=== PATIENT | female | born 1935 | race Caucasian/White ===

== ENCOUNTER → 2017-08-19 07:52 | Outpatient (CLI) | payer MEDICARE, OTHER, SELFPAY ==
[2017-08-19 10:27] LABS: AST(SGOT) 10 U/L (15-37); Alanine Aminotransfer ALT/SGPT 10 U/L (13-56); Albumin, Serum 3.4 g/dL (3.2-5.0); Alkaline Phosphatase 57 U/L (45-117); Anion Gap 9 (5-15); BUN 64 mg/dL (7-18); BUN/Creat Ratio 34.2 RATIO (10-20); Bilirubin, Direct 0.06 mg/dL (0.00-0.30); Calcium,Total 8.4 mg/dL (8.5-10.1); Chloride 104 mmol/L (98-107); Cholesterol 195 mg/dL (200); Creatinine, Serum 1.87 mg/dL (0.55-1.02); EST Glomerular Filtration Rate 28 mL/min (>60); Est Glom Filt Rate - Afr Amer 33 mL/min (>60); Globulin 3.6 g/dL (2.2-4.2); Glucose 196 mg/dL (74-106); High Density Lipoprotein 40 mg/dL; Sodium Level 137 mmol/L (136-145); Triglycerides 158 mg/dL; Very Low Density Lipoprotein 32 mg/dL (5-40)
[2017-08-19 10:30] LABS: Hemoglobin A1c 10.8 % (4.2-6.3)
[2017-08-19 10:38] LABS: Microalbumin,Random Urine 9.8 mg/L (NO RANGE EST.); Microalbumin:Creatinine Ratio 14.9 mg/g CRE (<30 mg/g CRE)
== END ==
PROVIDERS: Family Provider Family Medicine; PCP Family Medicine; Visit Provider Family Medicine
DX: E78.5 Hyperlipidemia, unspecified (principal); I10 Essential (primary) hypertension; Z13.29 Encounter for screening for other suspected endocrine disorder; E11.9 Type 2 diabetes mellitus without complications
CPT/HCPCS: 36415; 80048; 80061; 80076; 82043; 82570; 83036

== ENCOUNTER → 2018-05-20 15:11 | Outpatient (CLI) | payer MEDICARE, OTHER, SELFPAY ==
--- OUTSIDE RECORDS SUMMARY | 2018-07-03 05:59 | XMS RPT_ITS ---
:1935 Author Organization OHIP Support Name Relationship Address Phone ARCELIA SCHNEIDER Unavailable Unavailable + MARCOS HOLLEY Unavailable [address] Unavailable [place], [place] [phone] NOT GIVEN Unavailable Unavailable Unavailable ARCELIA SCHNEIDER Unavailable [address] + [place] [address] MARCOS HOLLEY Unavailable [address] + [place] [address] R Unavailable Unavailable Unavailable Abbi Schneiderhy Unavailable [address] + [place] [address] Marcos Holley Unavailable [address] + [place] [address] R Unavailable Unavailable Unavailable Abbi Schneiderhy Unavailable [address] + [place] [address] Marcos Holley Unavailable [address] + [place] [address] R Unavailable Unavailable Unavailable Abbi Schneiderhy Unavailable [address] + [place] [address] Marcos Holley Unavailable [address] + [place] [address] R Unavailable Unavailable Unavailable Abbi Schneiderhy Unavailable [address] + [place] [address] Marcos Holley Unavailable [address] + [place] [address] R Unavailable Unavailable Unavailable Abbi Schneiderhy Unavailable [address] + [place] [address] Marcos Holley Unavailable [address] + [place] [address] R Unavailable Unavailable Unavailable Wyatt, Arcelia Unavailable [address] + [place] [address] Kiner, Marcos Unavailable [address] + [place] [address] R Unavailable Unavailable Unavailable Arcelia Schneider Unavailable [address] + [place] [address] Kiner, Marcos Unavailable [address] + [place] [address] R Unavailable Unavailable Unavailable Arcelia Schneider Unavailable [address] + [place] [address] Kiner, Marcos Unavailable [address] + [place] [address] R Unavailable Unavailable Unavailable Arcelia Schneider Unavailable [address] + [place] [address] Kiner, Marcos Unavailable [address] + [place] [address] R Unavailable Unavailable Unavailable Arcelia Schneider Unavailable [address] + [place] [address] Kiner, Marcos Unavailable [address] + [place] [address] R Unavailable Unavailable Unavailable Arcelia Schneider Unavailable [address] + [place] [address] Kiner, Marcos Unavailable [address] + [place] [address] R Unavailable Unavailable Unavailable Arcelia Schneider Unavailable [address] + [place] [address] Kiner, Marcos Unavailable [address] + [place] [address] R Unavailable Unavailable Unavailable Arcelia Schneider Unavailable [address] + [place] [address] Kiner, Marcos Unavailable [address] + [place] [address] R Unavailable Unavailable Unavailable ARCELIA SCHNEIDER Unavailable Unavailable + ARCELIA SCHNEIDER Unavailable Unavailable + ARCELIA SCHNEIDER Unavailable Unavailable + BRIANDA MARCOS Unavailable [address] Unavailable [place], [place] [phone] NOT GIVEN Unavailable Unavailable Unavailable ARCELIA SCHNEIDER Unavailable [address] [facility] [phone] [place] [address] BRIANDA MARCOS Unavailable [address] + [place] [address] R Unavailable Unavailable Unavailable Care Team Providers Name Role Phone KARINA CHIRINOS., DR. MARCOS Freire Primary Care Unavailable ALEXANDRO CHIRIONS, OREN Admitting Unavailable KODI FRASER, DR. SUMI Gipson Attending Unavailable KARINA CHIRINOS, KOFFI Garcia Consulting Unavailable EDU CHIRINOS, FILI Vanessa Consulting Unavailable REUBEN CHIRINOS, PERCY Consulting Unavailable LASKOVSKI DO, ANAHI Consulting Unavailable GATABARRY DPM, KLAUS Consulting Unavailable MAGAN GUTIERREZ MD, ROGELIO RICO Consulting Unavailable PALUTSELOISE FRASER, EDDIE Zaman Consulting Unavailable FREDDIE FRASER, DR. JULIÁN Freire Consulting Unavailable EMANUEL CHIRINOS., DR. GREER Consulting Unavailable NIGEL CHIRINOS, MARKOS Jones Consulting Unavailable NGUYỄN, DR CHACE Perez Admitting Unavailable NGUYỄN, DR CHACE Perez Attending Unavailable MARCOS ARGUETA MD Referring Unavailable NGUYỄN, DR CHACE Perez Primary Care Unavailable MARCOS ARGUETA MD Consulting Unavailable PROVIDER, UNKNOWN Consulting Unavailable REGAN CARRANZA Admitting Unavailable REGAN CARRANZA Attending Unavailable REGAN CARRANZA Primary Care Unavailable MARCOS ARGUETA MD Consulting Unavailable MARCOS ARGUETA MD Referring Unavailable PROVIDER, UNKNOWN Consulting Unavailable Raudel Das Attending Unavailable Das, Raudel Attending Unavailable Das, Raudel Attending Unavailable Majano, Marcos Attending Unavailable Majano, Marcos Primary Care Unavailable Marcos Majano Attending Unavailable Marcos Majano Referring Unavailable Marcos Majano Primary Care Unavailable Raudel Das Attending Unavailable Das, Raudel Attending Unavailable Das, Raudel Attending Unavailable Das, Raudel Attending Unavailable Das, Raudel Attending Unavailable Das, Raudel Attending Unavailable Das, Raudel Attending Unavailable Das, Raudel Attending Unavailable Das, Raudel Attending Unavailable Das, Raudel Attending Unavailable PROBLEMS PROBLEMS DATE TYPE CONDITION / CODE ATTENDING STATUS SOURCE 01/27/2018 Admitting Pain in left foot / NGUYỄN, DR SANTILLAN Active [facility]t Metz Diagnosis [id number](ICD-10) C [facility] Repository 01/27/2018 Principle Type [address] CHACE Metz 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 / E1152(ICD-10) 01/27/2018 Secondary Type [address] CHACE ADRIAN Diagnosis mellitus with [facility] hyperglycemia / Hospital E1165(ICD-10) Repository 01/27/2018 Secondary Gangrene, not ADRIAN, DR CHACE Metz Diagnosis elsewhere classified [facility] / I96(ICD-10) Hospital Repository 01/27/2018 Secondary [facility] (current) NGUYỄN, 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 / [facility] Z794(ICD-10) Hospital Repository 01/27/2018 Secondary Other specified ADRIAN, DR CHACE Metz Diagnosis disorders of bone [facility] density and Hospital structure, left Repository ankle and foot / Q61686(ICD-10) 01/27/2018 Secondary Other specified NGUYỄN, DR CHACE Metz Diagnosis disorders of bone [facility] density and Hospital structure, right Repository ankle and foot / C33724(ICD-10) 01/27/2018 Secondary Atherosclerotic NGUYỄN, 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 / I2510(ICD-10) 01/27/2018 Secondary Presence of NGUYỄN, DR CHACE Metz 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 / Z951(ICD-10) Hospital Repository 09/10/2017 Unknown E78.5 - Marcos Majanooster Hyperlipidemia, Community unspecified / Hospital E78.5(ICD-10) Repository PROCEDURES PROCEDURES No Procedure Records FoundRESULTS RESULTS CBC Collected: 06/29/2018 Status: F Source: [place] 1:38 AM [facility] REPOSITORY TYPE CODE TESTS RESULT OUT OF RANGE REFERENCE UNITS LAB CBC(LOINC) CBC Result Comment: CBC-COMPLETE BLOOD COUNT LAB WBC(LOINC) 4.5 - 10.8 x 10EE3/UL WBC 8.9 LAB RBC(LOINC) 4.10 - x 10EE6/UL 5.30 RBC Low 2.40 LAB HEMOGLOBIN(LOINC) 12.0 - g/dl 16.0 Low HEMOGLOBIN 7.4 LAB HEMATOCRIT(LOINC) 34.0 - % 46.0 Low HEMATOCRIT 22.4 LAB MCV(LOINC) 80 - 99 fl MCV 93 LAB MCH(LOINC) 27 - 33 pg MCH 31 LAB MCHC(LOINC) 32 - 36 X10 3 MCHC 33 LAB RDW/CV(LOINC) 12.0 - % 15.6 RDW/CV 12.1 LAB PLATELET(LOINC) 150 - 450 x10EE3/UL PLATELET 258 LAB MPV(LOINC) 6.6 - 10.5 fl MPV Low 6.1 Result Comment: AUTOMATED DIFFERENTIAL LAB MANUAL DIFF(LOINC) MANUAL DIFF SEE BELOW LAB SEGS(LOINC) 50 - 70 % SEGS 90 High LAB LYMPH(LOINC) 20 - 40 % Low LYMPH 6 LAB MONOS(LOINC) 0 - 8 % MONOS 4 LAB MORPHOLOGY(LOINC) MORPHOLOGY REVIEWED Result Comment: {CD] Performed By: #### [id number] #### [place] [address] TROPONIN Collected: 06/29/2018 Status: F Source: [place] [address] [place] [address] REPOSITORY TYPE CODE TESTS RESULT OUT OF REFERENCE UNITS RANGE LAB TROPONIN 0.00 - 0.05 ng/ml I(LOINC) TROPONIN I 0.01 Result Comment: Elevated troponin (above the 99th percentile) usually indicates myocardial ischemia. Results must be interpreted within the clinical setting. 1.Non-ischemic pathology can also cause elevated troponin levels (e.g., acute pulmonary embolism, myocarditis, pericarditis, heart failure, intracranial injury, rhabdomyolisis, sepsis, shock and renal insufficiency). 2.Approximately 1% of healthy adults have elevated troponin levels. 3.Analytical false positive results rarely occur(due to multiple interferences such as heterophile antibodies). Performed By: #### [id number] #### [facility],[address] [place] [address] CMP WITH EGFR Collected: 06/29/2018 Status: F Source: [place] 1:[address] [place] [address] REPOSITORY TYPE CODE TESTS RESULT OUT OF RANGE REFERENCE UNITS LAB CMP with eGFR(LOINC) CMP with eGFR Result Comment: COMPREHENSIVE METABOLIC PANEL LAB SODIUM(LOINC) 136 - 145 mmol/l SODIUM Low 126 LAB POTASSIUM(LOINC) 3.5 - 5.1 mmol/L High POTASSIUM 5.8 LAB CHLORIDE(LOINC) 98 - 107 mmol/L CHLORIDE 100 LAB CO2(LOINC) 21.0 - mmol/L 31.0 CO2 Low 15.0 LAB GLUCOSE(LOINC) 74 - 106 mg/dl GLUCOSE High 415 LAB BUN(LOINC) 6 - 20 mg/dl BUN High 59 LAB CREATININE(LOINC) 0.6 - 1.2 mg/dl High CREATININE 2.6 LAB AST/SGOT(LOINC) 13 - 39 U/L AST/SGOT Low 8 LAB ALK PHOS(LOINC) 38 - 126 U/L ALK PHOS 67 LAB CALCIUM(LOINC) 8.6 - mg/dl 10.2 CALCIUM 9.3 LAB TOTAL 6.4 - 8.3 g/dl PROTEIN(LOINC) TOTAL PROTEIN 7.3 LAB ALBUMIN(LOINC) 3.4 - 4.8 g/dL ALBUMIN 3.5 LAB GLOBULIN(LOINC) 1.5 - 3.8 G/DL GLOBULIN 3.8 LAB A/G RATIO(LOINC) 0.9 - 1.6 A/G RATIO 0.9 LAB TOTAL BILI(LOINC) 0.0 - 1.5 mg/dl TOTAL BILI 0.4 LAB B/C RATIO(LOINC) 0 - 30 ratio B/C RATIO 23 LAB ALT/SGPT(LOINC) 8 - 35 U/L ALT/SGPT Low 6 LAB ANION GAP(LOINC) 10 - 20 mmol/L ANION GAP 17 LAB AGE(LOINC) years AGE 82 LAB eGFR(LOINC) 60 - 999 ML/MINUTE eGFR Low 18 LAB eGFR(AA)(LOINC) 60 - 999 ML/MINUTE eGFR(AA) Low 21 Result Comment: ACCORDING TO THE NATIONAL KIDNEY DISEASE EDUCATION PROGRAM(NKDE), A NORMAL eGFR IS A VALUE GREATER THAN OR EQUAL TO 60 ML/MIN/1.73 SQ METERS. CHRONIC KIDNEY DISEASE: <60mL/MIN/1.73 SQ METERS KIDNEY FAILURE: <15mL/MIN/1.73 SQ METERS THIS TEST SHOULD ONLY BE USED FOR PATIENTS 18 YEARS OF AGE AND OLDER. Performed By: #### [id number] #### [facility],[address] [place] [address] KETONE, BLOOD, QUAL Collected: 06/29/2018 Status: F Source: [place] 1:38 AM [facility] REPOSITORY TYPE CODE TESTS RESULT OUT OF REFERENCE UNITS RANGE LAB KETONES(LO AMARA - INC) NEGATIVE KETONES NEGATIVE Result Comment: SPECIMEN SERUM Performed By: #### [id number] #### [place],[address] [address] Observed: 05/20/2018 Status: F Source: [place] CULTURE, URINE 2:16 PM [facility] REPOSITORY Urine Culture ORGANISM 1: Escherichia coli [place] Count >100,000 Escherichia coli: REACTION Amoxacillin/Clavulanic Acid $ <=2 S Ampicillin $ 4 S Ampicillin/Sulbactam $ <=2 S Cefazolin $ <=4 S Cefepime $ <=1 S Ceftriaxone $ <=1 S Ciprofloxacin $ <=0.25 S ESBL - Ertapenim $$$ <=0.5 S Gentamicin $ <=1 S Imipenem *NF <=0.25 S Levofloxacin $ <=0.12 S Piperacillin/Tazobactam $$ <=4 S Tobramycin $ <=1 S Trimethoprim/Sulfametho $ <=20 S (NF) indicates non-formulary drug at [facility]. Approval by Infectious Disease Specialist required before non-formulary drugs may be ordered and/or dispensed. Performed By: #### M100.0650 #### [facility] [place], [address] CBC-COMPLETE BLOOD CNT Collected: 03/14/2018 Status: F Source: [place] NO DIFF 5:20 AM [facility] REPOSITORY TYPE CODE TESTS RESULT OUT OF RANGE REFERENCE UNITS LAB L100.1000 4.4-11.0 K/mm3 Low WBC 3.7 LAB L100.1200 4.2-5.4 M/mm3 Low RBC 3.23 LAB L100.1300 12.0-15.0 g/dl Low HGB 9.5 LAB L100.1400 37-47 % Low HCT 28.9 LAB L100.1500 81-99 fL Normal MCV 89.5 LAB L100.1600 27.0-32.0 pg Normal MCH 29.4 LAB L100.1700 32-36 g/gl Normal MCHC 32.9 LAB L100.1810 11.6-14.6 % Normal RDW CV 13.7 LAB L100.1820 35.1-43.9 fl Normal RDW SD 43.6 LAB L100.1900 150-450 K/mm3 Low PLT 135 LAB L100.2000 6.2-12.0 fl Normal MPV 9.1 Performed By: #### L100.0500 #### [facility] [address] [place], [place], [address] BASIC METABOLIC Collected: 03/14/2018 Status: F Source: [place] PROFILE (BMP) 5:20 AM [facility] REPOSITORY TYPE CODE TESTS RESULT OUT OF RANGE REFERENCE UNITS LAB L501.0100 74-106 mg/dL Low GLU 69 Result Comment: Please note revised GLUCOSE reference range effective 2017. LAB L501.1000 7-18 mg/dL High BUN 32 LAB L501.1100 0.55-1.02 mg/dL High CREAT,SERUM 1.46 Result Comment: The validity of the calculated GFR AND GFRAA in patients over 70 years has not been determined. Clinical correlation is essential. LAB L501.1110 >60 mL/min Low EST GFR 37 Result Comment: Non- GFR Calc LAB L501.1115 >60 mL/min Low EST GFR - AA 44 Result Comment: GFR Calc LAB L501.1300 10-20 RATIO High BUN/CRE 21.9 LAB L501.2200 8.5-10.1 mg/dL CA Normal 8.5 LAB L501.5300 136-145 mmol/L NA Normal 142 LAB L501.5600 3.5-5.1 mmol/L K Normal 3.9 LAB L501.5900 98-107 mmol/L High CL 109 LAB L501.6100 21.0-32.0 mmol/L Normal CO2 26.0 LAB L501.6200 5-15 Normal GAP 7 Performed By: #### L500.2500 #### [facility] [address] [place], [address] VANCOMYCIN, TROUGH Collected: 03/10/2018 Status: F Source: [place] LEVEL 7:00 AM [facility] REPOSITORY Order Comment: Time Medication is to be Given? 0800 TYPE CODE TESTS RESULT OUT OF REFERENCE UNITS RANGE LAB L501.8820 5.0-15.0 ug/mL High VANCO, TROUGH 16.4 Result Comment: VANCOMYCIN STANDARED DRUG THERAPY TROUGH LEVEL: 5.0 - 15.0 mg/L VANCOMYCIN HIGH INTENSITY THERAPY TROUGH LEVEL: 15.0 - 20.0 mg/L High Intensity therapy recommended for serious life threatening infections include: - Meningitis -Endocarditis -Pneumonia (Ventilator/Healtcare Associated) -Sepsis PLEASE CONTACT PHARMACY SERVICES (#[id number]) FOR INTERPRETATION OF RESULTS. Performed By: #### L501.8820 #### [facility] [address] [place], [place], [id number] CBC-COMPLETE BLOOD CNT Collected: 03/07/2018 Status: F Source: [place] NO DIFF 7:35 AM [facility] REPOSITORY Order Comment: 405 TYPE CODE TESTS RESULT OUT OF RANGE REFERENCE UNITS LAB L100.1000 4.4-11.0 K/mm3 Low WBC 3.6 LAB L100.1200 4.2-5.4 M/mm3 Low RBC 3.74 LAB L100.1300 12.0-15.0 g/dl Low HGB 10.6 LAB L100.1400 37-47 % Low HCT 33.5 LAB L100.1500 81-99 fL Normal MCV 89.6 LAB L100.1600 27.0-32.0 pg Normal MCH 28.3 LAB L100.1700 32-36 g/gl Low MCHC 31.6 LAB L100.1810 11.6-14.6 % Normal RDW CV 14.1 LAB L100.1820 35.1-43.9 fl High RDW SD 46.1 LAB L100.1900 150-450 K/mm3 Normal PLT 151 LAB L100.2000 6.2-12.0 fl Normal MPV 8.4 Performed By: #### L100.0500 #### [facility] [address] [place], [place], [address] BASIC METABOLIC Collected: 03/07/2018 Status: F Source: [place] PROFILE (BMP) 7:35 AM [facility] REPOSITORY Order Comment: 405 TYPE CODE TESTS RESULT OUT OF RANGE REFERENCE UNITS LAB L501.0100 74-106 mg/dL Normal GLU 82 Result Comment: Please note revised GLUCOSE reference range effective 2017. LAB L501.1000 7-18 mg/dL High BUN 25 LAB L501.1100 0.55-1.02 mg/dL High CREAT,SERUM 1.24 Result Comment: The validity of the calculated GFR AND GFRAA in patients over 70 years has not been determined. Clinical correlation is essential. LAB L501.1110 >60 mL/min Low EST GFR 44 Result Comment: Non- GFR Calc LAB L501.1115 >60 mL/min Low EST GFR - AA 53 Result Comment: GFR Calc LAB L501.1300 10-20 RATIO High BUN/CRE 20.2 LAB L501.2200 8.5-10.1 mg/dL CA Normal 8.9 LAB L501.5300 136-145 mmol/L NA Normal 142 LAB L501.5600 3.5-5.1 mmol/L K Normal 3.8 LAB L501.5900 98-107 mmol/L High CL 108 LAB L501.6100 21.0-32.0 mmol/L Normal CO2 28.0 LAB L501.6200 5-15 Normal GAP 6 Performed By: #### L500.2500 #### [facility] [address] [place], [place], [address] VANCOMYCIN, TROUGH Collected: 03/07/2018 Status: F Source: [place] LEVEL 7:35 AM [facility] REPOSITORY Order Comment: 405 Time Medication is to be Given? 0800 TYPE CODE TESTS RESULT OUT OF REFERENCE UNITS RANGE LAB L501.8820 5.0-15.0 ug/mL High VANCO, TROUGH 19.5 Result Comment: VANCOMYCIN STANDARED DRUG THERAPY TROUGH LEVEL: 5.0 - 15.0 mg/L VANCOMYCIN HIGH INTENSITY THERAPY TROUGH LEVEL: 15.0 - 20.0 mg/L High Intensity therapy recommended for serious life threatening infections include: - Meningitis -Endocarditis -Pneumonia (Ventilator/Healtcare Associated) -Sepsis PLEASE CONTACT PHARMACY SERVICES (#[id number]) FOR INTERPRETATION OF RESULTS. Performed By: #### L501.8820 #### [facility] [address] [place], [address] VANCOMYCIN, TROUGH Collected: 03/03/2018 Status: F Source: [place] LEVEL 7:00 AM [facility] REPOSITORY Order Comment: ROOM 405 Time Medication is to be Given? 0800 TYPE CODE TESTS RESULT OUT OF REFERENCE UNITS RANGE LAB L501.8820 5.0-15.0 ug/mL High VANCO, TROUGH 15.4 Result Comment: VANCOMYCIN STANDARED DRUG THERAPY TROUGH LEVEL: 5.0 - 15.0 mg/L VANCOMYCIN HIGH INTENSITY THERAPY TROUGH LEVEL: 15.0 - 20.0 mg/L High Intensity therapy recommended for serious life threatening infections include: - Meningitis -Endocarditis -Pneumonia (Ventilator/Healtcare Associated) -Sepsis PLEASE CONTACT PHARMACY SERVICES (#[id number]) FOR INTERPRETATION OF RESULTS. Performed By: #### L501.8820 #### [facility] [address] [facility] [place], [address] VANCOMYCIN, TROUGH Collected: 03/01/2018 Status: F Source: [place] LEVEL 7:00 AM [facility] REPOSITORY Order Comment: Time Medication is to be Given? 0800 TYPE CODE TESTS RESULT OUT OF REFERENCE UNITS RANGE LAB L501.8820 5.0-15.0 ug/mL High VANCO, TROUGH 25.4 Result Comment: VANCOMYCIN STANDARED DRUG THERAPY TROUGH LEVEL: 5.0 - 15.0 mg/L VANCOMYCIN HIGH INTENSITY THERAPY TROUGH LEVEL: 15.0 - 20.0 mg/L High Intensity therapy recommended for serious life threatening infections include: - Meningitis -Endocarditis -Pneumonia (Ventilator/Healtcare Associated) -Sepsis PLEASE CONTACT PHARMACY SERVICES (#[id number]) FOR INTERPRETATION OF RESULTS. Performed By: #### L501.8820 #### [facility] [address] [place], [place], [address] CBC-COMPLETE BLOOD CNT Collected: 02/28/2018 Status: F Source: [place] NO DIFF 5:00 AM [facility] REPOSITORY Order Comment: 405 TYPE CODE TESTS RESULT OUT OF RANGE REFERENCE UNITS LAB L100.1000 4.4-11.0 K/mm3 Low WBC 3.2 LAB L100.1200 4.2-5.4 M/mm3 Low RBC 3.15 LAB L100.1300 12.0-15.0 g/dl Low HGB 9.4 LAB L100.1400 37-47 % Low HCT 29.2 LAB L100.1500 81-99 fL Normal MCV 92.7 LAB L100.1600 27.0-32.0 pg Normal MCH 29.8 LAB L100.1700 32-36 g/gl Normal MCHC 32.2 LAB L100.1810 11.6-14.6 % Normal RDW CV 14.1 LAB L100.1820 35.1-43.9 fl High RDW SD 46.1 LAB L100.1900 150-450 K/mm3 Normal PLT 184 LAB L100.2000 6.2-12.0 fl Normal MPV 8.7 Performed By: #### L100.0500, L101.9900 #### [facility] [address] [place], [address] ERYTHROCYTE SED RATE Collected: 02/28/2018 Status: F Source: [place] 5:00 AM [facility] REPOSITORY Order Comment: 405 TYPE CODE TESTS RESULT OUT OF RANGE REFERENCE UNITS LAB L102.0000 0-30 mm/hr High SED RATE 58 Performed By: #### L100.0500, L101.9900 #### [facility] [address] [place], [address] BASIC METABOLIC Collected: 02/28/2018 Status: F Source: [place] PROFILE (BMP) 5:00 AM [facility] REPOSITORY Order Comment: 405 TYPE CODE TESTS RESULT OUT OF RANGE REFERENCE UNITS LAB L501.0100 74-106 mg/dL Normal GLU 80 Result Comment: Please note revised GLUCOSE reference range effective 2017. LAB L501.1000 7-18 mg/dL High BUN 32 LAB L501.1100 0.55-1.02 mg/dL High CREAT,SERUM 1.47 Result Comment: The validity of the calculated GFR AND GFRAA in patients over 70 years has not been determined. Clinical correlation is essential. LAB L501.1110 >60 mL/min Low EST GFR 36 Result Comment: Non- GFR Calc LAB L501.1115 >60 mL/min Low EST GFR - AA 44 Result Comment: GFR Calc LAB L501.1300 10-20 RATIO High BUN/CRE 21.8 LAB L501.2200 8.5-10.1 mg/dL CA Normal 8.5 LAB L501.5300 136-145 mmol/L NA Normal 142 LAB L501.5600 3.5-5.1 mmol/L K Normal 4.1 LAB L501.5900 98-107 mmol/L High CL 108 LAB L501.6100 21.0-32.0 mmol/L Normal CO2 26.0 LAB L501.6200 5-15 Normal GAP 8 Performed By: #### L500.2500 #### [facility] [address] [place], [address] VANCOMYCIN, TROUGH Collected: 02/28/2018 Status: F Source: [place] LEVEL 5:00 AM [facility] REPOSITORY Order Comment: MISTAKINGLY MARI THIS TOO EARLY, HALIMA SAID OKAY TO REDRAW AT 0805, SHE STILL HADN'T GIVEN VANC TO PATIENT DELAYED 1 HR DUE TO ANOTHER IV RUNNING Time Medication is to be Given? 0900 TYPE CODE TESTS RESULT OUT OF REFERENCE UNITS RANGE LAB L501.8820 5.0-15.0 ug/mL High VANCO, TROUGH 22.6 Result Comment: VANCOMYCIN STANDARED DRUG THERAPY TROUGH LEVEL: 5.0 - 15.0 mg/L VANCOMYCIN HIGH INTENSITY THERAPY TROUGH LEVEL: 15.0 - 20.0 mg/L High Intensity therapy recommended for serious life threatening infections include: - Meningitis -Endocarditis -Pneumonia (Ventilator/Healtcare Associated) -Sepsis PLEASE CONTACT PHARMACY SERVICES (#[id number]) FOR INTERPRETATION OF RESULTS. Performed By: #### L501.8820 #### [facility] [address] [place], [address] VANCOMYCIN, TROUGH Collected: 02/25/2018 Status: F Source: [place] LEVEL 7:15 AM [facility] REPOSITORY Order Comment: ROOM 405 Time Medication is to be Given? 0800 TYPE CODE TESTS RESULT OUT OF RANGE REFERENCE UNITS LAB L501.8820 5.0-15.0 ug/mL Normal VANCO, TROUGH 12.2 Result Comment: VANCOMYCIN STANDARED DRUG THERAPY TROUGH LEVEL: 5.0 - 15.0 mg/L VANCOMYCIN HIGH INTENSITY THERAPY TROUGH LEVEL: 15.0 - 20.0 mg/L High Intensity therapy recommended for serious life threatening infections include: - Meningitis -Endocarditis -Pneumonia (Ventilator/Healtcare Associated) -Sepsis PLEASE CONTACT PHARMACY SERVICES (#[id number]) FOR INTERPRETATION OF RESULTS. Performed By: #### L501.8820 #### [facility] [address] [place], [address] VANCOMYCIN, RANDOM Collected: 02/24/2018 Status: F Source: [facility] 5:50 AM [facility] REPOSITORY Order Comment: ROOM 405 TYPE CODE TESTS RESULT OUT OF RANGE REFERENCE UNITS LAB L501.8850 0.0-15.0 ug/mL Normal VANCO, RANDOM 14.8 Result Comment: VANCOMYCIN STANDARD DRUG THERAPY: CRITICAL VALUE IS > 15.0 mg/L VANCOMYCIN HIGH INTENSITY THERAPY: CRITICAL VALUE IS > 20.0 mg/L PLEASE CONTACT PHARMACY SERVICES (#[id number]) FOR INTERPRETATION OF RESULTS. THIS RESULT DOES NOT REPRESENT A PEAK OR TROUGH LEVEL FOR THIS DRUG. Performed By: #### L501.8850 #### [facility] [address] [place], [place], [id number] VANCOMYCIN, RANDOM Collected: 02/23/2018 Status: F Source: [facility] 6:10 AM [facility] REPOSITORY Order Comment: 405 TYPE CODE TESTS RESULT OUT OF REFERENCE UNITS RANGE LAB L501.8850 0.0-15.0 ug/mL High VANCO, RANDOM 18.4 Result Comment: VANCOMYCIN STANDARD DRUG THERAPY: CRITICAL VALUE IS > 15.0 mg/L VANCOMYCIN HIGH INTENSITY THERAPY: CRITICAL VALUE IS > 20.0 mg/L PLEASE CONTACT PHARMACY SERVICES (#[id number]) FOR INTERPRETATION OF RESULTS. THIS RESULT DOES NOT REPRESENT A PEAK OR TROUGH LEVEL FOR THIS DRUG. Performed By: #### L501.8850 #### [facility] [address] [place], [place], [address] VANCOMYCIN, RANDOM Collected: 02/22/2018 Status: F Source: [facility] 8:05 AM [facility] REPOSITORY Order Comment: ROOM 405 TYPE CODE TESTS RESULT OUT OF REFERENCE UNITS RANGE LAB L501.8850 0.0-15.0 ug/mL High VANCO, RANDOM 22.4 Result Comment: VANCOMYCIN STANDARD DRUG THERAPY: CRITICAL VALUE IS > 15.0 mg/L VANCOMYCIN HIGH INTENSITY THERAPY: CRITICAL VALUE IS > 20.0 mg/L PLEASE CONTACT PHARMACY SERVICES (#[id number]) FOR INTERPRETATION OF RESULTS. THIS RESULT DOES NOT REPRESENT A PEAK OR TROUGH LEVEL FOR THIS DRUG. Performed By: #### L501.8850 #### [facility] [address] [place], [place], [address] ERYTHROCYTE SED RATE Collected: 02/21/2018 Status: F Source: [place] 7:00 AM [facility] REPOSITORY Order Comment: 405-1 TYPE CODE TESTS RESULT OUT OF RANGE REFERENCE UNITS LAB L102.0000 0-30 mm/hr High SED RATE 44 Performed By: #### L101.9900, L100.0500 #### [facility] [address] [place], [place], [id number] CBC-COMPLETE BLOOD CNT Collected: 02/21/2018 Status: F Source: [place] NO DIFF 7:00 AM [facility] REPOSITORY Order Comment: 405-1 TYPE CODE TESTS RESULT OUT OF RANGE REFERENCE UNITS LAB L100.1000 4.4-11.0 K/mm3 Normal WBC 5.7 LAB L100.1200 4.2-5.4 M/mm3 Low RBC 3.43 LAB L100.1300 12.0-15.0 g/dl Low HGB 9.9 LAB L100.1400 37-47 % Low HCT 31.6 LAB L100.1500 81-99 fL Normal MCV 92.1 LAB L100.1600 27.0-32.0 pg Normal MCH 28.9 LAB L100.1700 32-36 g/gl Low MCHC 31.3 LAB L100.1810 11.6-14.6 % Normal RDW CV 14.4 LAB L100.1820 35.1-43.9 fl High RDW SD 47.7 LAB L100.1900 150-450 K/mm3 Normal PLT 262 LAB L100.2000 6.2-12.0 fl Normal MPV 8.2 Performed By: #### L101.9900, L100.0500 #### [facility] [address] [place], [place], [address] BASIC METABOLIC Collected: 02/21/2018 Status: F Source: [place] PROFILE (BMP) 7:00 AM [facility] REPOSITORY Order Comment: 405-1 TYPE CODE TESTS RESULT OUT OF RANGE REFERENCE UNITS LAB L501.0100 74-106 mg/dL High GLU 110 Result Comment: Fasting Glucose result from 100 to 125 mg/dL suggests IMPAIRED HOMEOSTASIS per A.D.A. criteria. Please note revised GLUCOSE reference range effective 2017. LAB L501.1000 7-18 mg/dL High BUN 26 LAB L501.1100 0.55-1.02 mg/dL High CREAT,SERUM 1.36 Result Comment: The validity of the calculated GFR AND GFRAA in patients over 70 years has not been determined. Clinical correlation is essential. LAB L501.1110 >60 mL/min Low EST GFR 40 Result Comment: Non- GFR Calc LAB L501.1115 >60 mL/min Low EST GFR - AA 48 Result Comment: GFR Calc LAB L501.1300 10-20 RATIO Normal BUN/CRE 19.1 LAB L501.2200 8.5-10.1 mg/dL Low CA 8.3 LAB L501.5300 136-145 mmol/L NA Normal 143 LAB L501.5600 3.5-5.1 mmol/L K Normal 4.3 LAB L501.5900 98-107 mmol/L High CL 108 LAB L501.6100 21.0-32.0 mmol/L Normal CO2 28.0 LAB L501.6200 5-15 Normal GAP 7 Performed By: #### L500.2500 #### [facility] [address] [facility] [place], [place], [address] VANCOMYCIN, TROUGH Collected: 02/21/2018 Status: F Source: [place] LEVEL 7:00 AM [facility] REPOSITORY Order Comment: 405-1 Time Medication is to be Given? 0800 TYPE CODE TESTS RESULT OUT OF REFERENCE UNITS RANGE LAB L501.8820 5.0-15.0 ug/mL High VANCO, TROUGH 31.2 Result Comment: VANCOMYCIN STANDARED DRUG THERAPY TROUGH LEVEL: 5.0 - 15.0 mg/L VANCOMYCIN HIGH INTENSITY THERAPY TROUGH LEVEL: 15.0 - 20.0 mg/L High Intensity therapy recommended for serious life threatening infections include: - Meningitis -Endocarditis -Pneumonia (Ventilator/Healtcare Associated) -Sepsis PLEASE CONTACT PHARMACY SERVICES (#[id number]) FOR INTERPRETATION OF RESULTS. Performed By: #### L501.8820 #### [facility] [address] [place], [address] CBC-COMPLETE BLOOD CNT Collected: 02/16/2018 Status: F Source: [place] NO DIFF 6:10 AM [facility] REPOSITORY Order Comment: ROOM 405 TYPE CODE TESTS RESULT OUT OF RANGE REFERENCE UNITS LAB L100.1000 4.4-11.0 K/mm3 Normal WBC 7.3 LAB L100.1200 4.2-5.4 M/mm3 Low RBC 3.08 LAB L100.1300 12.0-15.0 g/dl Low HGB 9.1 LAB L100.1400 37-47 % Low HCT 28.6 LAB L100.1500 81-99 fL Normal MCV 92.9 LAB L100.1600 27.0-32.0 pg Normal MCH 29.5 LAB L100.1700 32-36 g/gl Low MCHC 31.8 LAB L100.1810 11.6-14.6 % Normal RDW CV 13.5 LAB L100.1820 35.1-43.9 fl High RDW SD 44.3 LAB L100.1900 150-450 K/mm3 Normal PLT 312 LAB L100.2000 6.2-12.0 fl Normal MPV 8.8 Performed By: #### L100.0500 #### [facility] [address] [place], [address] BASIC METABOLIC Collected: 02/16/2018 Status: F Source: [place] PROFILE (BMP) 6:10 AM [facility] REPOSITORY Order Comment: ROOM 405 TYPE CODE TESTS RESULT OUT OF RANGE REFERENCE UNITS LAB L501.0100 74-106 mg/dL High GLU 450 Result Comment: Glucose result greater than or equal to 200 mg/dL suggests DIABETES MELLITUS per A.D.A. criteria. Please note revised GLUCOSE reference range effective 2017. LAB L501.1000 7-18 mg/dL High BUN 34 LAB L501.1100 0.55-1.02 mg/dL High CREAT,SERUM 1.69 Result Comment: The validity of the calculated GFR AND GFRAA in patients over 70 years has not been determined. Clinical correlation is essential. LAB L501.1110 >60 mL/min Low EST GFR 31 Result Comment: Non- GFR Calc LAB L501.1115 >60 mL/min Low EST GFR - AA 37 Result Comment: GFR Calc LAB L501.1300 10-20 RATIO High BUN/CRE 20.1 LAB L501.2200 8.5-10.1 mg/dL Low CA 8.2 LAB L501.5300 136-145 mmol/L NA Normal 139 LAB L501.5600 3.5-5.1 mmol/L K Normal 5.1 LAB L501.5900 98-107 mmol/L CL Normal 106 LAB L501.6100 21.0-32.0 mmol/L Low CO2 20.0 LAB L501.6200 5-15 Normal GAP 13 Performed By: #### L500.2500 #### [facility] [address] [place], [address] HEMOGLOBIN A1C Collected: 02/16/2018 Status: F Source: [place] 6:10 AM [facility] REPOSITORY Order Comment: ROOM 405 TYPE CODE TESTS RESULT OUT OF RANGE REFERENCE UNITS LAB L501.9985 4.2-6.3 % High HGB A1C 7.9 Performed By: #### L501.9985 #### [facility] [address] [facility], [address] BASIC METABOLIC Collected: 02/14/2018 Status: F Source: [place] PROFILE (BMP) 7:05 AM [facility] REPOSITORY Order Comment: 405 TYPE CODE TESTS RESULT OUT OF RANGE REFERENCE UNITS LAB L501.0100 74-106 mg/dL High GLU 248 Result Comment: Glucose result greater than or equal to 200 mg/dL suggests DIABETES MELLITUS per A.D.A. criteria. Please note revised GLUCOSE reference range effective 2017. LAB L501.1000 7-18 mg/dL High BUN 25 LAB L501.1100 0.55-1.02 mg/dL High CREAT,SERUM 1.21 Result Comment: The validity of the calculated GFR AND GFRAA in patients over 70 years has not been determined. Clinical correlation is essential. LAB L501.1110 >60 mL/min Low EST GFR 45 Result Comment: Non- GFR Calc LAB L501.1115 >60 mL/min Low EST GFR - AA 55 Result Comment: GFR Calc LAB L501.1300 10-20 RATIO High BUN/CRE 20.7 LAB L501.2200 8.5-10.1 mg/dL Low CA 8.1 LAB L501.5300 136-145 mmol/L NA Normal 143 LAB L501.5600 3.5-5.1 mmol/L K Normal 4.5 LAB L501.5900 98-107 mmol/L High CL 108 LAB L501.6100 21.0-32.0 mmol/L Normal CO2 25.0 LAB L501.6200 5-15 Normal GAP 10 Performed By: #### L500.2500, L501.1800, L506.0500 #### [facility] [address] [place], [address] ALBUMIN, SERUM Collected: 02/14/2018 Status: F Source: [place] 7:05 AM [facility] REPOSITORY Order Comment: 405 TYPE CODE TESTS RESULT OUT OF RANGE REFERENCE UNITS LAB L501.1800 3.2-5.0 g/dL Low ALB 1.8 Performed By: #### L500.2500, L501.1800, L506.0500 #### [facility] [address] [place], [address] PREALBUMIN Collected: 02/14/2018 Status: F Source: [place] 7:05 [facility] REPOSITORY Order Comment: 405 TYPE CODE TESTS RESULT OUT OF REFERENCE UNITS RANGE LAB L506.0500 20.0-40.0 mg/dL Low PREALBUMIN 8.3 Performed By: #### L500.2500, L501.1800, L506.0500 #### [facility] [address] [place], [address] CBC-COMPLETE BLOOD CNT Collected: 02/14/2018 Status: F Source: [place] NO DIFF 7:05 AM [facility] REPOSITORY Order Comment: 405 TYPE CODE TESTS RESULT OUT OF RANGE REFERENCE UNITS LAB L100.1000 4.4-11.0 K/mm3 Normal WBC 4.9 LAB L100.1200 4.2-5.4 M/mm3 Low RBC 3.19 LAB L100.1300 12.0-15.0 g/dl Low HGB 9.2 LAB L100.1400 37-47 % Low HCT 29.1 LAB L100.1500 81-99 fL Normal MCV 91.2 LAB L100.1600 27.0-32.0 pg Normal MCH 28.8 LAB L100.1700 32-36 g/gl Low MCHC 31.6 LAB L100.1810 11.6-14.6 % Normal RDW CV 13.8 LAB L100.1820 35.1-43.9 fl High RDW SD 46.4 LAB L100.1900 150-450 K/mm3 Normal PLT 298 LAB L100.2000 6.2-12.0 fl Normal MPV 8.3 Performed By: #### L100.0500, L101.9900 #### [facility] [address] [place], [address] ERYTHROCYTE SED RATE Collected: 02/14/2018 Status: F Source: [place] 7:05 AM [facility] REPOSITORY Order Comment: 405 TYPE CODE TESTS RESULT OUT OF RANGE REFERENCE UNITS LAB L102.0000 0-30 mm/hr High SED RATE 93 Performed By: #### L100.0500, L101.9900 #### [facility] [address] [place], [address] VANCOMYCIN, TROUGH Collected: 02/14/2018 Status: F Source: [facility] 7:05 AM [facility] REPOSITORY Order Comment: 405 Time Medication is to be Given? 0800 TYPE CODE TESTS RESULT OUT OF REFERENCE UNITS RANGE LAB L501.8820 5.0-15.0 ug/mL High VANCO, TROUGH 21.4 Result Comment: VANCOMYCIN STANDARED DRUG THERAPY TROUGH LEVEL: 5.0 - 15.0 mg/L VANCOMYCIN HIGH INTENSITY THERAPY TROUGH LEVEL: 15.0 - 20.0 mg/L High Intensity therapy recommended for serious life threatening infections include: - Meningitis -Endocarditis -Pneumonia (Ventilator/Healtcare Associated) -Sepsis PLEASE CONTACT PHARMACY SERVICES (#[id number]) FOR INTERPRETATION OF RESULTS. Performed By: #### L501.8820 #### [facility] [address] [facility] [place], [place], [address] CBC Collected: 02/11/2018 Status: F Source: [facility] 5:09 AM [facility] REPOSITORY TYPE CODE TESTS RESULT OUT OF REFERENCE UNITS RANGE LAB WBC(LOINC) 4.50-10.80 10 3/mcL WBC 9.70 LAB RBCCT(LOINC 4.10-5.30 10 6/mcL ) Low RBC 2.98 LAB HGB(LOINC) 12.0-16.0 G/dL Low Hgb 9.2 LAB HCT(LOINC) 34.0-46.0 % Low Hct 26.1 LAB MCV(LOINC) 80.0-99.0 fL MCV 87.4 LAB MCH(LOINC) 27.0-33.0 pg MCH 30.8 LAB MCHC(LOINC) 32.0-36.0 G/dL MCHC 35.2 LAB RDW(LOINC) 11.5-15.5 % RDW 13.9 LAB PLT(LOINC) 150-450 10 3/mcL Platelet 272 LAB MPV(LOINC) 6.6-10.5 fL Low MPV 6.2 Performed By: #### CBC, ADIFF, ANEU, BMP, MG, GFR #### [address] [address] .AUTO DIFF Collected: 02/11/2018 Status: F Source: [facility] 5:09 [facility] REPOSITORY TYPE CODE TESTS RESULT OUT OF REFERENCE UNITS RANGE LAB SWAPNIL(LOINC) 50.0-75.0 % High Neutrophil % 85.7 LAB LYM(LOINC) 20.0-40.0 % Low Lymphocyte % 6.2 LAB MON(LOINC) 2.0-13.0 % Monocyte % 7.2 LAB EO(LOINC) 0.0-6.0 % Eosinophil % 0.6 LAB BAS(LOINC) 0.0-2.5 % Basophil % 0.3 LAB ABLYM(LOIN 0.90-4.32 10 3/mcL C) Low Lymphocyte, 0.60 Absolute LAB RIKI(LOINC 0.09-1.40 10 3/mcL ) Monocyte, 0.70 Absolute LAB AEOS(LOINC 0.00-0.65 10 3/mcL ) Eosinophil, 0.10 Absolute LAB ABAS(LOINC 0.00-0.27 10 3/mcL ) Basophil, 0.00 Absolute Performed By: #### CBC, ADIFF, ANEU, BMP, MG, GFR #### [address] [address] .NEUABS Collected: 02/11/2018 Status: F Source: [facility] 5:09 [facility] REPOSITORY TYPE CODE TESTS RESULT OUT OF REFERENCE UNITS RANGE LAB ANEU(LOINC) 2.25-8.10 10 3/mcL High Neutrophil, 8.30 Absolute Performed By: #### CBC, ADIFF, ANEU, BMP, MG, GFR #### [place] [address] BMP Collected: 02/11/2018 Status: F Source: [facility] 5:09 AM [facility] REPOSITORY TYPE CODE TESTS RESULT OUT OF REFERENCE UNITS RANGE LAB GLU(LOINC) 82-115 mg/dL Glucose Level 90 LAB NA(LOINC) 136-145 mEq/L Sodium Level 138 LAB K(LOINC) 3.5-5.0 mEq/L Potassium Level 4.5 LAB CL(LOINC) 98-110 mEq/L Chloride 107 LAB CO2(LOINC) 22-32 mEq/L CO2 24 LAB EBAL(LOINC 4.0-15.0 mEq/L ) Electrolyte Balance 7.0 LAB BUN(LOINC) 8.0-22.0 mg/dL BUN High 23.0 LAB CRE(LOINC) 0.50-1.20 mg/dL Creatinine Lvl (s) 1.09 LAB BC(LOINC) 10.0-22.0 ratio BUN/Creatinine 21.1 Ratio LAB CA(LOINC) 8.4-10.1 mg/dL Low Calcium Lvl 7.6 Performed By: #### CBC, ADIFF, ANEU, BMP, MG, GFR #### [place] [address] MG Collected: 02/11/2018 Status: F Source: [facility] 5:09 AM [facility] REPOSITORY TYPE CODE TESTS RESULT OUT OF REFERENCE UNITS RANGE LAB MG(LOINC) 1.6-2.4 mg/dL Magnesium Lvl 2.2 Performed By: #### CBC, ADIFF, ANEU, BMP, MG, GFR #### [place] [address] .GFR Collected: 02/11/2018 Status: F Source: [facility] 5:09 AM [facility] REPOSITORY TYPE CODE TESTS RESULT OUT OF REFERENCE UNITS RANGE LAB GFRAA(LOINC ml/min/1.73 ) sqm GFR 58 [place] Result Comment: GFR Population mean for , Non- Americans Ages 20-29 = 116 mL/min/1.73 sq.m. Ages 30-39 = 107 mL/min/1.73 sq.m. Ages 40-49 = 99 mL/min/1.73 sq.m. Ages 50-59 = 93 mL/min/1.73 sq.m. Ages 60-69 = 85 mL/min/1.73 sq.m. Ages 70+ = 75 mL/min/1.73 sq.m. Chronic Kidney Disease: Less than 60 mL/min/1.73 square meters End Stage Renal Disease: Less than 15 mL/min/1.73 square meters LAB GFRNO(LOINC) ml/min/1.73sqm GFR Non- 48 Result Comment: GFR Population mean for , Non- Americans Ages 20-29 = 116 mL/min/1.73 sq.m. Ages 30-39 = 107 mL/min/1.73 sq.m. Ages 40-49 = 99 mL/min/1.73 sq.m. Ages 50-59 = 93 mL/min/1.73 sq.m. Ages 60-69 = 85 mL/min/1.73 sq.m. Ages 70+ = 75 mL/min/1.73 sq.m. Chronic Kidney Disease: Less than 60 mL/min/1.73 square meters End Stage Renal Disease: Less than 15 mL/min/1.73 square meters Performed By: #### CBC, ADIFF, ANEU, BMP, MG, GFR #### [place] [address] TABO Collected: 02/10/2018 Status: F Source: [facility] 9:37 AM [facility] REPOSITORY TYPE CODE TESTS RESULT OUT OF RANGE REFERENCE UNITS LAB ABORH(LOINC ) Unknown ABO/Rh A POS Interp Performed By: #### ABORH, ANTIS #### [place] [address] TABS Collected: 02/10/2018 Status: F Source: [facility] 9:37 AM [facility] REPOSITORY TYPE CODE TESTS RESULT OUT OF REFERENCE UNITS RANGE LAB ANST(LOINC ) Antibody Negative ABSC Screen Tango Performed By: #### ABORH, ANTIS #### [place] [address] RBC (PRODUCT) Collected: 02/10/2018 Status: F Source: [facility] 8:58 AM [facility] REPOSITORY TYPE CODE TESTS RESULT OUT OF REFERENCE UNITS RANGE LAB RBCPR(LOINC ) RBC Product RBC Ready Ready for Pickup Performed By: #### RBCP #### [place] [id number] CBC Collected: 02/10/2018 Status: F Source: [facility] 4:46 [facility] REPOSITORY TYPE CODE TESTS RESULT OUT OF REFERENCE UNITS RANGE LAB WBC(LOINC) 4.50-10.80 10 3/mcL WBC 7.70 LAB RBCCT(LOINC 4.10-5.30 10 6/mcL ) Low RBC 2.54 LAB HGB(LOINC) 12.0-16.0 G/dL Low Hgb 7.6 LAB HCT(LOINC) 34.0-46.0 % Low Hct 22.6 LAB MCV(LOINC) 80.0-99.0 fL MCV 89.0 LAB MCH(LOINC) 27.0-33.0 pg MCH 29.8 LAB MCHC(LOINC) 32.0-36.0 G/dL MCHC 33.4 LAB RDW(LOINC) 11.5-15.5 % RDW 13.9 LAB PLT(LOINC) 150-450 10 3/mcL Platelet 242 LAB MPV(LOINC) 6.6-10.5 fL Low MPV 6.2 Performed By: #### CBC, ADIFF, ANEU, BMP, GFR #### [place] [address] .AUTO DIFF Collected: 02/10/2018 Status: F Source: [facility] 4:46 [facility] REPOSITORY TYPE CODE TESTS RESULT OUT OF REFERENCE UNITS RANGE LAB SWAPNIL(LOINC) 50.0-75.0 % High Neutrophil % 81.0 LAB LYM(LOINC) 20.0-40.0 % Low Lymphocyte % 7.7 LAB MON(LOINC) 2.0-13.0 % Monocyte % 10.0 LAB EO(LOINC) 0.0-6.0 % Eosinophil % 0.9 LAB BAS(LOINC) 0.0-2.5 % Basophil % 0.4 LAB ABLYM(LOIN 0.90-4.32 10 3/mcL C) Low Lymphocyte, 0.60 Absolute LAB RIKI(LOINC 0.09-1.40 10 3/mcL ) Monocyte, 0.80 Absolute LAB AEOS(LOINC 0.00-0.65 10 3/mcL ) Eosinophil, 0.10 Absolute LAB ABAS(LOINC 0.00-0.27 10 3/mcL ) Basophil, 0.00 Absolute Performed By: #### CBC, ADIFF, ANEU, BMP, GFR #### [address] [address] .NEUABS Collected: 02/10/2018 Status: F Source: [facility] 4:46 AM [facility] REPOSITORY TYPE CODE TESTS RESULT OUT OF REFERENCE UNITS RANGE LAB ANEU(LOINC) 2.25-8.10 10 3/mcL Neutrophil, 6.30 Absolute Performed By: #### CBC, ADIFF, ANEU, BMP, GFR #### [address] [address] BMP Collected: 02/10/2018 Status: F Source: [facility] 4:46 AM [facility] REPOSITORY TYPE CODE TESTS RESULT OUT OF REFERENCE UNITS RANGE LAB GLU(LOINC) 82-115 mg/dL Glucose Level 96 LAB NA(LOINC) 136-145 mEq/L Sodium Level 140 LAB K(LOINC) 3.5-5.0 mEq/L Potassium Level 4.3 LAB CL(LOINC) 98-110 mEq/L Chloride 109 LAB CO2(LOINC) 22-32 mEq/L CO2 24 LAB EBAL(LOINC 4.0-15.0 mEq/L ) Electrolyte Balance 7.0 LAB BUN(LOINC) 8.0-22.0 mg/dL BUN High 27.0 LAB CRE(LOINC) 0.50-1.20 mg/dL Creatinine High Lvl (s) 1.23 LAB BC(LOINC) 10.0-22.0 ratio BUN/Creatinine 22.0 Ratio LAB CA(LOINC) 8.4-10.1 mg/dL Low Calcium Lvl 7.3 Performed By: #### CBC, ADIFF, ANEU, BMP, GFR #### [address] [address] .GFR Collected: 02/10/2018 Status: F Source: [facility] 4:46 AM [facility] REPOSITORY TYPE CODE TESTS RESULT OUT OF REFERENCE UNITS RANGE LAB GFRAA(LOINC ml/min/1.73 ) sqm GFR 51 [place] Result Comment: GFR Population mean for , Non- Americans Ages 20-29 = 116 mL/min/1.73 sq.m. Ages 30-39 = 107 mL/min/1.73 sq.m. Ages 40-49 = 99 mL/min/1.73 sq.m. Ages 50-59 = 93 mL/min/1.73 sq.m. Ages 60-69 = 85 mL/min/1.73 sq.m. Ages 70+ = 75 mL/min/1.73 sq.m. Chronic Kidney Disease: Less than 60 mL/min/1.73 square meters End Stage Renal Disease: Less than 15 mL/min/1.73 square meters LAB GFRNO(LOINC) ml/min/1.73sqm GFR Non- 42 Result Comment: GFR Population mean for , Non- Americans Ages 20-29 = 116 mL/min/1.73 sq.m. Ages 30-39 = 107 mL/min/1.73 sq.m. Ages 40-49 = 99 mL/min/1.73 sq.m. Ages 50-59 = 93 mL/min/1.73 sq.m. Ages 60-69 = 85 mL/min/1.73 sq.m. Ages 70+ = 75 mL/min/1.73 sq.m. Chronic Kidney Disease: Less than 60 mL/min/1.73 square meters End Stage Renal Disease: Less than 15 mL/min/1.73 square meters Performed By: #### CBC, ADIFF, ANEU, BMP, GFR #### [place] [address] CBC Collected: 02/09/2018 Status: F Source: [facility] 4:33 [facility] TYPE CODE TESTS RESULT OUT OF REFERENCE UNITS RANGE LAB WBC(LOINC) 4.50-10.80 10 3/mcL WBC 6.70 LAB RBCCT(LOINC 4.10-5.30 10 6/mcL ) Low RBC 2.98 LAB HGB(LOINC) 12.0-16.0 G/dL Low Hgb 9.0 LAB HCT(LOINC) 34.0-46.0 % Low Hct 26.5 LAB MCV(LOINC) 80.0-99.0 fL MCV 88.8 LAB MCH(LOINC) 27.0-33.0 pg MCH 30.2 LAB MCHC(LOINC) 32.0-36.0 G/dL MCHC 34.1 LAB RDW(LOINC) 11.5-15.5 % RDW 13.6 LAB PLT(LOINC) 150-450 10 3/mcL Platelet 281 LAB MPV(LOINC) 6.6-10.5 fL Low MPV 6.5 Performed By: #### CBC, ADIFF, ANEU, BMP, MG, GFR #### [place] [address] .AUTO DIFF Collected: 02/09/2018 Status: F Source: [facility] 4:33 AM [facility] REPOSITORY TYPE CODE TESTS RESULT OUT OF REFERENCE UNITS RANGE LAB SWAPNIL(LOINC) 50.0-75.0 % High Neutrophil % 81.1 LAB LYM(LOINC) 20.0-40.0 % Low Lymphocyte % 8.1 LAB MON(LOINC) 2.0-13.0 % Monocyte % 9.3 LAB EO(LOINC) 0.0-6.0 % Eosinophil % 1.0 LAB BAS(LOINC) 0.0-2.5 % Basophil % 0.5 LAB ABLYM(LOIN 0.90-4.32 10 3/mcL C) Low Lymphocyte, 0.50 Absolute LAB RIKI(LOINC 0.09-1.40 10 3/mcL ) Monocyte, 0.60 Absolute LAB AEOS(LOINC 0.00-0.65 10 3/mcL ) Eosinophil, 0.10 Absolute LAB ABAS(LOINC 0.00-0.27 10 3/mcL ) Basophil, 0.00 Absolute Performed By: #### CBC, ADIFF, ANEU, BMP, MG, GFR #### [place] [address] .NEUABS Collected: 02/09/2018 Status: F Source: [facility] 4:33 AM [facility] REPOSITORY TYPE CODE TESTS RESULT OUT OF REFERENCE UNITS RANGE LAB ANEU(LOINC) 2.25-8.10 10 3/mcL Neutrophil, 5.40 Absolute Performed By: #### CBC, ADIFF, ANEU, BMP, MG, GFR #### [place] [address] BMP Collected: 02/09/2018 Status: F Source: [facility] 4:33 AM [facility] REPOSITORY TYPE CODE TESTS RESULT OUT OF REFERENCE UNITS RANGE LAB GLU(LOINC) 82-115 mg/dL Glucose High Level 191 LAB NA(LOINC) 136-145 mEq/L Sodium Level 142 LAB K(LOINC) 3.5-5.0 mEq/L Potassium Level 4.2 LAB CL(LOINC) 98-110 mEq/L Chloride High 111 LAB CO2(LOINC) 22-32 mEq/L CO2 22 LAB EBAL(LOINC 4.0-15.0 mEq/L ) Electrolyte Balance 9.0 LAB BUN(LOINC) 8.0-22.0 mg/dL BUN 21.0 LAB CRE(LOINC) 0.50-1.20 mg/dL Creatinine Lvl (s) 1.11 LAB BC(LOINC) 10.0-22.0 ratio BUN/Creatinine 18.9 Ratio LAB CA(LOINC) 8.4-10.1 mg/dL Low Calcium Lvl 7.8 Performed By: #### CBC, ADIFF, ANEU, BMP, MG, GFR #### [place] [address] MG Collected: 02/09/2018 Status: F Source: [facility] 4:33 AM [facility] REPOSITORY TYPE CODE TESTS RESULT OUT OF REFERENCE UNITS RANGE LAB MG(LOINC) 1.6-2.4 mg/dL Magnesium Lvl 2.3 Performed By: #### CBC, ADIFF, ANEU, BMP, MG, GFR #### [place] [address] .GFR Collected: 02/09/2018 Status: F Source: [facility] 4:33 AM [facility] REPOSITORY TYPE CODE TESTS RESULT OUT OF REFERENCE UNITS RANGE LAB GFRAA(LOINC ml/min/1.73 ) sqm GFR 57 [place] Result Comment: GFR Population mean for , Non- Americans Ages 20-29 = 116 mL/min/1.73 sq.m. Ages 30-39 = 107 mL/min/1.73 sq.m. Ages 40-49 = 99 mL/min/1.73 sq.m. Ages 50-59 = 93 mL/min/1.73 sq.m. Ages 60-69 = 85 mL/min/1.73 sq.m. Ages 70+ = 75 mL/min/1.73 sq.m. Chronic Kidney Disease: Less than 60 mL/min/1.73 square meters End Stage Renal Disease: Less than 15 mL/min/1.73 square meters LAB GFRNO(LOINC) ml/min/1.73sqm GFR Non- 47 Result Comment: GFR Population mean for , Non- Americans Ages 20-29 = 116 mL/min/1.73 sq.m. Ages 30-39 = 107 mL/min/1.73 sq.m. Ages 40-49 = 99 mL/min/1.73 sq.m. Ages 50-59 = 93 mL/min/1.73 sq.m. Ages 60-69 = 85 mL/min/1.73 sq.m. Ages 70+ = 75 mL/min/1.73 sq.m. Chronic Kidney Disease: Less than 60 mL/min/1.73 square meters End Stage Renal Disease: Less than 15 mL/min/1.73 square meters Performed By: #### CBC, ADIFF, ANEU, BMP, MG, GFR #### [place] [address] Observed: 02/08/2018 Status: C Source: [facility] 9:48 PM [facility] REPOSITORY . MICRO - Microbiology PROCEDURE: Bone Culture [*1] SOURCE: Bone BODY SITE: Foot R COLLECTED DATE/TIME: 02/08/2018 21:48 EDT RECEIVED DATE/TIME: 02/08/2018 23:01 EDT START DATE/TIME: 02/08/2018 23:01 EDT FREE TEXT SOURCE: 5th metatarsal head AMENDED REPORTS Amended Report [] Verified Date/Time/Personnel: 02/13/2018 08:17 EDT From liquid media only Morganella morganii Methicillin-Resistant Staphylococcus aureus This staphylococci does not demonstrate inducible clindamycin resistance in vitro. FINAL REPORTS Final Report [] Verified Date/Time/Personnel: 02/12/2018 10:05 EDT From liquid media only Morganella morganii Methicillin-Resistant Staphylococcus aureus Clindamycin Induction Test in progress. PRELIMINARY REPORTS Preliminary Report [] Verified Date/Time/Personnel: 02/12/2018 09:04 EDT From liquid media only Gram Negative Rods Final identification and PENNY to follow. Methicillin-Resistant Staphylococcus aureus Clindamycin Induction Test in progress. Preliminary Report [] Verified Date/Time/Personnel: 02/11/2018 12:38 EDT From liquid media only Gram Negative Rods Final identification and PENNY to follow. Staphylococcus aureus PENNY to follow Preliminary Report [] Verified Date/Time/Personnel: 02/09/2018 16:05 EDT Culture results pending. SUSCEPTIBILITY RESULTS Morganella morganii Antibiotic PENNY Dilutn PENNY Interp Amoxicillin/ >16/8 Resistant Clavulanate Ampicillin >16 Resistant Cefazolin >16 Resistant Cefotaxime <=2 Susceptible Cefuroxime >16 Resistant Ciprofloxacin <=1 Susceptible Gentamicin >8 Resistant Levofloxacin <=2 Susceptible Meropenem <=1 Susceptible Piperacillin/ <=16 Susceptible Tazobactam Tobramycin <=4 Susceptible Trimethoprim/ >2/38 Resistant Sulfa MICRO - Microbiology SUSCEPTIBILITY RESULTS Methicillin-Resistant Staphylococcus aureus Antibiotic PENNY Dilutn PENNY Interp Ceftriaxone <=8 Resistant Clindamycin <=0.5 Susceptible Daptomycin <=0.5 Susceptible Erythromycin >4 Resistant Linezolid <=1 Susceptible Oxacillin >2 Resistant Penicillin 8 Resistant Rifampin <=1 Susceptible Tetracycline <=4 Susceptible Trimethoprim/ >2/38 Resistant Sulfa Vancomycin 1 Susceptible Performing Locations *1: This test was performed at: [facility], [address] [place] [address], [address] [place] [address] Performed By: #### CBONE #### [place] [address] FINAL SURGICAL Observed: 02/08/2018 Status: F Source: [facility] PATHOLOGY REPORT 9:25 PM FOUNDATION REPOSITORY . 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 ATTACHED SOFT TISSUE WITH ACUTE INFLAMMATION AND FOCAL NECROSIS. B) RIGHT FOOT (TOES), TRANSMETATARSAL AMPUTATION -- ISCHEMIC/GANGRENOUS NECROSIS. CLINICAL INFORMATION: Procedure: RIGHT MID-FOOT AMPUTATION / GASTROCNEMIUS RESECTION RIGHT FOOT Preoperative diagnosis: RIGHT FOOT GANGRENE Postoperative diagnosis: SAME SPECIMEN: A AMPUT, EXT, XTR - 4TH & 5TH METATARSAL RIGHT FOOT B DIG, AMPUT, XTR - RIGHT TOES GROSS DESCRIPTION: A. Received in formalin labeled fourth and fifth metatarsals are 2 portions of bone, 6.5 and 5.9 cm in greatest dimension. Each displays a moderate amount of adherent soft tissue. The articular surfaces are ba and smooth. Sectioning shows focally discolored cut surfaces. RS -4 following decalcification B. Received in formalin labeled right toes is a 12 x 9.3 x 3.3 cm aggregate of tissue grossly consistent with a right transmetatarsal amputation. All 5 toes are present, 4 with intact nails. The skin is ba. There are numerous gangrenous appearing lesions which measure up to 9 cm in greatest dimension. The largest lesion approaches the soft tissue margin (1). The bone underlying the fifth digit is discolored. RS -3 following decalcification 1 lesion with closest soft tissue margin 2 random soft tissue lesion 3 bone from fifth digit Dictated by Karishma YO ([facility]) MICROSCOPIC DESCRIPTION: A&B) Slides reviewed. Electronically Signed by Pathology Report verified by [facility] Electronically signed by TAMIKO ALBERTS MD Sign out Date: 02/11/2018 16:36 Performing Lab: [facility], [address] [place] [address] Performed By: #### SPFR #### [place] [phone] Observed: 02/08/2018 Status: F Source: [facility] 9:21 PM [facility]OUNDATION REPOSITORY . MICRO - Microbiology PROCEDURE: Culture Tissue [*1] SOURCE: Tissue BODY SITE: Foot R COLLECTED DATE/TIME: 02/08/2018 21:21 EDT RECEIVED DATE/TIME: 02/08/2018 23:03 EDT START DATE/TIME: 02/08/2018 23:04 EDT FREE TEXT SOURCE: deep soft tissue right foot FINAL REPORTS Final Report [] Verified Date/Time/Personnel: 02/13/2018 13:54 EDT Few Morganella morganii Few Methicillin-Resistant Staphylococcus aureus This staphylococci does not demonstrate inducible clindamycin resistance in vitro. Few Streptococcus constellatus Unable to perform sensitivity testing due to the fastidious nature of the organism. No anaerobes isolated at 96 hours. PRELIMINARY REPORTS Preliminary Report [] Verified Date/Time/Personnel: 02/12/2018 08:43 EDT Few Morganella morganii Few Methicillin-Resistant Staphylococcus aureus This staphylococci does not demonstrate inducible clindamycin resistance in vitro. Few Streptococcus constellatus Unable to perform sensitivity testing due to the fastidious nature of the organism. No anaerobes isolated to date. Preliminary Report [] Verified Date/Time/Personnel: 02/11/2018 17:35 EDT Few Morganella morganii Few Methicillin-Resistant Staphylococcus aureus Clindamycin Induction Test in progress. Few Streptococcus constellatus Unable to perform sensitivity testing due to the fastidious nature of the organism. Final report to follow. Preliminary Report [] Verified Date/Time/Personnel: 02/11/2018 10:16 EDT Few Morganella morganii Few Methicillin-Resistant Staphylococcus aureus Clindamycin Induction Test in progress. Final report to follow. Preliminary Report [] Verified Date/Time/Personnel: 02/11/2018 10:09 EDT Few Gram Negative Rods Final identification and PENNY to follow. Few Methicillin-Resistant Staphylococcus aureus Clindamycin Induction Test in progress. Preliminary Report [] Verified Date/Time/Personnel: 02/10/2018 10:32 EDT Few Gram Negative Rods Final identification and PENNY to follow. Few Staphylococcus aureus PENNY to follow MICRO - Microbiology PRELIMINARY REPORTS Preliminary Report [] Verified Date/Time/Personnel: 02/09/2018 15:44 EDT Culture results pending. STAINS GS [] Verified Date/Time/Personnel: 02/09/2018 00:13 EDT 2+ Polymorphonuclear cells No organisms seen. SUSCEPTIBILITY RESULTS Morganella morganii Antibiotic PENNY Dilutn PENNY Interp Amoxicillin/ >16/8 Resistant Clavulanate Ampicillin >16 Resistant Cefazolin >16 Resistant Cefotaxime 8 Susceptible Cefuroxime >16 Resistant Ciprofloxacin <=1 Susceptible Gentamicin >8 Resistant Levofloxacin <=2 Susceptible Meropenem <=1 Susceptible Piperacillin/ <=16 Susceptible Tazobactam Tobramycin <=4 Susceptible Trimethoprim/ >2/38 Resistant Sulfa Methicillin-Resistant Staphylococcus aureus Antibiotic PENNY Dilutn PENNY Interp Ceftriaxone <=8 Resistant Clindamycin <=0.5 Susceptible Daptomycin <=0.5 Susceptible Erythromycin >4 Resistant Linezolid 2 Susceptible Oxacillin >2 Resistant Penicillin 8 Resistant Rifampin <=1 Susceptible Tetracycline <=4 Susceptible Trimethoprim/ >2/38 Resistant Sulfa Vancomycin 1 Susceptible Performing Locations *1: This test was performed at: [facility], [address] [place] [address], [facility] , [facility] Performed By: #### CTISS #### [address] [address] CBC Collected: 02/08/2018 Status: F Source: [facility] 5:29 AM [facility] REPOSITORY TYPE CODE TESTS RESULT OUT OF REFERENCE UNITS RANGE LAB WBC(LOINC) 4.50-10.80 10 3/mcL WBC 5.50 LAB RBCCT(LOINC 4.10-5.30 10 6/mcL ) Low RBC 3.20 LAB HGB(LOINC) 12.0-16.0 G/dL Low Hgb 9.6 LAB HCT(LOINC) 34.0-46.0 % Low Hct 28.4 LAB MCV(LOINC) 80.0-99.0 fL MCV 88.9 LAB MCH(LOINC) 27.0-33.0 pg MCH 30.1 LAB MCHC(LOINC) 32.0-36.0 G/dL MCHC 33.8 LAB RDW(LOINC) 11.5-15.5 % RDW 13.4 LAB PLT(LOINC) 150-450 10 3/mcL Platelet 311 LAB MPV(LOINC) 6.6-10.5 fL Low MPV 6.3 Performed By: #### CBC, ADIFF, ANEU, BMP, GFR #### [place] [id number] .AUTO DIFF Collected: 02/08/2018 Status: F Source: [facility] 5:29 AM [facility] REPOSITORY TYPE CODE TESTS RESULT OUT OF REFERENCE UNITS RANGE LAB SWAPNIL(LOINC) 50.0-75.0 % Neutrophil % 74.5 LAB LYM(LOINC) 20.0-40.0 % Low Lymphocyte % 13.1 LAB MON(LOINC) 2.0-13.0 % Monocyte % 10.2 LAB EO(LOINC) 0.0-6.0 % Eosinophil % 1.8 LAB BAS(LOINC) 0.0-2.5 % Basophil % 0.4 LAB ABLYM(LOIN 0.90-4.32 10 3/mcL C) Low Lymphocyte, 0.70 Absolute LAB RIKI(LOINC 0.09-1.40 10 3/mcL ) Monocyte, 0.60 Absolute LAB AEOS(LOINC 0.00-0.65 10 3/mcL ) Eosinophil, 0.10 Absolute LAB ABAS(LOINC 0.00-0.27 10 3/mcL ) Basophil, 0.00 Absolute Performed By: #### CBC, ADIFF, ANEU, BMP, GFR #### [place] [address] .NEUABS Collected: 02/08/2018 Status: F Source: [facility] 5:29 AM [facility] REPOSITORY TYPE CODE TESTS RESULT OUT OF REFERENCE UNITS RANGE LAB ANEU(LOINC) 2.25-8.10 10 3/mcL Neutrophil, 4.10 Absolute Performed By: #### CBC, ADIFF, ANEU, BMP, GFR #### [place] [address] BMP Collected: 02/08/2018 Status: F Source: [facility] 5:29 AM [facility] REPOSITORY TYPE CODE TESTS RESULT OUT OF REFERENCE UNITS RANGE LAB GLU(LOINC) 82-115 mg/dL Low Glucose Level 71 LAB NA(LOINC) 136-145 mEq/L Sodium Level 144 LAB K(LOINC) 3.5-5.0 mEq/L Potassium Level 4.2 LAB CL(LOINC) 98-110 mEq/L Chloride High 113 LAB CO2(LOINC) 22-32 mEq/L CO2 23 LAB EBAL(LOINC 4.0-15.0 mEq/L ) Electrolyte Balance 8.0 LAB BUN(LOINC) 8.0-22.0 mg/dL BUN 20.0 LAB CRE(LOINC) 0.50-1.20 mg/dL Creatinine Lvl (s) 1.14 LAB BC(LOINC) 10.0-22.0 ratio BUN/Creatinine 17.5 Ratio LAB CA(LOINC) 8.4-10.1 mg/dL Low Calcium Lvl 7.8 Performed By: #### CBC, ADIFF, ANEU, BMP, GFR #### [place] [address] .GFR Collected: 02/08/2018 Status: F Source: [facility] 5:29 AM [facility] REPOSITORY TYPE CODE TESTS RESULT OUT OF REFERENCE UNITS RANGE LAB GFRAA(LOINC ml/min/1.73 ) sqm GFR 55 [place] Result Comment: GFR Population mean for , Non- Americans Ages 20-29 = 116 mL/min/1.73 sq.m. Ages 30-39 = 107 mL/min/1.73 sq.m. Ages 40-49 = 99 mL/min/1.73 sq.m. Ages 50-59 = 93 mL/min/1.73 sq.m. Ages 60-69 = 85 mL/min/1.73 sq.m. Ages 70+ = 75 mL/min/1.73 sq.m. Chronic Kidney Disease: Less than 60 mL/min/1.73 square meters End Stage Renal Disease: Less than 15 mL/min/1.73 square meters LAB GFRNO(LOINC) ml/min/1.73sqm GFR Non- 46 Result Comment: GFR Population mean for , Non- Americans Ages 20-29 = 116 mL/min/1.73 sq.m. Ages 30-39 = 107 mL/min/1.73 sq.m. Ages 40-49 = 99 mL/min/1.73 sq.m. Ages 50-59 = 93 mL/min/1.73 sq.m. Ages 60-69 = 85 mL/min/1.73 sq.m. Ages 70+ = 75 mL/min/1.73 sq.m. Chronic Kidney Disease: Less than 60 mL/min/1.73 square meters End Stage Renal Disease: Less than 15 mL/min/1.73 square meters Performed By: #### CBC, ADIFF, ANEU, BMP, GFR #### [place] [address] CBC Collected: 02/07/2018 Status: F Source: [facility] 6:54 AM [facility] REPOSITORY TYPE CODE TESTS RESULT OUT OF REFERENCE UNITS RANGE LAB WBC(LOINC) 4.50-10.80 10 3/mcL WBC 5.60 LAB RBCCT(LOINC 4.10-5.30 10 6/mcL ) Low RBC 2.99 LAB HGB(LOINC) 12.0-16.0 G/dL Low Hgb 9.1 LAB HCT(LOINC) 34.0-46.0 % Low Hct 26.3 LAB MCV(LOINC) 80.0-99.0 fL MCV 88.2 LAB MCH(LOINC) 27.0-33.0 pg MCH 30.5 LAB MCHC(LOINC) 32.0-36.0 G/dL MCHC 34.5 LAB RDW(LOINC) 11.5-15.5 % RDW 13.5 LAB PLT(LOINC) 150-450 10 3/mcL Platelet 278 LAB MPV(LOINC) 6.6-10.5 fL Low MPV 6.2 Performed By: #### CBC, ADIFF, ANEU, BMP, GFR #### [place] [address] .AUTO DIFF Collected: 02/07/2018 Status: F Source: [facility] 6:54 AM [facility] REPOSITORY TYPE CODE TESTS RESULT OUT OF REFERENCE UNITS RANGE LAB SWAPNIL(LOINC) 50.0-75.0 % High Neutrophil % 78.1 LAB LYM(LOINC) 20.0-40.0 % Low Lymphocyte % 10.8 LAB MON(LOINC) 2.0-13.0 % Monocyte % 9.6 LAB EO(LOINC) 0.0-6.0 % Eosinophil % 1.0 LAB BAS(LOINC) 0.0-2.5 % Basophil % 0.5 LAB ABLYM(LOIN 0.90-4.32 10 3/mcL C) Low Lymphocyte, 0.60 Absolute LAB RIKI(LOINC 0.09-1.40 10 3/mcL ) Monocyte, 0.50 Absolute LAB AEOS(LOINC 0.00-0.65 10 3/mcL ) Eosinophil, 0.10 Absolute LAB ABAS(LOINC 0.00-0.27 10 3/mcL ) Basophil, 0.00 Absolute Performed By: #### CBC, ADIFF, ANEU, BMP, GFR #### [place] [address] .NEUABS Collected: 02/07/2018 Status: F Source: [facility] 6:54 AM [facility] REPOSITORY TYPE CODE TESTS RESULT OUT OF REFERENCE UNITS RANGE LAB ANEU(LOINC) 2.25-8.10 10 3/mcL Neutrophil, 4.40 Absolute Performed By: #### CBC, ADIFF, ANEU, BMP, GFR #### [place] [address] BMP Collected: 02/07/2018 Status: F Source: [facility] 6:54 AM [facility] REPOSITORY TYPE CODE TESTS RESULT OUT OF REFERENCE UNITS RANGE LAB GLU(LOINC) 82-115 mg/dL Glucose Level 91 LAB NA(LOINC) 136-145 mEq/L Sodium Level 145 LAB K(LOINC) 3.5-5.0 mEq/L Potassium Level 3.9 LAB CL(LOINC) 98-110 mEq/L Chloride High 113 LAB CO2(LOINC) 22-32 mEq/L CO2 24 LAB EBAL(LOINC 4.0-15.0 mEq/L ) Electrolyte Balance 8.0 LAB BUN(LOINC) 8.0-22.0 mg/dL BUN 18.0 LAB CRE(LOINC) 0.50-1.20 mg/dL Creatinine Lvl (s) 1.13 LAB BC(LOINC) 10.0-22.0 ratio BUN/Creatinine 15.9 Ratio LAB CA(LOINC) 8.4-10.1 mg/dL Low Calcium Lvl 7.6 Performed By: #### CBC, ADIFF, ANEU, BMP, GFR #### [place] [address] .GFR Collected: 02/07/2018 Status: F Source: [facility] 6:54 AM [facility] REPOSITORY TYPE CODE TESTS RESULT OUT OF REFERENCE UNITS RANGE LAB GFRAA(LOINC ml/min/1.73 ) sqm GFR 56 [place] Result Comment: GFR Population mean for , Non- Americans Ages 20-29 = 116 mL/min/1.73 sq.m. Ages 30-39 = 107 mL/min/1.73 sq.m. Ages 40-49 = 99 mL/min/1.73 sq.m. Ages 50-59 = 93 mL/min/1.73 sq.m. Ages 60-69 = 85 mL/min/1.73 sq.m. Ages 70+ = 75 mL/min/1.73 sq.m. Chronic Kidney Disease: Less than 60 mL/min/1.73 square meters End Stage Renal Disease: Less than 15 mL/min/1.73 square meters LAB GFRNO(LOINC) ml/min/1.73sqm GFR Non- 46 Result Comment: GFR Population mean for , Non- Americans Ages 20-29 = 116 mL/min/1.73 sq.m. Ages 30-39 = 107 mL/min/1.73 sq.m. Ages 40-49 = 99 mL/min/1.73 sq.m. Ages 50-59 = 93 mL/min/1.73 sq.m. Ages 60-69 = 85 mL/min/1.73 sq.m. Ages 70+ = 75 mL/min/1.73 sq.m. Chronic Kidney Disease: Less than 60 mL/min/1.73 square meters End Stage Renal Disease: Less than 15 mL/min/1.73 square meters Performed By: #### CBC, ADIFF, ANEU, BMP, GFR #### [address] [address] CBC Collected: 02/06/2018 Status: F Source: [facility] 6:00 [facility] REPOSITORY TYPE CODE TESTS RESULT OUT OF REFERENCE UNITS RANGE LAB WBC(LOINC) 4.50-10.80 10 3/mcL WBC 5.90 LAB RBCCT(LOINC 4.10-5.30 10 6/mcL ) Low RBC 2.92 LAB HGB(LOINC) 12.0-16.0 G/dL Low Hgb 8.9 LAB HCT(LOINC) 34.0-46.0 % Low Hct 25.8 LAB MCV(LOINC) 80.0-99.0 fL MCV 88.3 LAB MCH(LOINC) 27.0-33.0 pg MCH 30.6 LAB MCHC(LOINC) 32.0-36.0 G/dL MCHC 34.7 LAB RDW(LOINC) 11.5-15.5 % RDW 13.8 LAB PLT(LOINC) 150-450 10 3/mcL Platelet 266 LAB MPV(LOINC) 6.6-10.5 fL Low MPV 6.2 Performed By: #### CBC, ADIFF, ANEU, BMP, GFR #### [address] [address] .AUTO DIFF Collected: 02/06/2018 Status: F Source: [facility] 6:00 AM [facility] REPOSITORY TYPE CODE TESTS RESULT OUT OF REFERENCE UNITS RANGE LAB SWAPNIL(LOINC) 50.0-75.0 % High Neutrophil % 80.6 LAB LYM(LOINC) 20.0-40.0 % Low Lymphocyte % 9.3 LAB MON(LOINC) 2.0-13.0 % Monocyte % 8.2 LAB EO(LOINC) 0.0-6.0 % Eosinophil % 1.5 LAB BAS(LOINC) 0.0-2.5 % Basophil % 0.4 LAB ABLYM(LOIN 0.90-4.32 10 3/mcL C) Low Lymphocyte, 0.60 Absolute LAB RIKI(LOINC 0.09-1.40 10 3/mcL ) Monocyte, 0.50 Absolute LAB AEOS(LOINC 0.00-0.65 10 3/mcL ) Eosinophil, 0.10 Absolute LAB ABAS(LOINC 0.00-0.27 10 3/mcL ) Basophil, 0.00 Absolute Performed By: #### CBC, ADIFF, ANEU, BMP, GFR #### [place] [address] .NEUABS Collected: 02/06/2018 Status: F Source: [facility] 6:00 AM [facility] REPOSITORY TYPE CODE TESTS RESULT OUT OF REFERENCE UNITS RANGE LAB ANEU(LOINC) 2.25-8.10 10 3/mcL Neutrophil, 4.80 Absolute Performed By: #### CBC, ADIFF, ANEU, BMP, GFR #### [place] [address] BMP Collected: 02/06/2018 Status: F Source: [facility] 6:00 [facility] REPOSITORY TYPE CODE TESTS RESULT OUT OF REFERENCE UNITS RANGE LAB GLU(LOINC) 82-115 mg/dL Glucose Level 113 LAB NA(LOINC) 136-145 mEq/L Sodium Level 145 LAB K(LOINC) 3.5-5.0 mEq/L Potassium Level 4.0 LAB CL(LOINC) 98-110 mEq/L Chloride High 113 LAB CO2(LOINC) 22-32 mEq/L CO2 23 LAB EBAL(LOINC 4.0-15.0 mEq/L ) Electrolyte Balance 9.0 LAB BUN(LOINC) 8.0-22.0 mg/dL BUN 20.0 LAB CRE(LOINC) 0.50-1.20 mg/dL Creatinine High Lvl (s) 1.28 LAB BC(LOINC) 10.0-22.0 ratio BUN/Creatinine 15.6 Ratio LAB CA(LOINC) 8.4-10.1 mg/dL Low Calcium Lvl 7.6 Performed By: #### CBC, ADIFF, ANEU, BMP, GFR #### [address] [address] .GFR Collected: 02/06/2018 Status: F Source: [facility] 6:00 AM [facility] REPOSITORY TYPE CODE TESTS RESULT OUT OF REFERENCE UNITS RANGE LAB GFRAA(LOINC ml/min/1.73 ) sqm GFR 49 [place] Result Comment: GFR Population mean for , Non- Americans Ages 20-29 = 116 mL/min/1.73 sq.m. Ages 30-39 = 107 mL/min/1.73 sq.m. Ages 40-49 = 99 mL/min/1.73 sq.m. Ages 50-59 = 93 mL/min/1.73 sq.m. Ages 60-69 = 85 mL/min/1.73 sq.m. Ages 70+ = 75 mL/min/1.73 sq.m. Chronic Kidney Disease: Less than 60 mL/min/1.73 square meters End Stage Renal Disease: Less than 15 mL/min/1.73 square meters LAB GFRNO(LOINC) ml/min/1.73sqm GFR Non- 40 Result Comment: GFR Population mean for , Non- Americans Ages 20-29 = 116 mL/min/1.73 sq.m. Ages 30-39 = 107 mL/min/1.73 sq.m. Ages 40-49 = 99 mL/min/1.73 sq.m. Ages 50-59 = 93 mL/min/1.73 sq.m. Ages 60-69 = 85 mL/min/1.73 sq.m. Ages 70+ = 75 mL/min/1.73 sq.m. Chronic Kidney Disease: Less than 60 mL/min/1.73 square meters End Stage Renal Disease: Less than 15 mL/min/1.73 square meters Performed By: #### CBC, ADIFF, ANEU, BMP, GFR #### [address] [address] CBC Collected: 02/05/2018 Status: F Source: [facility] 5:50 AM [facility] REPOSITORY TYPE CODE TESTS RESULT OUT OF REFERENCE UNITS RANGE LAB WBC(LOINC) 4.50-10.80 10 3/mcL WBC 7.20 LAB RBCCT(LOINC 4.10-5.30 10 6/mcL ) Low RBC 3.05 LAB HGB(LOINC) 12.0-16.0 G/dL Low Hgb 9.4 LAB HCT(LOINC) 34.0-46.0 % Low Hct 26.8 LAB MCV(LOINC) 80.0-99.0 fL MCV 87.6 LAB MCH(LOINC) 27.0-33.0 pg MCH 30.9 LAB MCHC(LOINC) 32.0-36.0 G/dL MCHC 35.2 LAB RDW(LOINC) 11.5-15.5 % RDW 13.4 LAB PLT(LOINC) 150-450 10 3/mcL Platelet 282 LAB MPV(LOINC) 6.6-10.5 fL Low MPV 6.5 Performed By: #### CBC, ADIFF, ANEU, BMP, GFR #### [address] [address] .AUTO DIFF Collected: 02/05/2018 Status: F Source: [facility] 5:50 AM [facility] REPOSITORY TYPE CODE TESTS RESULT OUT OF REFERENCE UNITS RANGE LAB SWAPNIL(LOINC) 50.0-75.0 % High Neutrophil % 81.8 LAB LYM(LOINC) 20.0-40.0 % Low Lymphocyte % 8.3 LAB MON(LOINC) 2.0-13.0 % Monocyte % 8.1 LAB EO(LOINC) 0.0-6.0 % Eosinophil % 1.5 LAB BAS(LOINC) 0.0-2.5 % Basophil % 0.3 LAB ABLYM(LOIN 0.90-4.32 10 3/mcL C) Low Lymphocyte, 0.60 Absolute LAB RIKI(LOINC 0.09-1.40 10 3/mcL ) Monocyte, 0.60 Absolute LAB AEOS(LOINC 0.00-0.65 10 3/mcL ) Eosinophil, 0.10 Absolute LAB ABAS(LOINC 0.00-0.27 10 3/mcL ) Basophil, 0.00 Absolute Performed By: #### CBC, ADIFF, ANEU, BMP, GFR #### [address] [address] .NEUABS Collected: 02/05/2018 Status: F Source: [facility] 5:50 AM [facility] REPOSITORY TYPE CODE TESTS RESULT OUT OF REFERENCE UNITS RANGE LAB ANEU(LOINC) 2.25-8.10 10 3/mcL Neutrophil, 5.90 Absolute Performed By: #### CASTILLO MORAN ANEU, BMP, GFR #### [address] [address] BMP Collected: 02/05/2018 Status: F Source: [facility] 5:50 AM [facility] REPOSITORY TYPE CODE TESTS RESULT OUT OF REFERENCE UNITS RANGE LAB GLU(LOINC) 82-115 mg/dL Low Glucose Level 64 LAB NA(LOINC) 136-145 mEq/L Sodium Level 144 LAB K(LOINC) 3.5-5.0 mEq/L Potassium Level 3.7 LAB CL(LOINC) 98-110 mEq/L Chloride High 112 LAB CO2(LOINC) 22-32 mEq/L CO2 23 LAB EBAL(LOINC 4.0-15.0 mEq/L ) Electrolyte Balance 9.0 LAB BUN(LOINC) 8.0-22.0 mg/dL BUN 20.0 LAB CRE(LOINC) 0.50-1.20 mg/dL Creatinine High Lvl (s) 1.26 LAB BC(LOINC) 10.0-22.0 ratio BUN/Creatinine 15.9 Ratio LAB CA(LOINC) 8.4-10.1 mg/dL Low Calcium Lvl 7.8 Performed By: #### CASTILLO MORAN, ANEU, BMP, GFR #### [address] [address] .GFR Collected: 02/05/2018 Status: F Source: [facility] 5:50 AM [facility] REPOSITORY TYPE CODE TESTS RESULT OUT OF REFERENCE UNITS RANGE LAB GFRAA(LOINC ml/min/1.73 ) sqm GFR 49 [place] Result Comment: GFR Population mean for , Non- Americans Ages 20-29 = 116 mL/min/1.73 sq.m. Ages 30-39 = 107 mL/min/1.73 sq.m. Ages 40-49 = 99 mL/min/1.73 sq.m. Ages 50-59 = 93 mL/min/1.73 sq.m. Ages 60-69 = 85 mL/min/1.73 sq.m. Ages 70+ = 75 mL/min/1.73 sq.m. Chronic Kidney Disease: Less than 60 mL/min/1.73 square meters End Stage Renal Disease: Less than 15 mL/min/1.73 square meters LAB GFRNO(LOINC) ml/min/1.73sqm GFR Non- 41 Result Comment: GFR Population mean for , Non- Americans Ages 20-29 = 116 mL/min/1.73 sq.m. Ages 30-39 = 107 mL/min/1.73 sq.m. Ages 40-49 = 99 mL/min/1.73 sq.m. Ages 50-59 = 93 mL/min/1.73 sq.m. Ages 60-69 = 85 mL/min/1.73 sq.m. Ages 70+ = 75 mL/min/1.73 sq.m. Chronic Kidney Disease: Less than 60 mL/min/1.73 square meters End Stage Renal Disease: Less than 15 mL/min/1.73 square meters Performed By: #### CBC, ADIFF, ANEU, BMP, GFR #### [address] [address] VANCT Collected: 02/04/2018 Status: F Source: [facility] 4:10 PM [facility] REPOSITORY TYPE CODE TESTS RESULT OUT OF REFERENCE UNITS RANGE LAB LD019(LOIN C) LDose Vancomycin:(trou See eMAR gh) LAB VANT(LOINC 5.0-20.0 mcg/mL ) Vancomycin Tr 16.1 Performed By: #### VANCT #### [place] [address] CBC Collected: 02/04/2018 Status: F Source: [facility] 6:13 AM [facility] REPOSITORY TYPE CODE TESTS RESULT OUT OF REFERENCE UNITS RANGE LAB WBC(LOINC) 4.50-10.80 10 3/mcL WBC 7.80 LAB RBCCT(LOINC 4.10-5.30 10 6/mcL ) Low RBC 3.23 LAB HGB(LOINC) 12.0-16.0 G/dL Low Hgb 9.7 LAB HCT(LOINC) 34.0-46.0 % Low Hct 28.4 LAB MCV(LOINC) 80.0-99.0 fL MCV 87.8 LAB MCH(LOINC) 27.0-33.0 pg MCH 30.0 LAB MCHC(LOINC) 32.0-36.0 G/dL MCHC 34.2 LAB RDW(LOINC) 11.5-15.5 % RDW 13.6 LAB PLT(LOINC) 150-450 10 3/mcL Platelet 288 LAB MPV(LOINC) 6.6-10.5 fL Low MPV 6.3 Performed By: #### CBC, ADIFF, ANEU, BMP, GFR #### [place] [address] .AUTO DIFF Collected: 02/04/2018 Status: F Source: [facility] 6:13 AM [facility] REPOSITORY TYPE CODE TESTS RESULT OUT OF REFERENCE UNITS RANGE LAB SWAPNIL(LOINC) 50.0-75.0 % High Neutrophil % 85.8 LAB LYM(LOINC) 20.0-40.0 % Low Lymphocyte % 5.7 LAB MON(LOINC) 2.0-13.0 % Monocyte % 7.5 LAB EO(LOINC) 0.0-6.0 % Eosinophil % 0.6 LAB BAS(LOINC) 0.0-2.5 % Basophil % 0.4 LAB ABLYM(LOIN 0.90-4.32 10 3/mcL C) Low Lymphocyte, 0.40 Absolute LAB RIKI(LOINC 0.09-1.40 10 3/mcL ) Monocyte, 0.60 Absolute LAB AEOS(LOINC 0.00-0.65 10 3/mcL ) Eosinophil, 0.00 Absolute LAB ABAS(LOINC 0.00-0.27 10 3/mcL ) Basophil, 0.00 Absolute Performed By: #### CBC, ADIFF, ANEU, BMP, GFR #### [place] [address] .NEUABS Collected: 02/04/2018 Status: F Source: [facility] 6:13 AM [facility] REPOSITORY TYPE CODE TESTS RESULT OUT OF REFERENCE UNITS RANGE LAB ANEU(LOINC) 2.25-8.10 10 3/mcL Neutrophil, 6.70 Absolute Performed By: #### CBC, ADIFF, ANEU, BMP, GFR #### [place] [address] BMP Collected: 02/04/2018 Status: F Source: [facility] 6:13 AM [facility] REPOSITORY TYPE CODE TESTS RESULT OUT OF REFERENCE UNITS RANGE LAB GLU(LOINC) 82-115 mg/dL Glucose High Level 176 LAB NA(LOINC) 136-145 mEq/L Sodium Level 143 LAB K(LOINC) 3.5-5.0 mEq/L Potassium Level 4.0 LAB CL(LOINC) 98-110 mEq/L Chloride High 111 LAB CO2(LOINC) 22-32 mEq/L CO2 22 LAB EBAL(LOINC 4.0-15.0 mEq/L ) Electrolyte Balance 10.0 LAB BUN(LOINC) 8.0-22.0 mg/dL BUN 22.0 LAB CRE(LOINC) 0.50-1.20 mg/dL Creatinine High Lvl (s) 1.30 LAB BC(LOINC) 10.0-22.0 ratio BUN/Creatinine 16.9 Ratio LAB CA(LOINC) 8.4-10.1 mg/dL Low Calcium Lvl 7.5 Performed By: #### CBC, ADIFF, ANEU, BMP, GFR #### [place] [address] .GFR Collected: 02/04/2018 Status: F Source: [facility] 6:13 AM [facility] REPOSITORY TYPE CODE TESTS RESULT OUT OF REFERENCE UNITS RANGE LAB GFRAA(LOINC ml/min/1.73 ) sqm GFR 48 [place] Result Comment: GFR Population mean for , Non- Americans Ages 20-29 = 116 mL/min/1.73 sq.m. Ages 30-39 = 107 mL/min/1.73 sq.m. Ages 40-49 = 99 mL/min/1.73 sq.m. Ages 50-59 = 93 mL/min/1.73 sq.m. Ages 60-69 = 85 mL/min/1.73 sq.m. Ages 70+ = 75 mL/min/1.73 sq.m. Chronic Kidney Disease: Less than 60 mL/min/1.73 square meters End Stage Renal Disease: Less than 15 mL/min/1.73 square meters LAB GFRNO(LOINC) ml/min/1.73sqm GFR Non- 39 Result Comment: GFR Population mean for , Non- Americans Ages 20-29 = 116 mL/min/1.73 sq.m. Ages 30-39 = 107 mL/min/1.73 sq.m. Ages 40-49 = 99 mL/min/1.73 sq.m. Ages 50-59 = 93 mL/min/1.73 sq.m. Ages 60-69 = 85 mL/min/1.73 sq.m. Ages 70+ = 75 mL/min/1.73 sq.m. Chronic Kidney Disease: Less than 60 mL/min/1.73 square meters End Stage Renal Disease: Less than 15 mL/min/1.73 square meters Performed By: #### CBC, ADIFF, ANEU, BMP, GFR #### [facility] [address] [place] [address] IR ARTERIOGRAM Observed: 02/03/2018 Status: F Source: [place] [facility] LOWER RIGHT 12:00 PM [facility] REPOSITORY ORIGINAL Images acquired, not reported on this accession number. IR PICC LINE PLACEMENT Observed: 02/03/2018 Status: F Source: [facility] 9:00 AM [facility] REPOSITORY ORIGINAL PROCEDURE(S): 1. PICC placement with fluoroscopy and ultrasound guidance RESOLUTE PROFESSIONAL: Anne Stinson PA-C CLINICAL HISTORY: infection COMPARISON: None MATERIALS: ROBAUTOComp 5 Fr dual lumen PICC Probe cover CHG dressing FLUORO: 1.5 min AIR KERMA DOSE: 5.0 mGy ACCESS VESSEL: Right basilic vein TIP LOCATION: Near the cavoatrial junction CATHETER LENGTH: 37 cm PROCEDURE: The procedure, risks, and alternatives, were discussed and all questions were answered. Written informed consent obtained. Accompanying paperwork was verified for accuracy. Directed history and physical exam performed prior to the procedure. Medication reconciliation performed by nursing personnel. Procedure was performed using a cap, mask, sterile gown, sterile gloves, a large sterile sheet, hand hyg iene and 2% chlorhexidine for cutaneous antisepsis. The patient was positioned on the table and prepped and draped in usual sterile fashion. A critical pause was performed with assisting personnel just prior to the procedure with the patient's identity confirmed using 2 identifiers, confirming site and side. A preliminary ultrasound was performed demonstrating vessel patency with flow. An image was obtained. 10 ml of 2% lidocaine was administered at the puncture site for local anesthesia. Under direct ultrasound guidance, a 21 gauge needle was used to access the vein. A wire was advanced and a peel-away sheath was placed. A small skin incision was made. The catheter length was measured u sing the guidewire. After trimming the PICC to the appropriate length, it was advanced through the sheath lead by the wire under fluoroscopy. The catheter was positioned with the tip positioned as above. Function of catheter lumens was evaluated and appropriate. The catheter was secured to the skin with sutures. A sterile dressing was applied. The patient tolerated the procedure well without immediate complication. Blood loss was minimal. Patient condition was stable. IMPRESSION: 1. Successful PICC placement. The procedure was performed by Anne Stinson PA-C. Interpreted By: Sharona Paulino MD Preliminary Report By: Anne Stinson PA-C Electronically Signed By: Sharona Paulino MD Dictated Date: 02/03/2018 10:27:18 AM Prelim Date: 02/03/2018 10:28:35 AM Sign Date: 02/03/2018 12:58:34 PM EMERGENCY REPORT Observed: 02/03/2018 Status: F Source: [place] 7:21 AM [facility] EMERGENCY ROOM REPORT NAME ACCOUNT SEX AGE ADMIT DISCHARGE MED. RECORD# NUMBER DATE DATE TYPE BAILEY HOLLEY [id number] F 82 01/27/18 3 [id number] ROOM: ER DATE OF : 1935 DICTATING PHYSICIAN: Chace Adrian CHIEF COMPLAINT: Right foot pain. HISTORY OF PRESENT ILLNESS: The patient states that she has had pain to her leg, and particularly her foot for months, but it has been worse recently. She has been up and ambulatory at home, though states that recently when she has been doing the dishes she has had to sit down several times because the pain is too much while standing. She has not had fever, minimal nausea, no vomiting. She is somewhat anorexic. She is not complaining of chest pain or shortness of breath. She was scheduled to see her brim molder, Dr. Watson, today to get her nails trimmed, but when she went there Dr. Watson sent her here because of obvious necrotic gangrenous right foot. PAST MEDICAL HISTORY: The patient has had coronary artery bypass surgery several years ago. This was at [facility]. She has a history of diabetes as well. MEDICATIONS: Per med rec list. ALLERGIES: She does not have any known allergies as best she knows, possible penicillin reaction years and years ago. SOCIAL HISTORY: The patient lives at home. She does smoke or drink alcohol. She is accompanied here with family. REVIEW OF SYSTEMS: No chest pain. No shortness of breath. No known fever. No recent injury or trauma. PHYSICAL EXAMINATION: This is an 82-year-old female awake, alert, generally appropriate, minimally hard of hearing. Her skin is very pale. HEENT: Eyes, ears, nose, mouth, and throat within normal limits. Neck is supple without JVD. Lungs seem clear without crackles or wheezes. Cardiac exam is regular rhythm without any ectopy or murmurs. Abdomen is soft and nontender. She moves upper extremities well with good peripheral pulses. No clubbing or cyanosis. Examination to her lower extremities reveals a right foot that is very pale and cool. She has a very dark, somewhat smelly necrotic area over the lateral foot, as well as over the tips of the toes. The foot is very cool. I could not detect any dorsalis pedal pulse. There is some redness extending up from the foot to the lower leg. She is able to move the foot, but has complaints of pain with palpation up into the thigh. No inguinal adenopathy. Vital signs: Temperature 98.2, pulse 97, respirations 18, blood pressure 116/47. Page 1 of 2 BAILEY HOL[facility] Emergency Room Report DIAGNOSTIC DATA: I did check an x-ray to her foot, which shows significant osteopenia. There is some gas in the soft tissue seen to the distal portion of the fifth metatarsal area. No definitive fractures. Laboratories showed a CBC with a white count of 13,400, 90.7% neutrophils, H&H 7.7 and 22.2. Her lactate was 9.1. Sed rate was greater then 140. Sodium was 129, potassium 4.6, CO2 19.7, BUN and creatinine 55 and 1.9, glucose was 548. Urinalysis showed 16 to 25 WBCs, 4+ bacteria, positive nitrites. EMERGENCY DEPARTMENT COURSE AND TREATMENT: Her O2 saturation was 95%. IV was placed. The patient presents with infected gangrenous ulcers to her right foot with right foot ischemia, very poorly controlled diabetes, and some degree of chronic renal failure. She was given 3.375 grams of Zosyn IV, 1 gram of vancomycin IV. I gave her 10 units of insulin. DIAGNOSIS: Gangrenous infected foot ulcers to the right leg with poorly controlled diabetes. PLAN/DISPOSITION: I discussed the case with Dr. Cristina, who requested the patient be transferred. The patient requested to go to [facility], and the hospital was notified, and , the hospitalist, did accept the patient there. I did give her some morphine in the ED for pain. Dictated By: Chace Adrian MD 01/27/18 19:10 JOB #: [id number] Transcribed By: am 01/27/18 19:14 Electronically signed by: RACHNA Adrian M.D. 02/03/18 07:18 Page 2 of 2 WILDABAILEY Espino Rasheeda Emergency Room Report CBC Collected: 02/03/2018 Status: F Source: [facility] 4:00 AM [facility] REPOSITORY TYPE CODE TESTS RESULT OUT OF REFERENCE UNITS RANGE LAB WBC(LOINC) 4.50-10.80 10 3/mcL WBC 9.20 LAB RBCCT(LOINC 4.10-5.30 10 6/mcL ) Low RBC 3.19 LAB HGB(LOINC) 12.0-16.0 G/dL Low Hgb 9.7 LAB HCT(LOINC) 34.0-46.0 % Low Hct 27.8 LAB MCV(LOINC) 80.0-99.0 fL MCV 87.2 LAB MCH(LOINC) 27.0-33.0 pg MCH 30.2 LAB MCHC(LOINC) 32.0-36.0 G/dL MCHC 34.7 LAB RDW(LOINC) 11.5-15.5 % RDW 13.9 LAB PLT(LOINC) 150-450 10 3/mcL Platelet 274 LAB MPV(LOINC) 6.6-10.5 fL Low MPV 6.4 Performed By: #### CBC, ADIFF, ANEU, BMP, GFR #### [place] [address] .AUTO DIFF Collected: 02/03/2018 Status: F Source: [facility] 4:00 AM [facility] REPOSITORY TYPE CODE TESTS RESULT OUT OF REFERENCE UNITS RANGE LAB SWAPNIL(LOINC) 50.0-75.0 % High Neutrophil % 85.4 LAB LYM(LOINC) 20.0-40.0 % Low Lymphocyte % 5.6 LAB MON(LOINC) 2.0-13.0 % Monocyte % 8.0 LAB EO(LOINC) 0.0-6.0 % Eosinophil % 0.7 LAB BAS(LOINC) 0.0-2.5 % Basophil % 0.3 LAB ABLYM(LOIN 0.90-4.32 10 3/mcL C) Low Lymphocyte, 0.50 Absolute LAB RIKI(LOINC 0.09-1.40 10 3/mcL ) Monocyte, 0.70 Absolute LAB AEOS(LOINC 0.00-0.65 10 3/mcL ) Eosinophil, 0.10 Absolute LAB ABAS(LOINC 0.00-0.27 10 3/mcL ) Basophil, 0.00 Absolute Performed By: #### CBC, ADIFF, ANEU, BMP, GFR #### [place] [address] .NEUABS Collected: 02/03/2018 Status: F Source: [facility] 4:00 [place] [facility] REPOSITORY TYPE CODE TESTS RESULT OUT OF REFERENCE UNITS RANGE LAB ANEU(LOINC) 2.25-8.10 10 3/mcL Neutrophil, 7.80 Absolute Performed By: #### CBC, ADIFF, ANEU, BMP, GFR #### [place] [address] BMP Collected: 02/03/2018 Status: F Source: [facility] 4:00 [place] [facility] REPOSITORY TYPE CODE TESTS RESULT OUT OF REFERENCE UNITS RANGE LAB GLU(LOINC) 82-115 mg/dL Glucose Level 99 LAB NA(LOINC) 136-145 mEq/L Sodium Level 141 LAB K(LOINC) 3.5-5.0 mEq/L Potassium Level 4.0 LAB CL(LOINC) 98-110 mEq/L Chloride 109 LAB CO2(LOINC) 22-32 mEq/L CO2 22 LAB EBAL(LOINC 4.0-15.0 mEq/L ) Electrolyte Balance 10.0 LAB BUN(LOINC) 8.0-22.0 mg/dL BUN 21.0 LAB CRE(LOINC) 0.50-1.20 mg/dL Creatinine High Lvl (s) 1.52 LAB BC(LOINC) 10.0-22.0 ratio BUN/Creatinine 13.8 Ratio LAB CA(LOINC) 8.4-10.1 mg/dL Low Calcium Lvl 7.7 Performed By: #### LUISA, ADIFF, ANEU, BMP, GFR #### [address] [address] .GFR Collected: 02/03/2018 Status: F Source: [facility] 4:00 AM [facility] REPOSITORY TYPE CODE TESTS RESULT OUT OF REFERENCE UNITS RANGE LAB GFRAA(LOINC ml/min/1.73 ) sqm GFR 40 [place] Result Comment: GFR Population mean for , Non- Americans Ages 20-29 = 116 mL/min/1.73 sq.m. Ages 30-39 = 107 mL/min/1.73 sq.m. Ages 40-49 = 99 mL/min/1.73 sq.m. Ages 50-59 = 93 mL/min/1.73 sq.m. Ages 60-69 = 85 mL/min/1.73 sq.m. Ages 70+ = 75 mL/min/1.73 sq.m. Chronic Kidney Disease: Less than 60 mL/min/1.73 square meters End Stage Renal Disease: Less than 15 mL/min/1.73 square meters LAB GFRNO(LOINC) ml/min/1.73sqm GFR Non- 33 Result Comment: GFR Population mean for , Non- Americans Ages 20-29 = 116 mL/min/1.73 sq.m. Ages 30-39 = 107 mL/min/1.73 sq.m. Ages 40-49 = 99 mL/min/1.73 sq.m. Ages 50-59 = 93 mL/min/1.73 sq.m. Ages 60-69 = 85 mL/min/1.73 sq.m. Ages 70+ = 75 mL/min/1.73 sq.m. Chronic Kidney Disease: Less than 60 mL/min/1.73 square meters End Stage Renal Disease: Less than 15 mL/min/1.73 square meters Performed By: #### LUISA, ADIFF, ANEU, BMP, GFR #### [address] [address] Observed: 02/02/2018 Status: F Source: [facility] 11:51 AM [facility] REPOSITORY . MICRO - Microbiology PROCEDURE: Culture Wound Deep Aerobe/Anaerobe w Gram Stain [*1] SOURCE: Wound (deep) BODY SITE: Foot COLLECTED DATE/TIME: 02/02/2018 11:51 EDT RECEIVED DATE/TIME: 02/02/2018 12:37 EDT START DATE/TIME: 02/02/2018 12:37 EDT FREE TEXT SOURCE: RIGHT LATERAL FOOT POST IRRIGATION FINAL REPORTS Final Report [] Verified Date/Time/Personnel: 02/06/2018 09:32 EDT Light normal skin andreia present. Few Morganella morganii Few Methicillin-Resistant Staphylococcus aureus This staphylococci does not demonstrate inducible clindamycin resistance in vitro. No anaerobes isolated at 96 hours. PRELIMINARY REPORTS Preliminary Report [] Verified Date/Time/Personnel: 02/06/2018 07:17 EDT Light normal skin andreia present. Few Morganella morganii Few Methicillin-Resistant Staphylococcus aureus This staphylococci does not demonstrate inducible clindamycin resistance in vitro. No anaerobes isolated to date. Preliminary Report [] Verified Date/Time/Personnel: 02/05/2018 08:04 EDT Light normal skin andreia present. Few Morganella morganii Few Methicillin-Resistant Staphylococcus aureus Clindamycin Induction Test in progress. No anaerobes isolated to date. Preliminary Report [] Verified Date/Time/Personnel: 02/04/2018 08:00 EDT Few Morganella morganii Few Staphylococcus aureus PENNY to follow No anaerobes isolated to date. Preliminary Report [] Verified Date/Time/Personnel: 02/03/2018 11:42 EDT Few Gram Negative Rods Final identification and PENNY to follow. No anaerobes isolated to date. Preliminary Report [] Verified Date/Time/Personnel: 02/03/2018 10:17 EDT Few Gram Negative Rods Final identification and PENNY to follow. STAINS GS [] Verified Date/Time/Personnel: 02/02/2018 13:42 EDT No organisms seen. MICRO - Microbiology SUSCEPTIBILITY RESULTS Morganella morganii Antibiotic PENNY Dilutn PENNY Interp Amoxicillin/ >16/8 Resistant Clavulanate Ampicillin >16 Resistant Cefazolin >16 Resistant Cefotaxime 8 Susceptible Cefuroxime >16 Resistant Ciprofloxacin <=1 Susceptible Gentamicin >8 Resistant Levofloxacin <=2 Susceptible Meropenem <=1 Susceptible Piperacillin/ <=16 Susceptible Tazobactam Tobramycin <=4 Susceptible Trimethoprim/ >2/38 Resistant Sulfa Methicillin-Resistant Staphylococcus aureus Antibiotic PENNY Dilutn PENNY Interp Ceftriaxone <=8 Resistant Clindamycin <=0.5 Susceptible Daptomycin <=0.5 Susceptible Erythromycin >4 Resistant Linezolid 2 Susceptible Oxacillin >2 Resistant Penicillin 8 Resistant Rifampin <=1 Susceptible Tetracycline <=4 Susceptible Trimethoprim/ >2/38 Resistant Sulfa Vancomycin 1 Susceptible Performing Locations *1: This test was performed at: [facility], [address] [place] [address], [facility] , [facility] Performed By: #### CWDP #### [address] [address] RBC (PRODUCT) Collected: 02/02/2018 Status: F Source: [facility] 8:19 AM [facility] REPOSITORY TYPE CODE TESTS RESULT OUT OF REFERENCE UNITS RANGE LAB RBCPR(LOINC ) RBC Product RBC Ready Ready for Pickup Performed By: #### RBCP #### [address] [address] CBC Collected: 02/02/2018 Status: F Source: [facility] 7:13 AM [facility] REPOSITORY TYPE CODE TESTS RESULT OUT OF REFERENCE UNITS RANGE LAB WBC(LOINC) 4.50-10.80 10 3/mcL WBC 7.80 LAB RBCCT(LOINC 4.10-5.30 10 6/mcL ) Low RBC 2.59 LAB HGB(LOINC) 12.0-16.0 G/dL Low Hgb 7.9 LAB HCT(LOINC) 34.0-46.0 % Low Hct 23.1 LAB MCV(LOINC) 80.0-99.0 fL MCV 89.2 LAB MCH(LOINC) 27.0-33.0 pg MCH 30.4 LAB MCHC(LOINC) 32.0-36.0 G/dL MCHC 34.1 LAB RDW(LOINC) 11.5-15.5 % RDW 13.2 LAB PLT(LOINC) 150-450 10 3/mcL Platelet 271 LAB MPV(LOINC) 6.6-10.5 fL Low MPV 6.5 Performed By: #### CBC, ADIFF, ANEU, BMP, GFR #### [place] [id number] .AUTO DIFF Collected: 02/02/2018 Status: F Source: [facility] 7:13 AM [facility] REPOSITORY TYPE CODE TESTS RESULT OUT OF REFERENCE UNITS RANGE LAB SWAPNIL(LOINC) 50.0-75.0 % High Neutrophil % 84.8 LAB LYM(LOINC) 20.0-40.0 % Low Lymphocyte % 6.6 LAB MON(LOINC) 2.0-13.0 % Monocyte % 7.6 LAB EO(LOINC) 0.0-6.0 % Eosinophil % 0.7 LAB BAS(LOINC) 0.0-2.5 % Basophil % 0.3 LAB ABLYM(LOIN 0.90-4.32 10 3/mcL C) Low Lymphocyte, 0.50 Absolute LAB RIKI(LOINC 0.09-1.40 10 3/mcL ) Monocyte, 0.60 Absolute LAB AEOS(LOINC 0.00-0.65 10 3/mcL ) Eosinophil, 0.10 Absolute LAB ABAS(LOINC 0.00-0.27 10 3/mcL ) Basophil, 0.00 Absolute Performed By: #### CBC, ADIFF, ANEU, BMP, GFR #### [place] [address] .NEUABS Collected: 02/02/2018 Status: F Source: [facility] 7:13 AM [facility] REPOSITORY TYPE CODE TESTS RESULT OUT OF REFERENCE UNITS RANGE LAB ANEU(LOINC) 2.25-8.10 10 3/mcL Neutrophil, 6.60 Absolute Performed By: #### CBC, ADIFF, ANEU, BMP, GFR #### [place] [address] BMP Collected: 02/02/2018 Status: F Source: [facility] 7:13 AM [facility] REPOSITORY TYPE CODE TESTS RESULT OUT OF REFERENCE UNITS RANGE LAB GLU(LOINC) 82-115 mg/dL Glucose High Level 150 LAB NA(LOINC) 136-145 mEq/L Sodium Level 142 LAB K(LOINC) 3.5-5.0 mEq/L Potassium Level 4.2 LAB CL(LOINC) 98-110 mEq/L Chloride High 111 LAB CO2(LOINC) 22-32 mEq/L CO2 22 LAB EBAL(LOINC 4.0-15.0 mEq/L ) Electrolyte Balance 9.0 LAB BUN(LOINC) 8.0-22.0 mg/dL BUN 20.0 LAB CRE(LOINC) 0.50-1.20 mg/dL Creatinine High Lvl (s) 1.32 LAB BC(LOINC) 10.0-22.0 ratio BUN/Creatinine 15.2 Ratio LAB CA(LOINC) 8.4-10.1 mg/dL Low Calcium Lvl 8.1 Performed By: #### LUISA, ADIFF, ANEU, BMP, GFR #### [address] [address] .GFR Collected: 02/02/2018 Status: F Source: [facility] 7:13 AM [facility] REPOS[facility] TYPE CODE TESTS RESULT OUT OF REFERENCE UNITS RANGE LAB GFRAA(LOINC ml/min/1.73 ) sqm GFR 47 [place] Result Comment: GFR Population mean for , Non- Americans Ages 20-29 = 116 mL/min/1.73 sq.m. Ages 30-39 = 107 mL/min/1.73 sq.m. Ages 40-49 = 99 mL/min/1.73 sq.m. Ages 50-59 = 93 mL/min/1.73 sq.m. Ages 60-69 = 85 mL/min/1.73 sq.m. Ages 70+ = 75 mL/min/1.73 sq.m. Chronic Kidney Disease: Less than 60 mL/min/1.73 square meters End Stage Renal Disease: Less than 15 mL/min/1.73 square meters LAB GFRNO(LOINC) ml/min/1.73sqm GFR Non- 39 Result Comment: GFR Population mean for , Non- Americans Ages 20-29 = 116 mL/min/1.73 sq.m. Ages 30-39 = 107 mL/min/1.73 sq.m. Ages 40-49 = 99 mL/min/1.73 sq.m. Ages 50-59 = 93 mL/min/1.73 sq.m. Ages 60-69 = 85 mL/min/1.73 sq.m. Ages 70+ = 75 mL/min/1.73 sq.m. Chronic Kidney Disease: Less than 60 mL/min/1.73 square meters End Stage Renal Disease: Less than 15 mL/min/1.73 square meters Performed By: #### LUISA, ADIFF, ANEU, BMP, GFR #### [address] [address] VANCT Collected: 02/02/2018 Status: F Source: [facility] 7:13 AM [facility] REPOSITORY TYPE CODE TESTS RESULT OUT OF REFERENCE UNITS RANGE LAB LD019(LOIN C) LDose Vancomycin:(trou See eMAR gh) LAB VANT(LOINC 5.0-20.0 mcg/mL ) Vancomycin Tr 12.8 Performed By: #### VANCT #### [place] [address] TABO Collected: 02/01/2018 Status: F Source: [facility] 11:06 PM [facility] REPOSITORY TYPE CODE TESTS RESULT OUT OF RANGE REFERENCE UNITS LAB ABORH(LOINC ) Unknown ABO/Rh A POS Interp Performed By: #### ABORH, ANTIS #### [place] [address] TABS Collected: 02/01/2018 Status: F Source: [facility] 11:06 PM [facility] REPOSITORY TYPE CODE TESTS RESULT OUT OF REFERENCE UNITS RANGE LAB ANST(LOINC ) Antibody Negative ABSC Screen Tango Performed By: #### ABORH, ANTIS #### [place] [address] RBC (PRODUCT) Collected: 02/01/2018 Status: F Source: [facility] 10:23 PM [facility] REPOSITORY TYPE CODE TESTS RESULT OUT OF REFERENCE UNITS RANGE LAB RBCPR(LOINC ) RBC Product RBC Ready Ready for Pickup Performed By: #### RBCP #### [place] [address] CBC Collected: 02/01/2018 Status: F Source: [facility] 8:52 PM [facility] REPOSITORY TYPE CODE TESTS RESULT OUT OF RANGE REFERENCE UNITS LAB WBC(LOINC) 4.50-10.80 10 3/mcL WBC 7.30 LAB RBCCT(LOIN 4.10-5.30 10 6/mcL C) Low RBC 2.09 LAB HGB(LOINC) 12.0-16.0 G/dL Abnormal Alert Hgb 6.4 LAB HCT(LOINC) 34.0-46.0 % Low Hct 19.0 LAB MCV(LOINC) 80.0-99.0 fL MCV 90.9 LAB MCH(LOINC) 27.0-33.0 pg MCH 30.5 LAB MCHC(LOINC 32.0-36.0 G/dL ) MCHC 33.6 LAB RDW(LOINC) 11.5-15.5 % RDW 12.8 LAB PLT(LOINC) 150-450 10 3/mcL Platelet 233 LAB MPV(LOINC) 6.6-10.5 fL MPV 6.6 Performed By: #### CBC, ADIFF, ANEU, BMP, GFR #### [place] [address] .AUTO DIFF Collected: 02/01/2018 Status: F Source: [facility] 8:52 [facility] REPOSITORY TYPE CODE TESTS RESULT OUT OF REFERENCE UNITS RANGE LAB SWAPNIL(LOINC) 50.0-75.0 % High Neutrophil % 85.1 LAB LYM(LOINC) 20.0-40.0 % Low Lymphocyte % 6.6 LAB MON(LOINC) 2.0-13.0 % Monocyte % 7.7 LAB EO(LOINC) 0.0-6.0 % Eosinophil % 0.4 LAB BAS(LOINC) 0.0-2.5 % Basophil % 0.2 LAB ABLYM(LOIN 0.90-4.32 10 3/mcL C) Low Lymphocyte, 0.50 Absolute LAB RIKI(LOINC 0.09-1.40 10 3/mcL ) Monocyte, 0.60 Absolute LAB AEOS(LOINC 0.00-0.65 10 3/mcL ) Eosinophil, 0.00 Absolute LAB ABAS(LOINC 0.00-0.27 10 3/mcL ) Basophil, 0.00 Absolute Performed By: #### CBC, ADIFF, ANEU, BMP, GFR #### [place] [address] .NEUABS Collected: 02/01/2018 Status: F Source: [facility] 8:52 [facility] REPOSITORY TYPE CODE TESTS RESULT OUT OF REFERENCE UNITS RANGE LAB ANEU(LOINC) 2.25-8.10 10 3/mcL Neutrophil, 6.20 Absolute Performed By: #### CBC, ADIFF, ANEU, BMP, GFR #### [place] [address] BMP Collected: 02/01/2018 Status: F Source: [facility] 8:52 [facility] REPOSITORY TYPE CODE TESTS RESULT OUT OF REFERENCE UNITS RANGE LAB GLU(LOINC) 82-115 mg/dL Glucose High Level 180 LAB NA(LOINC) 136-145 mEq/L Sodium Level 141 LAB K(LOINC) 3.5-5.0 mEq/L Potassium Level 4.1 LAB CL(LOINC) 98-110 mEq/L Chloride 110 LAB CO2(LOINC) 22-32 mEq/L Low CO2 19 LAB EBAL(LOINC 4.0-15.0 mEq/L ) Electrolyte Balance 12.0 LAB BUN(LOINC) 8.0-22.0 mg/dL BUN 19.0 LAB CRE(LOINC) 0.50-1.20 mg/dL Creatinine Lvl (s) 1.16 LAB BC(LOINC) 10.0-22.0 ratio BUN/Creatinine 16.4 Ratio LAB CA(LOINC) 8.4-10.1 mg/dL Low Calcium Lvl 7.4 Performed By: #### CBC, ADIFF, ANEU, BMP, GFR #### [place] [address] .GFR Collected: 02/01/2018 Status: F Source: [facility] 8:52 PM [facility] RE[facility] TYPE CODE TESTS RESULT OUT OF REFERENCE UNITS RANGE LAB GFRAA(LOINC ml/min/1.73 ) sqm GFR 54 [place] Result Comment: GFR Population mean for , Non- Americans Ages 20-29 = 116 mL/min/1.73 sq.m. Ages 30-39 = 107 mL/min/1.73 sq.m. Ages 40-49 = 99 mL/min/1.73 sq.m. Ages 50-59 = 93 mL/min/1.73 sq.m. Ages 60-69 = 85 mL/min/1.73 sq.m. Ages 70+ = 75 mL/min/1.73 sq.m. Chronic Kidney Disease: Less than 60 mL/min/1.73 square meters End Stage Renal Disease: Less than 15 mL/min/1.73 square meters LAB GFRNO(LOINC) ml/min/1.73sqm GFR Non- 45 Result Comment: GFR Population mean for , Non- Americans Ages 20-29 = 116 mL/min/1.73 sq.m. Ages 30-39 = 107 mL/min/1.73 sq.m. Ages 40-49 = 99 mL/min/1.73 sq.m. Ages 50-59 = 93 mL/min/1.73 sq.m. Ages 60-69 = 85 mL/min/1.73 sq.m. Ages 70+ = 75 mL/min/1.73 sq.m. Chronic Kidney Disease: Less than 60 mL/min/1.73 square meters End Stage Renal Disease: Less than 15 mL/min/1.73 square meters Performed By: #### CBC, ADIFF, ANEU, BMP, GFR #### [address] [address] MRI FOOT W/ + W/O Observed: 02/01/2018 Status: F Source: [facility] CONTRAST RIGHT 7:45 AM [facility] REPOSITORY ORIGINAL MRI FOOT W/ + W/O CONTRAST RIGHT CLINICAL STATEMENT: rule out osteomyelitis , patient has gangrene, abnormal radiographs, evaluate for osteomyelitis, attention 5th metatarsal, foot pain and infection COMPARISON: Radiographs 01/31/2018 FINDINGS: The study excludes the hindfoot. There is no bone marrow signal abnormality in the metatarsals and phalanges to indicate osteomyelitis or other acute bony abnormality. There is soft tissue swelling and some soft tissue gas at the dorsal lateral aspect of the distal 5th metacarpal and 5th MTP joint without any obvious localized soft tissue fluid collection. The tendons in the foot are unremarkable. IMPRESSION: There is soft tissue edema and soft tissue gas corresponding to clinical and radiographic findings as described. No evidence of osteomyelitis. Interpreted By: Jose Martin Norman MD Preliminary Report By: Jose Martin Norman MD Electronically Signed By: Jose Martin Norman MD Dictated Date: 02/01/2018 11:17:29 AM Prelim Date: 02/01/2018 11:17:29 AM Sign Date: 02/01/2018 11:20:47 AM BUN Collected: 02/01/2018 Status: F Source: [facility] 4:14 AM [facility] REPOSITORY TYPE CODE TESTS RESULT OUT OF RANGE REFERENCE UNITS LAB BUN(LOINC) 8.0-22.0 mg/dL High BUN 23.0 Performed By: #### BUN, CRE, GFR #### [address] [address] CRE Collected: 02/01/2018 Status: F Source: [facility] 4:14 AM [facility] REPOSITORY TYPE CODE TESTS RESULT OUT OF REFERENCE UNITS RANGE LAB CRE(LOINC) 0.50-1.20 mg/dL High Creatinine Lvl 1.39 (s) Performed By: #### BUN, CRE, GFR #### [address] [address] .GFR Collected: 02/01/2018 Status: F Source: [facility] 4:14 AM [facility] REPOSITORY TYPE CODE TESTS RESULT OUT OF REFERENCE UNITS RANGE LAB GFRAA(LOINC ml/min/1.73 ) sqm GFR 44 [place] Result Comment: GFR Population mean for , Non- Americans Ages 20-29 = 116 mL/min/1.73 sq.m. Ages 30-39 = 107 mL/min/1.73 sq.m. Ages 40-49 = 99 mL/min/1.73 sq.m. Ages 50-59 = 93 mL/min/1.73 sq.m. Ages 60-69 = 85 mL/min/1.73 sq.m. Ages 70+ = 75 mL/min/1.73 sq.m. Chronic Kidney Disease: Less than 60 mL/min/1.73 square meters End Stage Renal Disease: Less than 15 mL/min/1.73 square meters LAB GFRNO(LOINC) ml/min/1.73sqm GFR Non- 36 Result Comment: GFR Population mean for , Non- Americans Ages 20-29 = 116 mL/min/1.73 sq.m. Ages 30-39 = 107 mL/min/1.73 sq.m. Ages 40-49 = 99 mL/min/1.73 sq.m. Ages 50-59 = 93 mL/min/1.73 sq.m. Ages 60-69 = 85 mL/min/1.73 sq.m. Ages 70+ = 75 mL/min/1.73 sq.m. Chronic Kidney Disease: Less than 60 mL/min/1.73 square meters End Stage Renal Disease: Less than 15 mL/min/1.73 square meters Performed By: #### BUN, CRE, GFR #### [address] [address] XR FOOT MINIMUM 3 Observed: 01/31/2018 Status: F Source: [facility] VIEWS RIGHT 7:17 PM [facility] REPOSITORY ORIGINAL XR FOOT MINIMUM 3 VIEWS RIGHT CLINICAL STATEMENT: Osteomyelitis. COMPARISON: RIGHT foot x-ray on 01/27/2018 at [facility]. FINDINGS: No acute fracture or dislocation is identified. The interphalangeal joint spaces are narrowed. Soft tissue gas is present lateral to the head and distal shaft of the RIGHT 5th metatarsal. Erosion of the bone is not detected. No foreign body is seen in the soft tissue. Atherosclerotic vascular dariela cification is seen in the arteries of the RIGHT foot. IMPRESSION: Soft tissue gas adjacent to the RIGHT 5th metatarsal consistent with the soft tissue infection. No specific findings of osteomyelitis are detected on this plain film. Evaluation with magnetic resonance imaging would be more sensitive to detect osteomyelitis. Interpreted By: Avinash Acosta MD Preliminary Report By: Avinash Acosta MD Electronically Signed By: Avinash Acosta MD Dictated Date: 02/01/2018 2:26:53 AM Prelim Date: 02/01/2018 2:26:53 AM Sign Date: 02/01/2018 2:30:00 AM BUN Collected: 01/31/2018 Status: F Source: [facility] 6:29 AM [facility] REPOSITORY TYPE CODE TESTS RESULT OUT OF RANGE REFERENCE UNITS LAB BUN(LOINC) 8.0-22.0 mg/dL High BUN 26.0 Performed By: #### BUN, CRE, GFR, VANCR #### [place] [address] CRE Collected: 01/31/2018 Status: F Source: [facility] 6:29 AM [facility] REPOSITORY TYPE CODE TESTS RESULT OUT OF REFERENCE UNITS RANGE LAB CRE(LOINC) 0.50-1.20 mg/dL High Creatinine Lvl 1.25 (s) Performed By: #### BUN, CRE, GFR, VANCR #### [address] [address] .GFR Collected: 01/31/2018 Status: F Source: [facility] 6:29 AM [facility] REPOSITORY TYPE CODE TESTS RESULT OUT OF REFERENCE UNITS RANGE LAB GFRAA(LOINC ml/min/1.73 ) sqm GFR 50 [place] Result Comment: GFR Population mean for , Non- Americans Ages 20-29 = 116 mL/min/1.73 sq.m. Ages 30-39 = 107 mL/min/1.73 sq.m. Ages 40-49 = 99 mL/min/1.73 sq.m. Ages 50-59 = 93 mL/min/1.73 sq.m. Ages 60-69 = 85 mL/min/1.73 sq.m. Ages 70+ = 75 mL/min/1.73 sq.m. Chronic Kidney Disease: Less than 60 mL/min/1.73 square meters End Stage Renal Disease: Less than 15 mL/min/1.73 square meters LAB GFRNO(LOINC) ml/min/1.73sqm GFR Non- 41 Result Comment: GFR Population mean for , Non- Americans Ages 20-29 = 116 mL/min/1.73 sq.m. Ages 30-39 = 107 mL/min/1.73 sq.m. Ages 40-49 = 99 mL/min/1.73 sq.m. Ages 50-59 = 93 mL/min/1.73 sq.m. Ages 60-69 = 85 mL/min/1.73 sq.m. Ages 70+ = 75 mL/min/1.73 sq.m. Chronic Kidney Disease: Less than 60 mL/min/1.73 square meters End Stage Renal Disease: Less than 15 mL/min/1.73 square meters Performed By: #### BUN, CRE, GFR, VANCR #### [place] [address] VANCR Collected: 01/31/2018 Status: F Source: [facility] 6:29 AM [facility] REPOSITORY TYPE CODE TESTS RESULT OUT OF REFERENCE UNITS RANGE LAB LD021(LOIN C) LDose Vancomycin: See eMAR (random) LAB VANR(LOINC mcg/mL ) Vancomycin Lvl 17.2 (random) Result Comment: No normal reference range reported for random vancomycin testing. Performed By: #### BUN, CRE, GFR, VANCR #### [address] [address] BUN Collected: 01/30/2018 Status: F Source: [facility] 5:44 AM [facility] REPOSITORY TYPE CODE TESTS RESULT OUT OF RANGE REFERENCE UNITS LAB BUN(LOINC) 8.0-22.0 mg/dL High BUN 26.0 Performed By: #### BUN, CRE, GFR #### [address] [address] CRE Collected: 01/30/2018 Status: F Source: [facility] 5:44 AM [facility] REPOSITORY TYPE CODE TESTS RESULT OUT OF REFERENCE UNITS RANGE LAB CRE(LOINC) 0.50-1.20 mg/dL High Creatinine Lvl 1.26 (s) Performed By: #### BUN, CRE, GFR #### [address] [address] .GFR Collected: 01/30/2018 Status: F Source: [facility] 5:44 AM [facility] REPOSITORY TYPE CODE TESTS RESULT OUT OF REFERENCE UNITS RANGE LAB GFRAA(LOINC ml/min/1.73 ) sqm GFR 49 [place]kin[place] Result Comment: GFR Population mean for , Non- Americans Ages 20-29 = 116 mL/min/1.73 sq.m. Ages 30-39 = 107 mL/min/1.73 sq.m. Ages 40-49 = 99 mL/min/1.73 sq.m. Ages 50-59 = 93 mL/min/1.73 sq.m. Ages 60-69 = 85 mL/min/1.73 sq.m. Ages 70+ = 75 mL/min/1.73 sq.m. Chronic Kidney Disease: Less than 60 mL/min/1.73 square meters End Stage Renal Disease: Less than 15 mL/min/1.73 square meters LAB GFRNO(LOINC) ml/min/1.73sqm GFR Non- 41 Result Comment: GFR Population mean for , Non- Americans Ages 20-29 = 116 mL/min/1.73 sq.m. Ages 30-39 = 107 mL/min/1.73 sq.m. Ages 40-49 = 99 mL/min/1.73 sq.m. Ages 50-59 = 93 mL/min/1.73 sq.m. Ages 60-69 = 85 mL/min/1.73 sq.m. Ages 70+ = 75 mL/min/1.73 sq.m. Chronic Kidney Disease: Less than 60 mL/min/1.73 square meters End Stage Renal Disease: Less than 15 mL/min/1.73 square meters Performed By: #### BUN, CRE, GFR #### [place] [address] VANCR Collected: 01/30/2018 Status: F Source: [facility] 5:44 AM [facility] REPOSITORY TYPE CODE TESTS RESULT OUT OF REFERENCE UNITS RANGE LAB LD021(LOIN C) LDose Vancomycin: See eMAR (random) LAB VANR(LOINC mcg/mL ) Vancomycin Lvl 14.6 (random) Result Comment: No normal reference range reported for random vancomycin testing. Performed By: #### VANCR #### [place] [address] BUN Collected: 01/29/2018 Status: F Source: [facility] 4:01 AM [facility] REPOSITORY TYPE CODE TESTS RESULT OUT OF RANGE REFERENCE UNITS LAB BUN(LOINC) 8.0-22.0 mg/dL High BUN 39.0 Performed By: #### BUN, CRE, GFR #### [place] [address] CRE Collected: 01/29/2018 Status: F Source: [facility] 4:01 AM [facility] REPOSITORY TYPE CODE TESTS RESULT OUT OF REFERENCE UNITS RANGE LAB CRE(LOINC) 0.50-1.20 mg/dL High Creatinine Lvl 1.63 (s) Performed By: #### BUN, CRE, GFR #### [place] [address] .GFR Collected: 01/29/2018 Status: F Source: [facility] 4:01 AM [facility] REPOSITORY TYPE CODE TESTS RESULT OUT OF REFERENCE UNITS RANGE LAB GFRAA(LOINC ml/min/1.73 ) sqm GFR 37 [place] Result Comment: GFR Population mean for , Non- Americans Ages 20-29 = 116 mL/min/1.73 sq.m. Ages 30-39 = 107 mL/min/1.73 sq.m. Ages 40-49 = 99 mL/min/1.73 sq.m. Ages 50-59 = 93 mL/min/1.73 sq.m. Ages 60-69 = 85 mL/min/1.73 sq.m. Ages 70+ = 75 mL/min/1.73 sq.m. Chronic Kidney Disease: Less than 60 mL/min/1.73 square meters End Stage Renal Disease: Less than 15 mL/min/1.73 square meters LAB GFRNO(LOINC) ml/min/1.73sqm GFR Non- 30 Result Comment: GFR Population mean for , Non- Americans Ages 20-29 = 116 mL/min/1.73 sq.m. Ages 30-39 = 107 mL/min/1.73 sq.m. Ages 40-49 = 99 mL/min/1.73 sq.m. Ages 50-59 = 93 mL/min/1.73 sq.m. Ages 60-69 = 85 mL/min/1.73 sq.m. Ages 70+ = 75 mL/min/1.73 sq.m. Chronic Kidney Disease: Less than 60 mL/min/1.73 square meters End Stage Renal Disease: Less than 15 mL/min/1.73 square meters Performed By: #### BUN, CRE, GFR #### [place] [address] VANCR Collected: 01/29/2018 Status: F Source: [facility] 1:46 AM [facility] REPOSITORY TYPE CODE TESTS RESULT OUT OF REFERENCE UNITS RANGE LAB LD021(LOIN C) LDose Vancomycin: See eMAR (random) LAB VANR(LOINC mcg/mL ) Vancomycin Lvl 14.5 (random) Result Comment: No normal reference range reported for random vancomycin testing. Performed By: #### VANCR #### [place] [address] ESR Collected: 01/28/2018 Status: F Source: [facility] 10:02 AM [facility] REPOSITORY TYPE CODE TESTS RESULT OUT OF REFERENCE UNITS RANGE LAB ESR(LOINC) 0-30 mm/hr Erythrocyte High Sed Rate 126 Performed By: #### ESR, CRP #### [place] [address] CRP Collected: 01/28/2018 Status: F Source: [facility] 10:02 AM [facility] REPOSITORY TYPE CODE TESTS RESULT OUT OF REFERENCE UNITS RANGE LAB CRP(LOINC) <=0.80 mg/dL High C-Reactive 19.40 Protein Performed By: #### ESR, CRP #### [place] [address] US RENAL Observed: 01/28/2018 Status: F Source: [facility] 9:00 AM [facility] REPOSITORY ORIGINAL US RENAL CLINICAL INDICATION: DIAZ vs CKD COMPARISON: None FINDINGS: KIDNEYS: RIGHT: 10.3 x 4.1 x 4.0 cm Cortext: Unremarkable No hydronephrosis, shadowing stone, or discrete cortical mass. LEFT: 10.4 x 4.6 x 4.4 cm Cortext: Unremarkable No hydronephrosis, shadowing stone, or discrete cortical mass. Urinary bladder is unremarkable. IMPRESSION: 1. No acute finding. Interpreted By: Sharona Paulino MD Preliminary Report By: Sharona Paulino MD Electronically Signed By: Sharona Paulino MD Dictated Date: 01/28/2018 12:49:27 PM Prelim Date: 01/28/2018 12:49:27 PM Sign Date: 01/28/2018 12:50:17 PM CBC Collected: 01/28/2018 Status: F Source: [facility] 4:01 AM [facility] REPOSITORY TYPE CODE TESTS RESULT OUT OF REFERENCE UNITS RANGE LAB WBC(LOINC) 4.50-10.80 10 3/mcL WBC 9.70 LAB RBCCT(LOINC 4.10-5.30 10 6/mcL ) Low RBC 2.30 LAB HGB(LOINC) 12.0-16.0 G/dL Low Hgb 7.2 LAB HCT(LOINC) 34.0-46.0 % Low Hct 20.8 LAB MCV(LOINC) 80.0-99.0 fL MCV 90.4 LAB MCH(LOINC) 27.0-33.0 pg MCH 31.3 LAB MCHC(LOINC) 32.0-36.0 G/dL MCHC 34.6 LAB RDW(LOINC) 11.5-15.5 % RDW 12.6 LAB PLT(LOINC) 150-450 10 3/mcL Platelet 195 LAB MPV(LOINC) 6.6-10.5 fL MPV 6.9 Performed By: #### CBC, ADIFF, ANEU, FES, BMP, GFR, A1C #### [place] [address] .AUTO DIFF Collected: 01/28/2018 Status: F Source: [facility] 4:01 AM [facility] REPOSITORY TYPE CODE TESTS RESULT OUT OF REFERENCE UNITS RANGE LAB SWAPNIL(LOINC) 50.0-75.0 % High Neutrophil % 86.8 LAB LYM(LOINC) 20.0-40.0 % Low Lymphocyte % 5.7 LAB MON(LOINC) 2.0-13.0 % Monocyte % 7.0 LAB EO(LOINC) 0.0-6.0 % Eosinophil % 0.3 LAB BAS(LOINC) 0.0-2.5 % Basophil % 0.2 LAB ABLYM(LOIN 0.90-4.32 10 3/mcL C) Low Lymphocyte, 0.50 Absolute LAB RIKI(LOINC 0.09-1.40 10 3/mcL ) Monocyte, 0.70 Absolute LAB AEOS(LOINC 0.00-0.65 10 3/mcL ) Eosinophil, 0.00 Absolute LAB ABAS(LOINC 0.00-0.27 10 3/mcL ) Basophil, 0.00 Absolute Performed By: #### CBC, ADIFF, ANEU, FES, BMP, GFR, A1C #### [place] [address] .NEUABS Collected: 01/28/2018 Status: F Source: [facility] 4:01 [facility] REPOSITORY TYPE CODE TESTS RESULT OUT OF REFERENCE UNITS RANGE LAB ANEU(LOINC) 2.25-8.10 10 3/mcL High Neutrophil, 8.40 Absolute Performed By: #### CBC, ADIFF, ANEU, FES, BMP, GFR, A1C #### [place] [address] FES Collected: 01/28/2018 Status: F Source: [facility] 4:01 AM [facility] REPOSITORY TYPE CODE TESTS RESULT OUT OF RANGE REFERENCE UNITS LAB FE(LOINC) 37-170 mcg/dL Low Iron 13 LAB IBC(LOINC) 250-500 mcg/dL Low TIBC 166 LAB FESAT(LOINC % ) Iron Sat 8 Performed By: #### CBC, ADIFF, ANEU, FES, BMP, GFR, A1C #### [place] [address] BMP Collected: 01/28/2018 Status: F Source: [facility] 4:01 [facility] REPOSITORY TYPE CODE TESTS RESULT OUT OF REFERENCE UNITS RANGE LAB GLU(LOINC) 82-115 mg/dL Glucose High Level 235 LAB NA(LOINC) 136-145 mEq/L Sodium Level 139 LAB K(LOINC) 3.5-5.0 mEq/L Potassium Level 4.8 LAB CL(LOINC) 98-110 mEq/L Chloride 107 LAB CO2(LOINC) 22-32 mEq/L CO2 23 LAB EBAL(LOINC 4.0-15.0 mEq/L ) Electrolyte Balance 9.0 LAB BUN(LOINC) 8.0-22.0 mg/dL BUN High 53.0 LAB CRE(LOINC) 0.50-1.20 mg/dL Creatinine High Lvl (s) 1.73 LAB BC(LOINC) 10.0-22.0 ratio High BUN/Creatinine 30.6 Ratio LAB CA(LOINC) 8.4-10.1 mg/dL Low Calcium Lvl 8.0 Performed By: #### CBC, ADIFF, ANEU, FES, BMP, GFR, A1C #### [place] [address] .GFR Collected: 01/28/2018 Status: F Source: [facility] 4[facility]01 [facility]POS[facility] TYPE CODE TESTS RESULT OUT OF REFERENCE UNITS RANGE LAB GFRAA(LOINC ml/min/1.73 ) sqm GFR 34 [place] Result Comment: GFR Population mean for , Non- Americans Ages 20-29 = 116 mL/min/1.73 sq.m. Ages 30-39 = 107 mL/min/1.73 sq.m. Ages 40-49 = 99 mL/min/1.73 sq.m. Ages 50-59 = 93 mL/min/1.73 sq.m. Ages 60-69 = 85 mL/min/1.73 sq.m. Ages 70+ = 75 mL/min/1.73 sq.m. Chronic Kidney Disease: Less than 60 mL/min/1.73 square meters End Stage Renal Disease: Less than 15 mL/min/1.73 square meters LAB GFRNO(LOINC) ml/min/1.73sqm GFR Non- 28 Result Comment: GFR Population mean for , Non- Americans Ages 20-29 = 116 mL/min/1.73 sq.m. Ages 30-39 = 107 mL/min/1.73 sq.m. Ages 40-49 = 99 mL/min/1.73 sq.m. Ages 50-59 = 93 mL/min/1.73 sq.m. Ages 60-69 = 85 mL/min/1.73 sq.m. Ages 70+ = 75 mL/min/1.73 sq.m. Chronic Kidney Disease: Less than 60 mL/min/1.73 square meters End Stage Renal Disease: Less than 15 mL/min/1.73 square meters Performed By: #### CBC, ADIFF, ANEU, FES, BMP, GFR, A1C #### [address] [address] A1C Collected: 01/28/2018 Status: F Source: [facility] 4:01 AM [facility] REPOSITORY TYPE CODE TESTS RESULT OUT OF RANGE REFERENCE UNITS LAB A1C(LOINC) 4.0-6.0 % High Hgb A1c 9.1 Performed By: #### CBC, ADIFF, ANEU, FES, BMP, GFR, A1C #### [address] [address] UA Collected: 01/28/2018 Status: F Source: [facility] 12:19 AM [facility] REPOSITORY TYPE CODE TESTS RESULT OUT OF RANGE REFERENCE UNITS LAB SPCUA(PARMJIT NC) UA Specimen Type Clean Catch LAB CLRUA(PARMJIT NC) UA Color Yellow LAB APPUA(PARMJIT Clear NC) UA Appear Unknown Cloudy LAB SGUA(LOIN 1.006-1.029 C) UA Spec Grav 1.020 LAB GLUA(LOIN Negative mg/dL C) UA Glucose Unknown >=1000 LAB BILUA(PARMJIT Neg-Trace NC) UA Bili Negative LAB KETUA(PARMJIT Neg-Trace mg/dL NC) UA Ketones Negative LAB BLDUA(PARMJIT Neg-Trace NC) UA Blood Negative LAB PHUA(LOIN 5.0 - 8.0 C) UA pH 5.0 LAB PROUA(PARMJIT Negative mg/dL NC) UA Protein Trace LAB UROUA(PARMJIT 0.2-1.0 E.U./dL NC) UA Urobilinogen 0.2 LAB NITUA(PARMJIT Negative NC) UA Nitrite Negative LAB LEUUA(PARMJIT Negative NC) UA Leuk Est Unknown Small Performed By: #### UA, UAMIC #### [address] [address] UAMIC Collected: 01/28/2018 Status: F Source: [facility] 12:19 AM [facility] REPOSITORY TYPE CODE TESTS RESULT OUT OF RANGE REFERENCE UNITS LAB RBCUA(LOIN 0-2 /hpf C) UA RBC Rare LAB WBCUA(LOIN 0-5 /hpf C) Unknown UA WBC 50-100 LAB EPIUA(LOIN 0-20 /hpf C) Unknown UA Squam Epithelial 25-50 LAB BACUA(LOIN Negative /hpf C) Unknown UA Bacteria 3+ Performed By: #### UA, UAMIC #### [address] [address] CBC Collected: 01/27/2018 Status: F Source: [facility] 11:01 [facility] REPOSITORY TYPE CODE TESTS RESULT OUT OF REFERENCE UNITS RANGE LAB WBC(LOINC) 4.50-10.80 10 3/mcL WBC 9.50 LAB RBCCT(LOINC 4.10-5.30 10 6/mcL ) Low RBC 2.30 LAB HGB(LOINC) 12.0-16.0 G/dL Low Hgb 7.2 LAB HCT(LOINC) 34.0-46.0 % Low Hct 20.9 LAB MCV(LOINC) 80.0-99.0 fL MCV 90.8 LAB MCH(LOINC) 27.0-33.0 pg MCH 31.1 LAB MCHC(LOINC) 32.0-36.0 G/dL MCHC 34.2 LAB RDW(LOINC) 11.5-15.5 % RDW 12.5 LAB PLT(LOINC) 150-450 10 3/mcL Platelet 194 LAB MPV(LOINC) 6.6-10.5 fL MPV 6.9 Performed By: #### CBC, ADIFF, ANEU, GFR, CMP #### [address] [address] .AUTO DIFF Collected: 01/27/2018 Status: F Source: [facility] 11:01 [facility] REPOSITORY TYPE CODE TESTS RESULT OUT OF REFERENCE UNITS RANGE LAB SWAPNIL(LOINC) 50.0-75.0 % High Neutrophil % 87.4 LAB LYM(LOINC) 20.0-40.0 % Low Lymphocyte % 6.1 LAB MON(LOINC) 2.0-13.0 % Monocyte % 6.3 LAB EO(LOINC) 0.0-6.0 % Eosinophil % 0.1 LAB BAS(LOINC) 0.0-2.5 % Basophil % 0.1 LAB ABLYM(LOIN 0.90-4.32 10 3/mcL C) Low Lymphocyte, 0.60 Absolute LAB RIKI(LOINC 0.09-1.40 10 3/mcL ) Monocyte, 0.60 Absolute LAB AEOS(LOINC 0.00-0.65 10 3/mcL ) Eosinophil, 0.00 Absolute LAB ABAS(LOINC 0.00-0.27 10 3/mcL ) Basophil, 0.00 Absolute Performed By: #### CBC, ADIFF, ANEU, GFR, CMP #### [place] [address] .NEUABS Collected: 01/27/2018 Status: F Source: [facility] 11:01 [facility] REPOSITORY TYPE CODE TESTS RESULT OUT OF REFERENCE UNITS RANGE LAB ANEU(LOINC) 2.25-8.10 10 3/mcL High Neutrophil, 8.30 Absolute Performed By: #### CBC, ADIFF, ANEU, GFR, CMP #### [address] [address] .GFR Collected: 01/27/2018 Status: F Source: [facility] 11:01 [facility] REPOSITORY TYPE CODE TESTS RESULT OUT OF REFERENCE UNITS RANGE LAB GFRAA(LOINC ml/min/1.73 ) sqm GFR 33 [place] Result Comment: GFR Population mean for , Non- Americans Ages 20-29 = 116 mL/min/1.73 sq.m. Ages 30-39 = 107 mL/min/1.73 sq.m. Ages 40-49 = 99 mL/min/1.73 sq.m. Ages 50-59 = 93 mL/min/1.73 sq.m. Ages 60-69 = 85 mL/min/1.73 sq.m. Ages 70+ = 75 mL/min/1.73 sq.m. Chronic Kidney Disease: Less than 60 mL/min/1.73 square meters End Stage Renal Disease: Less than 15 mL/min/1.73 square meters LAB GFRNO(LOINC) ml/min/1.73sqm GFR Non- 28 Result Comment: GFR Population mean for , Non- Americans Ages 20-29 = 116 mL/min/1.73 sq.m. Ages 30-39 = 107 mL/min/1.73 sq.m. Ages 40-49 = 99 mL/min/1.73 sq.m. Ages 50-59 = 93 mL/min/1.73 sq.m. Ages 60-69 = 85 mL/min/1.73 sq.m. Ages 70+ = 75 mL/min/1.73 sq.m. Chronic Kidney Disease: Less than 60 mL/min/1.73 square meters End Stage Renal Disease: Less than 15 mL/min/1.73 square meters Performed By: #### CBC, ADIFF, ANEU, GFR, CMP #### [place] [id number] [place] [address] CMP Collected: 01/27/2018 Status: F Source: [facility] 11:01 PM [facility] REPOSITORY TYPE CODE TESTS RESULT OUT OF REFERENCE UNITS RANGE LAB GLU(LOINC) 82-115 mg/dL Glucose High Level 305 LAB NA(LOINC) 136-145 mEq/L Sodium Level 138 LAB K(LOINC) 3.5-5.0 mEq/L Potassium Level 4.2 LAB CL(LOINC) 98-110 mEq/L Chloride 105 LAB CO2(LOINC) 22-32 mEq/L CO2 23 LAB EBAL(LOINC 4.0-15.0 mEq/L ) Electrolyte Balance 10.0 LAB BUN(LOINC) 8.0-22.0 mg/dL BUN High 54.0 LAB CRE(LOINC) 0.50-1.20 mg/dL Creatinine High Lvl (s) 1.77 LAB BC(LOINC) 10.0-22.0 ratio High BUN/Creatinine 30.5 Ratio LAB CA(LOINC) 8.4-10.1 mg/dL Low Calcium Lvl 8.3 LAB PROT(LOINC 6.0-8.5 G/dL ) Low Total Protein 5.6 LAB ALB(LOINC) 3.2-4.8 G/dL Low Albumin Level 2.4 LAB GLB(LOINC) 1.5-3.8 G/dL Globulin 3.2 LAB AG(LOINC) 0.9-1.6 ratio Low A/G Ratio 0.8 LAB BILT(LOINC 0.2-1.2 mg/dL ) Bili Total 0.3 LAB AP(LOINC) 38-126 U/L Alk Phos 63 LAB AST(LOINC) 8-34 U/L Low AST/SGOT 7 LAB ALT(LOINC) 10-49 U/L Low ALT/SGPT 9 Performed By: #### CBC, ADIFF, ANEU, GFR, CMP #### [facility] [address] [place] [address] TABO Collected: 01/27/2018 Status: F Source: [facility] 11:01 PM [facility] REPOSITORY TYPE CODE TESTS RESULT OUT OF RANGE REFERENCE UNITS LAB ABORH(LOINC ) Unknown ABO/Rh A POS Interp Performed By: #### ABORH, ANTIS #### [facility] [address] [place] [address] TABS Collected: 01/27/2018 Status: F Source: [facility] 11:01 PM [facility] REPOSITORY TYPE CODE TESTS RESULT OUT OF REFERENCE UNITS RANGE LAB ANST(LOINC ) Antibody Negative ABSC Screen Tango Performed By: #### ABORH, ANTIS #### [place] [address] Observed: 01/27/2018 Status: F Source: [place] CULTURE BLOOD 5:56 PM [facility] REPOSITORY CULTURE BLOOD CULTURE BLOOD SET: 1 of 2 24HOUR REPORT NO GROWTH 48HOUR REPORT NO GROWTH 72HOUR REPORT NO GROWTH M I C R O B I O L O G Y R E P O R T FINAL Antimicrobial Susceptibility and Organism Identification Report Specimen Number : [id number] Requested : 01/27/18 Specimen Source : BLOOD Collected : 01/27/18 17:56 [place] [facility] : Emergency Room Received : 01/27/18 17:56 Requesting Physician : DIANA PEREZ Patient/Specimen Tests and Comments Specimen Comments FINAL REPORT: No Growth at 5 Days Tech : Source : BLOOD ID # : [id number] FINAL Report Date : / / : Collected : 01/27/18 17:56 02/02/18.JORIS. 02/02/18.[email or web address] Performed By: #### [id number] #### [facility],[address] [place] [address] URINALYSIS Collected: 01/27/2018 Status: F Source: [place] 5:50 PM [facility] REPOSITORY TYPE CODE TESTS RESULT OUT OF REFERENCE UNITS RANGE LAB URINALYSIS (LOINC) URINALYSIS Result Comment: URINALYSIS LAB Specimen Type(LOINC) Specimen Type Void LAB Color(LOINC) NORMAL: YELLOW Color p.yel LAB Clarity(LOINC) NORMAL: CLEAR Clarity sl.cloudy LAB ph(LOINC) NORMAL: 5.0-8.0 ph 5 LAB Protein(LOINC) NORMAL: NEGATIVE Protein Abnormal 15 LAB Glucose(LOINC) NORMAL: NORMAL Glucose Abnormal 1000 LAB Ketone(LOINC) NORMAL: NEGATIVE Ketone NEG LAB Bilirubin(LOINC) NORMAL: NEGATIVE Bilirubin NEG LAB Blood(LOINC) NORMAL: NEGATIVE Blood Abnormal 10 LAB Urobilinog(LOINC) NORMAL: NORMAL Urobilinog NORM LAB Sp [place](LOINC) NORMAL: Low 1.010-1.030 Sp [place] 1.005 LAB Nitrite(LOINC) NORMAL: NEGATIVE Nitrite POS LAB Leukocytes(LOINC) NORMAL: NEGATIVE Leukocytes NEG LAB Microscopic(LOINC ) Microscopic SEE BELOW Result Comment: MICROSCOPIC LAB Wbc(LOINC) 0-5/hpf Wbc 16-25 LAB Rbc(LOINC) 0-3/hpf Rbc NONE LAB Casts(LOINC) Casts SEE BELOW LAB WBC Casts(LOINC) NORMAL: NONE WBC RARE Casts LAB Crystals(LOINC) Crystals NONE LAB Amorphous(LOINC) NONE Amorphous LAB Bacteria(LOINC) Bacteria 4+ LAB Epi Cells(LOINC) Epi Cells MODERATE LAB Mucous(LOINC) Mucous NONE LAB Yeast(LOINC) Yeast NONE Performed By: #### [id number] #### [place] [address] LACTATE Collected: 01/27/2018 Status: F Source: [place] 5:06 PM [facility] REPOSITORY TYPE CODE TESTS RESULT OUT OF REFERENCE UNITS RANGE LAB LACTATE(PARMJIT 4.5 - 18.0 mg/dL VT) LACTATE 9.1 Performed By: #### [id number] #### [place] [address] CBC Collected: 01/27/2018 Status: F Source: [place] 5:06 [facility] REPOSITORY TYPE CODE TESTS RESULT OUT OF RANGE REFERENCE UNITS LAB CBC(LOINC) CBC Result Comment: CBC-COMPLETE BLOOD COUNT LAB WBC(LOINC) 4.5 - 10.8 x 10EE3/UL WBC High 13.4 LAB RBC(LOINC) 4.10 - x 10EE6/UL 5.30 RBC Low 2.50 LAB HEMOGLOBIN(LOINC 12.0 - g/dl ) 16.0 Low HEMOGLOBIN 7.7 LAB HEMATOCRIT(LOINC 34.0 - % ) 46.0 Low HEMATOCRIT 22.2 LAB MCV(LOINC) 80 - 99 fl MCV 89 LAB MCH(LOINC) 27 - 33 pg MCH 31 LAB MCHC(LOINC) 32 - 36 X10 3 MCHC 35 LAB RDW/CV(LOINC) 12.0 - % 15.6 RDW/CV 12.6 LAB PLATELET(LOINC) 150 - 450 x10EE3/UL PLATELET 230 LAB MPV(LOINC) 6.6 - 10.5 fl MPV 6.7 Result Comment: AUTOMATED DIFFERENTIAL LAB NEUT %(LOINC) 46.0 - 76.0 % NEUT % High 90.7 LAB LYMPH %(LOINC) 20.0 - 45.0 % Low LYMPH % 3.1 LAB MONOS %(LOINC) 0.0 - 10.0 % MONOS % 6.0 LAB EO %(LOINC) 0.0 - 7.0 % EO % 0.0 LAB BASO %(LOINC) 0.0 - 2.0 % BASO % 0.2 LAB Lymph #(LOINC) 0.80 - 2.80 x10EE3/U Low L Lymph # 0.40 LAB Neut #(LOINC) 1.50 - 7.10 x10EE3/U L Neut # High 12.20 LAB Smith #(LOINC) 0.20 - 1.00 x10EE3/U L Smith # 0.80 LAB EO #(LOINC) 0.00 - 0.50 x10EE3/U L EO # 0.00 LAB Baso #(LOINC) 0.00 - 0.10 x10EE3/U L Baso # 0.00 LAB MANUAL DIFF(LOINC) MANUAL DIFF N/A LAB MORPHOLOGY(LOINC ) MORPHOLOGY N/A Result Comment: {CD] Performed By: #### [id number] #### [facility],[address] [place] [address] CMP WITH EGFR Collected: 01/27/2018 Status: F Source: [place] 5:06 PM [facility] REPOSITORY TYPE CODE TESTS RESULT OUT OF RANGE REFERENCE UNITS LAB CMP with eGFR(LOINC) CMP with eGFR Result Comment: COMPREHENSIVE METABOLIC PANEL LAB SODIUM(LOINC) 136 - 145 mmol/l Low SODIUM 129 LAB POTASSIUM(LOINC) 3.5 - 5.1 mmol/L POTASSIUM 4.6 LAB CHLORIDE(LOINC) 98 - 107 mmol/L Low CHLORIDE 97 LAB CO2(LOINC) 21.0 - mmol/L Low 31.0 CO2 19.7 LAB GLUCOSE(LOINC) 74 - 106 mg/dl High Alert GLUCOSE 548 Result Comment: { CALLED TO ER AT 1747 RA 1746 { READ BACK BY SHARON LI TO DJB LAB BUN(LOINC) 6 - 20 mg/dl BUN High 55 LAB CREATININE(LOINC) 0.6 - 1.2 mg/dl CREATININE High 1.9 LAB AST/SGOT(LOINC) 13 - 39 U/L Low AST/SGOT 7 LAB ALK PHOS(LOINC) 38 - 126 U/L ALK PHOS 54 LAB CALCIUM(LOINC) 8.6 - 10.2 mg/dl CALCIUM 8.6 LAB TOTAL 6.4 - 8.3 g/dl PROTEIN(LOINC) TOTAL PROTEIN 6.7 LAB ALBUMIN(LOINC) 3.4 - 4.8 g/dL Low ALBUMIN 3.3 LAB GLOBULIN(LOINC) 1.5 - 3.8 G/DL GLOBULIN 3.4 LAB A/G RATIO(LOINC) 0.9 - 1.6 A/G RATIO 1.0 LAB TOTAL BILI(LOINC) 0.0 - 1.5 mg/dl TOTAL BILI 0.4 LAB B/C RATIO(LOINC) 0 - 30 ratio B/C RATIO 29 LAB ALT/SGPT(LOINC) 8 - 35 U/L Low ALT/SGPT 5 LAB ANION GAP(LOINC) 10 - 20 mmol/L ANION GAP 17 LAB AGE(LOINC) years AGE 82 LAB eGFR(LOINC) 60 - 999 ML/MINUTE Low eGFR 25 LAB eGFR(AA)(LOINC) 60 - 999 ML/MINUTE Low eGFR(AA) 31 Result Comment: ACCORDING TO THE NATIONAL KIDNEY DISEASE EDUCATION PROGRAM(NKDE), A NORMAL eGFR IS A VALUE GREATER THAN OR EQUAL TO 60 ML/MIN/1.73 SQ METERS. CHRONIC KIDNEY DISEASE: <60mL/MIN/1.73 SQ METERS KIDNEY FAILURE: <15mL/MIN/1.73 SQ METERS THIS TEST SHOULD ONLY BE USED FOR PATIENTS 18 YEARS OF AGE AND OLDER. Performed By: #### [id number] #### [facility],[address] [place] [address] SEDRATE Collected: 01/27/2018 Status: F Source: [place] 5:06 PM [facility] REPOSITORY TYPE CODE TESTS RESULT OUT OF REFERENCE UNITS RANGE LAB SEDRATE(PARMJIT 0 - 30 mm/hr NC) High SEDRATE >140 Performed By: #### [id number] #### [facility],[address] [place], [place] [address] Observed: 01/27/2018 Status: F Source: [place]T [place] CULTURE BLOOD 5:06 PM [facility] REPOSITORY CULTURE BLOOD CULTURE BLOOD SET: 2 of 2 24HOUR REPORT NO GROWTH 48HOUR REPORT NO GROWTH 72HOUR REPORT NO GROWTH M I C R O B I O L O G Y R E P O R T FINAL Antimicrobial Susceptibility and Organism Identification Report Specimen Number : [id number] Requested : 01/27/18 Specimen Source : BLOOD Collected : 01/27/18 17:06 [place] [facility] Isolation : Emergency Room Received : 01/27/18 17:06 Requesting Physician : DIANA PEREZ Patient/Specimen Tests and Comments Specimen Comments FINAL REPORT: No Growth at 5 Days Tech : Source : BLOOD ID # : [id number] FINAL Report Date : / / : Collected : 01/27/18 17:06 02/02/18.KLS. 02/02/18.KLS.COMPLETE Performed By: #### [id number] #### [place] [address] FOOT COMPLETE RT Observed: 01/27/2018 Status: F Source: [place] 4:20 PM [place] [address] Patient: BAILEY HOLLEY Phone#: : [phone] Age: 82 Gender: F Pt. Type: ER Account: [id number] Location: [facility] Ordering: CHACE ADRIAN Exam Date: 01/27/2018/16:04 Family Phys: MARCOS ARGUETA Charge Code: 436909 Physician: Beckham Order #: [id number] DLP Dose#: PROCEDURE: X-RAY FOOT RT COMPLETE MIN 3 VIEWS COMPARISON: None. INDICATIONS: Right foot pain FINDINGS: BONES: There is diffuse bony demineralization. No cortical lucency. No fracture or dislocation. The medial first sesamoid is bipartite. SOFT TISSUES: There is air in the soft tissues adjacent to the distal aspect of the fifth metatarsal. EFFUSION: None visible. OTHER: Negative. CONCLUSION: 1. Soft tissue wound adjacent to the distal fifth metatarsal. No associated cortical defect. Note: This does not exclude early osteomyelitis which may not be initially evident on radiograph. Dictated by: Padmini Pickard MD on 01/27/2018 at 16:27 Approved by: Padmini Pickard MD on 01/27/2018 at 16:27 BASIC METABOLIC Collected: 08/19/2017 Status: F Source: [place] PROFILE (BMP) 8:02 AM [facility] REPOSITORY TYPE CODE TESTS RESULT OUT OF RANGE REFERENCE UNITS LAB L501.0100 74-106 mg/dL High GLU 196 Result Comment: Fasting Glucose result greater than or equal to 126 mg/dL suggests DIABETES MELLITUS per A.D.A. criteria. Please note revised GLUCOSE reference range effective 2017. LAB L501.1000 7-18 mg/dL High BUN 64 LAB L501.1100 0.55-1.02 mg/dL High CREAT,SERUM 1.87 Result Comment: The validity of the calculated GFR AND GFRAA in patients over 70 years has not been determined. Clinical correlation is essential. LAB L501.1110 >60 mL/min Low EST GFR 28 Result Comment: Non- GFR Calc LAB L501.1115 >60 mL/min Low EST GFR - AA 33 Result Comment: GFR Calc LAB L501.1300 10-20 RATIO High BUN/CRE 34.2 LAB L501.2200 8.5-10.1 mg/dL Low CA 8.4 LAB L501.5300 136-145 mmol/L NA Normal 137 LAB L501.5600 3.5-5.1 mmol/L K Normal 5.0 LAB L501.5900 98-107 mmol/L CL Normal 104 LAB L501.6100 21.0-32.0 mmol/L Normal CO2 24.0 LAB L501.6200 5-15 Normal GAP 9 Performed By: #### L500.2500, L500.3400, L500.4100 #### [facility] [address] [place], [place], [id number] LIVER PROFILE Collected: 08/19/2017 Status: F Source: [place] 8:02 AM [facility] REPOSITORY TYPE CODE TESTS RESULT OUT OF RANGE REFERENCE UNITS LAB L501.1500 6.4-8.2 g/dL Normal T PROT 7.0 LAB L501.1800 3.2-5.0 g/dL Normal ALB 3.4 LAB L501.1950 2.2-4.2 g/dL Normal GLOB 3.6 LAB L501.4100 15-37 U/L Low AST 10 LAB L501.4305 45-117 U/L Normal ALK P 57 LAB L501.4405 13-56 U/L Low ALT 10 Result Comment: Please note revised ALT reference range effective 2017. LAB L501.4600 0.20-1.00 mg/dL Normal T BILI 0.30 LAB L501.4700 0.00-0.30 mg/dL Normal D BILI 0.06 Performed By: #### L500.2500, L500.3400, L500.4100 #### [facility] [address] [facility] [place], [address] LIPID PROFILE Collected: 08/19/2017 Status: F Source: [place] 8:02 AM [facility] REPOSITORY TYPE CODE TESTS RESULT OUT OF RANGE REFERENCE UNITS LAB L501.4900 200 mg/dL Normal CHOL 195 Result Comment: <200 mg/dL Desirable 200-240 mg/dL Borderline >240 mg/dL High Risk LAB L501.5000 mg/dL Normal TRIG 158 Result Comment: The drugs N-Acetylcysteine and Metamizole may falsely depress this assay. Serum Triglycerides Reference Interval Normal <150 mg/dL Borderline high 150 - 199 mg/dL High 200 - 499 mg/dL Very High > or = 500 mg/dL LAB L501.6400 mg/dL Normal HDL 40 Result Comment: The drugs N-Acetylcysteine and Metamizole may falsely depress this assay. Reference Range HDL <40 mg/dL Low HDL Cholesterol HDL >or= 60 mg/dL High HDL Cholesterol LAB L501.6500 0-130 mg/dL Normal LDL 123 LAB L501.6600 5-40 mg/dL Normal VLDL 32 Performed By: #### L500.2500, L500.3400, L500.4100 #### [facility] [address] [place], [place], [id number] HEMOGLOBIN A1C Collected: 08/19/2017 Status: F Source: [place] 8:02 AM [facility] REPOSITORY TYPE CODE TESTS RESULT OUT OF RANGE REFERENCE UNITS LAB L501.9985 4.2-6.3 % High HGB A1C 10.8 Performed By: #### L501.9985 #### [facility] [address] [place], [address] MICROALB:CREAT Collected: 08/19/2017 Status: F Source: T[place]ANCE RATIO,RANDOM UR 8:02 AM [facility] REPOSITORY TYPE CODE TESTS RESULT OUT OF RANGE REFERENCE UNITS LAB L501.1200 NO RANGE EST. mg/dL Normal UR CREAT 65.40 LAB L502.0500 NO RANGE EST. mg/L Normal 9.8 MICROALBUMIN ,UR LAB L502.0600 <30 mg/g CRE mg/g CRE Normal 14.9 MALB:CREAT Performed By: #### L502.0250 #### [facility] [address] [place], [address] ALLERGIES ALLERGIES DATE TYPE / CODE NAME / CODE REACTION SEVERITY SOURCE 05/15/2015 Drug Penicillins/ Hives Unknown [facility] Allergy/4160 [id number]([facility] 20244(SNOMED XNORM) Repository CT) Drug PCN pt unsure was Moderate [facility] Allergy/4160 (penicillin) told years ago ([facility] 44577(SNOMED /[id number](RX to not praful Modifier) Repository CT) NORM) (Qualifier Value) ENCOUNTERS ENCOUNTERS ADMIT/DISCHARGE ACCOUNT NUMBER ADMITTING ENCOUNTER LOCATION SOURCE CLASS 06/29/2018 [id number] DILLON, Emergency Buildin[address] [place] [address] Room: ERBed: [facility] Repository 05/20/2018 [id number] [facility] ding:MTLAB Repository 03/14/2018 [id number] [facility] ding:OLS.WHL Repository TCC 03/10/2018 [id number] [facility] ding:OLS.WHL Repository TCC 03/07/2018 [id number] [facility] ding:OLS.WHL Repository TCC 03/03/2018 [id number] [facility] ding:OLS.WHL Repository TCC 03/01/2018 [id number] [facility] ding:OLS.WHL Repository TCC 02/28/2018 [id number] [facility] ding:OLS.WHL Repository TCC 02/25/2018 [id number] [facility] ding:OLS.WHL Repository TCC 02/24/2018 [id number] [facility] ding:OLS.WHL Repository TCC 02/23/2018 [id number] [facility] ding:OLS.WHL Repository TCC 02/22/2018 [id number] [facility] ding:OLS.WHL Repository TCC 02/21/2018 [id number] [facility] ding:OLS.WHL Repository [facility] 02/16/2018 [id number] [facility] ding:OLS.WHL Repository [facility] 02/14/2018 [id number] [facility] ding:OLS.WHL Repository [facility] 01/27/2018/02/12/20 [id number] ALEXANDRO CHIRINOS, Inpatient ABuilding:TAMARA LOTT Encounter 5Room: [place] [address]Bed: [facility] Repository 01/27/2018/01/28/[id number] NGUYỄN Emergency [facility] [place], [place] [address]bárbara [address] [place] [address] Room: ERBed: [facility] Repository 08/19/2017 [id number] [facility] PAYERS PAYERS ENCOUNTER GUARANTOR PAYER SUBSCRIBER SOURCE 06/29/2018 BAILEY Vanessa Primary Insurance:500 BAILEY Metz KINERDOB: MEDICARE KINERDOB: [facility] [id number] [facility] [id number] [facility] [address] Number: [address] [address] Repository [address] [place] [address] [id number] [place] [address] Date:Plan Name: [id number]: () 06/29/2018 Secondary BAILEY Metz Insurance:AARP KINERDOB: [facility] [id number] Hospital Number: 9 T[address] Repository [id number] [address] [place] [address], [place] Date: [id number] 05/20/2018 BAILEY A Primary BAILEY A Terrance [id number] TR Insurance:MEDICARE KINERDOB: [address], PART A olicy Number: [id number] Repository [address]Jmf: Date:2018-05-17 () 05/20/2018 Secondary BAILEY A Terrance Insurance:[facility] KINERDOB: [facility] Number: [id number] Hospital [id number] Repository Date:8932-79-51[address], [place] [address]FA: 05/20/2018 Tertiary NOT GIVENUNK [place] Insurance:SELF PAY [facility] Number: Effective Repository Date:2018-05-17 03/14/2018 Bailey A Primary Insurance:SELF NOT GIVENUNK [place] [id number] TR PAY INSURANCE[address], Number: Effective Hospital [place] Date:2018-03-14 Repository [phone]: (HP) 03/10/2018 Bailey A Primary Insurance:SELF NOT GIVENUNK [place] [id number] TR PAY INSURANCEPolic[address], Number: Effective Hospital [place] Date:2018-03-10 Repository [phone]: (HP) 03/07/2018 Baiely A Primary Insurance:SELF NOT GIVENUNK [place] [id number] TR PAY INSURANCEPolic[address], Number: Effective Hospital [place] Date:2018-03-07 Repository [address]Wwa: (HP) 03/03/2018 Bailey A Primary Insurance:SELF NOT GIVENUNK [place] [id number] TR PAY INS[address]ANCEPolic[address], Number: Effective [facility] [place] Date:2018-03-03 Repository [phone]: () 03/01/2018 Bailey A Primary Insurance:SELF NOT GIVENUNK [place] [id number] TR [facility] [address], Number: Effective [facility] [place] Date:2018-03-01 Repository [phone]: () 02/28/2018 Bailey A Primary Insurance:SELF NOT GIVENUNK [place] [id number] TR PAY INSURANCE[address], Number: Effective [facility] [place] Date:2018-02-28 Repository [phone]: () 02/25/2018 Bailey A Primary Insurance:SELF NOT GIVENUNK [place] [id number] TR PAY INSURANCE[address], Number: Effective [facility] [place] Date:2018-02-25 Repository [phone]: () 02/24/2018 Bailey A Primary Insurance:SELF NOT GIVENUNK [place] [id number] TR [facility], Number: [facility] [place] Date:2018-02-24 Repository [address]Imy: () 02/23/2018 Bailey A Primary Insurance:SELF NOT GIVENUNK [place] [id number] TR [facility]Y [facility], Number: Effective [facility] [place] Date:2018-02-23 Repository [phone]: () 02/22/2018 Bailey A Primary Insurance:SELF NOT GIVENUNK [place] [id number] TR PAY INSURANCE[address], Number: Effective [facility] [place] Date:2018-02-22 Repository [address]Bbm: () 02/21/2018 Bailey A Primary Insurance:SELF NOT GIVENUNK [place] [id number] TR PAY INSURANCE[address], Number: Effective Hospital [place] Date:2018-02-21 Repository [address]Jly: () 02/16/2018 Bailey A Primary Insurance:SELF NOT GIVENUNK [place] [id number] TR PAY INSURANCE[address], Number: Effective [facility] [place] Date:2018-02-16 Repository [phone]: (HP) 02/14/2018 Bailey Vanessa Primary Insurance:SELF NOT GIVENUNK [place] [id number] TR PAY INSURANCE[address], Number: Effective Hospital [place] Date:2018-02-14 Repository [phone]: (HP) 01/27/2018 BAILEY A Primary BAILEY A [facility] KINERDOB: Insurance:MEDICARE KINERDOB: Foundation [id number] PART APolicy Number: [id number] Repository [facility] [id number] [address], Date:2018-01-[address] [place] [address]Bfm: [id number]: ([phone]) Name:[facility] 8 () [address] (HP)Tel: (000) [phone], [place] 000-0000 (WP) [address]EJ: 01/27/2018 Secondary BAILEY A [facility] Insurance:MEDICARE KINERDOB: Foundation PART BPolicy Number: [id number] Repository [id number] [facility] Date:2018-01-[address] [place] [address] [id number]: (419) Name:[facility] [phone] Administrators LLCPO (HP)Tel: (000) [address] [address]Feqciawhf, [place] 000-[address] (WP) [address]TA: 01/27/2018 Tertiary BAILEY A [facility] Insurance:AARP UNITED KINERDOB: [facility] [id number] Repository ONLYPolicy Number: 9 [facility] [id number] [address] [place] [address] Date:2018-01-27 [phone]: [phone] [phone] [phone] Name:BARREL BURNER Box (HP)Tel: (000) [phone], [place] 000-[address] (WP) [phone]: 01/27/2018 BAILEY A Primary Insurance:500 BAILEY A Chet Pomerene KINERDOB: MEDICARE KINERDOB: [facility] [id number] [facility] [id number] [facility] [address] Number: 9 [facility] Repository [address] [place] [address] [id number] [place], [place] Date:Plan Name: [id number]: () 01/27/2018 Secondary BAILEY A Chet Pomerene Insurance:AARP KINERDOB: [facility] [id number] Hospital Number: 9 [facility] Repository [id number] [address] [place] [address] Date: [id number] 01/27/2018 Tertiary BAILEY A Chet Pomerene Insurance:MEDICARE KINERDOB: [facility] [id number] Hospital Number: [address] [facility] [id number] [address] [place] [address] Date:Plan Name: [id number] 08/19/2017 Bailey A Primary Bailey A [place] [id number] TR Insurance:MEDICARE KinerDOB: [address] BPolicy Number: [id number] Repository [address]Uze: Date:2017-08-19 () 08/19/2017 Secondary Bailey A Terrance Insurance:AARPPolicy KinerDOB: [facility] Number: [id number] Hospital [id number] Repository Date:2176-07-95[address], [place] [address]RO: 08/19/2017 Tertiary NOT GIVENUNK [place] Insurance:SELF PAY [facility] Number: Effective Repository Date:2017-08-19
--- OUTSIDE RECORDS SUMMARY | 2018-08-24 06:19 | XMS RPT_ITS ---
:1935 Author Organization OHIP Support Name Relationship Address Phone ARCELIA SCHNEIDER Unavailable Unavailable + MARCOS HOLLEY Unavailable [address] Unavailable [place], [place] [phone] NOT GIVEN Unavailable Unavailable Unavailable ARCELIA SCHNEIDER Unavailable [address] + [place] [address] MARCOS HOLLEY Unavailable [address] + [place] [address] R Unavailable Unavailable Unavailable Abbi Schneiderhy Unavailable [address] + [place] [address] Marcos Holley Unavailable [address] + [place] [address] R Unavailable Unavailable Unavailable Abbi Schneiderhy Unavailable [address] + [place] [address] Marcos Holley Unavailable [address] + [place] [address] R Unavailable Unavailable Unavailable Abbi Schneiderhy Unavailable [address] + [place] [address] Marcos Holley Unavailable [address] + [place] [address] R Unavailable Unavailable Unavailable Abbi Schneiderhy Unavailable [address] + [place] [address] Marcos Holley Unavailable [address] + [place] [address] R Unavailable Unavailable Unavailable Abbi Schneiderhy Unavailable [address] + [place] [address] Marcos Holley Unavailable [address] + [place] [address] R Unavailable Unavailable Unavailable Wyatt, Arcelia Unavailable [address] + [place] [address] Kiner, Marcos Unavailable [address] + [place] [address] R Unavailable Unavailable Unavailable Arcelia Schneider Unavailable [address] + [place] [address] Kiner, Marcos Unavailable [address] + [place] [address] R Unavailable Unavailable Unavailable Arcelia Schneider Unavailable [address] + [place] [address] Kiner, Marcos Unavailable [address] + [place] [address] R Unavailable Unavailable Unavailable Arcelia Schneider Unavailable [address] + [place] [address] Kiner, Marcos Unavailable [address] + [place] [address] R Unavailable Unavailable Unavailable Arcelia Schneider Unavailable [address] + [place] [address] Kiner, Marcos Unavailable [address] + [place] [address] R Unavailable Unavailable Unavailable Arcelia Schneider Unavailable [address] + [place] [address] Kiner, Marcos Unavailable [address] + [place] [address] R Unavailable Unavailable Unavailable Arcelia Schneider Unavailable [address] + [place] [address] Kiner, Marcos Unavailable [address] + [place] [address] R Unavailable Unavailable Unavailable Arcelia Schneider Unavailable [address] + [place] [address] Kiner, Marcos Unavailable [address] + [place] [address] R Unavailable Unavailable Unavailable ARCELIA SCHNEIDER Unavailable Unavailable + ARCELIA SCHNEIDER Unavailable Unavailable + ARCELIA SCHNEIDER Unavailable Unavailable + BRIANDA MARCOS Unavailable [address] Unavailable [place], [place] [phone] NOT GIVEN Unavailable Unavailable Unavailable ARCELIA SCHNEIDER Unavailable [address] [facility] [phone] [place] [address] BRIANDA MARCOS Unavailable [address] + [place] [address] R Unavailable Unavailable Unavailable Care Team Providers Name Role Phone KARINA CHIRINOS., DR. MARCOS Freire Primary Care Unavailable ALEXANDRO CHIRINOS, OREN Admitting Unavailable KODI FRASER, DR. SUMI Gipson Attending Unavailable KARINA CHIRINOS, KOFFI Garcia Consulting Unavailable EDU CHIRINOS, FILI Vanessa Consulting Unavailable REUBEN CHIRINOS, PERCY Consulting Unavailable LASNATALIESKShirlene DO, ANAHI Consulting Unavailable JUANA DPM, KLAUS Consulting Unavailable MAGAN GUTIERREZ MD, ROGELIO RICO Consulting Unavailable PALUTSELOISE FRASER, EDDIE Zaman Consulting Unavailable FREDDIE FRASER, DR. JULIÁN Freire Consulting Unavailable EMANUEL CHIRINOS., DR. GREER Consulting Unavailable NIGEL CHIRINOS, MARKOS Jones Consulting Unavailable NGUYỄN, DR CHACE Perez Admitting Unavailable NGUYỄN, DR CHACE Perez Attending Unavailable MARCOS ARGUETA MD Referring Unavailable ADRIAN, DR CHACE Perez Primary Care Unavailable MARCOS ARGUETA MD Consulting Unavailable PROVIDER, UNKNOWN Consulting Unavailable MARCOS ARGUETA MD Referring Unavailable SABOTAGAYLA MD Admitting Unavailable SABDEBBIE, GAYLA CHIRINOS Attending Unavailable GAYLA CHONG MD Primary Care Unavailable MARCOS ARGUETA MD Consulting Unavailable PROVIDER, UNKNOWN Consulting Unavailable Marcos Majano Attending Unavailable Marcos Majano Referring Unavailable Marcos Majano Primary Care Unavailable Thiago, Raudel Attending Unavailable Das, Raudel Attending Unavailable Das, Raudel Attending Unavailable Das, Raudel Attending Unavailable Das, Raudel Attending Unavailable Das, Raudel Attending Unavailable Das, Raudel Attending Unavailable Das, Raudel Attending Unavailable Das, Raudel Attending Unavailable Das, Raudel Attending Unavailable Das, Raudel Attending Unavailable Das, Raudel Attending Unavailable Das, Raudel Attending Unavailable Marcos Majano Attending Unavailable Marcos Majano Primary Care Unavailable PROBLEMS PROBLEMS DATE TYPE CONDITION / CODE ATTENDING STATUS SOURCE 01/27/2018 Admitting Pain in left foot / DR CHACE ADRIAN Active Chet Metz Diagnosis D76726(ICD-10) C [facility] Repository 01/27/2018 Principle Type 2 diabetes ADRIAN, DR CHACE Metz 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 / E1152(ICD-10) 01/27/2018 Secondary Type 2 diabetes ADRIAN, DR CHACE Metz Diagnosis mellitus with [facility] hyperglycemia / Hospital E1165(ICD-10) Repository 01/27/2018 Secondary Gangrene, not ADRIAN, DR CHACE Metz Diagnosis elsewhere classified [facility] / I96(ICD-10) Hospital Repository 01/27/2018 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, 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 / [facility] Z794(ICD-10) Hospital Repository 01/27/2018 Secondary Other specified ADRIAN, DR CHACE Metz Diagnosis disorders of bone [facility] density and Hospital structure, left Repository ankle and foot / X34289(ICD-10) 01/27/2018 Secondary Other specified ADRIAN, DR CHACE Metz Diagnosis disorders of bone [facility] density and Hospital structure, right Repository ankle and foot / E37819(ICD-10) 01/27/2018 Secondary Atherosclerotic ADRIAN, 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 / I2510(ICD-10) 01/27/2018 Secondary Presence of ADRIAN, 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 / Z951(ICD-10) Hospital Repository 09/10/2017 Unknown E78.5 - Marcos Majano [facility] Hyperlipidemia, Community unspecified / Hospital E78.5(ICD-10) Repository PROCEDURES PROCEDURES No Procedure Records FoundRESULTS RESULTS RETICULOCYTE COUNT Collected: 06/29/2018 Status: F Source: [place] 2:10 PM [facility] REPOSITORY TYPE CODE TESTS RESULT OUT OF REFERENCE UNITS RANGE LAB RETIC 0.0 - 2.3 % COUNT(LOINC) RETIC 1.2 COUNT LAB IRF(LOINC) 0.20 - 0.46 IRF IRF 0.43 Performed By: #### [id number] #### [facility],[address] [place] [address] BMP WITH EGFR Collected: 06/29/2018 Status: F Source: [place] 8:22 AM [facility] REPOSITORY TYPE CODE TESTS RESULT OUT OF RANGE REFERENCE UNITS LAB BMP with eGFR(LOINC) BMP with eGFR Result Comment: BASIC METABOLIC PANEL LAB SODIUM(LOINC) 136 - 145 mmol/l SODIUM Low 130 LAB POTASSIUM(LOINC) 3.5 - 5.1 mmol/L POTASSIUM 4.6 LAB CHLORIDE(LOINC) 98 - 107 mmol/L CHLORIDE 106 LAB CO2(LOINC) 21.0 - mmol/L 31.0 CO2 Low 15.5 LAB GLUCOSE(LOINC) 74 - 106 mg/dl GLUCOSE High 259 LAB BUN(LOINC) 6 - 20 mg/dl BUN High 54 LAB CREATININE(LOINC) 0.6 - 1.2 mg/dl High CREATININE 2.3 LAB CALCIUM(LOINC) 8.6 - mg/dl 10.2 CALCIUM 9.1 LAB ANION GAP(LOINC) 10 - 20 mmol/L ANION GAP 13 LAB AGE(LOINC) years AGE 82 LAB eGFR(LOINC) 60 - 999 ML/MINUTE eGFR Low 20 LAB eGFR(AA)(LOINC) 60 - 999 ML/MINUTE eGFR(AA) Low 25 Result Comment: ACCORDING TO THE NATIONAL KIDNEY DISEASE EDUCATION PROGRAM(NKDE), A NORMAL eGFR IS A VALUE GREATER THAN OR EQUAL TO 60 ML/MIN/1.73 SQ METERS. CHRONIC KIDNEY DISEASE: <60mL/MIN/1.73 SQ METERS KIDNEY FAILURE: <15mL/MIN/1.73 SQ METERS THIS TEST SHOULD ONLY BE USED FOR PATIENTS 18 YEARS OF AGE AND OLDER. Performed By: #### [id number] #### [place] [address] PH VENOUS WHOLE Collected: 06/29/2018 Status: F Source: [facility] BLOOD 3:10 AM [facility] REPOSITORY TYPE CODE TESTS RESULT OUT OF REFERENCE UNITS RANGE LAB PH VENOUS WHOLE BLOOD(LOINC) PH VENOUS WHOLE BLOOD Result Comment: PH VENOUS WHOLE BLOOD LAB pH VENOUS(LOINC) 7.31 - 7.41 pH VENOUS 7.34 Performed By: #### [id number] #### [place] [address] URINALYSIS Collected: 06/29/2018 Status: F Source: [facility] 2:34 AM [facility] REPOSITORY TYPE CODE TESTS RESULT OUT OF REFERENCE UNITS RANGE LAB URINALYSIS (LOINC) URINALYSIS Result Comment: URINALYSIS LAB Specimen Type(LOINC) Specimen Type Void LAB Color(LOINC) NORMAL: YELLOW Color YELLOW LAB Clarity(LOINC) NORMAL: CLEAR Clarity clear LAB ph(LOINC) NORMAL: 5.0-8.0 ph 5 LAB Protein(LOINC) NORMAL: NEGATIVE Protein Abnormal 30 LAB Glucose(LOINC) NORMAL: NORMAL Glucose Abnormal 1000 LAB Ketone(LOINC) NORMAL: NEGATIVE Ketone Abnormal 5 LAB Bilirubin(LOINC) NORMAL: NEGATIVE Bilirubin NEG LAB Blood(LOINC) NORMAL: NEGATIVE Blood Abnormal 10 LAB Urobilinog(LOINC) NORMAL: NORMAL Urobilinog NORM LAB Sp Woodruff(LOINC) NORMAL: 1.010-1.030 Sp Woodruff 1.010 LAB Nitrite(LOINC) NORMAL: NEGATIVE Nitrite NEG LAB Leukocytes(LOINC) NORMAL: NEGATIVE Leukocytes Abnormal 500 LAB Microscopic(LOINC ) Microscopic SEE BELOW Result Comment: MICROSCOPIC LAB Wbc(LOINC) 0-5/hpf Wbc 11-15 LAB Rbc(LOINC) 0-3/hpf Rbc 0-5 LAB Casts(LOINC) Casts NONE LAB Crystals(LOINC) Crystals NONE LAB Amorphous(LOINC) Amorphous NONE LAB Bacteria(LOINC) Bacteria 1+ LAB Epi Cells(LOINC) Epi Cells FEW LAB Mucous(LOINC) Mucous NONE LAB Yeast(LOINC) Yeast NONE Performed By: #### [id number] #### [place] [address] URINE CREATININE,RANDOM Collected: Status: F Source: [facility] 06/29/2018 2:34 AM [facility] REPOSITORY TYPE CODE TESTS RESULT OUT OF REFERENCE UNITS RANGE LAB CREATININE mg/dl UR(LOINC) CREATININE UR 84.0 Performed By: #### [id number] #### [place] [address] SODIUM,URINE,RANDOM Collected: Status: F Source: [facility] 06/29/2018 2:34 [facility] REPOSITORY TYPE CODE TESTS RESULT OUT OF REFERENCE UNITS RANGE LAB RANDOM UR mmol/L NA(LOINC) RANDOM UR 44.0 NA Performed By: #### [id number] #### [place] [address] [address] BRAIN W/O CONTRAST Observed: 06/29/2018 Status: F Source: [place] 2:15 AM [place] [address] Patient: BAILEY HOLLEY Phone#: : [phone] Age: 82 Gender: F Pt. Type: ER Account: [id number] Location: 052 Ordering: REGAN CARRANZA Exam Date: 06/29/2018/2:08 Family Phys: MARCOS ARGUETA Charge Code: [id number] Physician: [place] Order #: [id number] DLP Dose#: PROCEDURE: CT BRAIN WITHOUT CONTRAST COMPARISON: None. INDICATIONS: Altered Mental Status TECHNIQUE: CT images were obtained without contrast material. All CT scans at this facility use dose modulation, iterative reconstruction, and/or weight based dosing when appropriate to reduce radiation dose to as low as reasonably achievable. IV CONTRAST: No IV contrast used,0ml TOTAL DOSE: 57.50 CTDIvol(mGy) FINDINGS: CEREBRUM: No edema, hemorrhage, mass. Global atrophy. Periventricular deep cerebral white matter hypodensities. In a patient of this age group, this finding is consistent with chronic small vessel ischemic disease. CEREBELLUM: No edema, hemorrhage, mass. Global atrophy. BRAINSTEM: No edema, hemorrhage, mass, or inappropriate atrophy. CSF SPACES: Ventricles, cisterns, and sulci are portionate to the degree of atrophy and symmetric in size and configuration. No hydrocephalus, subarachnoid hemorrhage, or mass. SKULL: No mass or other significant visible lesion. SINUSES: Mild mucosal thickening in the ethmoid air cells and partial opacification of right mastoid air cells. ORBITS: Postsurgical changes noted at the left globe. OTHER: There are atherosclerotic calcifications of the intracranial arteries. There is material in the right external auditory canal, likely cerumen. CONCLUSION: Continued Report - Page 2 of 2 Patient: BAILEY HOLLEY Phone#: : 1935 Age: 82 Gender: F Pt. Type: ER Account: [id number] Location: 052 Ordering: REGAN CARRANZA Exam Date: 06/29/2018/2:08 Family Phys: MARCOS ARGUETA Charge Code: [id number] Physician: [place] Order #: [id number] DLP Dose#: 1. No appreciable acute intracranial abnormality. Note: Acute ischemic event or extension of the chronic ischemic process cannot initially evident on CT. 2. Chronic small vessel ischemic disease. 3. Atherosclerosis. Dictated by: Padmini Pickard MD on 06/29/2018 at 9:19 Approved by: Padmini Pickard MD on 06/29/2018 at 11:37 CHEST 1 VIEW Observed: 06/29/2018 Status: F Source: [place] 1:59 AM [facility] REPOSITORY [place] [address] Patient: BAILEY HOLLEY Phone#: : [phone] Age: 82 Gender: F Pt. Type: ER Account: [id number] Location: [facility] Ordering: REGAN CARRANZA Exam Date: 06/29/2018/1:43 Family Phys: MARCOS ARGUETA Charge Code: [id number] Physician: [place] Order #: [id number] DLP Dose#: PROCEDURE: X-RAY CHEST 1 VIEW COMPARISON: [facility], XR, CHEST AP, 05/10/2017, 10:19. INDICATIONS: Weakness FINDINGS: Image obtained in apical lordotic position somewhat limiting the evaluation. LUNGS: Normal. No significant pulmonary parenchymal abnormalities. VASCULATURE: Normal. Unremarkable pulmonary vasculature. CARDIAC: Normal. No cardiac silhouette abnormality or cardiomegaly. Probable mitral annular calcification is again noted. MEDIASTINUM: Normal. No visible mass or adenopathy. PLEURA: Normal. No effusion or pleural thickening. BONES: There are degenerative changes of spine. Median sternotomy wires are present. OTHER: Negative. CONCLUSION: 1. No acute pulmonary parenchymal abnormality. Dictated by: Padmini Pickard MD on 06/29/2018 at 8:49 Approved by: Padmini Pickard MD on 06/29/2018 at 8:49 CBC Collected: 06/29/2018 Status: F Source: [place] 1:38 AM [facility] REPOSITORY TYPE CODE TESTS RESULT OUT [...] REVIEWED Result Comment: {CD] Performed By: #### [id number] #### [place] [address] TROPONIN Collected: 06/29/2018 Status: F Source: [facility] 1:38 AM [facility] REPOSITORY TYPE CODE TESTS RESULT OUT [...] such as heterophile antibodies). Performed By: #### [id number] #### [place] [address] CMP WITH EGFR Collected: 06/29/2018 Status: F Source: [place] 1:38 AM [facility] REPOSITORY TYPE CODE TESTS RESULT OUT [...] OF AGE AND OLDER. Performed By: #### [id number] #### [facility],[address] [place], [place] [address] KETONE, BLOOD, QUAL Collected: 06/29/2018 Status: F Source: [facility] 1:38 AM [facility] REPOSITORY TYPE CODE TESTS RESULT OUT OF REFERENCE UNITS RANGE LAB KETONES([employer]) NEGATIVE KETONES NEGATIVE Result Comment: SPECIMEN SERUM Performed By: #### [id number] #### [facility],[address] [place], [place] [address] Observed: 05/20/2018 Status: F Source: [place] CULTURE, URINE 2:16 PM [facility] REPOSITORY Urine Culture ORGANISM 1: Escherichia coli [place] Count >100,000 Escherichia coli: REACTION Amoxacillin/Clavulanic Acid [...] (NF) indicates non-formulary drug at [facility]. Approval by Infectious Disease Specialist required before non-formulary drugs may be ordered and/or dispensed. Performed By: #### M100.0650 #### [facility] [address] [place], [place], [address] CBC-COMPLETE BLOOD CNT Collected: 03/14/2018 Status: F Source: [place] NO DIFF 5:20 AM [facility] REPOSITORY TYPE CODE TESTS RESULT OUT [...] Performed By: #### L100.0500 #### [facility] [address] [facility] [place], [place], [address] BASIC METABOLIC Collected: 03/14/2018 Status: F Source: [place] PROFILE (BMP) 5:20 AM [facility] REPOSITORY TYPE CODE TESTS RESULT OUT [...] Performed By: #### L500.2500 #### [facility] [address] [place], [place], [address] VANCOMYCIN, TROUGH Collected: 03/10/2018 Status: F Source: [place] LEVEL 7:00 AM [facility] REPOSITORY Order Comment: Time Medication is to [...] (Ventilator/Healtcare Associated) -Sepsis PLEASE CONTACT PHARMACY SERVICES (#[id number]) FOR INTERPRETATION OF RESULTS. Performed By: #### L501.8820 #### [facility] [address] [facility] [address] [place], [place], [address] CBC-COMPLETE BLOOD CNT Collected: 03/07/2018 Status: F Source: [place] NO DIFF 7:35 AM [facility] REPOSITORY Order Comment: 405 TYPE CODE TESTS [...] Performed By: #### L100.0500 #### [facility] [address] [facility] [address] [place], [place], [address] BASIC METABOLIC Collected: 03/07/2018 Status: F Source: [place] PROFILE (BMP) 7:35 AM [facility] REPOSITORY Order Comment: 405 TYPE CODE TESTS [...] Performed By: #### L500.2500 #### [facility] [address] [place], [address] VANCOMYCIN, TROUGH Collected: 03/07/2018 Status: F Source: [place] LEVEL 7:35 AM [facility] REPOSITORY Order Comment: 405 Time Medication is [...] (Ventilator/Healtcare Associated) -Sepsis PLEASE CONTACT PHARMACY SERVICES (#[id number]) FOR INTERPRETATION OF RESULTS. Performed By: #### L501.8820 #### [facility] [address] [place], [address] VANCOMYCIN, TROUGH Collected: 03/03/2018 Status: F [facility] REPOSITORY Order Comment: ROOM 405 Time Medication [...] (Ventilator/Healtcare Associated) -Sepsis PLEASE CONTACT PHARMACY SERVICES (#[id number]) FOR INTERPRETATION OF RESULTS. Performed By: #### L501.8820 #### [facility] [address] [place], [address] VANCOMYCIN, TROUGH Collected: 03/01/2018 Status: F Source: [facility] 7:00 AM [facility] REPOSITORY Order Comment: Time Medication is to [...] (Ventilator/Healtcare Associated) -Sepsis PLEASE CONTACT PHARMACY SERVICES (#[id number]) FOR INTERPRETATION OF RESULTS. Performed By: #### L501.8820 #### [facility] [address] [place], [place], [address] CBC-COMPLETE BLOOD CNT Collected: 02/28/2018 Status: F Source: [place] NO DIFF 5:00 AM [facility] REPOSITORY Order Comment: 405 TYPE CODE TESTS [...] By: #### L100.0500, L101.9900 #### [facility] [address] [place], [place], [address] ERYTHROCYTE SED RATE Collected: 02/28/2018 Status: F Source: [place] 5:00 AM [facility] REPOSITORY Order Comment: 405 TYPE CODE TESTS RESULT OUT OF RANGE REFERENCE UNITS LAB L102.0000 0-30 mm/hr High SED RATE 58 Performed By: #### L100.0500, L101.9900 #### [facility] [address] [facility] [place], [place], [address] BASIC METABOLIC Collected: 02/28/2018 Status: F Source: [place] PROFILE (BMP) 5:00 AM [facility] REPOSITORY Order Comment: 405 TYPE CODE TESTS [...] Performed By: #### L500.2500 #### [facility] [address] [place], [place], [address] VANCOMYCIN, TROUGH Collected: 02/28/2018 Status: F Source: [facility] 5:00 AM [facility] REPOSITORY Order Comment: MISTAKINGLY MARI THIS TOO [...] (Ventilator/Healtcare Associated) -Sepsis PLEASE CONTACT PHARMACY SERVICES (#[id number]) FOR INTERPRETATION OF RESULTS. Performed By: #### L501.8820 #### [facility] [address] [place], [address] VANCOMYCIN, TROUGH Collected: 02/25/2018 Status: F Source: [place] LEVEL 7:15 AM [facility] REPOSITORY Order Comment: ROOM 405 Time Medication [...] (Ventilator/Healtcare Associated) -Sepsis PLEASE CONTACT PHARMACY SERVICES (#[id number]) FOR INTERPRETATION OF RESULTS. Performed By: #### L501.8820 #### [facility] [address] [place], [place], [address] VANCOMYCIN, RANDOM Collected: 02/24/2018 Status: F Source: [facility] 5:50 AM [facility] REPOSITORY Order Comment: ROOM 405 TYPE CODE TESTS RESULT OUT OF RANGE REFERENCE UNITS LAB L501.8850 0.0-15.0 ug/mL Normal VANCO, RANDOM 14.8 Result Comment: VANCOMYCIN STANDARD DRUG THERAPY: CRITICAL VALUE IS > 15.0 mg/L VANCOMYCIN HIGH INTENSITY THERAPY: CRITICAL VALUE IS > 20.0 mg/L PLEASE CONTACT PHARMACY SERVICES (#[id number]) FOR INTERPRETATION OF RESULTS. THIS RESULT DOES NOT REPRESENT A PEAK OR TROUGH LEVEL FOR THIS DRUG. Performed By: #### L501.8850 #### [facility] [address] [place], [place], [address] VANCOMYCIN, RANDOM Collected: 02/23/2018 Status: F Source: [facility] 6:10 AM [facility] REPOSITORY Order Comment: 405 TYPE CODE TESTS RESULT OUT OF REFERENCE UNITS RANGE LAB L501.8850 0.0-15.0 ug/mL High VANCO, RANDOM 18.4 Result Comment: VANCOMYCIN STANDARD DRUG THERAPY: CRITICAL VALUE IS > 15.0 mg/L VANCOMYCIN HIGH INTENSITY THERAPY: CRITICAL VALUE IS > 20.0 mg/L PLEASE CONTACT PHARMACY SERVICES (#[id number]) FOR INTERPRETATION OF RESULTS. THIS RESULT DOES NOT REPRESENT A PEAK OR TROUGH LEVEL FOR THIS DRUG. Performed By: #### L501.8850 #### [facility] [address] [place], [place], [address] VANCOMYCIN, RANDOM Collected: 02/22/2018 Status: F Source: [place] LEVEL 8:05 AM [facility] REPOSITORY Order Comment: ROOM 405 TYPE CODE TESTS RESULT OUT OF REFERENCE UNITS RANGE LAB L501.8850 0.0-15.0 ug/mL High VANCO, RANDOM 22.4 Result Comment: VANCOMYCIN STANDARD DRUG THERAPY: CRITICAL VALUE IS > 15.0 mg/L VANCOMYCIN HIGH INTENSITY THERAPY: CRITICAL VALUE IS > 20.0 mg/L PLEASE CONTACT PHARMACY SERVICES (#5585) FOR INTERPRETATION OF RESULTS. THIS RESULT DOES NOT REPRESENT A PEAK OR TROUGH LEVEL FOR THIS DRUG. Performed By: #### L501.8850 #### [facility] [address] [place], [place], [address] ERYTHROCYTE SED RATE Collected: 02/21/2018 Status: F Source: [place] 7:00 AM [facility] REPOSITORY Order Comment: 405-1 TYPE CODE TESTS RESULT OUT OF RANGE REFERENCE UNITS LAB L102.0000 0-30 mm/hr High SED RATE 44 Performed By: #### L101.9900, L100.0500 #### [facility] [address] [facility] [address] [place], [place], [address] CBC-COMPLETE BLOOD CNT Collected: 02/21/2018 Status: F Source: [place] NO DIFF 7:00 AM [facility] REPOSITORY Order Comment: 405-1 TYPE CODE TESTS [...] By: #### L101.9900, L100.0500 #### [facility] [address] [place], [place], [address] BASIC METABOLIC Collected: 02/21/2018 Status: F Source: [place] PROFILE (BMP) 7:00 AM [facility] REPOSITORY Order Comment: 405-1 TYPE CODE TESTS [...] Performed By: #### L500.2500 #### [facility] [address] [place], [place], [address] VANCOMYCIN, TROUGH Collected: 02/21/2018 Status: F Source: [place] LEVEL 7:00 AM [facility] REPOSITORY Order Comment: 405-1 Time Medication is [...] (Ventilator/Healtcare Associated) -Sepsis PLEASE CONTACT PHARMACY SERVICES (#[id number]) FOR INTERPRETATION OF RESULTS. Performed By: #### L501.8820 #### [facility] [address] [place], [place], [address] CBC-COMPLETE BLOOD CNT Collected: 02/16/2018 Status: F Source: [place]FF 6:10 AM [facility] REPOSITORY Order Comment: ROOM 405 TYPE CODE [...] Performed By: #### L100.0500 #### [facility] [address] [place], [address] BASIC METABOLIC Collected: 02/16/2018 Status: F Source: [place] PROFILE (BMP) 6:10 AM [facility] REPOSITORY Order Comment: ROOM 405 TYPE CODE [...] Performed By: #### L500.2500 #### [facility] [address] [place], [address] HEMOGLOBIN A1C Collected: 02/16/2018 Status: F Source: [place] 6:10 AM [facility] REPOSITORY Order Comment: ROOM 405 TYPE CODE TESTS RESULT OUT OF RANGE REFERENCE UNITS LAB L501.9985 4.2-6.3 % High HGB A1C 7.9 Performed By: #### L501.9985 #### [facility] [address] [place], [address] BASIC METABOLIC Collected: 02/14/2018 Status: F Source: [place] PROFILE (BMP) 7:05 AM [facility] REPOSITORY Order Comment: 405 TYPE CODE TESTS [...] #### L500.2500, L501.1800, L506.0500 #### [facility] [address] [facility] [place], [place], [id number] ALBUMIN, SERUM Collected: 02/14/2018 Status: F Source: [place] 7:05 AM [facility] REPOSITORY Order Comment: 405 TYPE CODE TESTS RESULT OUT OF RANGE REFERENCE UNITS LAB L501.1800 3.2-5.0 g/dL Low ALB 1.8 Performed By: #### L500.2500, L501.1800, L506.0500 #### [facility] [address] [facility] [place], [place], [id number] PREALBUMIN Collected: 02/14/2018 Status: F Source: [place] 7:05 [facility] REPOSITORY Order Comment: 405 TYPE CODE TESTS RESULT OUT OF REFERENCE UNITS RANGE LAB L506.0500 20.0-40.0 mg/dL Low PREALBUMIN 8.3 Performed By: #### L500.2500, L501.1800, L506.0500 #### [facility] [address] [place], [place], [id number] CBC-COMPLETE BLOOD CNT Collected: 02/14/2018 Status: F Source: [place] NO DIFF 7:05 AM [facility] REPOSITORY Order Comment: 405 TYPE CODE TESTS [...] By: #### L100.0500, L101.9900 #### [facility] [address] [place], [place], [id number] ERYTHROCYTE SED RATE Collected: 02/14/2018 Status: F Source: [place] 7:05 AM [facility] REPOSITORY Order Comment: 405 TYPE CODE TESTS RESULT OUT OF RANGE REFERENCE UNITS LAB L102.0000 0-30 mm/hr High SED RATE 93 Performed By: #### L100.0500, L101.9900 #### [facility] [address] [place], [place], [id number] VANCOMYCIN, TROUGH Collected: 02/14/2018 Status: F [facility] REPOSITORY Order Comment: 405 Time Medication is [...] (Ventilator/Healtcare Associated) -Sepsis PLEASE CONTACT PHARMACY SERVICES (#[id number]) FOR INTERPRETATION OF RESULTS. Performed By: #### L501.8820 #### [facility] [address] [place], [place], [id number] CBC Collected: 02/11/2018 Status: F Source: [facility] 5:09 AM [facility] REPOSITORY TYPE CODE TESTS RESULT OUT OF [...] CBC, ADIFF, ANEU, BMP, MG, GFR #### [place] [address] .AUTO DIFF Collected: 02/11/2018 Status: F Source: [facility] 5:09 AM [facility] REPOSITORY TYPE CODE TESTS RESULT OUT OF [...] CBC, ADIFF, ANEU, BMP, MG, GFR #### [place] [address] .NEUABS Collected: 02/11/2018 Status: F Source: [facility] 5:09 AM [facility] REPOSITORY TYPE CODE TESTS RESULT OUT OF REFERENCE UNITS RANGE LAB ANEU(LOINC) 2.25-8.10 10 3/mcL High Neutrophil, 8.30 Absolute Performed By: #### CBC, ADIFF, ANEU, BMP, MG, GFR #### [place] [address] BMP Collected: 02/11/2018 Status: F Source: [facility] 5:09 AM [facility] REPOSITORY TYPE CODE TESTS RESULT OUT OF [...] CBC, ADIFF, ANEU, BMP, MG, GFR #### [place] [address] MG Collected: 02/11/2018 Status: F Source: [facility] 5:09 AM [facility] REPOSITORY TYPE CODE TESTS RESULT OUT OF REFERENCE UNITS RANGE LAB MG(LOINC) 1.6-2.4 mg/dL Magnesium Lvl 2.2 Performed By: #### CBC, ADIFF, ANEU, BMP, MG, GFR #### [place] [address] .GFR Collected: 02/11/2018 Status: F Source: [facility] 5:09 AM [facility] REPOSITORY TYPE CODE TESTS RESULT OUT OF REFERENCE UNITS RANGE LAB GFRAA(LOINC ml/min/1.73 ) sqm GFR 58 Irish Result Comment: GFR Population mean for , [...] CBC, ADIFF, ANEU, BMP, MG, GFR #### [address] [address] TABO Collected: 02/10/2018 Status: F Source: [facility] 9:37 AM [facility] REPOSITORY TYPE CODE TESTS RESULT OUT OF RANGE REFERENCE UNITS LAB ABORH(LOINC ) Unknown ABO/Rh A POS Interp Performed By: #### ABORH, ANTIS #### [address] [address] TABS Collected: 02/10/2018 Status: F Source: [facility] 9:37 AM [facility] REPOSITORY TYPE CODE TESTS RESULT OUT OF REFERENCE UNITS RANGE LAB ANST(LOINC ) Antibody Negative ABSC Screen Tango Performed By: #### ABORH, ANTIS #### [address] [address] RBC (PRODUCT) Collected: 02/10/2018 Status: F Source: [facility] 8:58 AM [facility] REPOSITORY TYPE CODE TESTS RESULT OUT OF REFERENCE UNITS RANGE LAB RBCPR(LOINC ) RBC Product RBC Ready Ready for Pickup Performed By: #### RBCP #### [address] [address] CBC Collected: 02/10/2018 Status: F Source: [facility] 4:46 AM [facility] REPOSITORY TYPE CODE TESTS RESULT OUT OF [...] #### CBC, ADIFF, ANEU, BMP, GFR #### [address] [address] .AUTO DIFF Collected: 02/10/2018 Status: F Source: [facility] 4:46 AM [facility] REPOSITORY TYPE CODE TESTS RESULT OUT OF [...] #### CBC, ADIFF, ANEU, BMP, GFR #### [place] [address] .NEUABS Collected: 02/10/2018 Status: F Source: [facility] 4:46 AM [facility] REPOSITORY TYPE CODE TESTS RESULT OUT OF REFERENCE UNITS RANGE LAB ANEU(LOINC) 2.25-8.10 10 3/mcL Neutrophil, 6.30 Absolute Performed By: #### CBC, ADIFF, ANEU, BMP, GFR #### [place] [address] BMP Collected: 02/10/2018 Status: F Source: [facility] 4:46 AM [facility] REPOSITORY TYPE CODE TESTS RESULT OUT OF [...] #### CBC, ADIFF, ANEU, BMP, GFR #### [place] [address] .GFR Collected: 02/10/2018 Status: F Source: [facility] 4:46 AM [facility] REPOSITORY TYPE CODE TESTS RESULT OUT OF REFERENCE UNITS RANGE LAB GFRAA(LOINC ml/min/1.73 ) sqm GFR 51 Irish Result Comment: GFR Population mean for , [...] #### CBC, ADIFF, ANEU, BMP, GFR #### [facility] [address] [place] [address] CBC Collected: 02/09/2018 Status: F Source: [facility] 4:33 AM [facility] REPOSITORY TYPE CODE TESTS RESULT OUT OF [...] CBC, ADIFF, ANEU, BMP, MG, GFR #### [address] [address] .AUTO DIFF Collected: 02/09/2018 Status: F Source: [facility] 4:33 AM [facility] REPOSITORY TYPE CODE TESTS RESULT OUT OF [...] CBC, ADIFF, ANEU, BMP, MG, GFR #### [address] [address] .NEUABS Collected: 02/09/2018 Status: F Source: [facility] 4:33 AM [facility] REPOSITORY TYPE CODE TESTS RESULT OUT OF REFERENCE UNITS RANGE LAB ANEU(LOINC) 2.25-8.10 10 3/mcL Neutrophil, 5.40 Absolute Performed By: #### CBC, ADIFF, ANEU, BMP, MG, GFR #### [place] [id number] BMP Collected: 02/09/2018 Status: F Source: [employer] 4:33 AM [facility] REPOSITORY TYPE CODE TESTS RESULT OUT OF [...] CBC, ADIFF, ANEU, BMP, MG, GFR #### [place] [id number] MG Collected: 02/09/2018 Status: F Source: [employer] 4:33 AM [facility] REPOSITORY TYPE CODE TESTS RESULT OUT OF REFERENCE UNITS RANGE LAB MG(LOINC) 1.6-2.4 mg/dL Magnesium Lvl 2.3 Performed By: #### CBC, ADIFF, ANEU, BMP, MG, GFR #### [address] [address] .GFR Collected: 02/09/2018 Status: F Source: [employer] 4:33 AM [facility] REPOSITORY TYPE CODE TESTS RESULT OUT OF REFERENCE UNITS RANGE LAB GFRAA(LOINC ml/min/1.73 ) sqm GFR 57 Irish Result Comment: GFR Population mean for , [...] CBC, ADIFF, ANEU, BMP, MG, GFR #### [place] [address] Observed: 02/08/2018 Status: C Source: [facility] 9:48 PM [facility] REPOSITORY . MICRO [...] Locations *1: This test was performed at: [facility], [address] [place] [address], [address] [place] [address] Performed By: #### CBONE #### [place] [address] FINAL SURGICAL Observed: 02/08/2018 Status: F Source: [facility] PATHOLOGY REPORT 9:25 PM [facility] REPOSITORY . Pathology Reports Accession: Collected Date/Time: Received Date/Time: Pathologist: [id number] 02/08/2018 21:25 EDT 02/09/2018 07:14 EDT MD [...] from fifth digit Dictated by Karishma YO ([facility]) MICROSCOPIC DESCRIPTION: A&B) Slides reviewed. Electronically Signed by Pathology Report verified by [facility] Electronically signed by TAMIKO ALBERTS MD Sign out Date: 02/11/2018 16:36 Performing Lab: [facility], [address] [place] [address] Performed By: #### SPFR #### [place] [address] Observed: 02/08/2018 Status: F Source: [facility] 9:21 PM [facility] REPOSITORY . MICRO [...] Locations *1: This test was performed at: [address], [address] [place] [address] Performed By: #### CTISS #### [place] [address] CBC Collected: 02/08/2018 Status: F Source: [facility] 5:29 AM [facility] REPOSITORY TYPE CODE TESTS RESULT OUT OF [...] #### CBC, ADIFF, ANEU, BMP, GFR #### [place] [address] .AUTO DIFF Collected: 02/08/2018 Status: F Source: [facility] 5:29 AM [facility] REPOSITORY TYPE CODE TESTS RESULT OUT OF [...] #### CBC, ADIFF, ANEU, BMP, GFR #### [place] [address] .NEUABS Collected: 02/08/2018 Status: F Source: [facility] 5:29 AM [facility] REPOSITORY TYPE CODE TESTS RESULT OUT OF REFERENCE UNITS RANGE LAB ANEU(LOINC) 2.25-8.10 10 3/mcL Neutrophil, 4.10 Absolute Performed By: #### CBC, ADIFF, ANEU, BMP, GFR #### [place] [address] BMP Collected: 02/08/2018 Status: F Source: [facility] 5:29 AM [facility] REPOSITORY TYPE CODE TESTS RESULT OUT OF [...] #### CBC, ADIFF, ANEU, BMP, GFR #### [address] [address] .GFR Collected: 02/08/2018 Status: F Source: [facility] [employer] 5:29 AM [facility] REPOSITORY TYPE CODE TESTS RESULT OUT OF REFERENCE UNITS RANGE LAB GFRAA(LOINC ml/min/1.73 ) sqm GFR 55 Irish Result Comment: GFR Population mean for , [...] #### CBC, ADIFF, ANEU, BMP, GFR #### [address] [address] CBC Collected: 02/07/2018 Status: F Source: [facility] 6:54 AM [facility] REPOSITORY TYPE CODE TESTS RESULT OUT OF [...] #### CBC, ADIFF, ANEU, BMP, GFR #### [address] [address] .AUTO DIFF Collected: 02/07/2018 Status: F Source: [facility] 6:54 AM [facility] REPOSITORY TYPE CODE TESTS RESULT OUT OF [...] #### CBC, ADIFF, ANEU, BMP, GFR #### [address] [address] .NEUABS Collected: 02/07/2018 Status: F Source: [facility] 6:54 AM [facility] REPOSITORY TYPE CODE TESTS RESULT OUT OF REFERENCE UNITS RANGE LAB ANEU(LOINC) 2.25-8.10 10 3/mcL Neutrophil, 4.40 Absolute Performed By: #### CASTILLO MORAN, ANEU, BMP, GFR #### [address] [address] BMP Collected: 02/07/2018 Status: F Source: [facility] 6:54 AM [facility] REPOSITORY TYPE CODE TESTS RESULT OUT OF [...] Low Calcium Lvl 7.6 Performed By: #### LUISA, CASTILLO, ANEU, BMP, GFR #### [address] [address] .GFR Collected: 02/07/2018 Status: F Source: [facility] 6:54 AM [facility] REPOSITORY TYPE CODE TESTS RESULT OUT OF REFERENCE UNITS RANGE LAB GFRAA(LOINC ml/min/1.73 ) sqm GFR 56 Irish Result Comment: GFR Population mean for , [...] #### CBC, ADIFF, ANEU, BMP, GFR #### [place] [address] CBC Collected: 02/06/2018 Status: F Source: [facility] 6:00 AM [facility] REPOSITORY TYPE CODE TESTS RESULT [...] #### CBC, ADIFF, ANEU, BMP, GFR #### [facility] [address] [place], [place] [address] .AUTO DIFF Collected: 02/06/2018 Status: F Source: [facility] 6:00 AM [facility] REPOSITORY TYPE CODE TESTS RESULT OUT OF [...] #### CBC, ADIFF, ANEU, BMP, GFR #### [place] [address] .NEUABS Collected: 02/06/2018 Status: F Source: [facility] 6:00 [facility] REPOSITORY TYPE CODE TESTS RESULT OUT OF REFERENCE UNITS RANGE LAB ANEU(LOINC) 2.25-8.10 10 3/mcL Neutrophil, 4.80 Absolute Performed By: #### CBC, ADIFF, ANEU, BMP, GFR #### [place] [address] BMP Collected: 02/06/2018 Status: F Source: [facility] 6:00 [facility] REPOSITORY TYPE CODE TESTS RESULT OUT OF [...] #### CBC, ADIFF, ANEU, BMP, GFR #### [facility] [address] [place] [address] .GFR Collected: 02/06/2018 Status: F Source: [facility] 6:00 AM [facility] REPOSITORY TYPE CODE TESTS RESULT OUT OF REFERENCE UNITS RANGE LAB GFRAA(LOINC ml/min/1.73 ) sqm GFR 49 Irish Result Comment: GFR Population mean for , [...] #### CBC, ADIFF, ANEU, BMP, GFR #### [address] [address] CBC Collected: 02/05/2018 Status: F Source: [facility] 5:50 AM [facility] REPOSITORY TYPE CODE TESTS RESULT OUT OF [...] #### CBC, ADIFF, ANEU, BMP, GFR #### [address] [address] .AUTO DIFF Collected: 02/05/2018 Status: F Source: [facility] 5:50 AM [facility] REPOSITORY TYPE CODE TESTS RESULT OUT OF [...] #### CBC, ADIFF, ANEU, BMP, GFR #### [place] [address] .NEUABS Collected: 02/05/2018 Status: F Source: [facility] 5:50 AM [facility] REPOSITORY TYPE CODE TESTS RESULT OUT OF REFERENCE UNITS RANGE LAB ANEU(LOINC) 2.25-8.10 10 3/mcL Neutrophil, 5.90 Absolute Performed By: #### CBC, ADIFF, ANEU, BMP, GFR #### [place] [address] BMP Collected: 02/05/2018 Status: F Source: [facility] 5:50 AM [facility] REPOSITORY TYPE CODE TESTS RESULT OUT OF [...] #### CBC, ADIFF, ANEU, BMP, GFR #### [place] [address] .GFR Collected: 02/05/2018 Status: F Source: [facility] 5:50 AM [facility] REPOSITORY TYPE CODE TESTS RESULT OUT OF REFERENCE UNITS RANGE LAB GFRAA(LOINC ml/min/1.73 ) sqm GFR 49 Irish Result Comment: GFR Population mean for , [...] #### CBC, ADIFF, ANEU, BMP, GFR #### [address] [address] VANCT Collected: 02/04/2018 Status: F Source: [facility] 4:10 PM [facility] REPOSITORY TYPE CODE TESTS RESULT OUT OF REFERENCE UNITS RANGE LAB LD019(LOIN C) LDose Vancomycin:(trou See eMAR gh) LAB VANT(LOINC 5.0-20.0 mcg/mL ) Vancomycin Tr 16.1 Performed By: #### VANCT #### [place] [address] CBC Collected: 02/04/2018 Status: F Source: [facility] 6:13 AM [facility] REPOSITORY TYPE CODE TESTS RESULT OUT OF [...] #### CBC, ADIFF, ANEU, BMP, GFR #### [address] [address] .AUTO DIFF Collected: 02/04/2018 Status: F Source: [facility] 6:13 AM [facility] REPOSITORY TYPE CODE TESTS RESULT OUT OF [...] #### CBC, ADIFF, ANEU, BMP, GFR #### [address] [address] .NEUABS Collected: 02/04/2018 Status: F Source: [facility] 6:13 AM [facility] REPOSITORY TYPE CODE TESTS RESULT OUT OF REFERENCE UNITS RANGE LAB ANEU(LOINC) 2.25-8.10 10 3/mcL Neutrophil, 6.70 Absolute Performed By: #### CASTILLO MORAN ANEU, BMP, GFR #### [address] [address] BMP Collected: 02/04/2018 Status: F Source: [facility] 6:13 AM [facility] REPOSITORY TYPE CODE TESTS RESULT OUT OF [...] Low Calcium Lvl 7.5 Performed By: #### CASTILLO MORAN ANEU, BMP, GFR #### [address] [address] .GFR Collected: 02/04/2018 Status: F Source: [facility] 6:13 AM [facility] REPOSITORY TYPE CODE TESTS RESULT OUT OF REFERENCE UNITS RANGE LAB GFRAA(LOINC ml/min/1.73 ) sqm GFR 48 Irish Result Comment: GFR Population mean for , [...] #### CBC, ADIFF, ANEU, BMP, GFR #### [place] [address] IR ARTERIOGRAM Observed: 02/03/2018 Status: F Source: [facility] LOWER RIGHT 12:00 PM [facility] REPOSITORY ORIGINAL Images acquired, not reported on this accession number. IR PICC LINE PLACEMENT Observed: 02/03/2018 Status: F Source: [facility] 9:00 AM [facility] REPOSITORY ORIGINAL PROCEDURE(S): 1. PICC placement with fluoroscopy and ultrasound guidance SODA DISPENSER: Anne Stinson PA-C CLINICAL HISTORY: infection COMPARISON: None MATERIALS: MedComp 5 Fr dual lumen PICC Probe cover [...] EMERGENCY REPORT Observed: 02/03/2018 Status: F Source: [facility] 7:21 AM [facility] EMERGENCY ROOM REPORT NAME ACCOUNT SEX AGE ADMIT DISCHARGE PT MED. RECORD# NUMBER DATE DATE TYPE BAILEY HOLLEY [id number] F 82 01/27/18 3 [id number] ROOM: ER DATE OF : 1935 DICTATING [...] breath. She was scheduled to see her executive wellness programs director, Dr. Watson, today to get her nails trimmed, but when she went there Dr. Watson sent her here because of obvious necrotic gangrenous right foot. PAST MEDICAL HISTORY: The patient has had coronary artery bypass surgery several years ago. This was at [facility]. She has a history of diabetes as [...] transferred. The patient requested to go to [facility], and the hospital was notified, and , the hospitalist, did accept the patient there. I did give her some morphine in the ED for pain. Dictated By: Chace Adrian MD 01/27/18 19:10 JOB #: [id number] Transcribed By: am 01/27/18 19:14 Electronically signed by: RACHNA Adrian M.D. 02/03/18 07:18 Page 2 of 2 BAILEY HOLLEY Emergency Room Report CBC Collected: 02/03/2018 Status: F Source: [facility] 4:00 AM [facility] REPOSITORY TYPE CODE TESTS RESULT [...] #### CBC, ADIFF, ANEU, BMP, GFR #### [place] [address] .AUTO DIFF Collected: 02/03/2018 Status: F Source: [facility] 4:00 AM [facility] REPOSITORY TYPE CODE TESTS RESULT OUT OF [...] #### CBC, ADIFF, ANEU, BMP, GFR #### [place] [address] .NEUABS Collected: 02/03/2018 Status: F Source: [facility] 4:00 [facility] REPOSITORY TYPE CODE TESTS RESULT OUT OF REFERENCE UNITS RANGE LAB ANEU(LOINC) 2.25-8.10 10 3/mcL Neutrophil, 7.80 Absolute Performed By: #### CBC, ADIFF, ANEU, BMP, GFR #### [place] [address] BMP Collected: 02/03/2018 Status: F Source: [facility] 4:00 [facility] REPOSITORY TYPE CODE TESTS RESULT OUT OF [...] Low Calcium Lvl 7.7 Performed By: #### CBC, ADIFF, ANEU, BMP, GFR #### [place] [address] .GFR Collected: 02/03/2018 Status: F Source: [facility] 4:00 AM [facility] REPOSITORY TYPE CODE TESTS RESULT OUT OF REFERENCE UNITS RANGE LAB GFRAA(LOINC ml/min/1.73 ) sqm GFR 40 Irish Result Comment: GFR Population mean for , [...] #### CBC, ADIFF, ANEU, BMP, GFR #### [facility] [address] [place] [address] Observed: 02/02/2018 Status: F Source: [facility] 11:51 AM [facility] REPOSITORY . MICRO - Microbiology PROCEDURE: [...] Locations *1: This test was performed at: [address], [address] [place] [address] Performed By: #### CWDP #### [place] [address] RBC (PRODUCT) Collected: 02/02/2018 Status: F Source: [facility] 8:19 AM [facility] REPOSITORY TYPE CODE TESTS RESULT OUT OF REFERENCE UNITS RANGE LAB RBCPR(LOINC ) RBC Product RBC Ready Ready for Pickup Performed By: #### RBCP #### [place] [id number] CBC Collected: 02/02/2018 Status: F Source: [facility] 7:13 AM [facility] REPOSITORY TYPE CODE TESTS [...] #### CBC, ADIFF, ANEU, BMP, GFR #### [place] [address] .AUTO DIFF Collected: 02/02/2018 Status: F Source: [facility] 7:13 AM [facility] REPOSITORY TYPE CODE TESTS RESULT OUT OF [...] #### CBC, ADIFF, ANEU, BMP, GFR #### [place] [address] .NEUABS Collected: 02/02/2018 Status: F Source: [facility] 7:13 AM [facility] REPOSITORY TYPE CODE TESTS RESULT OUT OF REFERENCE UNITS RANGE LAB ANEU(LOINC) 2.25-8.10 10 3/mcL Neutrophil, 6.60 Absolute Performed By: #### CBC, ADIFF, ANEU, BMP, GFR #### [place] [address] BMP Collected: 02/02/2018 Status: F Source: [facility] 7:13 AM [facility] REPOSITORY TYPE CODE TESTS RESULT OUT OF [...] Low Calcium Lvl 8.1 Performed By: #### CBC, ADIFF, ANEU, BMP, GFR #### [place] [address] .GFR Collected: 02/02/2018 Status: F Source: [facility] 7:13 AM [facility] REPOSITORY TYPE CODE TESTS RESULT OUT OF REFERENCE UNITS RANGE LAB GFRAA(LOINC ml/min/1.73 ) sqm GFR 47 Irish Result Comment: GFR Population mean for , [...] #### CBC, ADIFF, ANEU, BMP, GFR #### [place] [address] VANCT Collected: 02/02/2018 Status: F Source: [facility] 7:13 AM [facility] REPOSITORY TYPE CODE TESTS RESULT OUT OF REFERENCE UNITS RANGE LAB LD019(LOIN C) LDose Vancomycin:(trou See eMAR gh) LAB VANT(LOINC 5.0-20.0 mcg/mL ) Vancomycin Tr 12.8 Performed By: #### VANCT #### [place] [address] TABO Collected: 02/01/2018 Status: F Source: [facility] 11:06 PM [facility] REPOSITORY TYPE CODE TESTS RESULT OUT OF RANGE REFERENCE UNITS LAB ABORH(LOINC ) Unknown ABO/Rh A POS Interp Performed By: #### ABORH, ANTIS #### [place] [address] TABS Collected: 02/01/2018 Status: F Source: [facility] 11:06 PM [facility] REPOSITORY TYPE CODE TESTS RESULT OUT OF REFERENCE UNITS RANGE LAB ANST(LOINC ) Antibody Negative ABSC Screen Tango Performed By: #### ABORH, ANTIS #### [place] [address] RBC (PRODUCT) Collected: 02/01/2018 Status: F Source: [facility] 10:23 PM [facility] REPOSITORY TYPE CODE TESTS RESULT OUT OF REFERENCE UNITS RANGE LAB RBCPR(LOINC ) RBC Product RBC Ready Ready for Pickup Performed By: #### RBCP #### [place] [address] CBC Collected: 02/01/2018 Status: F Source: [facility] 8:52 PM [facility] REPOSITORY TYPE CODE TESTS RESULT OUT OF [...] #### CBC, ADIFF, ANEU, BMP, GFR #### [address] [address] .AUTO DIFF Collected: 02/01/2018 Status: F Source: [facility] 8:52 [facility] REPOSITORY TYPE CODE TESTS RESULT [...] #### CBC, ADIFF, ANEU, BMP, GFR #### [address] [address] .NEUABS Collected: 02/01/2018 Status: F Source: [facility] 8:52 [facility] REPOSITORY TYPE CODE TESTS RESULT OUT OF REFERENCE UNITS RANGE LAB ANEU(LOINC) 2.25-8.10 10 3/mcL Neutrophil, 6.20 Absolute Performed By: #### CASTILLO MORAN ANEU, BMP, GFR #### [place] [id number] BMP Collected: 02/01/2018 Status: F Source: [facility] 8:52 PM [facility] REPOSITORY TYPE CODE TESTS RESULT OUT OF [...] Low Calcium Lvl 7.4 Performed By: #### CASTILLO MORAN ANEU, BMP, GFR #### [address] [address] .GFR Collected: 02/01/2018 Status: F Source: [facility] 8:52 PM [facility] REPOSITORY TYPE CODE TESTS RESULT OUT OF REFERENCE UNITS RANGE LAB GFRAA(LOINC ml/min/1.73 ) sqm GFR 54 Irish Result Comment: GFR Population mean for , [...] #### CBC, ADIFF, ANEU, BMP, GFR #### [place] [address] MRI FOOT W/ + W/O Observed: 02/01/2018 Status: F Source: [employer] [facility] CONTRAST RIGHT 7:45 AM [facility] REPOSITORY ORIGINAL MRI FOOT W/ + W/O [...] AM BUN Collected: 02/01/2018 Status: F Source: [employer] 4:14 AM [facility] REPOSITORY TYPE CODE TESTS RESULT OUT OF RANGE REFERENCE UNITS LAB BUN(LOINC) 8.0-22.0 mg/dL High BUN 23.0 Performed By: #### BUN, CRE, GFR #### [place] [id number] CRE Collected: 02/01/2018 Status: F Source: [facility] 4:14 AM [facility] REPOSITORY TYPE CODE TESTS RESULT OUT OF REFERENCE UNITS RANGE LAB CRE(LOINC) 0.50-1.20 mg/dL High Creatinine Lvl 1.39 (s) Performed By: #### BUN, CRE, GFR #### [address] [address] .GFR Collected: 02/01/2018 Status: F Source: [facility] 4:14 AM [facility] REPOSITORY TYPE CODE TESTS RESULT OUT OF REFERENCE UNITS RANGE LAB GFRAA(LOINC ml/min/1.73 ) sqm GFR 44 Irish Result Comment: GFR Population mean for , [...] Performed By: #### BUN, CRE, GFR #### [place] [id number] XR FOOT MINIMUM 3 Observed: 01/31/2018 Status: F Source: [facility] VIEWS RIGHT 7:17 PM [facility] REPOSITORY ORIGINAL XR FOOT MINIMUM 3 VIEWS RIGHT CLINICAL STATEMENT: Osteomyelitis. COMPARISON: RIGHT foot x-ray on 01/27/2018 at [facility]. FINDINGS: No acute fracture or dislocation is [...] AM BUN Collected: 01/31/2018 Status: F Source: [facility] [employer] 6:29 AM [facility] REPOSITORY TYPE CODE TESTS RESULT OUT OF RANGE REFERENCE UNITS LAB BUN(LOINC) 8.0-22.0 mg/dL High BUN 26.0 Performed By: #### BUN, CRE, GFR, VANCR #### [place] [address] CRE Collected: 01/31/2018 Status: F Source: [place] [employer] 6:29 AM [facility] REPOSITORY TYPE CODE TESTS RESULT OUT OF REFERENCE UNITS RANGE LAB CRE(LOINC) 0.50-1.20 mg/dL High Creatinine Lvl 1.25 (s) Performed By: #### BUN, CRE, GFR, VANCR #### [place] [address] .GFR Collected: 01/31/2018 Status: F Source: [facility] 6:29 AM [facility] REPOSITORY TYPE CODE TESTS RESULT OUT OF REFERENCE UNITS RANGE LAB GFRAA(LOINC ml/min/1.73 ) sqm GFR 50 Irish Result Comment: GFR Population mean for , [...] By: #### BUN, CRE, GFR, VANCR #### [address] [address] VANCR Collected: 01/31/2018 Status: F Source: [facility] 6:29 AM [facility] REPOSITORY TYPE CODE TESTS RESULT OUT OF REFERENCE UNITS RANGE LAB LD021(LOIN C) LDose Vancomycin: See eMAR (random) LAB VANR(LOINC mcg/mL ) Vancomycin Lvl 17.2 (random) Result Comment: No normal reference range reported for random vancomycin testing. Performed By: #### BUN, CRE, GFR, VANCR #### [address] [address] BUN Collected: 01/30/2018 Status: F Source: [facility] 5:44 AM [facility] REPOSITORY TYPE CODE TESTS RESULT OUT OF RANGE REFERENCE UNITS LAB BUN(LOINC) 8.0-22.0 mg/dL High BUN 26.0 Performed By: #### BUN, CRE, GFR #### [place] [address] CRE Collected: 01/30/2018 Status: F Source: [facility] 5:44 AM [facility] REPOSITORY TYPE CODE TESTS RESULT OUT OF REFERENCE UNITS RANGE LAB CRE(LOINC) 0.50-1.20 mg/dL High Creatinine Lvl 1.26 (s) Performed By: #### BUN, CRE, GFR #### [place] [address] .GFR Collected: 01/30/2018 Status: F Source: [facility] 5:44 AM [facility] REPOSITORY TYPE CODE TESTS RESULT OUT OF REFERENCE UNITS RANGE LAB GFRAA(LOINC ml/min/1.73 ) sqm GFR 49 Irish Result Comment: GFR Population mean for , [...] Performed By: #### BUN, CRE, GFR #### [place] [address] VANCR Collected: 01/30/2018 Status: F Source: [facility] 5:44 AM [facility] REPOSITORY TYPE CODE TESTS RESULT OUT OF REFERENCE UNITS RANGE LAB LD021(LOIN C) LDose Vancomycin: See eMAR (random) LAB VANR(LOINC mcg/mL ) Vancomycin Lvl 14.6 (random) Result Comment: No normal reference range reported for random vancomycin testing. Performed By: #### VANCR #### [place] [address] BUN Collected: 01/29/2018 Status: F Source: [facility] 4:01 AM [facility] REPOSITORY TYPE CODE TESTS RESULT OUT OF RANGE REFERENCE UNITS LAB BUN(LOINC) 8.0-22.0 mg/dL High BUN 39.0 Performed By: #### BUN, CRE, GFR #### [place] [address] CRE Collected: 01/29/2018 Status: F Source: [facility] 4:01 AM [facility] REPOSITORY TYPE CODE TESTS RESULT OUT OF REFERENCE UNITS RANGE LAB CRE(LOINC) 0.50-1.20 mg/dL High Creatinine Lvl 1.63 (s) Performed By: #### BUN, CRE, GFR #### [place] [address] .GFR Collected: 01/29/2018 Status: F Source: [facility] 4:01 AM [facility] REPOSITORY TYPE CODE TESTS RESULT OUT OF REFERENCE UNITS RANGE LAB GFRAA(LOINC ml/min/1.73 ) sqm GFR 37 Irish Result Comment: GFR Population mean for , [...] Performed By: #### BUN, CRE, GFR #### [place] [address] VANCR Collected: 01/29/2018 Status: F Source: [facility] 1:46 AM [facility] REPOSITORY TYPE CODE TESTS RESULT OUT OF REFERENCE UNITS RANGE LAB LD021(LOIN C) LDose Vancomycin: See eMAR (random) LAB VANR(LOINC mcg/mL ) Vancomycin Lvl 14.5 (random) Result Comment: No normal reference range reported for random vancomycin testing. Performed By: #### VANCR #### [place] [address] ESR Collected: 01/28/2018 Status: F Source: [facility] 10:02 AM [facility] REPOSITORY TYPE CODE TESTS RESULT OUT OF REFERENCE UNITS RANGE LAB ESR(LOINC) 0-30 mm/hr Erythrocyte High Sed Rate 126 Performed By: #### ESR, CRP #### [place] [address] CRP Collected: 01/28/2018 Status: F Source: [facility] 10:02 AM [facility] REPOSITORY TYPE CODE TESTS RESULT OUT OF REFERENCE UNITS RANGE LAB CRP(LOINC) <=0.80 mg/dL High C-Reactive 19.40 Protein Performed By: #### ESR, CRP #### [address] [address] US RENAL Observed: 01/28/2018 Status: F Source: [facility] 9:00 AM [facility] REPOSITORY ORIGINAL US RENAL CLINICAL INDICATION: DIAZ [...] PM CBC Collected: 01/28/2018 Status: F Source: RISA [employer] 4:01 AM [facility] REPOSITORY TYPE CODE TESTS RESULT OUT OF [...] ADIFF, ANEU, FES, BMP, GFR, A1C #### [place] [address] .AUTO DIFF Collected: 01/28/2018 Status: F Source: [facility] 4:01 AM [facility] REPOSITORY TYPE CODE TESTS RESULT OUT OF [...] ADIFF, ANEU, FES, BMP, GFR, A1C #### [place] [address] .NEUABS Collected: 01/28/2018 Status: F Source: [facility] 4:01 AM [facility] REPOSITORY TYPE CODE TESTS RESULT OUT OF REFERENCE UNITS RANGE LAB ANEU(LOINC) 2.25-8.10 10 3/mcL High Neutrophil, 8.40 Absolute Performed By: #### CBC, ADIFF, ANEU, FES, BMP, GFR, A1C #### [place] [address] FES Collected: 01/28/2018 Status: F Source: [facility] 4:01 [facility] REPOSITORY TYPE CODE TESTS RESULT OUT OF RANGE REFERENCE UNITS LAB FE(LOINC) 37-170 mcg/dL Low Iron 13 LAB IBC(LOINC) 250-500 mcg/dL Low TIBC 166 LAB FESAT(LOINC % ) Iron Sat 8 Performed By: #### CBC, ADIFF, ANEU, FES, BMP, GFR, A1C #### [place] [address] BMP Collected: 01/28/2018 Status: F Source: [facility] 4:01 AM [facility] REPOSITORY TYPE CODE TESTS RESULT OUT OF [...] ADIFF, ANEU, FES, BMP, GFR, A1C #### [place] [address] .GFR Collected: 01/28/2018 Status: F Source: [facility] 4:01 AM [facility] REPOSITORY TYPE CODE TESTS RESULT OUT OF REFERENCE UNITS RANGE LAB GFRAA(LOINC ml/min/1.73 ) sqm GFR 34 Irish Result Comment: GFR Population mean for , [...] ADIFF, ANEU, FES, BMP, GFR, A1C #### [address] [address] A1C Collected: 01/28/2018 Status: F Source: [facility] 4:01 AM [facility] REPOSITORY TYPE CODE TESTS RESULT OUT OF RANGE REFERENCE UNITS LAB A1C(LOINC) 4.0-6.0 % High Hgb A1c 9.1 Performed By: #### CBC, ADIFF, ANEU, FES, BMP, GFR, A1C #### [address] [address] UA Collected: 01/28/2018 Status: F Source: [facility] 12:19 AM [facility] REPOSITORY TYPE CODE TESTS RESULT OUT OF [...] Small Performed By: #### UA, UAMIC #### [address] [address] UAMIC Collected: 01/28/2018 Status: F Source: [facility] 12:19 AM [facility] REPOSITORY TYPE CODE TESTS RESULT OUT OF RANGE REFERENCE UNITS LAB RBCUA(LOIN 0-2 /hpf C) UA RBC Rare LAB WBCUA(LOIN 0-5 /hpf C) Unknown UA WBC 50-100 LAB EPIUA(LOIN 0-20 /hpf C) Unknown UA Squam Epithelial 25-50 LAB BACUA(LOIN Negative /hpf C) Unknown UA Bacteria 3+ Performed By: #### UA, UAMIC #### [place] [address] CBC Collected: 01/27/2018 Status: F Source: [facility] 11:01 PM [facility] REPOSITORY TYPE CODE TESTS RESULT OUT OF [...] #### CBC, ADIFF, ANEU, GFR, CMP #### [address] [address] .AUTO DIFF Collected: 01/27/2018 Status: F Source: [facility] 11:01 PM [facility] REPOSITORY TYPE CODE TESTS RESULT OUT OF [...] #### CBC, ADIFF, ANEU, GFR, CMP #### [place] [address] .NEUABS Collected: 01/27/2018 Status: F Source: [facility] 11:01 [facility] REPOSITORY TYPE CODE TESTS RESULT OUT OF REFERENCE UNITS RANGE LAB ANEU(LOINC) 2.25-8.10 10 3/mcL High Neutrophil, 8.30 Absolute Performed By: #### CBC, ADIFF, ANEU, GFR, CMP #### [place] [address] .GFR Collected: 01/27/2018 Status: F Source: [facility] 11:01 [facility] REPOSITORY TYPE CODE TESTS RESULT OUT OF REFERENCE UNITS RANGE LAB GFRAA(LOINC ml/min/1.73 ) sqm GFR 33 Irish Result Comment: GFR Population mean for , [...] #### CBC, ADIFF, ANEU, GFR, CMP #### [place] [address] CMP Collected: 01/27/2018 Status: F Source: [facility] 11:01 PM [facility] REPOSITORY TYPE CODE TESTS [...] #### CBC, ADIFF, ANEU, GFR, CMP #### [place] [address] TABO Collected: 01/27/2018 Status: F Source: [facility] 11:01 [facility] REPOSITORY TYPE CODE TESTS RESULT OUT OF RANGE REFERENCE UNITS LAB ABORH([facility] ) Unknown ABO/Rh A POS Interp Performed By: #### ABORH, ANTIS #### [place] [address] TABS Collected: 01/27/2018 Status: F Source: [facility] 11:01 PM [facility] REPOSITORY TYPE CODE TESTS RESULT OUT OF REFERENCE UNITS RANGE LAB ANST(LOINC ) Antibody Negative ABSC Screen Tango Performed By: #### ABORH, ANTIS #### [place] [address] Observed: 01/27/2018 Status: F Source: [facility] CULTURE BLOOD 5:56 PM [facility] REPOSITORY CULTURE BLOOD CULTURE BLOOD SET: 1 of 2 24HOUR REPORT NO GROWTH 48HOUR REPORT NO GROWTH 72HOUR REPORT NO GROWTH M I C R O B I O L O G Y R E P O R T FINAL Antimicrobial Susceptibility and Organism Identification Report Specimen Number : [id number] Requested : 01/27/18 Specimen Source : BLOOD Collected : 01/27/18 17:56 [place] [facility] : Emergency Room Received : 01/27/18 17:56 Requesting Physician : DIANA PEREZ Patient/Specimen Tests and Comments Specimen Comments FINAL REPORT: No Growth at 5 Days Tech : Source : BLOOD ID # : [id number] FINAL Report Date : / / : Collected : 01/27/18 17:56 02/02/18.JORIS. 02/02/18.EMILIE.COMPLETE Performed By: #### [id number] #### [facility],[address] [place] [address] URINALYSIS Collected: 01/27/2018 Status: F Source: [facility] 5:50 PM [facility] REPOSITORY TYPE CODE TESTS RESULT OUT [...] Urobilinog(LOINC) NORMAL: NORMAL Urobilinog NORM LAB Sp [place](LOINC) NORMAL: Low 1.010-1.030 Sp Woodruff 1.005 LAB Nitrite(LOINC) NORMAL: NEGATIVE Nitrite POS [...] LAB Yeast(LOINC) Yeast NONE Performed By: #### [id number] #### [place] [address] LACTATE Collected: 01/27/2018 Status: F Source: [facility] 5:06 [facility] REPOSITORY TYPE CODE TESTS RESULT OUT OF REFERENCE UNITS RANGE LAB LACTATE(PARMJIT 4.5 - 18.0 mg/dL SC) LACTATE 9.1 Performed By: #### [id number] #### [place] [address] CBC Collected: 01/27/2018 Status: F Source: [facility] 5:06 PM [facility] REPOSITORY TYPE CODE TESTS RESULT OUT [...] x10EE3/U L Neut # High 12.20 LAB [place] #(LOINC) 0.20 - 1.00 x10EE3/U L [place] # 0.80 LAB EO #(LOINC) 0.00 - 0.50 x10EE3/U L EO # 0.00 LAB Baso #(LOINC) 0.00 - 0.10 x10EE3/U L Baso # 0.00 LAB MANUAL DIFF(LOINC) MANUAL DIFF N/A LAB MORPHOLOGY(LOINC ) MORPHOLOGY N/A Result Comment: {CD] Performed By: #### [id number] #### [facility],[address] [place], [place] [address] CMP WITH EGFR Collected: 01/27/2018 Status: F Source: [facility] 5:06 PM [facility] REPOSITORY TYPE CODE TESTS RESULT OUT [...] OF AGE AND OLDER. Performed By: #### [id number] #### [facility],[address] [place] [address] SEDRATE Collected: 01/27/2018 Status: F Source: [facility] 5:06 PM [facility] REPOSITORY TYPE CODE TESTS RESULT OUT OF REFERENCE UNITS RANGE LAB SEDRATE(PARMJIT 0 - 30 mm/hr NC) High SEDRATE >140 Performed By: #### [id number] #### [facility],[address] [place] [address] Observed: 01/27/2018 Status: F [facility] 5:06 PM [facility] REPOSITORY CULTURE BLOOD CULTURE BLOOD SET: 2 of 2 24HOUR REPORT NO GROWTH 48HOUR REPORT NO GROWTH 72HOUR REPORT NO GROWTH M I C R O B I O L O G Y R E P O R T FINAL Antimicrobial Susceptibility and Organism Identification Report Specimen Number : [id number] Requested : 01/27/18 Specimen Source : BLOOD Collected : 01/27/18 17:06 [place] [facility] Isolation : Emergency Room Received : 01/27/18 17:06 Requesting Physician : DIANA PEREZ Patient/Specimen Tests and Comments Specimen Comments FINAL REPORT: No Growth at 5 Days Tech : Source : BLOOD ID # : [id number] FINAL Report Date : / / : Collected : 01/27/18 17:06 02/02/18.05.KLS. 02/02/18.904.KLS.COMPLETE Performed By: #### [id number] #### [place] [address] FOOT COMPLETE RT Observed: 01/27/2018 Status: F Source: [facility] 4:20 PM [place] [address] Patient: BAILEY HOLLEY Phone#: : [phone] Age: 82 Gender: F Pt. Type: ER Account: [id number] Location: 052 Ordering: CHACE ADRIAN Exam Date: 01/27/2018/16:04 Family Phys: MARCOS ARGUETA Charge Code: 360431 Physician: [place] Order #: [id number] DLP Dose#: PROCEDURE: X-RAY FOOT RT COMPLETE [...] BASIC METABOLIC Collected: 08/19/2017 Status: F Source: [place] [facility] 8:02 AM [facility] REPOSITORY TYPE CODE TESTS RESULT OUT [...] #### L500.2500, L500.3400, L500.4100 #### [facility] [address] [place], [address] LIVER PROFILE Collected: 08/19/2017 Status: F Source: [place] 8:02 AM [facility] REPOSITORY TYPE CODE TESTS RESULT OUT [...] #### L500.2500, L500.3400, L500.4100 #### [facility] [address] [place], [place], [address] LIPID PROFILE Collected: 08/19/2017 Status: F Source: [place] 8:02 [facility] REPOSITORY TYPE CODE TESTS RESULT OUT OF [...] #### L500.2500, L500.3400, L500.4100 #### [facility] [address] [place], [address] HEMOGLOBIN A1C Collected: 08/19/2017 Status: F Source: [place] 8:02 AM [facility] REPOSITORY TYPE CODE TESTS RESULT OUT OF RANGE REFERENCE UNITS LAB L501.9985 4.2-6.3 % High HGB A1C 10.8 Performed By: #### L501.9985 #### [facility] [address] [place], [address] MICROALB:CREAT Collected: 08/19/2017 Status: F Source: [place] RATIO,RANDOM UR 8:02 AM [facility] REPOSITORY TYPE CODE TESTS RESULT OUT OF RANGE REFERENCE UNITS LAB L501.1200 NO RANGE EST. mg/dL Normal UR CREAT 65.40 LAB L502.0500 NO RANGE EST. mg/L Normal 9.8 MICROALBUMIN ,UR LAB L502.0600 <30 mg/g CRE mg/g CRE Normal 14.9 MALB:CREAT Performed By: #### L502.0250 #### [facility] [address] [place], [address] ALLERGIES ALLERGIES DATE TYPE / CODE NAME / CODE REACTION SEVERITY SOURCE 05/15/2015 Drug Penicillins/ Hives Unknown [facility] Allergy/4160 [id number]([facility] [address](SNOMED XNORM) Repository CT) Drug PCN pt unsure was Moderate Chet Metz Allergy/4160 (penicillin) told years ago ([facility] [address](SNOMED /[id number](RX to not praful Modifier) Repository CT) NORM) (Qualifier Value) ENCOUNTERS ENCOUNTERS ADMIT/DISCHARGE ACCOUNT NUMBER ADMITTING ENCOUNTER LOCATION SOURCE CLASS 06/29/2018 [id number] [facility] Chet SHUKLA MD Encounter Room: [address] [place] [address] Repository 05/20/2018 [id number] Ambulatory [facility] ding:MTLAB Repository 03/14/2018 [id number] Ambulatory [facility] ding:OLS.WHL Repository TCC 03/10/2018 [id number] [facility] ding:OLS.WHL Repository TCC 03/07/2018 [id number] [facility] ding:OLS.WHL Repository TCC 03/03/2018 [id number] [facility] ding:OLS.WHL Repository TCC 03/01/2018 [id number] [facility] ding:OLS.WHL Repository TCC 02/28/2018 [id number] [facility] ding:OLS.WHL Repository TCC 02/25/2018 [id number] [facility] ding:OLS.WHL Repository TCC 02/24/2018 [id number] [facility] ding:OLS.L Repository TCC 02/23/2018 [id number] [facility] ding:OLS.L Repository TCC 02/22/2018 [id number] [facility] ding:OLS.WHL Repository TCC 02/21/2018 [id number] [facility] ding:OLS.L Repository TCC 02/16/2018 [id number] [facility] ding:OLS.L Repository [facility] 02/14/2018 [id number] [facility] ding:OLS.L Repository TCC 01/27/2018/02/12/20 [id number] [facility]LEXAN[facility], Inpatient ABuilding:TAMARA LOTT Encounter 5Room: [place] [address]Bed: [facility] Repository 01/27/2018/01/28/[id number] NGUYỄN Emergency Buildin Chet Metz [facility] Room: ERBed: [facility] Repository 08/19/2017 [id number] [facility] PAYERS PAYERS ENCOUNTER GUARANTOR PAYER SUBSCRIBER SOURCE 06/29/2018 BAILEY Metz KINERDOB: Insurance:MEDICARE KINERDOB: [facility] [id number] [facility] [id number] [address] Number: [address] Repository [address] [place] [address], [id number] [place] Date:Plan Name: [id number]: () 06/29/2018 Secondary BAILEY A Chet Metz Insurance:AARP KINERDOB: [facility] [id number] Hospital Number: [address] Repository [id number] [address] [place] [address] Date: [id number] 05/20/2018 BAILEY A Primary BAILEY A [place] [id number] Insurance:MEDICARE KINERDOB: [address], PART [facility]: [id number] [id number] Repository [address]Cwr: Date:2018-05-17 () 05/20/2018 Secondary BAILEY A [place] Insurance:AARolicy KINERDOB: Community Number: [id number] Hospital [id number] Repository Date:0401-07-46[address], [place] [address]YM: 05/20/2018 Tertiary NOT GIVENUNK [place] Insurance:SELF PAY [facility] Number: Effective Repository Date:2018-05-17 03/14/2018 Bailey A Primary Insurance:SELF NOT GIVENUNK [place] [id number] TR PAY INS[address]ANCE[address], Number: Effective Hospital [place] Date:2018-03-14 Repository [address]Ptd: (HP) 03/10/2018 Bailey A Primary Insurance:SELF NOT GIVENUNK [place] [id number] TR PAY INS[address]ANCE[address], Number: Effective [facility] [place] Date:2018-03-10 Repository [phone]: (HP) 03/07/2018 Bailey A Primary Insurance:SELF NOT GIVENUNK [place] [id number] TR PAY INS[address]ANCE[address], Number: Effective [facility] [place] Date:2018-03-07 Repository [address]Fbb: () 03/03/2018 Bailey A Primary Insurance:SELF NOT GIVENUNK [place] [id number] TR PAY INSURANCEPolicy [address], Number: Effective [facility] [place] Date:2018-03-03 Repository [phone]: () 03/01/2018 Bailey A Primary Insurance:SELF NOT GIVENUNK [place] [id number] TR PAY INSURANCEPolicy [address], Number: Effective [facility] [place] Date:2018-03-01 Repository [phone]: () 02/28/2018 Bailey A Primary Insurance:SELF NOT GIVENUNK [place] [id number] TR PAY INSURANCEPolicy [address], Number: Effective [facility] [place] Date:2018-02-28 Repository [phone]: () 02/25/2018 Bailey A Primary Insurance:SELF NOT GIVENUNK [place] [id number] TR PAY INSURANCEPolicy [address], Number: Effective [facility] [place] Date:2018-02-25 Repository [address]Fhr: () 02/24/2018 Bailey A Primary Insurance:SELF NOT GIVENUNK [place] [id number] TR [facility] [address], Number: Effective [facility] [place] Date:2018-02-24 Repository [address]Oji: () 02/23/2018 Bailey A Primary Insurance:SELF NOT GIVENUNK [place] [id number] TR PAY INSURANCEPolicy [address], Number: Effective [facility] [place] Date:2018-02-23 Repository [address]Hmz: () 02/22/2018 Bailey A Primary Insurance:SELF NOT GIVENUNK [place] [id number] TR PAY INSURANCEPolicy [address], Number: Effective [facility] [place] Date:2018-02-22 Repository [address]Rrz: () 02/21/2018 Bailey A Primary Insurance:SELF NOT GIVENUNK [place] [id number] TR PAY INS[address]ANCE[address], Number: Effective [facility] [place] Date:2018-02-21 Repository [address]Qyn: (HP) 02/16/2018 Bailey A Primary Insurance:SELF NOT GIVENUNK [place] [id number] TR PAY INSURANCE[address], Number: Effective [facility] [place] Date:2018-02-16 Repository [address]Omf: (HP) 02/14/2018 Bailey A Primary Insurance:SELF NOT GIVENUNK [place] [id number] TR PAY INSURANCE[address], Number: Effective [facility] [place] Date:2018-02-14 Repository [address]Rsl: (HP) 01/27/2018 BAILEY A Primary BAILEY A [facility] KINERDOB: Insurance:MEDICARE KINERDOB: Foundation [id number] PART APolicy Number: [id number] Repository [facility] [id number] [address], Date:2018-01-[address] [place] [address]Bow: [id number] [id number]: (419) [facility] [phone] () [address] (HP)Tel: (000) [phone], [place] 000[address] (WP) [address]QP: 01/27/2018 Secondary BAILEY A [facility] Insurance:MEDICARE KINERDOB: Foundation PART BPolicy Number: [id number] Repository [id number] 9 [facility] Date:2018-01-[address] [place] [address] [id number]: (705) Name:[facility] [phone] Administrators LLCPO (HP)Tel: (000) [address] [address]Yfdjzzdzg, [place] 000-[address] (WP) [address]AK: 01/27/2018 Tertiary BAILEY A [facility] Insurance:AARP UNITED KINERDOB: [facility] [id number] Repository ONLYPolicy Number: 9 [facility] [id number] [address] [place] [address] Date:2018-01-27 [id number]: [phone] [phone] [phone] Name:MERCHANDISE DISTRIBUTOR Box ()Tel: [phone]) [phone], [place] [phone] () [address]WP: 01/27/2018 BAILEY A Primary Insurance:500 BAILEY A Chet [facility] KINERDOB: MEDICARE KINERDOB: [facility] [id number] [facility] [id number] Number: 9 [facility] Repository [address] [place] [id number] [place] Date:Plan Name: [id number]: () 01/27/2018 Secondary BAILEY A Chet [facility] Insurance:AAR KINERDOB: [facility] [id number] Hospital Number: 9 [facility] Repository [id number] [address] [place] [address] Date: [id number] 01/27/2018 Tertiary BAILEY A Chet [facility] Insurance:MEDICARE KINERDOB: [facility] [id number] Hospital Number: 9 [facility] Repository [id number] [address] [place] [address] Date:Plan Name: [id number] 08/19/2017 Bailey A Primary Bailey A Terr[place] [id number] Insurance:MEDICARE KinerDOB: [address], PART A BPolicy Number: [id number] [facility] [id number] Repository [address]Mvq: Date:2017-08-19 () 08/19/2017 Secondary Bailey A [place] [facility] KinerDOB: Community Number: [id number] [facility] [id number] Repository Date:[id number], [place] [address]ZR: 08/19/2017 Tertiary NOT GIVENSERENA Carlos Insurance:SELF PAY [facility] Number: Effective Repository Date:2017-08-19
== END ==
PROVIDERS: Family Provider Family Medicine; PCP Family Medicine; Referring Provider Family Medicine; Visit Provider Family Medicine
DX: R39.9 Unspecified symptoms and signs involving the genitourinary system (principal)
CPT/HCPCS: 87077; 87086; 87088; 87186

== ENCOUNTER → 2018-08-16 14:46 | Outpatient (CLI) | payer OTHER, MEDICARE, SELFPAY | PROVIDERS: Family Provider Family Medicine; PCP Family Medicine; Referring Provider Family Medicine; Visit Provider Family Medicine | DX: R32 Unspecified urinary incontinence (principal) | CPT/HCPCS: 87077; 87086; 87088; 87186 ==

== ENCOUNTER → 2018-10-06 12:43 | Outpatient (CLI) | payer MEDICARE, OTHER, SELFPAY ==
--- NOTE | 2018-10-06 12:47 | ADUL_ITS ---
Reason For Study: Atherosclerosis Right Velocities Ext. Iliac Artery, dist = 105.2 cm./sec. Common Femoral Artery, mid = 73.2 cm./sec. Supf Femoral Artery, prox = 41.2 cm./sec. Supf Femoral Artery, mid = 117.4 cm./sec. Supf Femoral Artery, dist. = 141.4 cm./sec. Profunda Femoral Artery = 94.1 cm./sec. Popliteal Artery, prox. = 93.3 cm./sec. Popliteal Artery, mid = 46.8 cm./sec. Popliteal Artery, dist = 143.9 cm./sec. Post. Tibial Artery, prox = 39.3 cm./sec. Post. Tibial Artery, mid = 63.8 cm./sec. Peroneal Artery, prox = 26.1 cm./sec. Peroneal Artery, mid = 38.3 cm./sec. Peroneal Artery,dist = 26.1 cm./sec. Ant. Tibial Artery, prox = 73.3 cm./sec. Ant. Tibial Artery, mid = 59.1 cm./sec. Ant. Tibial Artery, dist = 14.7 cm./sec. Procedure Exam performed in department. Interpretation Summary 1. right leg duplex with no stenosis. Ordering Physician: Naga Hogan Referring Physician: Marcos Majano Performed By: Zita Castillo RVT
--- NOTE | 2018-10-06 12:47 | ART_ITS ---
Reason For Study: Atherosclerosis Procedure A bilateral lower extremity continuous wave Doppler with analog waveform analysis and ankle brachial indexes. Left Segmental Pressures Left brachial= 158mmHg. Left posterior tibial artery = 82mmHg. Left dorsalis pedis artery = 79mmHg. The left dorsalis pedis waveforms are monophasic. The left posterior tibial artery waveforms are monophasic. Right Segmental Pressures Right brachial= 155mmHg. Right posterior tibial artery = 116mmHg. Right dorsalis pedis artery = 111mmHg. The right dorsalis pedis waveforms are monophasic. The right posterior tibial artery waveforms are monophasic. Indices The right ankle brachial index by the dorsalis pedis is 0.70. The right ankle brachial index by the posterior tibial artery is 0.73. The left ankle brachial index by the dorsalis pedis is 0.50. The left ankle brachial index by the posterior tibial artery is 0.52. Interpretation Summary 1. Bilateral moderate arterial occlussive disease with RUDI 0.73/0.52. Ordering Physician: Naga Hogan Referring Physician: Marcos Majano Performed By: Zita Castillo RVT
== END ==
PROVIDERS: Family Provider Family Medicine; PCP Family Medicine; Referring Provider Surgery Vascular Surgery; Visit Provider Surgery Vascular Surgery
DX: I70.235 Atherosclerosis of native arteries of right leg with ulceration of other part of foot (principal); E78.70 Disorder of bile acid and cholesterol metabolism, unspecified; E11.59 Type 2 diabetes mellitus with other circulatory complications; I25.2 Old myocardial infarction; I10 Essential (primary) hypertension
CPT/HCPCS: 93922; 93926

== ENCOUNTER → 2018-10-19 08:42 | Outpatient (CLI) | payer MEDICARE, OTHER, SELFPAY ==
[2018-10-19 10:48] LABS: Color, Urine Yellow (Yellow); Glucose, Dipstick Normal (Normal); Ketone-Dipstick Negative (Negative); Leukocyte Esterase-Dipstick 500 /ul (Negative); Nitrite-Dipstick Negative (Negative); Occult Blood-Urine 25 /ul (Negative); Protein-Dipstick 15 mg/dl (Negative); Urine Bilirubin Dipstick Negative (Negative); Urine Clarity Sl. Cloudy (Clear); Urine Urobilinogen Normal (Normal); Urine pH 6.5 (5.0 - 8.0)
== END ==
PROVIDERS: Family Provider Family Medicine; PCP Family Medicine; Referring Provider Family Medicine; Visit Provider Family Medicine
DX: R32 Unspecified urinary incontinence (principal)
CPT/HCPCS: 81002; 87086; 87088; 87186

== ENCOUNTER → 2018-11-18 16:23 | Outpatient (CLI) | payer MEDICARE, OTHER, SELFPAY ==
[2018-11-18 17:54] LABS: Anion Gap 3 (5-15); BUN 55 mg/dL (7-18); BUN/Creat Ratio 34.8 RATIO (10-20); Calcium,Total 8.6 mg/dL (8.5-10.1); Chloride 112 mmol/L (98-107); Creatinine, Serum 1.58 mg/dL (0.55-1.02); EST Glomerular Filtration Rate 33 mL/min (>60); Est Glom Filt Rate - Afr Amer 40 mL/min (>60); Glucose 144 mg/dL (74-106); Potassium 5.5 mmol/L (3.5-5.1); Sodium Level 139 mmol/L (136-145)
== END ==
PROVIDERS: Family Provider Family Medicine; PCP Family Medicine; Referring Provider Family Medicine; Visit Provider Family Medicine
DX: E11.9 Type 2 diabetes mellitus without complications (principal)
CPT/HCPCS: 36415; 80048

== ENCOUNTER → 2018-12-22 11:31 | Outpatient (CLI) | payer MEDICARE, OTHER, SELFPAY | PROVIDERS: Family Provider Family Medicine; PCP Family Medicine; Referring Provider Family Medicine; Visit Provider Family Medicine | DX: R32 Unspecified urinary incontinence (principal) | CPT/HCPCS: 87086; 87088 ==

== ENCOUNTER → 2019-05-18 16:38 | Outpatient (CLI) | payer MEDICARE, OTHER, SELFPAY ==
[2019-05-18 18:42] LABS: Anion Gap 4 (5-15); BUN 66 mg/dL (7-18); BUN/Creat Ratio 33.3 RATIO (10-20); Calcium,Total 8.9 mg/dL (8.5-10.1); Chloride 113 mmol/L (98-107); Cholesterol 212 mg/dL (200); Creatinine, Serum 1.98 mg/dL (0.55-1.02); EST Glomerular Filtration Rate 26 mL/min (>60); Est Glom Filt Rate - Afr Amer 31 mL/min (>60); Glucose 100 mg/dL (74-106); High Density Lipoprotein 41 mg/dL; Sodium Level 141 mmol/L (136-145); Triglycerides 200 mg/dL; Very Low Density Lipoprotein 40 mg/dL (5-40)
[2019-05-18 18:51] LABS: Potassium 6.1 mmol/L (3.5-5.1)
== END ==
PROVIDERS: Family Provider Family Medicine; PCP Family Medicine; Referring Provider Family Medicine; Visit Provider Family Medicine
DX: E11.8 Type 2 diabetes mellitus with unspecified complications (principal); E11.65 Type 2 diabetes mellitus with hyperglycemia
CPT/HCPCS: 36415; 80048; 80061

== ENCOUNTER → 2019-05-29 08:58 | Outpatient (CLI) | payer MEDICARE, OTHER, SELFPAY ==
[2019-05-29 10:23] LABS: Anion Gap 5 (5-15); BUN 58 mg/dL (7-18); BUN/Creat Ratio 31.5 RATIO (10-20); Calcium,Total 9.6 mg/dL (8.5-10.1); Chloride 112 mmol/L (98-107); Creatinine, Serum 1.84 mg/dL (0.55-1.02); EST Glomerular Filtration Rate 28 mL/min (>60); Est Glom Filt Rate - Afr Amer 34 mL/min (>60); Glucose 180 mg/dL (74-106); Potassium 5.2 mmol/L (3.5-5.1); Sodium Level 142 mmol/L (136-145)
== END ==
PROVIDERS: Family Provider Family Medicine; PCP Family Medicine; Referring Provider Family Medicine; Visit Provider Family Medicine
DX: I10 Essential (primary) hypertension (principal)
CPT/HCPCS: 36415; 80048

== ENCOUNTER → 2019-07-06 11:12 | Outpatient (CLI) | payer MEDICARE, OTHER, SELFPAY ==
[2019-07-06 14:30] LABS: Anion Gap 4 (5-15); BUN 47 mg/dL (7-18); BUN/Creat Ratio 28.7 RATIO (10-20); Calcium,Total 8.7 mg/dL (8.5-10.1); Chloride 106 mmol/L (98-107); Creatinine, Serum 1.64 mg/dL (0.55-1.02); EST Glomerular Filtration Rate 32 mL/min (>60); Est Glom Filt Rate - Afr Amer 39 mL/min (>60); Glucose 214 mg/dL (74-106); Potassium 4.9 mmol/L (3.5-5.1); Sodium Level 138 mmol/L (136-145)
== END ==
PROVIDERS: PCP Family Medicine; Referring Provider Family Medicine; Visit Provider Family Medicine
DX: E11.8 Type 2 diabetes mellitus with unspecified complications (principal)
CPT/HCPCS: 36415; 80048

== ENCOUNTER → 2019-08-11 16:42 | Outpatient (CLI) | payer MEDICARE, OTHER, SELFPAY ==
--- NOTE | 2019-08-11 16:48 | RAD_ITS ---
STUDY: X-RAY - PELVIS AND BILATERAL HIPS REASON FOR EXAM: Female, 83 years old. mostly left hip pain TECHNIQUE: AP view of the pelvis.? 2 views of the right hip, and 2 views of the left hip were obtained. COMPARISON: None. FINDINGS: There is a non-specific bowel gas pattern. Normal visualized soft tissue structures. There are atherosclerotic vascular calcifications. Normal bilateral iliac wings, sacroiliac joints and visualized sacrum. Normal bilateral superior and inferior pubic rami. There is narrowing with sclerosis of the pubic symphysis. Normal bilateral ischial tuberosities. Normal visualized right femoral head. 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 Normal right hip joint. Normal visualized left femoral head. There is osteoarthritic spur formation of the left acetabular rim. Normal left hip joint. RAD/Hips B/L min 2 views w/ Pelvis IMPRESSION: 1. Mild bilateral acetabular spurring. 2. No erosive changes. Electronically Signed: Braxton Beard MD (Brooks) at 18:02 EST , Service support ,
== END ==
PROVIDERS: PCP Family Medicine; Referring Provider Family Medicine; Visit Provider Family Medicine
DX: M25.559 Pain in unspecified hip (principal)
CPT/HCPCS: 73521

== ENCOUNTER → 2019-11-23 15:32 | Outpatient (CLI) | payer MEDICARE, OTHER, SELFPAY ==
[2019-11-23 18:41] LABS: Anion Gap 6 (5-15); BUN 46 mg/dL (7-18); BUN/Creat Ratio 26.7 RATIO (10-20); Calcium,Total 8.9 mg/dL (8.5-10.1); Chloride 106 mmol/L (98-107); Cholesterol 227 mg/dL (200); Creatinine, Serum 1.72 mg/dL (0.55-1.02); EST Glomerular Filtration Rate 30 mL/min (>60); Est Glom Filt Rate - Afr Amer 36 mL/min (>60); Glucose 189 mg/dL (74-106); High Density Lipoprotein 41 mg/dL; Potassium 4.4 mmol/L (3.5-5.1); Sodium Level 139 mmol/L (136-145); Triglycerides 333 mg/dL; Very Low Density Lipoprotein 67 mg/dL (5-40)
== END ==
PROVIDERS: PCP Family Medicine; Referring Provider Family Medicine; Visit Provider Family Medicine
DX: E11.9 Type 2 diabetes mellitus without complications (principal)
CPT/HCPCS: 36415; 80048; 80061

== ENCOUNTER 2020-04-03 06:55 | Observation (INO) | payer MEDICARE, OTHER, SELFPAY ==
[2020-04-03] VITALS (11 sets, daily range): BP systolic 154–214; BP diastolic 67–105; PULSE 66–85; RESP 10–18; TEMP 36.6–37.1; O2SAT 95–100; BMI 32.4; BMI 26.7; BMI 26.8
--- NOTE | 2020-04-03 07:08 | EKG12_ITS ---
Test Reason : Blood Pressure : / mmHG Vent. Rate : 074 BPM Atrial Rate : 074 BPM P-R Int : 236 ms QRS Dur : 140 ms QT Int : 422 ms P-R-T Axes : 083 019 055 degrees QTc Int : 468 ms Sinus rhythm with 1st degree A-V block Right bundle branch block Abnormal ECG Confirmed by TRAVIS CHIRINOS, ANTHONY ([id number]), story editor YANICK LOZANO ([id number]) on 04/04/2020 9:18:33 AM Referred By: THIERNO Confirmed By:ANTHONY ROBLES MD
--- NOTE | 2020-04-03 07:12 | CT_ITS ---
STUDY: CT BRAIN WITHOUT CONTRAST REASON FOR EXAM: Female, 84 years old. Vision loss left eye, prior CVA with right eye vision loss RADIATION DOSAGE (If Supplied By Facility): CTDIvol = ( 44.99 ) mGy, DLP = ( 779.24 ) mGycm TECHNIQUE: Transaxial CT imaging of the brain was performed without administration of intravenous contrast material. Individualized dose optimization techniques were used for this CT. COMPARISON: No relevant priors. FINDINGS: Normal soft tissue structures. Normal calvarium. There is mild cerebral atrophy with widening of the extra-axial spaces and ventricular dilatation. There are areas of decreased attenuation within the white matter tracts of the supratentorial brain, consistent with microvascular disease changes. Normal basal ganglia and thalami. Normal brainstem. Normal cerebellum. There is no intracranial hemorrhage. There are no findings of an acute ischemic infarction. Atherosclerotic calcification of the vertebral arteries and cavernous portions of the internal carotid arteries bilaterally. Normal visualized paranasal sinuses. CT/Brain/Head without Contrast IMPRESSION: Chronic involutional changes of the brain. Electronically Signed: Naresh Nicholson, at 9:04 EDT , Service support ,
--- NOTE | 2020-04-03 07:14 | ED.DCSUM_ITS ---
History of Present Illness Chief Complaint: Eye Problem Informant: Patient, Rn Transfer Onset: - - Possibly yesterday abrupt change 0500 this morning Context: Sudden Onset Timing: Continuous Quality: Vision loss Location: Left eye Current Severity: Mild Maximum Severity: Severe Worsened by: Unknown Relieved by: Nothing Associated Symptoms: Nothing including pain Narrative: Patient is an elderly woman who arrived by ambulance after daughter called for loss of vision. With 3 drug reaction patient not able to state exactly when the visual loss occurred. She states yesterday. She refers to something that happened a while ago and then an incident that occurred at 0500. She states things are better but is not able to quantitate or qualitate the character of the vision loss. She states she has no hearing on the right side and no vision on the right side. She states her good eye is her left eye. She does not know who her recreation program coordinator is. She answered by replying I have many doctors and have many visits . Patient denies pain. She denies problems with speech or swallowing. She denies paresthesia, anesthesia medics. She denies problems with balance or walking. She is status post cataract surgery. She also reports quadruple bypass surgery. 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 She does have diabetic retinopathy. She also has history of glaucoma. She states they believe she had a viral infection which caused her to lose hearing. Prior similar symptoms: Yes - Possibly many years ago for unknown cause right side Recent Illness/Hospitalization: No - Past Medical History (1) History of type 2 diabetes mellitus Status: Acute (2) History of hypertension Status: Acute (3) CAD (coronary artery disease) Status: Acute Past Medical History - Allergies and Home Meds Allergies/Adverse Reactions: Allergies Penicillins Allergy (Verified 05/15/15 21:18) Hives Primary Care Physician: Marcos Majano MD [Primary Care Provider] - Prior records reviewed: Yes Surgical History: angioplasty, coronary bypass surgery, - Lives: Spouse/ Significant Other Smoking Status: Never smoker Alcohol: None Drugs: None - Family History Maternal Family History: Reports: No pertinent history Paternal Family History: Reports: No pertinent history Review of Systems General: Denies: Chills, Fever, Malaise Eyes: Reports: Visual changes - left ENT: Denies: Bilateral ear pain, Rhinorrhea, Sore throat Cardiovascular: Denies: Chest pain, Palpitations Respiratory: Denies: Dyspnea, Cough, Dyspnea on exertion Gastrointestinal: Denies: Abdominal pain, Nausea, Vomiting, Diarrhea, Melena, Hematochezia Genitourinary: Denies: Dysuria, Hematuria, Frequency Musculoskeletal: Denies: Myalgias, Arthralgias, Neck pain, Back pain Skin: Denies: Rash Neurological: Denies: Headache, Weakness, Parasthesia, Numbness Endocrine: Denies: Polyuria, Polydipsia Hematologic: Denies: Easy bruising, Easy bleeding Physical Exam Vital Signs/Narrative: Vital Signs Temp Pulse Resp BP Pulse Ox 04/03/20 06:56 98.7 F 85 12 99 04/03/20 06:55 214/105 H Inital Vital Signs reviewed: Yes General: Well nourished, Well developed, Obese, Acute Distress Head: Normocephalic, Atraumatic Eyes: EOMI. Negative for: Perrl - Patient status post direct surgery bilaterally., Pale conjunctiva, Scleral icterus ENT: Moist mucous membranes, No rhinorrhea, TM's clear Neck: Supple, Nontender Cardiovascular: Regular rate, Regular rhythm, No murmurs, Normal S1, Normal S2 Respiratory: No distress, CTA bilaterally Abdomen: Soft, Nontender, Nondistended, Normal bowel sounds Rectal: Deferred Back: Nontender, Normal Inspection Extremities: Nontender, Edema Skin: Normal color, No rash Neurological: Alert, Oriented x3, Cranial nerves II-XII grossly intact, Normal Strength, Normal Sensation, - - NIH stroke scale was performed and patient. She received 2.4 no vision right eye. This is an old finding. Psychological: - - Flat affect Diagnostic/Tx/Re-eval Impressions Brain CT 04/03/20 07:12 IMPRESSION: Chronic involutional changes of the brain. Electronically Signed: Naresh Nicholson, at 9:04 EDT , Service support , 04/03/20 07:12 CT Head [Brain/Head without Contrast] [CT] Stat Laboratory Results 04/03/20 04/03/20 04/03/20 07:00 07:00 08:36 WBC 4.3 L RBC 3.27 L Hgb 10.2 L Hct 30.6 L MCV 93.6 MCH 31.2 MCHC 33.3 RDW Std Deviation 42.7 RDW Coeff of Luis E 12.5 Plt Count 143 L MPV 9.6 Immature Gran % (Auto) 0.200 Neut % (Auto) 68.8 Lymph % (Auto) 18.6 L [place] % (Auto) 10.7 H Eos % (Auto) 1.2 Baso % (Auto) 0.5 Absolute Neuts (auto) 3.0 Absolute Lymphs (auto) 0.80 L Nucleated RBC % 0 ESR 34 H Sodium 142 Potassium 4.5 Chloride 111 H Carbon Dioxide 24.0 Anion Gap 7 BUN 42 H Creatinine 1.72 H Estim Creat Clear Calc 20.50 Est GFR (MDRD) Af Amer 36 L Est GFR (MDRD) Non-Af 30 L BUN/Creatinine Ratio 24.4 H Glucose 177 H Calcium 9.3 POC Glucose 167 H White count is low at 4.3. Mild anemia. There is evidence of renal insufficiency with creatinine of 1.72 and a BUN of 42. Blood sugar is 177. Case was discussed with Dr. Antonio Phan on-call for ophthalmology. He recommends cardiovascular work-up and carotid Doppler etc. The fact that it waxed and waned in makes him less concerned this is an eye problem and likely a vascular problem. - EKG Initial EKG Interpretation: Sinus Rhythm - Sinus rhythm with a first-degree AV block. Ventricular rate of 74. ND interval is 236 ms. QS duration is 140 ms. And QRS morphology consistent with a right bundle branch block. QT interval 422 ms. - Medical Decision Making Differential diagnosis includes embolic phenomenon, diabetic retinopathy with possible retinal tear, CVA. Patient was made n.p.o. CT of the head was obtained to evaluate for intracranial process. CBC to assess for anemia and white count. Basic metabolic panel to assess renal function and blood sugar. Awaiting arrival of daughter to ask about prior vision loss and medical history as well as why she called squ. ED Disposition - Plan for ED Patient: Disposition: Acute Care Hospital [facility] Diagnosis: Sudden visual loss of left eye, Renal insufficiency, Accelerated hypertension, Hyperglycemia due to type 2 diabetes mellitus Referrals: Marcos Majano MD [Primary Care Provider] -
[2020-04-03 07:26] LABS: Erythrocyte Sedimentation Rate 34 mm/hr (0-30)
[2020-04-03 07:29] LABS: Basophil# 0.02 X10^3/uL; Basophil% 0.5 % (0-1); Eosinophil# 0.05 X10^3/uL; Eosinophils% 1.2 % (0-5); Hematocrit 30.6 % (37-47); Hemoglobin 10.2 g/dL (12.0-15.0); Lymphocyte % 18.6 % (19-41); Mean Corp Hgb Conc 33.3 g/dL (32-36); Mean Corpuscular Hgb 31.2 pg (27.0-32.0); Mean Corpuscular Volume 93.6 fL (81-99); Mean Platelet Vol. 9.6 fl (6.2-12.0); Monocyte# 0.46 X10^3/uL; Monocyte% 10.7 % (0-10); NRBC Flagged by Analyzer 0 % (0-5); Neutrophil # 2.96 X10^3/uL (2.7-7.7); Neutrophil % 68.8 % (47-70); Platelet Count 143 K/mm3 (150-450); RBC Distribution Width CV 12.5 % (11.6-14.6); RBC Distribution Width SD 42.7 fl (35.1-43.9); Red Blood Count 3.27 M/mm3 (4.2-5.4); White Blood Count 4.3 K/mm3 (4.4-11.0)
[2020-04-03 07:33] LABS: Anion Gap 7 (5-15); BUN 42 mg/dL (7-18); BUN/Creat Ratio 24.4 RATIO (10-20); Calcium,Total 9.3 mg/dL (8.5-10.1); Chloride 111 mmol/L (98-107); Creatinine, Serum 1.72 mg/dL (0.55-1.02); EST Glomerular Filtration Rate 30 mL/min (>60); Est Glom Filt Rate - Afr Amer 36 mL/min (>60); Glucose 177 mg/dL (74-106); Potassium 4.5 mmol/L (3.5-5.1); Sodium Level 142 mmol/L (136-145)
[2020-04-03 08:40] LABS: Bedside Glucose 167 mg/dL (70-110)
[2020-04-03] MEDS: Labetalol 100 MG/20 ML Vial 20 MG IV (09:38)
--- NOTE | 2020-04-03 10:31 | HP.PCM_ITS ---
Problem List (1) Accelerated hypertension Status: Acute (2) CAD (coronary artery disease) Status: Chronic (3) Edema Status: Chronic (4) History of hypertension Status: Chronic (5) History of type 2 diabetes mellitus Status: Chronic (6) Hyperglycemia due to type 2 diabetes mellitus Status: Chronic Qualifiers: Diabetes mellitus outplacement consultant insulin use: without outplacement consultant use Qualified Code(s): E11.65 - Type 2 diabetes mellitus with hyperglycemia (7) Renal insufficiency Status: Chronic (8) Sudden visual loss of left eye Status: Acute History of Present Illness Date of Admission: 04/03/20 Chief Complaint: left eye vision loss The patient is a 84 year old F presents with transient left eye vision loss. It occurred yesterday when she was going to the bathroom and resolve spontaneously and then again today. Symptoms still it today lasted around 5 hours. 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 Surgery presented emergency room and was found to be profoundly hypertensive, with a systolic ranging from 214 -229. She did receive IV labetalol in the emergency room. Currently, her vision is back to normal. The patient's daughter noted that her left pupil is dilated, however, she is unsure if the patient's left pupil has been dilated previously or not given her past surgeries. [] Past Medical History Past Medical History (Chronic Problems): Chronic Problems History of type 2 diabetes mellitus (Chronic) History of hypertension (Chronic) Renal insufficiency (Chronic) Hyperglycemia due to type 2 diabetes mellitus (Chronic) CAD (coronary artery disease) (Chronic) Edema (Chronic) Allergies Penicillins Allergy (Verified 05/15/15 21:18) Hives Home Medications: Ambulatory Orders Medication Instructions Recorded Aspirin [Aspirin, Baby] 81 mg PO DAILY@0800 11/05/13 Carvedilol [Coreg (Beta Yoav)] 6.25 mg PO BID 11/05/13 Glipizide [Glucotrol Xl] 5 mg PO DAILY 11/05/13 metFORMIN HCl [Glucophage] 500 mg PO BIDCM 11/05/13 Furosemide [Lasix] 40 mg PO BIDLX #60 tablet 05/18/15 Lisinopril [Zestril] 2.5 mg PO DAILY #30 tablet 05/18/15 Spironolactone [Aldactone] 25 mg PO DAILY #30 tablet 05/18/15 Surgical History: angioplasty, coronary bypass surgery, - - glaucoma surgery Lives: Spouse/ Significant Other Smoking Status: Never smoker Alcohol: None Drugs: None - *Family History Maternal History Items: No pertinent history Paternal History Items: No pertinent history Review of Systems Constitutional: Denies: Anorexia, Chills, Fever, Night Sweats, Malaise, Weakness Eyes: Reports: Vision Change. Denies: Blurred vision, Double vision HEENT: Denies: Head Aches, Sinus Congestion, Sinus Drainage Cardiovascular: Denies: Chest Pain, Palpitations Respiratory: Denies: Cough, Shortness of breath at rest, Sputum production Gastrointestinal: Denies: Abdominal Pain, Nausea, Vomiting Genitourinary: Denies: Dysuria Neurological: Denies: Numbness, Tingling, Focal weakness Psychiatric: Denies: Anxiety, Depression, Homicidal Ideations, Suicidal Ideations Hematologic/ Lymphatic: Denies: Easy Bruising, Easy Bleeding VTE Information - Inpt Only VTE Present on Admission: No VTE Mechan Device Prophylaxis: None VTE Pharm Prophylaxis ordered?: No Reason prophylaxis not ordered:: Treatment Not Indicated Patient Problems: Active and Suspected Problems Sudden visual loss of left eye (Acute) Accelerated hypertension (Acute) - Physical Exam Vitals/I&O's: Vital Signs Temp Pulse Resp BP Pulse Ox 37.1 C 72 10 L 214/84 H 100 04/03/20 06:56 04/03/20 09:39 04/03/20 09:39 04/03/20 09:39 04/03/20 09:39 Oxygen Delivery Method Room Air Weight: 83 kg Body Mass Index (BMI) 32.4 Finger Stick Blood Glucose 167 General: Alert, Cooperative, No apparent distress, Well developed, Well nourished HEENT: Atraumatic, EOMI, Normocephalic, - - Pupils nonreactive bilaterally and patient has a surgical pupil on her right that is irregular and left pupil is dilated and nonreactive. Visual garcia were assessed and were profoundly limited patient endorsing that she was unable to see anything however was difficult to keep her focused on my fac Oral: Moist Mucosa, No Gingival or Mucosal Lesions/ Ulcerations Neck: Negative Carotid Bruits, No Nodes, Thyroid Normal Size and Texture Lungs: Clear to auscultation, Normal air movement, No rhonchi, No wheeze, No rales Cardiovascular: Regular rate, Regular Rhythm, Normal S1, Normal S2, No murmurs Abdomen: Bowel Sounds Present, Soft, Non Tender, Non-Distended, No Hepato- splenomegaly Extremities: No edema, No Calf Tenderness Skin: No rashes, No breakdown Neurological: Cranial nerves II-XII grossly intact - Except pupils nonreactive, Deep Tendon Reflexes 2+/4 and Symmetrical, Motor Exam 5/5 strength throughout Psych/Mental Status: Normal Affect, Appropriate Laboratory Results 04/03/20 07:00: WBC 4.3 L, RBC 3.27 L, Hgb 10.2 L, Hct 30.6 L, MCV 93.6, MCH 31.2, MCHC 33.3, RDW Std Deviation 42.7, RDW Coeff of Luis E 12.5, Plt Count 143 L, MPV 9.6, Immature Gran % (Auto) 0.200, Neut % (Auto) 68.8, Lymph % (Auto) 18.6 L, [place] % (Auto) 10.7 H, Eos % (Auto) 1.2, Baso % (Auto) 0.5, Absolute Neuts (auto) 3.0, Absolute Lymphs (auto) 0.80 L, Nucleated RBC % 0, ESR 34 H 04/03/20 07:00: Sodium 142, Potassium 4.5, Chloride 111 H, Carbon Dioxide 24.0, Anion Gap 7, BUN 42 H, Creatinine 1.72 H, Estim Creat Clear Calc 20.50, Est GFR (MDRD) Af Amer 36 L, Est GFR (MDRD) Non-Af 30 L, BUN/Creatinine Ratio 24.4 H, Glucose 177 H, Calcium 9.3 04/03/20 08:36: POC Glucose 167 H EKG reviewed and showed normal sinus rhythm with a right bundle branch block. Clinical Impression(s) from Imaging Studies Brain CT 04/03/20 07:12 IMPRESSION: Chronic involutional changes of the brain. Electronically Signed: Naresh Nicholson, at 9:04 EDT , Service support , Assessment/Plan All Active Problems Sudden visual loss of left eye (Acute) Accelerated hypertension (Acute) 1. Left eye visual loss: Transient. Possibilities include TIA or stroke versus hypertension. Dr. Phan, of ophthalmology, was contacted through the emergency room who told the emergency room physician that it did not sound like a primary eye issue being that had is resolved. So patient will undergo a a work-up for stroke, including MRI of the brain, MRA of the head neck, 2D echocardiogram. Once all that information has been collected, patient will have a consult [place] [facility] [place] evaluation and recommendations. Patient is already on aspirin and will continue with that for now. 2. Hypertension: Accelerated: Unclear if this is primary or secondary to possible TIA or stroke. As needed labetalol. May need further adjustments to her home medications depending on how her blood pressure is during this hos pitalization. Continue with carvedilol, spironolactone, furosemide and lisinopril. 3. Diabetes mellitus type 2: Continue with Metformin and glipizide. Sliding scale insulin. 4. VTE prophylaxis: Low risk as patient is observation status at this time. 5. Advanced care planning: Discussed with the patient and daughter. To be full CODE STATUS at this time. Advised them to discuss further. OBSV E&M: [id number] Initial observation care L3
--- NOTE | 2020-04-03 11:46 | ECHOD_ITS ---
Version 2 Reason For Study: TIA/CVA Procedure This was a 2D Doppler, Color Flow transthoracic echocardiogram. Exam performed portable in patient room. Left Ventricle Normal LV size. The estimated ejection fraction is 55 %. Unable to assess diastolic dysfunction. Mid-anteroseptal : Hypokinetic. Right Ventricle Normal RV size. Normal systolic function. Atria The left atrium is mildly enlarged. Normal right atrium. No doppler evidence for ASD. Bubble contrast study negative for right to left interatrial shunt. Mitral Valve There is severe mitral annular calcification. There is no mitral valve stenosis. Mild (1+) mitral valve insufficiency. Tricuspid Valve There is no tricuspid stenosis. Unable to estimate RV systolic pressure due to insufficient tricuspid regurgitant envelope. Trivial tricuspid valve insufficiency. Aortic Valve Aortic sclerosis, no stenosis. There is no aortic stenosis. No aortic valve insufficiency. Pulmonic Valve There is no pulmonic valvular stenosis. Trivial pulmonic valve insufficiency. Great Vessels Normal aortic root. Pericardium/Pleural No pericardial effusion. Medication Performed a rapid injection of agitated mix of 9 cc saline and 1cc air to assess for atrial septal defect. MMode/2D Measurements & Calculations LVIDd: 3.9 cm IVSd: 1.1 cm LVOT diam: 1.9 cm LVIDs: 2.9 cm LVPWd: 1.2 cm RVDd: 3.6 cm FS: 25.8 % LVOT area: 2.7 cm2 Ao root diam: 3.8 cm LAV(MOD-bp): 60.7 ml LVAd ap4: 28.2 cm2 LAV(MOD-bp) Indexed: 32.6 ml/m2 EDV(MOD-sp4): 88.7 ml LAV(MOD-sp2): 73.9 ml EDV(sp4-el): 93.5 ml LAV(MOD-sp4): 49.3 ml LVAs ap4: 18.0 cm2 ESV(MOD-sp4): 41.4 ml ESV(sp4-el): 44.2 ml EF(MOD-sp4): 53.3 % EF(sp4-el): 52.7 % SV(MOD-sp4): 47.3 ml SV(sp4-el): 49.3 ml LA A4 area: 18.3 cm2 LA dimension(2D): 4.3 cm RA A4 area: 14.7 cm2 Time Measurements MV dec time: 0.35 sec Doppler Measurements & Calculations MV E max rick: 96.1 cm/sec Lat Peak E' Rick: 6.6 cm/sec Med Peak E' Rick: 3.0 cm/sec MV A max rick: 161.9 cm/sec E/E' lat: 14.6 E/E' med: 31.7 MV E/A: 0.59 MV V2 max: 167.5 cm/sec Ao V2 max: 112.5 cm/sec LV V1 max: 101.6 cm/sec MV max P.2 mmHg Ao max P.1 mmHg LV V1 max P.1 mmHg MV V2 mean: 91.5 cm/sec Ao V2 mean: 76.6 cm/sec LV V1 mean P.9 mmHg MV mean P.8 mmHg Ao mean P.6 mmHg LV V1 mean: 65.0 cm/sec MV V2 VTI: 45.8 cm Ao V2 VTI: 24.8 cm LV V1 VTI: 21.5 cm MVA(VTI): 1.3 cm2 KRISTA(I,D): 2.4 cm2 KRISTA(V,D): 2.5 cm2 SV(LVOT): 58.8 ml PA V2 max: 94.0 cm/sec PI end-d rick: 126.5 cm/sec TR max rick: 236.0 cm/sec MV P1/2t-pr_phl: 193.9 msec TR max P.3 mmHg Interpretation Summary The estimated ejection fraction is 55 %. Mild (1+) mitral valve insufficiency. Unable to assess diastolic dysfunction. The left atrium is mildly enlarged. Ordering Physician: Rafiq Mitchell Referring Physician: ANTHONY COLLINS Performed By: Karen Lake, JOSEPHCS, RVT
--- NOTE | 2020-04-03 11:46 | MRI_ITS ---
STUDY: MRA OF THE HEAD WITHOUT CONTRAST REASON FOR EXAM: Female, 84 years old. left eye vision loss, left hearing loss since yesterday TECHNIQUE: 3-D [id number] (TOF) imaging was performed with MIPs. The study was performed unenhanced. COMPARISON: MRI same day FINDINGS: Normal bilateral petrous carotid arteries. Normal right cavernous carotid artery with a normal supraclinoid bifurcation. Normal left cavernous carotid artery with a normal supraclinoid bifurcation. Normal right A1 segments of the anterior cerebral artery. Normal left A1 segments of the anterior cerebral artery. Normal intact anterior communicating artery (ACOM). Normal bilateral A2 segments of the anterior cerebral arteries. Normal right M1 and M2 segments of the middle cerebral arteries, with a normal M1 bifurcation. Normal left M1 and M2 segments of the middle cerebral arteries, with a normal M1 bifurcation. There is non-visualization of the right posterior communicating artery (PCOM). There is non-visualization of the left posterior communicating artery (PCOM). Normal bilateral vertebral arteries. Normal basilar artery with a normal basilar bifurcation. The visualized bilateral superior cerebellar (SCA) arteries are normal. A focal moderate to high-grade stenosis of the P1 segment of the right posterior cerebral artery is noted. There is no demonstrated aneurysm of the [place]. There is no major vessel occlusion or hemodynamically significant stenosis. There is no demonstrated abnormality of the visualized brain. 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 No evidence of intracranial arterial occlusion. Electronically Signed: Milton Franz MD at 17:06 EDT Tel , Service support ,
--- NOTE | 2020-04-03 11:46 | MRI_ITS ---
STUDY: MRA NECK WITHOUT CONTRAST REASON FOR EXAM: Female, 84 years old. left eye vision loss, left hearing loss since yesterday TECHNIQUE: Source images were obtained, MIPs were performed. The study was performed unenhanced. COMPARISON: None. FINDINGS: RIGHT CAROTID ARTERIES: Normal right common carotid artery (CCA). Normal right common carotid bulb. Normal origin of the right internal carotid (ICA) artery without a hemodynamically significant stenosis. Normal visualized cervical portion of the right internal carotid artery. Normal origin of the right external carotid artery (ECA). LEFT CAROTID ARTERIES: Normal left common carotid artery (CCA). Normal left common carotid bulb. Normal origin of the left internal carotid (ICA) artery without a hemodynamically significant stenosis. Normal visualized cervical portion of the left internal carotid artery. Normal origin of the left external carotid artery (ECA). VERTEBRAL ARTERIES: Normal antegrade flow within the bilateral vertebral artery without a hemodynamically significant stenosis. MRI/MRA Neck without Contrast IMPRESSION: Normal bilateral cervical carotid and vertebral arteries. Electronically Signed: Milton Franz MD at 19:09 EDT Tel , Service support ,
--- NOTE | 2020-04-03 11:46 | MRI_ITS ---
STUDY: MRI BRAIN WITHOUT CONTRAST REASON FOR EXAM: Female, 84 years old. confusion, L vision loss, L hearing loss TECHNIQUE: Standardized multiplanar fat and water weighted pulse sequences were obtained. COMPARISON: 01/07/2011 MRI, 04/03/2020 CT FINDINGS: Normal size of the ventricles and extra-axial spaces for the patient''s age. There are a limited number of small white matter hyperintensities, distributed throughout the deep white matter tracts of the cerebral hemispheres, consistent with mild chronic white matter ischemic changes. Normal bilateral basal ganglia. Remote left thalamic infarcts. There is no extra-axial fluid accumulation. Normal flow voids within the major intracranial circulation suggesting patency by spin echo criteria. Normal sella turcica, pituitary gland, infundibular stalk, optic chiasm and hypothalamus. Normal tectal plate and pineal gland. There are chronic white matter ischemic changes of the mely. The midbrain and medulla are otherwise normal. Normal cerebellum. Normal basal cisterns. Bilateral mastoid sinus disease. Normal bilateral internal auditory canals. Left lens replacement. Normal visualized paranasal sinuses. Normal calvarium and skull base. Normal visualized soft tissue structures. Normal visualized upper cervical spine. MRI/Brain without Contrast IMPRESSION: No evidence of acute infarct or hemorrhage. Electronically Signed: Milton Franz MD at 17:03 EDT Tel , Service support ,
[2020-04-03 12:41] LABS: Bedside Glucose 162 mg/dL (70-110)
[2020-04-03] MEDS: Insulin Lispro 100 UNIT/ML INSULN.PEN SC ×2 (12:42→16:30)
--- NOTE | 2020-04-03 16:51 | NURSING ---
This RN updated the pt's daughter, Arcelia via phone.
[2020-04-03] MEDS: Furosemide 40 MG Tablet PO (17:56)
[2020-04-03 18:25] LABS: CRP 3.05 mg/L (0.0-3.0)
[2020-04-03 18:29] LABS: Erythrocyte Sedimentation Rate 34 mm/hr (0-30)
[2020-04-03 19:11] LABS: Bedside Glucose 198 mg/dL (70-110)
--- NOTE | 2020-04-03 19:46 | PCM.CONS.GEN ---
Problem List (1) Temporal arteritis Status: Acute Reason for Consult Date of Consultation: 04/03/20 History of Present Illness: The patient is a 84 year old F because of waxing and waning left eye blindness. There is concern that she may have temporal arteritis. I been contacted by Dr. Mitchell for a left temporal artery biopsy and a written copy of my surgical consult recommendations will be present in the chart. The patient was admitted today with accelerated hypertension and transient vision loss in the left eye. Her blood pressure was ranging from 2 14-2 29. 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 There is some history that she has had retinal detachment as well as glaucoma. Her laboratory notable for a white count of 4.3 with a hemoglobin 10.2 hematocrit 30.6 platelet count 143,000. ESR was 34. BUN is 42 and creatinine 1.7 C-reactive protein is 3.05 On presentation the patient had a CT brain without contrast showing chronic involutional changes of the brain A brain MRI was performed with findings consistent with scattered area of small white matter hypodensities consistent with mild chronic white matter ischemic changes. Remote left thalamic infarcts. Chronic white matter ischemic changes of the mely. No evidence for acute infarct or hemorrhage And MRA of the brain was performed. A focal moderate to high-grade stenosis of the P1 segment of the right posterior cerebral artery is noted. No evidence of intracranial artery occlusion An MRA of the neck was performed. No hemodynamically significant stenosis of either internal carotid arteries. Bilateral vertebral arteries are also normal She is diabetic. She is on oral hypoglycemic agents. She is on several antihypertensives. She is on low-dose aspirin. Past Medical History Past Medical History (Chronic Problems): Chronic Problems History of type 2 diabetes mellitus (Chronic) History of hypertension (Chronic) Renal insufficiency (Chronic) Hyperglycemia due to type 2 diabetes mellitus (Chronic) CAD (coronary artery disease) (Chronic) Edema (Chronic) Allergies Penicillins Allergy (Verified 05/15/15 21:18) Hives Home Medications: Ambulatory Orders Medication Instructions Recorded Aspirin [Aspirin, Baby] 81 mg PO DAILY@0800 11/05/13 Carvedilol [Coreg (Beta Yoav)] 6.25 mg PO BID 11/05/13 Glipizide [Glucotrol Xl] 5 mg PO DAILY 11/05/13 metFORMIN HCl [Glucophage] 500 mg PO BIDCM 11/05/13 Furosemide [Lasix] 40 mg PO BIDLX #60 tablet 05/18/15 Lisinopril [Zestril] 2.5 mg PO DAILY #30 tablet 05/18/15 Spironolactone [Aldactone] 25 mg PO DAILY #30 tablet 05/18/15 Surgical History: angioplasty, coronary bypass surgery, - - glaucoma surgery Lives: Spouse/ Significant Other Smoking Status: Never smoker Alcohol: None Drugs: None - *Family History Maternal History Items: No pertinent history Paternal History Items: No pertinent history Review of Systems Constitutional: Denies: Anorexia, Chills, Fever Eyes: Reports: Blurred vision, - - Left eye vision has markedly improved. There was a waxing and waning nature to the loss HEENT: Reports: Difficulty Hearing Cardiovascular: Denies: Chest Pain Respiratory: Denies: Cough Neurological: Denies: Balance problems Patient Problems: Active and Suspected Problems Sudden visual loss of left eye (Acute) Accelerated hypertension (Acute) Temporal arteritis (Acute) - Physical Exam Vitals/I&O's: Vital Signs Temp Pulse Resp BP Pulse Ox 97.9 F 72 18 171/79 H 98 04/03/20 16:25 04/03/20 18:58 04/03/20 16:25 04/03/20 16:25 04/03/20 16:25 Oxygen Delivery Method Room Air Weight: 151 lb 0.266 oz Body Mass Index (BMI) 26.7 Finger Stick Blood Glucose 167 Intake and Output for Last 24 Hours 04/01/20 04/02/20 04/03/20 23:59 23:59 23:59 Intake Total 400 / 400 Balance 400 / 400 Cardiovascular: - - Left temporal artery has a very strong 3+ pulse. There is no induration. No tenderness Laboratory Results 04/03/20 07:00: WBC 4.3 L, RBC 3.27 L, Hgb 10.2 L, Hct 30.6 L, MCV 93.6, MCH 31.2, MCHC 33.3, RDW Std Deviation 42.7, RDW Coeff of Luis E 12.5, Plt Count 143 L, MPV 9.6, Immature Gran % (Auto) 0.200, Neut % (Auto) 68.8, Lymph % (Auto) 18.6 L, [place] % (Auto) 10.7 H, Eos % (Auto) 1.2, Baso % (Auto) 0.5, Absolute Neuts (auto) 3.0, Absolute Lymphs (auto) 0.80 L, Nucleated RBC % 0, ESR 34 H 04/03/20 07:00: Sodium 142, Potassium 4.5, Chloride 111 H, Carbon Dioxide 24.0, Anion Gap 7, BUN 42 H, Creatinine 1.72 H, Estim Creat Clear Calc 20.50, Est GFR (MDRD) Af Amer 36 L, Est GFR (MDRD) Non-Af 30 L, BUN/Creatinine Ratio 24.4 H, Glucose 177 H, Calcium 9.3 04/03/20 08:36: POC Glucose 167 H 04/03/20 12:04: POC Glucose 162 H 04/03/20 16:29: POC Glucose 198 H 04/03/20 17:51: ESR 34 H 04/03/20 17:51: C-React Prot Ext Range 3.05 H Current Medications Acetaminophen (Acetaminophen 325 Mg Tablet) 650 mg PO Q6H PRN PRN PRN Reason: Pain Score 1-10/Temp > 100.7 F Aspirin (Aspirin 81 Mg Tab.Chew) 81 mg PO DAILY@0800 [facility] Carvedilol (Carvedilol 6.25 Mg Tablet) 6.25 mg PO BID [facility] Dextrose (Dextrose 50%-Water 25 Gm/50 Ml Disp.Syrin) 0 gm IV X1 PRN; Protocol PRN Reason: Hypoglycemia Furosemide (Furosemide 40 Mg Tablet) 40 mg PO BIDLX [facility] Last Admin: 04/03/20 17:56 Dose: 40 mg Documented by: Glipizide (Glipizide Xl 5 Mg Tablet) 5 mg PO DAILY@0800 [facility] Glucagon (Glucagon 1 Mg/Ml Syringe) 1 mg IM .X1 PRN PRN Reason: Hypoglycemia Hydralazine HCl (Hydralazine 20 Mg/Ml Vial) 5 mg IV Q30M PRN PRN Reason: to maintain BP goals Sodium Chloride () 500 mls @ 15 mls/hr IV PRN PRN PRN Reason: Blood Transfusion Sodium Chloride () 250 mls @ 15 mls/hr IV .[id number] PRN PRN Reason: Saline Flush Sodium Chloride () 250 mls @ 15 mls/hr IV .[id number] PRN PRN Reason: Additional IVPB Infusion Methylprednisolone 1,000 mg/ (Sodium Chloride) 116 mls @ 100 mls/hr IV DAILY [facility] Stop: 04/06/20 18:31 Insulin Human Lispro (Insulin Lispro 100 Unit/Ml Insuln.Pen) 0 unit SC TIDAC JIM[facility]; Protocol Last Admin: 04/03/20 16:30 Dose: 2 unit Documented by: Labetalol HCl (Labetalol (Prefilled) 20 Mg/4 Ml) 10 - 20 mg IV Q10M PRN PRN PRN Reason: to Maintain BP Goals Lisinopril (Lisinopril 2.5 Mg Tablet) 2.5 mg PO DAILY [facility] Ondansetron HCl (Ondansetron 4 Mg/2 Ml Vial) 4 mg IV Q8H PRN PRN PRN Reason: NAUSEA/VOMITING Sodium Chloride (0.9% Saline Lock 10 Ml Syringe) 10 - 40 ml IV UD PRN PRN Reason: SALINE FLUSH Spironolactone (Spironolactone 25 Mg Tablet) 25 mg PO DAILY JIMBO Assessment/Plan All Active Problems Sudden visual loss of left eye (Acute) Accelerated hypertension (Acute) Temporal arteritis (Acute) 84-year-old female. A request has been made to perform a left temporal artery biopsy. I discussed the technique, benefit, risk, alternatives with the patient. It is of note that the left temporal artery clinically appears to be very normal the patient does not seem to have symptoms directed toward it. I have discussed this patient verbally with Dr. Mitchell. We will tentatively set operating room time aside tomorrow and keep the patient fasting after midnight. I could perform this with monitored anesthesia care and local anesthetic. However based upon the patient's history with a hypertensive event and previous history of stroke in the right eye and a reported history of retinal detachment and glaucoma I would feel much better before performing the left temporal artery biopsy if ophthalmology would see and evaluate this patient. She has had an opportunity to ask and have questions answered. I will pursue hopefully after ophthalmology consultation can be achieved. Jack Sterling M.D., F.A.C.S.
--- NOTE | 2020-04-03 20:49 | NURSING ---
When this nurse entered pt's room at 1999 to complete assessment and start IV steroids pt was very anxious about her conversation with Dr. Sterling and the ordered procedure, and taking the IV steroids. Attempted to educate and discussed steroids and procedure with pt, but she continued to be increasingly agitated, did not want to sign consent or take IV steroids. Pt would like to wait until she sees the eye doctor. Will continue to attempt to educate pt throughout evening. CARLOS EDUARDO Tracy
[2020-04-03] MEDS: Carvedilol 6.25 MG Tablet PO (21:30)
[2020-04-03 21:50] LABS: Bedside Glucose 246 mg/dL (70-110)
--- NOTE | 2020-04-03 22:04 | NURSING ---
Daughter, Arcelia called for update. Updated daughter. Daughter states that pt was once on steroids before and it caused her sugars to be in the 600's and she needed to go to the ED, which is most likely why pt was hesitant and scared to take IV steroids. CARLOS EDUARDO Tracy
[2020-04-04 02:22] VITALS: O2SAT 99
[2020-04-04 03:01] VITALS: BMI 26.7
[2020-04-04 03:25] VITALS: BP 128/67; PULSE 63; RESP 18; TEMP 36.9; O2SAT 98
[2020-04-04 06:44] VITALS: PULSE 63
[2020-04-04 06:53] LABS: Absolute Lymphocyte Count 0.79 X10^3/uL (0.83-4.51); Absolute Neutrophil Count 2.5 X10^3/uL (2.0-7.7); Basophil# 0.02 X10^3/uL; Basophil% 0.5 % (0-1); Eosinophil# 0.04 X10^3/uL; Hematocrit 29.4 % (37-47); Hemoglobin 9.4 g/dL (12.0-15.0); Lymphocyte # 0.79 X10^3/ul (4.0); Lymphocyte % 20.7 % (19-41); Mean Corpuscular Hgb 31.1 pg (27.0-32.0); Mean Corpuscular Volume 97.4 fL (81-99); Mean Platelet Vol. 9.5 fl (6.2-12.0); Monocyte# 0.46 X10^3/uL; NRBC Flagged by Analyzer 0 % (0-5); Neutrophil % 65.5 % (47-70); Platelet Count 123 K/mm3 (150-450); RBC Distribution Width CV 12.8 % (11.6-14.6); RBC Distribution Width SD 45.4 fl (35.1-43.9); Red Blood Count 3.02 M/mm3 (4.2-5.4); White Blood Count 3.8 K/mm3 (4.4-11.0)
[2020-04-04 06:56] LABS: Bedside Glucose 212 mg/dL (70-110)
[2020-04-04 07:29] LABS: Cholesterol 179 mg/dL (200); High Density Lipoprotein 48 mg/dL; Triglycerides 103 mg/dL; Very Low Density Lipoprotein 21 mg/dL (5-40)
[2020-04-04 07:31] LABS: Anion Gap 8 (5-15); BUN 44 mg/dL (7-18); BUN/Creat Ratio 22.6 RATIO (10-20); Calcium,Total 8.6 mg/dL (8.5-10.1); Chloride 108 mmol/L (98-107); Creatinine, Serum 1.95 mg/dL (0.55-1.02); EST Glomerular Filtration Rate 26 mL/min (>60); Est Glom Filt Rate - Afr Amer 32 mL/min (>60); Estimated Creatinine Clearance 18.08 ml/min; Glucose 210 mg/dL (74-106); Sodium Level 140 mmol/L (136-145)
[2020-04-04 08:07] VITALS: BMI 26.7
[2020-04-04 08:12] VITALS: O2SAT 98
[2020-04-04 08:27] LABS: Hemoglobin A1c 8.1 % (3.8-5.6)
--- NOTE | 2020-04-04 08:31 | PCM.PN.BLA ---
Progress Note Evaluated patient this morning. Patient has refused the IV steroids and has refused the recommended temporary artery biopsy of the left side. Patient would prefer to be evaluated by Dr. Phan prior to any other decision. Patient was evaluated with Dr. Mitchell in the room and discussed with Dr. Sterling. At this time, we will hold off on any procedure. If following her ophthalmology exam, a temporal artery biopsy is warranted, we would be happy to accommodate this patient. Thank you for allowing us to participate in this patient's care. STROKE Vital Signs/Narrative: Vital Signs Pulse Pulse Ox 04/04/20 08:12 98 04/04/20 06:44 63 Inpatient E&M: 91521 Subs Hosp L1
[2020-04-04] MEDS: glipiZIDE XL 5 MG Tablet PO (08:32)
[2020-04-04] MEDS: Aspirin 81 MG TAB.CHEW PO (08:32)
--- NOTE | 2020-04-04 08:33 | DCINST_ITS ---
- Discharge Diagnoses Current Active Problems: Current Active and Chronic Problems History of type 2 diabetes mellitus (Chronic) History of hypertension (Chronic) Sudden visual loss of left eye (Acute) Renal insufficiency (Chronic) Accelerated hypertension (Acute) Hyperglycemia due to type 2 diabetes mellitus (Chronic) Temporal arteritis (Acute) CAD (coronary artery disease) (Chronic) Edema (Chronic) You will use the following diet at home:: Calorie/Carbohydrate Controlled (specify 1200, 1400, etc) - 1800, Cardiac Your food should be the consistency of: Regular Your liquids should be the consistency of: Regular/Thin Discharge Activity: Return to Normal Activity Call your doctor if you observe: - - vision change/loss Allergies/Adverse Reactions: Allergies Penicillins Allergy (Verified 05/15/15 21:18) Hives Medications to take at Discharge Aspirin [Aspirin, Baby] 81 mg PO DAILY@0800 11/05/13 Carvedilol [Coreg (Beta Yoav)] 6.25 mg PO BID 11/05/13 Glipizide [Glucotrol Xl] 5 mg PO DAILY 11/05/13 Lisinopril [Zestril] 2.5 mg PO DAILY #30 tablet 05/18/15 Amlodipine [Norvasc] 2.5 mg PO DAILY #30 tab 04/04/20 Prednisone 3 tab PO DAILY #90 tab 04/04/20 The following prescriptions were given: Amlodipine [Norvasc] 2.5 mg PO DAILY #30 tab Transmission Status: Pending to [facility]/pharmacy #[id number] Prednisone 3 tab PO DAILY #90 tab Transmission Status: Pending to [facility]/pharmacy #[id number] Primary Care Physician: Marcos Majano MD [Primary Care Provider] - Within 1 Week Test Results: Test results from this visit will be discussed in further detail at your follow- up appointment, if applicable. Proposed Discharge Date: 04/04/20
--- NOTE | 2020-04-04 08:34 | DS.PCM_ITS ---
Discharge Date and Diagnosis - Problem List Patient Problems: Active and Suspected Problems Sudden visual loss of left eye (Acute) Accelerated hypertension (Acute) Temporal arteritis (Suspected) Date of Admission: 04/03/20 Date of Discharge: 04/04/20 - Primary Discharge Diagnosis Acute Problems: Active Problems Sudden visual loss of left eye (Acute) Accelerated hypertension (Acute) Temporal arteritis (Acute) - Secondary Discharge Diagnosis Chronic Problems: Chronic Problems History of type 2 diabetes mellitus (Chronic) History of hypertension (Chronic) Renal insufficiency (Chronic) Hyperglycemia due to type 2 diabetes mellitus (Chronic) CAD (coronary artery disease) (Chronic) Edema (Chronic) Hospital Course and Treatment Imaging Results: Clinical Impression(s) from Imaging Studies Brain CT 04/03/20 07:12 IMPRESSION: Chronic involutional changes of the brain. Electronically Signed: Naresh Nicholson, at 9:04 EDT , Service support , Brain MRI 04/03/20 11:46 IMPRESSION: No evidence of acute infarct or hemorrhage. Electronically Signed: Milton Franz MD at 17:03 EDT Tel , Service support , Head MRA 04/03/20 11:46 IMPRESSION: A focal moderate to high-grade stenosis of the P1 segment of the right posterior cerebral artery is noted. No evidence of intracranial arterial occlusion. Electronically Signed: Milton Franz MD at 17:06 EDT Tel , Service support , Neck MRA 04/03/20 11:46 IMPRESSION: Normal bilateral cervical carotid and vertebral arteries. 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 Began in the morning of the and lasted roughly 5 hours. Resolve spontaneously and patient had her normal vision. Ophthalmology was contacted through emergency room and recommended further neurovascular work-up. Patient underwent a work-up, including an MRI of her brain showed no evidence of an acute stroke. After patient complete her MRI she had vision loss in her left eye again. I went to evaluate her at that point and patient was able to see lights and colors but could not make out any definition.. Concern was for no other vascular issue being that the MRI was negative. Patient did have an ESR and CRP that were slightly elevated. She had no temporal artery tenderness. I again spoke with Dr. Phan who did not feel that this was related directly with her eye but more of a vascular issue. Contacted Dr. Sterling of general surgery for evaluation for possible temporal artery biopsy. Evaluate the patient and reports the patient does not want to proceed with the procedure at this time nor does she want steroids. Explained the risk of blindness associated with temporal arteritis but she continues to decline and is concerned about side effects of steroids. Informed the patient as well as her daughter that the likelihood of this being temporal arteritis is very low given the fact that she has no reproducible tenderness along her pentecostalism and her ESR and CRP are only minimally elevated. Though that is not confirmatory of her not having giant cell arteritis makes it less likely. Did discuss other options of why she is having this issue with her eye with her daughter, including anxiety or migraine but also related with her hypertension that she did experience when she initially presented as her systolic blood pressure was well into the 200s. So we were trying to arrange for the patient to have an ophthalmology appointment today and once that has been arranged then will discharge the patient and have her follow-up. Patient will receive a p rescription for prednisone but patient has already expressed that she is not going to take it but to have that available if it is decided to after seeing the innersole maker that it would be ha for her to take that. And if so then would recommend patient follow-up with general surgery for possible temporal artery biopsy. [] Patient Problems: Active and Suspected Problems Sudden visual loss of left eye (Acute) Accelerated hypertension (Acute) Temporal arteritis (Suspected) - Physical Exam Vitals/I&O's: Vital Signs Temp Pulse Resp BP Pulse Ox 36.9 C 63 18 128/67 H 98 04/04/20 03:25 04/04/20 06:44 04/04/20 03:25 04/04/20 03:25 04/04/20 08:12 Oxygen Delivery Method Room Air Weight: 68.5 kg Body Mass Index (BMI) 26.7 Finger Stick Blood Glucose 167 Intake and Output for Last 24 Hours 04/02/20 04/03/20 04/04/20 23:59 23:59 23:59 Intake Total 640 / 640 0 / 0 Balance 640 / 640 0 / 0 General: Alert, No apparent distress HEENT: Atraumatic, Normocephalic, - - able to read menu with her glasses. Psych/Mental Status: Normal Affect, Appropriate Microbiology Past 72 Hours 04/04/20 02:00 Mucosa - Nose - Final Laboratory Results 04/03/20 08:36: POC Glucose 167 H 04/03/20 12:04: POC Glucose 162 H 04/03/20 16:29: POC Glucose 198 H 04/03/20 17:51: ESR 34 H 04/03/20 17:51: C-React Prot Ext Range 3.05 H 04/03/20 21:29: POC Glucose 246 H 04/04/20 06:30: Triglycerides 103, Cholesterol 179, LDL Cholesterol 110, VLDL Cholesterol 21, HDL Cholesterol 48 04/04/20 06:30: WBC 3.8 L, RBC 3.02 L, Hgb 9.4 L, Hct 29.4 L, MCV 97.4, MCH 31.1, MCHC 32.0, RDW Std Deviation 45.4 H, RDW Coeff of Luis E 12.8, Plt Count 123 L, MPV 9.5, Immature Gran % (Auto) 0.300, Neut % (Auto) 65.5, Lymph % (Auto) 20.7, [place] % (Auto) 12.0 H, Eos % (Auto) 1.0, Baso % (Auto) 0.5, Absolute Neuts (auto) 2.5, Absolute Lymphs (auto) 0.79 L, Nucleated RBC % 0 04/04/20 06:30: Sodium 140, Potassium 4.0, Chloride 108 H, Carbon Dioxide 24.0, Anion Gap 8, BUN 44 H, Creatinine 1.95 H, Estim Creat Clear Calc 18.08, Est GFR (MDRD) Af Amer 32 L, Est GFR (MDRD) Non-Af 26 L, BUN/Creatinine Ratio 22.6 H, Glucose 210 H, Calcium 8.6 04/04/20 06:30: Hemoglobin A1c 8.1 H 04/04/20 06:37: POC Glucose 212 H Current Medications Acetaminophen (Acetaminophen 325 Mg Tablet) 650 mg PO Q6H PRN PRN PRN Reason: Pain Score 1-10/Temp > 100.7 F Aspirin (Aspirin 81 Mg Tab.Chew) 81 mg PO DAILY@0800 [facility] Last Admin: 04/04/20 08:32 Dose: 81 mg Documented by: Carvedilol (Carvedilol 6.25 Mg Tablet) 6.25 mg PO BID [facility] Last Admin: 04/03/20 21:30 Dose: 6.25 mg Documented by: Dextrose (Dextrose 50%-Water 25 Gm/50 Ml Disp.Syrin) 0 gm IV X1 PRN; Protocol PRN Reason: Hypoglycemia Furosemide (Furosemide 40 Mg Tablet) 40 mg PO BIDLX [facility] Last Admin: 04/03/20 17:56 Dose: 40 mg Documented by: Glipizide (Glipizide Xl 5 Mg Tablet) 5 mg PO DAILY@0800 [facility] Last Admin: 04/04/20 08:32 Dose: 5 mg Documented by: Glucagon (Glucagon 1 Mg/Ml Syringe) 1 mg IM .X1 PRN PRN Reason: Hypoglycemia Hydralazine HCl (Hydralazine 20 Mg/Ml Vial) 5 mg IV Q30M PRN PRN Reason: to maintain BP goals Sodium Chloride () 500 mls @ 15 mls/hr IV PRN PRN PRN Reason: Blood Transfusion Sodium Chloride () 250 mls @ 15 mls/hr IV .[id number] PRN PRN Reason: Saline Flush Sodium Chloride () 250 mls @ 15 mls/hr IV .[id number] PRN PRN Reason: Additional IVPB Infusion Methylprednisolone 1,000 mg/ (Sodium Chloride) 116 mls @ 100 mls/hr IV DAILY [facility] Stop: 04/06/20 18:31 Last Admin: 04/03/20 20:09 Dose: Not Given Documented by: Insulin Human Lispro (Insulin Lispro 100 Unit/Ml Insuln.Pen) 0 unit SC TIDAC [facility]; Protocol Last Admin: 04/04/20 06:40 Dose: Not Given Documented by: Labetalol HCl (Labetalol (Prefilled) 20 Mg/4 Ml) 10 - 20 mg IV Q10M PRN PRN PRN Reason: to Maintain BP Goals Lisinopril (Lisinopril 2.5 Mg Tablet) 2.5 mg PO DAILY [facility] Ondansetron HCl (Ondansetron 4 Mg/2 Ml Vial) 4 mg IV Q8H PRN PRN PRN Reason: NAUSEA/VOMITING Sodium Chloride (0.9% Saline Lock 10 Ml Syringe) 10 - 40 ml IV UD PRN PRN Reason: SALINE FLUSH Spironolactone (Spironolactone 25 Mg Tablet) 25 mg PO DAILY [facility] Discharge Diet: No Restrictions Discharge Activity: Return to Normal Activity Call your doctor if you observe: - - vision change/loss Home Medications: Medications to take at Discharge Aspirin [Aspirin, Baby] 81 mg PO DAILY@0800 11/05/13 Carvedilol [Coreg (Beta Yoav)] 6.25 mg PO BID 11/05/13 Glipizide [Glucotrol Xl] 5 mg PO DAILY 11/05/13 Lisinopril [Zestril] 2.5 mg PO DAILY #30 tablet 05/18/15 Amlodipine [Norvasc] 2.5 mg PO DAILY #30 tab 04/04/20 Prednisone 3 tab PO DAILY #90 tab 04/04/20 Following Prescriptions Were Given to Patient: Amlodipine [Norvasc] 2.5 mg PO DAILY #30 tab Transmission Status: Pending to [facility]/pharmacy #[id number] Prednisone 3 tab PO DAILY #90 tab Transmission Status: Pending to [facility]/pharmacy #[id number] Primary Care Physician: Marcos Majano MD [Primary Care Provider] - Within 1 Week Disposition: Home Minutes spent on discharge:: 32 Patient Condition:: Good Medical Necessity - Tobacco Use Smoking Status: Never smoker Meaningful Use Info Meaningful Use Diagnoses (Choose all that apply): None applicable OBSV E&M: [id number] Observation care discharge
--- NOTE | 2020-04-04 09:16 | CASEMGMT ---
Per therapy, no therapy recommended for pt at discharge at this time. Pt lives with sig other in one story home. Pt declined a temporal artery biopsy at this time and will f/u with opthalmology appt. Darlin THIBODEAUX CM
[2020-04-04 09:30] VITALS: BP 170/59; PULSE 65; RESP 16; TEMP 36.9; O2SAT 100
[2020-04-04] MEDS: Furosemide 40 MG Tablet PO (09:47)
[2020-04-04] MEDS: Lisinopril 2.5 MG Tablet PO (09:47)
[2020-04-04] MEDS: Spironolactone 25 MG Tablet PO (09:47)
[2020-04-04] MEDS: Carvedilol 6.25 MG Tablet PO (09:47)
--- NOTE | 2020-04-04 10:20 | NURSING ---
This RN went over dc instructions with the pt's daughter, Arcelia via phone.
[2020-04-04 11:20] LABS: Bedside Glucose 355 mg/dL (70-110)
[2020-04-04] MEDS: Insulin Lispro 100 UNIT/ML INSULN.PEN SC (11:20)
== END 2020-04-04 08:33 | disposition home or self-care (01) ==
LOC: ED 09:35 → PCU 10:45
PROVIDERS: Anesthesiology; Emergency Provider Emergency Medicine; PCP Family Medicine
DX: M31.6 Other giant cell arteritis (principal); H54.3 Unqualified visual loss, both eyes; I10 Essential (primary) hypertension; E11.65 Type 2 diabetes mellitus with hyperglycemia; E11.319 Type 2 diabetes mellitus with unspecified diabetic retinopathy without macular edema; I25.10 Atherosclerotic heart disease of native coronary artery without angina pectoris; H40.9 Unspecified glaucoma; Z79.899 Other long term (current) drug therapy; Z79.82 Long term (current) use of aspirin; Z79.84 Long term (current) use of oral hypoglycemic drugs; I69.398 Other sequelae of cerebral infarction
CPT/HCPCS: 36415; 70450; 70544; 70547; 70551; 80048; 80061; 82962; 83036; 85025; 85652; 86140; 87426; 93005; 93306; 94762; 96374; 97162; 97166; 97802; 99218; 99285; A4216; G0378

== ENCOUNTER → 2020-05-27 15:55 | Outpatient (CLI) | payer MEDICARE, OTHER, SELFPAY ==
[2020-05-27 18:30] LABS: Anion Gap 8 (5-15); BUN 44 mg/dL (7-18); BUN/Creat Ratio 27.3 RATIO (10-20); Calcium,Total 8.8 mg/dL (8.5-10.1); Chloride 108 mmol/L (98-107); Cholesterol 171 mg/dL (200); Creatinine, Serum 1.61 mg/dL (0.55-1.02); EST Glomerular Filtration Rate 32 mL/min (>60); Est Glom Filt Rate - Afr Amer 39 mL/min (>60); Glucose 89 mg/dL (74-106); High Density Lipoprotein 44 mg/dL; Potassium 4.7 mmol/L (3.5-5.1); Sodium Level 139 mmol/L (136-145); Triglycerides 180 mg/dL; Very Low Density Lipoprotein 36 mg/dL (5-40)
== END ==
PROVIDERS: PCP Family Medicine; Referring Provider Family Medicine; Visit Provider Family Medicine
DX: E11.65 Type 2 diabetes mellitus with hyperglycemia (principal)
CPT/HCPCS: 36415; 80048; 80061; 83036

== ENCOUNTER → 2020-07-26 09:29 | Outpatient (CLI) | payer MEDICARE, OTHER, SELFPAY ==
--- NOTE | 2020-07-26 09:33 | ART_ITS ---
Reason For Study: Atherosclerosis Procedure A bilateral lower extremity continuous wave Doppler with analog waveform analysis and ankle brachial indexes. Left Segmental Pressures Left brachial= 155mmHg. Left posterior tibial artery = 51mmHg. Left dorsalis pedis artery = 57mmHg. The left ankle waveforms are monophasic. Right Segmental Pressures Right brachial= 142mmHg. Right posterior tibial artery = 132mmHg. Right dorsalis pedis artery = 153mmHg. The right ankle waveforms are monophasic. Indices The right ankle brachial index by the posterior tibial artery is 0.85. The right ankle brachial index by the dorsalis pedis is 0.99. The left ankle brachial index by the posterior tibial artery is 0.33. The left ankle brachial index by the dorsalis pedis is 0.37. Interpretation Summary Bilateral monophasic flow at ankles. RUDI 0.99 right which may be false and left severe at 0.37. Ordering Physician: Naga Hogan Referring Physician: Naga Hogan Performed By: Irene Wilks RDCS/RVT
--- NOTE | 2020-07-26 09:55 | ADUL_ITS ---
Reason For Study: Atherosclerosis Right Velocities Ext. Iliac Artery, dist = 58 cm./sec. Common Femoral Artery, dist = 91 cm./sec. Supf Femoral Artery, prox = 35 cm./sec. Supf Femoral Artery, mid = 94 cm./sec. Supf Femoral Artery, dist. = 50 cm./sec. Profunda Femoral Artery = 56 cm./sec. Popliteal Artery, prox. = 85 cm./sec. Popliteal Artery, mid = 46 cm./sec. Popliteal Artery, dist = 50 cm./sec. Post. Tibial Artery, mid = 15 cm./sec. Post. Tibial Artery, dist = 13 cm./sec. Peroneal Artery, mid = 16 cm./sec. Peroneal Artery,dist = 22 cm./sec. Difficult to visualize Rt OFFICE COMMUNICATION PROFESSOR prox, Rt PeroA prox, and Rt BRANDY. Procedure Exam performed in department. Interpretation Summary Triphasic flow through popliteal wth no stenosis. Difficult to visualize tibials and becomes monophasic. Ordering Physician: Naga Hogan Referring Physician: Marcos Majano Performed By: Irene Wilks, SHAYLEE, RVT
== END ==
PROVIDERS: PCP Family Medicine; Referring Provider Surgery Vascular Surgery; Visit Provider Surgery Vascular Surgery
DX: I77.1 Stricture of artery (principal); I70.213 Atherosclerosis of native arteries of extremities with intermittent claudication, bilateral legs; E78.70 Disorder of bile acid and cholesterol metabolism, unspecified; I10 Essential (primary) hypertension; I25.2 Old myocardial infarction; E11.59 Type 2 diabetes mellitus with other circulatory complications; I70.235 Atherosclerosis of native arteries of right leg with ulceration of other part of foot; I96 Gangrene, not elsewhere classified
CPT/HCPCS: 93922; 93926

== ENCOUNTER → 2020-09-13 07:58 | Outpatient (CLI) | payer MEDICARE, OTHER, SELFPAY ==
[2020-09-02 12:30] LABS: BUN 36 mg/dL (7-18); Creatinine, Serum 1.64 mg/dL (0.55-1.02); EST Glomerular Filtration Rate 32 mL/min (>60); Est Glom Filt Rate - Afr Amer 38 mL/min (>60)
--- NOTE | 2020-09-13 08:04 | CT_ITS ---
STUDY: CTA OF THE ABDOMINAL AORTA AND BILATERAL LOWER EXTREMITIES REASON FOR EXAM: Female, 84 years old. ATHEROSCLEROSIS / STRICTURE OF ARTERY / HTN / DM2 / HYPERCHOLESTE RADIATION DOSAGE (If Supplied By Facility): CTDIvol = ( 8.54 ) mGy, DLP = ( 1243.83 ) mGycm TECHNIQUE: Axial CT angiography multi-detector data acquisition was obtained from the lung bases to the toes following intravenous administration of IV 100mL Isovue-370. Axial images and MIP images were reconstructed from the axial data set. Post-processing of the angiographic images was performed, with multiplanar reformation and 3D reconstruction. Individualized dose optimization techniques were used for this CT. TECHNICAL QUALITY: Good COMPARISON: None. Descriptors of Narrowing: None (0%) Mild (< 50%) Moderate (50-70%) Severe (70-90%) Subtotal/Total Occlusion (90-100%) Non-Evaluable (technically non-diagnostic FINDINGS: Abdominal aorta: Mild amount of peripheral calcified plaque and tortuosity but no abdominal aortic aneurysm or aortic stenosis. Celiac and superior mesenteric arteries: No demonstrated narrowing. Inferior mesenteric artery: There is moderate diffuse narrowing. Right renal artery(arteries): There is moderate diffuse narrowing. Left renal artery(arteries): There is moderate diffuse narrowing. Right common iliac artery: There is mild diffuse narrowing. Right external iliac artery: No demonstrated narrowing. Right internal iliac artery: There is mild diffuse narrowing. Left common iliac artery: There is mild diffuse narrowing. Left external iliac artery: There is mild diffuse narrowing. Left internal iliac artery: There is mild diffuse narrowing. RIGHT LOWER EXTREMITY Right common femoral artery: There is mild diffuse narrowing. Right profundus femoris: There is mild diffuse narrowing. Right superficial femoral: There is moderate diffuse narrowing. Focal severe (80%) stenosis at the adductor canal. Right popliteal artery: Occluded at the level tibial plateau with reconstitution of the tibioperoneal trunk. Right tibioperoneal trunk: No demonstrated narrowing. Right anterior tibial artery: Occluded proximally. Right posterior tibial artery: Occluded proximally. Right peroneal artery: No demonstrated narrowing. LEFT LOWER EXTREMITY Left common femoral artery: There is mild diffuse narrowing. Left profundus femoris: No demonstrated narrowing. Left superficial femoral: There is moderate diffuse narrowing. Focal severe (80%) stenosis at the adductor canal Left popliteal artery: There is severe diffuse narrowing. Left tibioperoneal trunk: Occluded Left anterior tibial artery: Occluded proximally with reconstitution in the mid leg. Left posterior tibial artery: Occluded proximally Left peroneal artery: Occluded proximally with reconstitution in the mid leg. CT/CTA Abd w/Runoff W/WO Contrast IMPRESSION: 1. Mild disease of the abdominal aorta and iliac arteries without focal stenosis or abdominal aortic aneurysm. 2. No chronic mesenteric ischemia. 3. Moderate renal artery stenosis bilaterally. 4. Mild disease of the right common femoral artery and right profundus femoris artery. Moderately diseased right superficial femoral artery with a focal severe (80%) stenosis at the adductor canal. Occluded right popliteal artery at the level of the tibial plateau with reconstitution of the tibioperoneal trunk. Single vessel runoff on the right. The right peroneal artery with an occluded proximal right anterior tibial artery and posterior tibial artery. 5. Mild disease of the left common femoral artery and left profunda femoris artery. Moderately diseased left superficial femoral artery with a focal severe (80%) stenosis at the adductor canal. Severely diseased left popliteal artery with occlusion distally. Occluded proximal left anterior tibial artery and left peroneal artery with reconstitution in the mid leg. Occluded entire left posterior tibial artery. Electronically Signed: Ascencion Fitzpatrick MD at 16:30 EDT Tel , Service support ,
[2020-09-13 08:14] VITALS: BP 145/65; PULSE 71; RESP 14; TEMP 36.9; O2SAT 99; BMI 25.7
[2020-09-13 10:17] VITALS: BP 184/70; PULSE 74; RESP 16; TEMP 36.5; O2SAT 100; BMI 25.7
[2020-09-13 16:22] VITALS: BP 190/65; PULSE 69; RESP 16; TEMP 36.7
== END ==
PROVIDERS: PCP Family Medicine; Referring Provider Surgery Vascular Surgery; Visit Provider Surgery Vascular Surgery
DX: I77.1 Stricture of artery (principal); I70.213 Atherosclerosis of native arteries of extremities with intermittent claudication, bilateral legs; E78.70 Disorder of bile acid and cholesterol metabolism, unspecified; I10 Essential (primary) hypertension; I25.2 Old myocardial infarction; E11.59 Type 2 diabetes mellitus with other circulatory complications; I96 Gangrene, not elsewhere classified
CPT/HCPCS: 96365; 96366 ×6; 36415; 75635; 82565; 84520; Q9967

== ENCOUNTER 2020-10-08 10:49 | Day surgery (SDC) | payer MEDICARE, OTHER, SELFPAY ==
[2020-09-13 10:17] VITALS: BMI 25.7
[2020-10-07 13:58] VITALS: BMI 23.3
[2020-10-08 11:09] LABS: Hematocrit 28.4 % (37-47); Hemoglobin 9.1 g/dL (12.0-15.0); Mean Corpuscular Hgb 30.6 pg (27.0-32.0); Mean Corpuscular Volume 95.6 fL (81-99); Mean Platelet Vol. 9.7 fl (6.2-12.0); Platelet Count 108 K/mm3 (150-450); RBC Distribution Width CV 12.9 % (11.6-14.6); RBC Distribution Width SD 44.5 fl (35.1-43.9); Red Blood Count 2.97 M/mm3 (4.2-5.4); White Blood Count 6.2 K/mm3 (4.4-11.0)
[2020-10-08 11:26] LABS: Albumin, Serum 3.4 g/dL (3.2-5.0); BUN 44 mg/dL (7-18); BUN/Creat Ratio 27.2 RATIO (10-20); Calcium,Total 8.8 mg/dL (8.5-10.1); Chloride 106 mmol/L (98-107); Creatinine, Serum 1.62 mg/dL (0.55-1.02); EST Glomerular Filtration Rate 32 mL/min (>60); Est Glom Filt Rate - Afr Amer 39 mL/min (>60); Estimated Creatinine Clearance 23.26 ml/min; Glucose 167 mg/dL (74-106); Phosphorus 3.7 mg/dL (2.5-4.9); Potassium 4.9 mmol/L (3.5-5.1); Sodium Level 137 mmol/L (136-145)
--- NOTE | 2020-10-08 12:57 | PCM.OPRPT ---
Problems Associated Problem List Diagnoses (1) PAD (peripheral artery disease): Report of Operation Date of Procedure: 10/08/20 Pre-Operative Diagnosis: 1. PAD with nonhealing left Post-Operative Diagnosis: Same Surgery/Procedure Performed:: 1. Ultrasound-guided access retrograde right common femoral artery. 2. Left lower extremity angiogram catheter placed into the popliteal artery. 3. Balloon angioplasty the distal femoral to the mid popliteal artery with a 4 to 3.5 x 220 balloon. 4. Closure with Star close Type of Anesthesia: IV Sedation Specimen's removed: None Estimated Blood Loss (mL): Less than Description of Procedure: Patient brought to the [facility]. Underwent appropriate timeout consent. Underwent sedation. Was prepped and draped in a sterile fashion. We did ultrasound-guided access retrograde right common femoral artery. Put a Glidewire and 5 [place] sheath. We gave 5000 units of heparin. We then put in a short 5 [place] sheath. We got up and over the bifurcation. And did an angiogram from the left iliac artery. Showed the common femoral artery, the profunda and the femoral were patent. We put the catheter down the femoral and the area the adductor had a severe subtotal occlusion. And also a severe stenosis at the mid popliteal. We got the wire and catheter across these and brought in a longer 6 [place] sheath. We then imaged below the knee and it showed all tibial vessels were occluded. The anterior tibial artery was patent proximally for short segment then had extensive collaterals and filling the distal anterior tibial artery into the dorsalis pedis. Also large collaterals filling the mid peroneal with runoff to the ankle. The posterior tibial artery was occluded throughout. Using wire and catheters we try to get through the occlusion into the peroneal but was unable. We then elected just to balloon the 2 popliteal lesions which we did with a 4 x 3.5 x 220 balloon for over 2-1/2 to 3 minutes. Completion was much improved with better flow through here and better flow then down through the collaterals. We then put a Glidewire back in and brought in a Star close and deployed with good hemostasis. Patient brought to recovery stable condition. Sedation: This 85-year-old female underwent moderate sedation given by Dr. Naga Hogan. She was monitored EKG blood pressure and pulse ox for over the 30 minutes of the procedure. See the EMR for the complete record. Complications None
== END 2020-10-08 17:00 | disposition home or self-care (01) ==
LOC: CLSP 10:51
PROVIDERS: PCP Family Medicine; Visit Provider Surgery Vascular Surgery
DX: I70.235 Atherosclerosis of native arteries of right leg with ulceration of other part of foot (principal); E11.9 Type 2 diabetes mellitus without complications; I51.9 Heart disease, unspecified; Z79.82 Long term (current) use of aspirin; Z79.84 Long term (current) use of oral hypoglycemic drugs; Z79.899 Other long term (current) drug therapy; I25.2 Old myocardial infarction; Z95.1 Presence of aortocoronary bypass graft
CPT/HCPCS: 36245; 36415; 37224; 75710; 76937; 80069; 85027; 99152; 99153; J7040; Q9967; C1725; C1760; C1769; C1887; C1894

== ENCOUNTER 2021-09-01 09:16 | Outpatient (CLI) | payer MEDICARE, OTHER, SELFPAY ==
[2021-09-01 10:36] LABS: Anion Gap 6 (5-15); BUN 44 mg/dL (7-18); BUN/Creat Ratio 26.5 RATIO (10-20); Calcium,Total 8.7 mg/dL (8.5-10.1); Chloride 106 mmol/L (98-107); Cholesterol 180 mg/dL (200); Creatinine, Serum 1.66 mg/dL (0.55-1.02); EST Glomerular Filtration Rate 31 mL/min (>60); Est Glom Filt Rate - Afr Amer 38 mL/min (>60); Glucose 232 mg/dL (74-106); High Density Lipoprotein 46 mg/dL; Potassium 4.6 mmol/L (3.5-5.1); Sodium Level 137 mmol/L (136-145); Triglycerides 112 mg/dL; Very Low Density Lipoprotein 22 mg/dL (5-40)
== END 2021-09-01 23:59 | disposition home or self-care (01) ==
PROVIDERS: PCP Family Medicine; Referring Provider Family Medicine; Visit Provider Family Medicine
DX: E11.65 Type 2 diabetes mellitus with hyperglycemia (principal)
CPT/HCPCS: 36415; 80048; 80061

== ENCOUNTER 2021-09-10 14:58 | Outpatient (CLI) | payer MEDICARE, OTHER, SELFPAY ==
--- NOTE | 2021-09-10 15:02 | RAD_ITS ---
STUDY: X-RAY - RIGHT SHOULDER REASON FOR EXAM: Female, 85 years old. PAIN TECHNIQUE: 4 view(s) of the shoulder. COMPARISON: None. FINDINGS: There is moderate degenerative arthrosis of the glenohumeral articulation. There is degenerative arthrosis of the acromioclavicular joint without inferior osseous spur formation. Normal acromion. Normal humeral head and visualized proximal humerus. There is decreased distance between the humeral head and the acromion suggestive of rotator cuff disease. There is periarticular soft tissue calcification consistent with a calcific tendinitis. Normal visualized pulmonary apex. RAD/Shoulder min 2 Views IMPRESSION: Calcific tendinitis. Degenerative changes. Electronically Signed: Naresh Nicholson MD at 15:37 EDT ,
== END 2021-09-10 23:59 | disposition home or self-care (01) ==
LOC: MTRAD 14:59
PROVIDERS: PCP Family Medicine; Referring Provider Family Medicine; Visit Provider Family Medicine
DX: M25.511 Pain in right shoulder (principal)
CPT/HCPCS: 73030

== ENCOUNTER 2021-10-08 14:00 | Outpatient (RCR) | payer MEDICARE, OTHER, SELFPAY ==
--- NOTE | 2021-09-18 14:26 | HP.PTEVAL_ITS ---
Patient's Visit Information LEON LAMAR is a 85 year old F referred to Physical Therapy by Dr. Marcos Majano MD with a diagnosis of Right shoulder pain. Date of Evaluation: 09/18/21 Physical Therapist: Blane Oscar - Visit Plan Frequency: 1-2x /Week Duration: 4-6 Weeks Plan: Continue with improving right shoulder PROM, AAROM, and AROM as able. Use manual therapy and modalities as needed for pain control. - Subjective Pt. is a 85 y.o. female who has been having right shoulder pain for about a month with no specific injury that she is aware of. Pt. PLOF includes history of right shoulder pain in the past with bursitis. She is right handed. Pt. had x- ray which showed possible RTC pathology. She denies any numbness or tingling in her right arm. She will occasionally get some neck pain as well. Pt. has difficulty with reaching overhead, reaching out to the side, reaching behind his back, occasionally sleeping, lifting things, pushing/pulling, UE dressing, bathing, combing her hair, housework, and yard work. 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 Her goal with physical therapy is to get rid of her shoulder pain and get more motion back. She has had previous physical therapy for multiple things in the past. Pt. rates right shoulder pain at 7/10 currently, at worst 10/10, at best 5/10 and describes the pain as achy. She is taking Tylenol currently for pain. 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 Pt. lives with her . Pt. hobbies include watching the [place]. - Objective Palpation- Vague tenderness over right shoulder. Supervisor Coin Machine strength on left- 20 lbs, 16 lbs, and 22 lbs. Supervisor Coin Machine strength on right- 9 lbs, 8 lbs, and 10 lbs. Neck AROM- WNL for all motions. Left shoulder AROM flexion 168 degrees, abduction 167 degrees, ER 75 degrees, IR 65 degrees. Right shoulder AROM flexion unable, abduction unable, ER 20 degrees, IR 50 degrees. Left shoulder strength flexion 4/5, abduction 4-/5, ER 4/5, IR 4+/5. Right shoulder strength- NT at this time - Balance/Special Test Scores Quick DASH Score: 79.5450 - Goals Goal 1:: Pt. will improve right shoulder AROM flexion and abduction > 120 degrees in order to improve reaching overhead. Goal Time Frame: 4-6 Weeks Goal 2:: Pt. will improve right shoulder strength to 3-/5 for all motions in order to complete ADL's. Goal Time Frame: 4-6 Weeks Goal 3:: Pt. will be able to sleep a full night with no right shoulder pain. Goal Time Frame: 4-6 Weeks Goal 4:: Pt. will be able to comb and wash her hair with right shoulder pain < 5/10. Goal Time Frame: 4-6 Weeks Goal 5:: Pt. 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 Goal Time Frame: 4-6 Weeks Goal 6:: Pt. will rate right shoulder pain at worst at 5/10 with ADL's. Goal Time Frame: 4-6 Weeks - Rehabilitation Potential Physical Therapy Diagnosis: Decreased right shoulder ROM, strength, and pain Rehabilitation Potential: Fair - Anticipated Interventions Patient/Client Instruction: Educate patient on: Condition, Plan of Care For the Purpose of:: To decrease pain, To increase ROM, To improve ability to perform ADL's, To improve performance and independence with ADL's, To assume or resume ADL's, To improve tolerance to ADL's Therapeutic Exercise to Include: Strength training, Postural training, Passive ROM, Active ROM Comment: Work on improving shoulder PROM, AAROM, and AROM as able. Progress shoulder strengthening as able. For the Purpose of:: To decrease pain, To increase ROM, To improve ability to perform ADL's, To improve performance and independence with ADL's, To increase flexibility/ROM, To improve tolerance to ADL's Functional Training to Include: ADL Training For the Purpose of:: To improve ability to perform ADL's, To improve performance and independence with ADL's, To assume or resume ADL's, To improve tolerance to ADL's Manual Therapy Techniques to Include: Passive ROM, Soft tissue mobilization For the Purpose of:: To decrease pain, To increase ROM, To improve ability to perform ADL's, To improve performance and independence with ADL's, To increase flexibility/ROM, To assume or resume ADL's, To improve tolerance to ADL's TENS: Yes IF ES: Yes Cryotherapy (ice pack, ice massage): Yes Thermo therapy (hot pack): Yes For the Purpose of:: To decrease pain, To decrease swelling/inflammation, To increase ROM, To increase flexibility/ROM Thank you for the opportunity to evaluate your patient. For Medicare and Medicare HMO plans, please review the plan of care and approve it. It will need to be FAXED BACK to us at [phone] for Medicare purposes. For Medicare only, by signing this I certify the plan of care. Please let me know if there are questions or concerns regarding this plan of care. Physician Signature: Date:
--- NOTE | 2022-02-24 13:36 | HP.PTDCNRP_ITS ---
LEON LAMAR was seen in my office for initial evaluation on 09/18/21. The following Plan of Care was established for this patient: Initial Frequency: 1-2x /Week Initial Duration: 4-6 Weeks Patient/Client Instruction: Educate patient on: Condition, Plan of Care For the Purpose of:: To decrease pain, To increase ROM, To improve ability to perform ADL's, To improve performance and independence with ADL's, To assume or resume ADL's, To improve tolerance to ADL's Therapeutic Exercise to Include: Strength training, Postural training, Passive ROM, Active ROM For the Purpose of:: To decrease pain, To increase ROM, To improve ability to perform ADL's, To improve performance and independence with ADL's, To increase flexibility/ROM, To improve tolerance to ADL's Functional Training to Include: ADL Training For the Purpose of:: To improve ability to perform ADL's, To improve performance and independence with ADL's, To assume or resume ADL's, To improve tolerance to ADL's Manual Therapy Techniques to Include: Passive ROM, Soft tissue mobilization For the Purpose of:: To decrease pain, To increase ROM, To improve ability to pe rform ADL's, To improve performance and independence with ADL's, To increase flexibility/ROM, To assume or resume ADL's, To improve tolerance to ADL's TENS: Yes IF ES: Yes Cryotherapy (ice pack, ice massage): Yes Thermo therapy (hot pack): Yes For the Purpose of:: To decrease pain, To decrease swelling/inflammation, To increase ROM, To increase flexibility/ROM This patient was last seen in our office 09/18/21. Pertinent comments regarding their Physical therapy will appear below: Pt seen one visit of POC for IE but neglected to schedule or attend any further visits. At this point I will disocntinue due to nonattendance. At this point I will be discontinuing this patient from physical therapy. I would be happy to see this patient again in the future if found appropriate by the physician. Thank you! Rafiq Alcala, DPT, OCS, CSCS Balance/Gait/Functional tests - Balance/Special Test Scores Quick DASH Score: [phone]
== END 2021-10-08 19:00 | disposition home or self-care (01) ==
LOC: PT 14:00
PROVIDERS: PCP Family Medicine; Referring Provider Family Medicine; Visit Provider Family Medicine
DX: M25.511 Pain in right shoulder (principal)
CPT/HCPCS: 97162

== ENCOUNTER → 2021-10-27 | Outpatient (CLI) | payer MEDICARE, OTHER, SELFPAY ==
--- NOTE | 2021-10-27 09:44 | ADUL_ITS ---
Reason For Study: Atherosclerosis Left Velocities Ext Iliac Artery, dist = 43 cm./sec. Common Femoral Artery, mid = 53 cm./sec. Supf. Femoral Artery, prox = 43 cm./sec. Supf. Femoral Artery, mid = 56 cm./sec. Supf. Femoral Artery, dist = 44 cm./sec. Profunda Femoral Artery = 46 cm./sec. Popliteal Artery, proximal, = 58 cm./sec. Popliteal Artery, distal = 41 cm./sec. Ant.Tibial Artery, prox = 51 cm./sec. Ant Tibial Artery, mid = 0 cm./sec. Ant. Tibial Artery, distal = 33 cm./sec. Post. Tibial Artery, prox = 0 cm./sec. Post Tibial Artery, mid = 0 cm./sec. Post Tibial Artery, dist. = 0 cm./sec. Peroneal Artery, prox = 0 cm./sec. Peroneal Artery, mid = 38 cm./sec. Peroneal Artery,dist. = 31 cm./sec. /US Art Duplex Unilat Lower Ext Interpretation Summary Left lower extremity triphasic flow through the popliteal artery. Occlusive dis ease in all 3 tibial vessels with monophasic flow in distal anterior tibial and peroneal artery. Ordering Physician: Naga Hogan Referring Physician: Marcos Majano Performed By: Irene Wilks, SHAYLEE, RVT
--- NOTE | 2021-10-27 09:44 | ART_ITS ---
Reason For Study: Atherosclerosis Procedure A bilateral lower extremity continuous wave Doppler with analog waveform analysis and ankle brachial indexes. Left Segmental Pressures Left brachial= 178mmHg. Left posterior tibial artery = 93mmHg. Left dorsalis pedis artery = 99mmHg. Left digit = 54 mmHg. Right Segmental Pressures Right posterior tibial artery = >254mmHg. Right dorsalis pedis artery = >254mmHg. Indices The right ankle brachial index by the posterior tibial artery is NC. The right ankle brachial index by the dorsalis pedis is NC. The left ankle brachial index by the posterior tibial artery is 0.52. The left ankle brachial index by the dorsalis pedis is 0.56. The left digital-brachial index is 0.30. VL/Ankle Brachial Index Interpretation Summary Right lower extremity with noncompressibility at the ankle with monophasic flow noted. Left lower extremity with an RUDI 0.56 and monophasic flow. Left digit brachial index of 0. 3. Ordering Physician: Naga Hogan Referring Physician: Naga Hogan Performed By: Irene Wilks RDCS/RVT
== END | disposition home or self-care (01) ==
LOC: CVS 09:40
PROVIDERS: PCP Family Medicine; Referring Provider Surgery Vascular Surgery; Visit Provider Surgery Vascular Surgery
DX: I70.235 Atherosclerosis of native arteries of right leg with ulceration of other part of foot (principal); E11.52 Type 2 diabetes mellitus with diabetic peripheral angiopathy with gangrene; I96 Gangrene, not elsewhere classified; E11.59 Type 2 diabetes mellitus with other circulatory complications; I77.1 Stricture of artery; E78.70 Disorder of bile acid and cholesterol metabolism, unspecified; I10 Essential (primary) hypertension; I25.2 Old myocardial infarction
CPT/HCPCS: 93922; 93926

== ENCOUNTER → 2021-12-12 | Outpatient (CLI) | payer MEDICARE, OTHER, SELFPAY ==
[2021-12-12 18:03] LABS: Anion Gap 5 (5-15); BUN 48 mg/dL (7-18); BUN/Creat Ratio 31.2 RATIO (10-20); Calcium,Total 8.9 mg/dL (8.5-10.1); Chloride 108 mmol/L (98-107); Cholesterol 172 mg/dL (200); Creatinine, Serum 1.54 mg/dL (0.55-1.02); EST Glomerular Filtration Rate 34 mL/min (>60); Est Glom Filt Rate - Afr Amer 41 mL/min (>60); Glucose 235 mg/dL (74-106); High Density Lipoprotein 37 mg/dL; Potassium 4.4 mmol/L (3.5-5.1); Sodium Level 138 mmol/L (136-145); Triglycerides 225 mg/dL; Very Low Density Lipoprotein 45 mg/dL (5-40)
== END | disposition home or self-care (01) ==
LOC: MFPLAB 16:02
PROVIDERS: PCP Family Medicine; Visit Provider Family Medicine
DX: I10 Essential (primary) hypertension (principal)
CPT/HCPCS: 36415; 80048; 80061

== ENCOUNTER → 2022-03-12 | Outpatient (CLI) | payer MEDICARE, OTHER, SELFPAY ==
[2022-03-12 18:33] LABS: Anion Gap 6 (5-15); BUN 45 mg/dL (7-18); BUN/Creat Ratio 31.7 RATIO (10-20); Calcium,Total 8.9 mg/dL (8.5-10.1); Chloride 110 mmol/L (98-107); Cholesterol 168 mg/dL (200); Creatinine, Serum 1.42 mg/dL (0.55-1.02); EST Glomerular Filtration Rate 37 mL/min (>60); Est Glom Filt Rate - Afr Amer 45 mL/min (>60); Glucose 210 mg/dL (74-106); High Density Lipoprotein 38 mg/dL; Potassium 4.4 mmol/L (3.5-5.1); Sodium Level 140 mmol/L (136-145); Triglycerides 265 mg/dL; Very Low Density Lipoprotein 53 mg/dL (5-40)
== END | disposition home or self-care (01) ==
LOC: MFPLAB 14:26
PROVIDERS: PCP Family Medicine; Referring Provider Family Medicine; Visit Provider Family Medicine
DX: E11.9 Type 2 diabetes mellitus without complications (principal)
CPT/HCPCS: 36415; 80048; 80061

== ENCOUNTER → 2022-06-12 | Outpatient (CLI) | payer MEDICARE, OTHER, SELFPAY ==
[2022-06-12 15:35] LABS: Anion Gap 4 (5-15); BUN 43 mg/dL (7-18); BUN/Creat Ratio 29.9 RATIO (10-20); Calcium,Total 8.7 mg/dL (8.5-10.1); Chloride 111 mmol/L (98-107); Creatinine, Serum 1.44 mg/dL (0.55-1.02); EST Glomerular Filtration Rate 37 mL/min (>60); Est Glom Filt Rate - Afr Amer 44 mL/min (>60); Glucose 202 mg/dL (74-106); Potassium 4.8 mmol/L (3.5-5.1); Sodium Level 141 mmol/L (136-145)
== END | disposition home or self-care (01) ==
LOC: MFPLAB 14:01
PROVIDERS: PCP Family Medicine; Visit Provider Family Medicine
DX: E11.9 Type 2 diabetes mellitus without complications (principal)
CPT/HCPCS: 36415; 80048

== ENCOUNTER 2022-12-02 16:51 | Inpatient (IN) | payer MEDICARE, OTHER, SELFPAY ==
[2022-12-02 16:52] VITALS: BP 134/80; PULSE 83; RESP 17; TEMP 37.9; O2SAT 97
--- NOTE | 2022-12-02 17:05 | EKG12_ITS ---
Test Reason : Blood Pressure : / mmHG Vent. Rate : 079 BPM Atrial Rate : 079 BPM P-R Int : 220 ms QRS Dur : 138 ms QT Int : 394 ms P-R-T Axes : -02 047 053 degrees QTc Int : 451 ms Sinus rhythm with 1st degree A-V block Right bundle branch block Abnormal ECG Confirmed by GISELA CHIRINOS, DUY ([id number]), sound editor YANICK LOZANO ([id number]) on 12/03/2022 10:42:06 AM Referred By: Confirmed By:DUY HIGGINS MD
--- NOTE | 2022-12-02 17:10 | EX.ED.DYSGE1 ---
HPI History of Present Illness Chief Complaint: General Illness Detail of Chief Complaint: Generalized weakness, fever Informant: patient Narrative Narrative: Patient presents via EMS secondary to generalized weakness and fever. She reports having some intermittent dizziness over the past week or so. She still been able to get up and do her daily activities. After daughter arrives she states that the patient had a urine sample dropped off at the office this morning but she has not heard back on whether it was infected. Typically when the patient gets a UTI she will have loss of bladder control. EMS documented a temperature of 102.4 but temperature here was 100.2. Patient states she has not had Tylenol or ibuprofen today for fever. She denies headache. She denies cough or shortness of breath. No vomiting or diarrhea. [facility] Medical History Anemia Diabetes Hypertension Myocardial infarction Home Medications aspirin 81 mg chewable tablet 81 mg PO DAILY@0800 11/05/13 [History Last Taken Unknown] carvedilol 6.25 mg tablet 6.25 mg PO BID 11/05/13 [History Last Taken Unknown] glipizide 5 mg tablet, extended release 24 hr (Glucotrol XL) 5 mg PO TID 11/05/13 [History Last Taken 12/02/22] amlodipine 2.5 mg tablet 2.5 mg PO DAILY ##30 04/04/20 [Rx Last Taken Unknown] ezetimibe 10 mg tablet 10 mg PO DAILY 09/13/20 [History Last Taken Unknown] lisinopril 2.5 mg tablet 5 mg PO DAILY 09/13/20 [History Last Taken Unknown] pantoprazole 20 mg tablet,delayed release 20 mg PO DAILY 09/13/20 [History Last Taken Unknown] furosemide 20 mg tablet (Lasix) 20 mg PO DAILY 10/07/20 [History Last Taken Unknown] metformin 500 mg tablet 500 mg PO BID 10/07/20 [History Last Taken Unknown] potassium chloride 10 mEq tablet,extended release (Klor-Con) 10 meq PO DAILY 10/07/20 [History Last Taken Unknown] sennosides 8.6 mg tablet 8.6 mg PO DAILY 10/07/20 [History Last Taken Unknown] clopidogrel 75 mg tablet 75 mg PO DAILY 12/02/22 [History Last Taken Unknown] Allergy/AdvReac Type Severity Reaction Status Date / Time Penicillins Allergy Hives Verified 12/02/22 16:56 Surgical History History of cardiac catheterization Hx of CABG Social History Smoking Status: Never smoker ROS ROS ED Eyes Eyes: Reports other Details: Poor vision at baseline ENT ENT ED: Denies rhinorrhea or sore throat Cardiovascular Cardiovascular: Denies chest pain or palpitations Respiratory/Chest Respiratory/Chest: Denies cough or dyspnea Gastrointestinal Gastrointestinal: Denies abdominal pain, diarrhea or vomiting Genitourinary Genitourinary ED: Denies dysuria Musculoskeletal Musculoskeletal: Denies back pain or neck pain Neurologic Neurologic: Reports weakness; Denies headache(s) Allergic/Immunologic Allergic/Immunologic ED: Denies mouth swelling or tongue swelling EXAM Physical Exam Const Vital Signs: 12/02/22 16:52 12/02/22 16:51 12/02/22 17:20 Temperature 100.2 F H Temperature Source Oral Pulse Rate 83 Respiratory Rate 17 Respiratory Effort Normal Non-Labored Respiratory Pattern Normal Blood Pressure 134/80 H Blood Pressure Mean 98 Pulse Ox 97 97 Oxygen Delivery Method Room Air Room Air 12/02/22 18:09 Temperature 99.3 F H Temperature Source Temporal Pulse Rate 86 Respiratory Rate 22 H Respiratory Effort Respiratory Pattern Blood Pressure 142/72 H Blood Pressure Mean 95 Pulse Ox 98 Oxygen Delivery Method Room Air Positive well nourished and well developed General Appearance ED: well developed HEENT Reports normocephalic and head/scalp atraumatic Eyes PERRL and EOMs intact bilaterally Neck supple Chest Wall inspection of chest normal and palpation of chest normal Resp normal respiratory effort and clear to auscultation bilaterally Cardio regular rate and regular rhythm GI normal to inspection, nondistended, normoactive bowel sounds Palpation: soft Extremity normal to inspection Neuro oriented x3 Neuro Narrative: Generalized weakness with no focal deficits. Sensorium / Orientation: alert Psych mental status grossly normal Skin no rashes or lesions noted MDM MDM MDM Narrative Medical decision making narrative: Urinalysis obtained earlier today is reviewed. It is positive for UTI with positive nitrites, 10-25 white cells, 2+ bacteria. Labwork obtained to evaluate for leukocytosis, anemia, and electrolyte derangement. Chest x-ray obtained to evaluate for acute lung pathology, cardiac size, or mediastinal abnormality. Urine culture has already been sent but blood cultures were added. Patient is given a dose of IV Rocephin. Lab Data Attestation: I reviewed the patient's lab results. Labs: Laboratory Results - last 24 hr 12/02/22 16:36 WBC 6.7 RBC 2.88 L Hgb 8.9 L Hct 25.8 L MCV 89.6 MCH 30.9 MCHC 34.5 RDW Std Deviation 41.6 RDW Coeff of Luis E 12.8 Plt Count 102 L MPV 9.6 Immature Gran % (Auto) 0.300 Neut % (Auto) 93.0 H Lymph % (Auto) 3.1 L [place] % (Auto) 3.3 Eos % (Auto) 0.0 Baso % (Auto) 0.3 Absolute Neuts (auto) 6.3 Absolute Lymphs (auto) 0.21 L Nucleated RBC % 0 Differential Comment SCANNED PT 14.9 INR 1.2 APTT 27.3 Sodium 134 L Potassium 4.4 Chloride 106 Carbon Dioxide 23.0 Anion Gap 5 BUN 35 H Creatinine 1.63 H Est GFR (MDRD) Af Amer 39 L Est GFR (MDRD) Non-Af 32 L BUN/Creatinine Ratio 21.5 H Glucose 265 H Lactic Acid 0.8 Calcium 8.6 Total Bilirubin 0.60 AST 10 L ALT 13 Alkaline Phosphatase 53 Total Protein 6.5 Albumin 3.2 Globulin 3.3 Albumin/Globulin Ratio 1.0 Radiography Chest X-Ray - ED: 1 View, Read by ED Physician, Chronic Changes and No Infiltrates Diagnostic Testing: Clinical Impression(s) from Imaging Studies Chest X-Ray 12/02/22 17:25 IMPRESSION: Normal x-ray examination of the chest. Electronically Signed: Braxton Beard ([place]), at 17:49 EDT , EKG Initial EKG: Attestation: I personally reviewed and interpreted this EKG as follows: Interpretation: Sinus Rhythm (Sinus at 79 with right bundle branch block. No acute ischemia.) Treatment and Re-Evaluation :: CBC reveals normal white count and differential. Hemoglobin is 8.9 which is consistent with her prior values. Chemistry studies reveal a BUN of 35 and a creatinine 1.63, only slightly elevated above her baseline. Glucose is 265. LFTs are unremarkable. On repeat evaluation patient is resting comfortably. I did speak with daughter at bedside who does feel that she is too weak to go home. They are hoping for observation overnight for antibiotics and physical therapy evaluation. I will speak with the hospitalist. Discharge Plan Triage Chief Complaint: General Illness ED Provider: Ines Galeano Dx/Rx/DC Orders Clinical Impression: UTI (urinary tract infection), Generalized weakness Prescriptions: No Action carvedilol 6.25 MG tablet 6.25 mg PO BID Patient Comments: HEART/BLOOD PRESSURE glipizide [Glucotrol XL] 5 MG tablet extended release 24hr 5 mg PO TID Patient Comments: DIABETES aspirin 81 MG tablet,chewable 81 mg PO DAILY@0800 Patient Comments: BLOOD THINNER/HEART amlodipine 2.5 MG tablet 2.5 mg PO DAILY Qty: 30 0RF pantoprazole 20 MG tablet,delayed release (DR/EC) 20 mg PO DAILY ezetimibe 10 MG tablet 10 mg PO DAILY lisinopril 2.5 MG tablet 5 mg PO DAILY Patient Comments: BLOOD PRESSURE metformin 500 mg Tablet 500 mg PO BID sennosides [Senexon] 8.6 mg Tablet 8.6 mg PO DAILY potassium chloride [Klor-Con 10] 10 mEq Tablet Extended Release 10 meq PO DAILY furosemide [Lasix] 20 mg Tablet 20 mg PO DAILY clopidogrel 75 mg tablet 75 mg PO DAILY Primary Care Provider: Marcos Majano Referrals: Marcos Majano MD [Primary Care Provider] - Disposition Disposition: Acute Care Hospital [facility]
[2022-12-02 17:20] VITALS: O2SAT 97
--- NOTE | 2022-12-02 17:25 | RAD_ITS ---
STUDY: X-RAY CHEST REASON FOR EXAM: Female, 87 years old. fever TECHNIQUE: AP COMPARISON: 05/15/2015 FINDINGS: Sternal wires and mediastinal surgical clips compatible with prior CABG. EKG leads project over the chest. Granuloma in the right lung base is stable. Pulmonary infiltrates and effusions have resolved. Heart size is stable. Mitral valve calcifications. Normal mediastinum and redd. Normal visualized pulmonary arteries. There is atherosclerotic calcification of the aortic arch with tortuosity. Normal visualized thoracic spine. Normal visualized ribs, clavicles, and shoulders. Hiatal hernia is stable. RAD/Chest 1 View (Portable) IMPRESSION: Normal x-ray examination of the chest. Electronically Signed: Braxton Beard ([place]), at 17:49 EDT ,
[2022-12-02 17:29] LABS: Absolute Lymphocyte Count 0.21 X10^3/uL (0.83-4.51); Absolute Neutrophil Count 6.3 X10^3/uL (2.0-7.7); Basophil# 0.02 X10^3/uL; Basophil% 0.3 % (0-1); Hematocrit 25.8 % (37-47); Hemoglobin 8.9 g/dL (12.0-15.0); Lymphocyte # 0.21 X10^3/ul (0.83-4.51); Lymphocyte % 3.1 % (19-41); Mean Corp Hgb Conc 34.5 g/dL (32-36); Mean Corpuscular Hgb 30.9 pg (27.0-32.0); Mean Corpuscular Volume 89.6 fL (81-99); Mean Platelet Vol. 9.6 fl (6.2-12.0); Monocyte# 0.22 X10^3/uL; Monocyte% 3.3 % (0-10); NRBC Flagged by Analyzer 0 % (0-5); Neutrophil # 6.26 X10^3/uL (2.7-7.7); POSITIVE DIFFERENTIAL YES; Platelet Count 102 K/mm3 (150-450); RBC Distribution Width CV 12.8 % (11.6-14.6); RBC Distribution Width SD 41.6 fl (35.1-43.9); Red Blood Count 2.88 M/mm3 (4.2-5.4); White Blood Count 6.7 K/mm3 (4.4-11.0)
[2022-12-02 17:38] LABS: Differential Indicated SCAN CRITERIA MET
[2022-12-02] MEDS: Acetaminophen 325 MG Tablet 650 MG PO (17:41)
[2022-12-02] MEDS: Ceftriaxone 1 GM/50 ML BAG IV (17:42)
[2022-12-02 17:47] LABS: AST(SGOT) 10 U/L (15-37); Alanine Aminotransfer ALT/SGPT 13 U/L (13-56); Albumin, Serum 3.2 g/dL (3.2-5.0); Alkaline Phosphatase 53 U/L (45-117); Anion Gap 5 (5-15); BUN 35 mg/dL (7-18); BUN/Creat Ratio 21.5 RATIO (10-20); Calcium,Total 8.6 mg/dL (8.5-10.1); Chloride 106 mmol/L (98-107); Creatinine, Serum 1.63 mg/dL (0.55-1.02); EST Glomerular Filtration Rate 32 mL/min (>60); Est Glom Filt Rate - Afr Amer 39 mL/min (>60); Globulin 3.3 g/dL (2.2-4.2); Glucose 265 mg/dL (74-106); Potassium 4.4 mmol/L (3.5-5.1); Protein, Total 6.5 g/dL (6.4-8.2); Sodium Level 134 mmol/L (136-145)
[2022-12-02 17:49] LABS: Lactic Acid 0.8 mmol/L (0.4-1.9)
[2022-12-02 17:55] LABS: Partial Thromboplast Time 27.3 Seconds (24.1-36.2)
[2022-12-02 18:05] LABS: International Normalized Ratio 1.2; Prothrombin Time (Protime)PT. 14.9 SECONDS (11.7-14.9)
[2022-12-02 18:09] VITALS: BP 142/72; PULSE 86; RESP 22; TEMP 37.4; O2SAT 98
[2022-12-02] MEDS: 0.9% Normal Saline 1,000 ML 150 ML IV (18:18)
[2022-12-02 18:19] LABS: Differential Comment SCANNED
--- NOTE | 2022-12-02 18:50 | PCM.HP.STD ---
HPI - General General Date of Admission: 12/02/22 Date of Service: 12/02/22 Chief Complaint: Weakness/fever HPI Narrative LEON LAMAR, is a 87 F who presented to the emergency department at [facility] on 11/24/2022 due to generalized weakness and fever. Her daughter had been out of town for a few days and she just found out today that her mother had developed some urinary incontinence and frequency which is not her baseline and her her typical symptoms associated with a urinary tract infection. They did call her primary care physician and dropped off a urine sample this morning after UA was obtained but they had not heard back from them yet whether or not was infected at the time of the presentation. EMS documented temperature of 102.4 at the time of their arrival however she was 100.2 on arrival to the emergency department. She had not taken anything for fever. She denied any headache, nausea, vomiting, abdominal pain, cough or shortness of breath. She has had no change in her stools. We were able to review her UA results from earlier today and they do appear to be consistent with infection. The emergency department physician treated with IV fluids and Rocephin in the initial intent was to discharge her home however the daughter was concerned that her mother was too weak and she lives alone with her who would not be able to completely help her at this time and was hoping we could at least admit her for observation and have therapy see her to see if she needs any more help prior to discharge home. Vital signs on presentation showed a temperature of 100.2, heart rate 83, blood pressure 134/80, respirate 17 oxygen saturation are 97% on room air. CBC shows a chronic stable anemia with a hemoglobin of 8.9 and a thrombocytopenia with a platelet count of 102,000-this is chronic and stable. White count is normal but she has a significant left shift with a neutrophilia of 93%. Coags are normal. Chemistry shows mild hyponatremia the sodium of 134. Her BUN is 35 and her serum creatinine is 1.63. These are her baseline values. Her serum glucose is markedly elevated 265. Lactic acid was normal at 0.8. Liver enzymes are normal. Chest x-ray was unremarkable for any acute findings. [facility] Medical History Anemia Diabetes Hypertension Myocardial infarction Home Medications aspirin 81 mg chewable tablet 81 mg PO DAILY@0800 11/05/13 [History Last Taken Unknown] carvedilol 6.25 mg tablet 6.25 mg PO BID 11/05/13 [History Last Taken Unknown] glipizide 5 mg tablet, extended release 24 hr (Glucotrol XL) 5 mg PO TID 11/05/13 [History Last Taken 12/02/22] amlodipine 2.5 mg tablet 2.5 mg PO DAILY ##30 04/04/20 [Rx Last Taken Unknown] ezetimibe 10 mg tablet 10 mg PO DAILY 09/13/20 [History Last Taken Unknown] lisinopril 2.5 mg tablet 5 mg PO DAILY 09/13/20 [History Last Taken Unknown] pantoprazole 20 mg tablet,delayed release 20 mg PO DAILY 09/13/20 [History Last Taken Unknown] furosemide 20 mg tablet (Lasix) 20 mg PO DAILY 10/07/20 [History Last Taken Unknown] metformin 500 mg tablet 500 mg PO BID 10/07/20 [History Last Taken Unknown] potassium chloride 10 mEq tablet,extended release (Klor-Con) 10 meq PO DAILY 10/07/20 [History Last Taken Unknown] sennosides 8.6 mg tablet 8.6 mg PO DAILY 10/07/20 [History Last Taken Unknown] clopidogrel 75 mg tablet 75 mg PO DAILY 12/02/22 [History Last Taken Unknown] Allergy/AdvReac Type Severity Reaction Status Date / Time Penicillins Allergy Hives Verified 12/02/22 16:56 no significant family history Surgical History History of cardiac catheterization Hx of CABG Social History (Updated 12/02/22 @ 19:[address] Jaz Shah DO) household members: spouse housing: house current occupational status: retired Smoking Status: Never smoker alcohol intake: never substance use type: does not use additional social history: Ambulates at baseline with a wheeled walker ROS Constitutional Constitutional: Reports fatigue, fever(s) and weakness; Denies anorexia, change in weight, chills, malaise, night sweats or other Eyes Eyes: Denies blurry vision, change in eye color, change in vision, discharge from eye(s), double vision, erythema, eye pain, loss of vision or other ENT HEENT: Denies abnormal hearing, dysphagia, ear pain, epistaxis, headache(s), hearing loss, nasal congestion, nasal discharge, post nasal drip, sinus pressure, sore throat or other Cardiovascular Cardiovascular: Denies chest pain, claudication, dyspnea on exertion, edema, lightheadedness, orthopnea, palpitations, paroxysmal nocturnal dyspnea, rapid heart rate, syncope or other Respiratory/Chest Respiratory/Chest: Denies cough, dyspnea, excessive phlegm production, hemoptysis, productive cough, shortness of breath at rest, shortness of breath with exertion, wheezing or other Gastrointestinal Gastrointestinal: Denies abdominal pain, coffee ground emesis, constipation, diarrhea, dyspepsia, hematemesis, hematochezia, loose stools, melena, nausea, vomiting or other Genitourinary Genitourinary: Reports urinary frequency and urinary incontinence; Denies burning urination, difficulty urinating, dysuria, hematuria, nocturia, urinary hesitancy, urinary urgency or other Musculoskeletal Musculoskeletal: Denies arthralgias, back pain, joint pain, joint stiffness, joint swelling, myalgias, neck pain or other Neurologic Neurologic: Denies abnormal gait, abnormal speech, confusion, disequilibrium, dizziness, focal weakness, headache(s), numbness, paresthesias, seizure-like activity, seizures, syncope, tingling, tremor(s) or other Psychiatric Psychiatric: Denies anxiety, depression, homicidal ideation, suicidal ideation or other Endocrine Endocrinology: Denies change in body appearance, cold intolerance, excessive sweating, heat intolerance, polydipsia, polyuria or other Hematologic/Lymphatic Hematologic/Lymphatic: Denies anemia, easy bleeding, easy bruising, lymphadenopathy or other Allergic/Immunologic Allergic/Immunologic: Denies rhinitis, hives, eczemia, asthma or other Vital Signs Vital Signs Vital Signs: 12/02/22 16:52 12/02/22 16:51 12/02/22 17:20 Temperature 100.2 F H Temperature Source Oral Pulse Rate 83 Respiratory Rate 17 Respiratory Effort Normal Non-Labored Respiratory Pattern Normal Blood Pressure 134/80 H Blood Pressure Mean 98 Pulse Ox 97 97 Oxygen Delivery Method Room Air Room Air 12/02/22 18:09 Temperature 99.3 F H Temperature Source Temporal Pulse Rate 86 Respiratory Rate 22 H Respiratory Effort Respiratory Pattern Blood Pressure 142/72 H Blood Pressure Mean 95 Pulse Ox 98 Oxygen Delivery Method Room Air Physical Exam Const alert, oriented x3, no apparent distress and well nourished Constitutional Narrative: Elderly white female sitting up in bed in the emergency department, daughter at bedside, appears comfortable and nontoxic at this time HEENT normocephalic, head/scalp atraumatic and moist oral mucous membranes; Negative for hearing grossly normal bilaterally HEENT Narrative: Mild to moderate hearing loss, dentition is fair for age, no thrush, Mallampati 2 Resp normal respiratory effort, no retractions, no use of accessory muscles and clear to auscultation bilaterally Auscultation: Negative for crackles, rhonchi or wheezes Cardio regular rate, regular rhythm, S1 normal heart sound, S2 normal heart sound, no murmurs, no rub, no gallops and no clicks GI normal to inspection, nondistended, normoactive bowel sounds, soft to palpation and non-tender Extremity no clubbing, cyanosis or edema Extremity Narrative: 2+ pedal pulses Neuro oriented x3, CN's II-XII intact bilaterally, moves all extremities and no focal motor deficits Neuro Narrative: Mild to moderate generalized weakness-proximal greater than distal Speech: speech normal Psych Psych Narrative: Affect is somewhat flat, eye contact is good, mood is good Results Lab / Micro Data Attestation: I reviewed the patient's lab results. 12/02/22 16:36 12/02/22 16:36 Labs: Laboratory Results - last 24 hr 12/02/22 16:36: WBC 6.7, RBC 2.88 L, Hgb 8.9 L, Hct 25.8 L, MCV 89.6, MCH 30.9, MCHC 34.5, RDW Std Deviation 41.6, RDW Coeff of Luis E 12.8, Plt Count 102 L, MPV 9.6, Immature Gran % (Auto) 0.300, Neut % (Auto) 93.0 H, Lymph % (Auto) 3.1 L, [place] % (Auto) 3.3, Eos % (Auto) 0.0, Baso % (Auto) 0.3, Absolute Neuts (auto) 6.3, Absolute Lymphs (auto) 0.21 L, Nucleated RBC % 0, Differential Comment SCANNED, PT 14.9, INR 1.2, APTT 27.3, Sodium 134 L, Potassium 4.4, Chloride 106, Carbon Dioxide 23.0, Anion Gap 5, BUN 35 H, Creatinine 1.63 H, Est GFR (MDRD) Af Amer 39 L, Est GFR (MDRD) Non-Af 32 L, BUN/Creatinine Ratio 21.5 H, Glucose 265 H, Lactic Acid 0.8, Calcium 8.6, Total Bilirubin 0.60, AST 10 L, ALT 13, Alkaline Phosphatase 53, Total Protein 6.5, Albumin 3.2, Globulin 3.3, Albumin/Globulin Ratio 1.0 Radiology Impression Chest X-Ray 12/02/22 17:25 IMPRESSION: Normal x-ray examination of the chest. Electronically Signed: Braxton Beard ([place]), at 17:49 EDT , Assessment & Plan Assessment/Plan (1) Generalized weakness: (2) UTI (urinary tract infection): (3) Hyperglycemia: PLAN: Plan Urinary tract infection-acute -UA is significant and consistent with cystitis -Urine and blood cultures are pending -Continue Rocephin Generalized weakness -Patient ambulates with a walker at baseline -PT/OT consultation -Suspect patient may need some home health at the time of discharge Hyperglycemia with history of DM-2 -Blood sugars markedly elevated on presentation at 205 -Last hemoglobin A1c 06/26/2019 was 8.0 -Current hemoglobin A1c is pending -Hold home oral agents -Sliding scale CKD stage IIIb -Serum creatinine is 1.65 and seems to be consistent with her baseline -Avoid nephrotoxins as able -Gentle IV hydration with 1 L IV fluids at 75 cc/h -Repeat lab in a.m. 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 -Stable CAD/PVD/HTN/HPL -Continue home amlodipine -Continue home carvedilol -Continue aspirin -Continue Plavix -Continue Zetia -Continue lisinopril -Last echocardiogram from 04/03/2020 shows an EF of 55% with mild mitral valve insufficiency and a mildly dilated left atrium -History of balloon angioplasty in her lower extremities due to PVD GERD -Continue PPI Chronic anemia -Appears consistent with chronic disease -Labs are stable -No current further work-up needed at this time DVT prophylaxis -Heparin 3 times daily CODE STATUS DNR CCA no intubation as per discussion prior to admission Charges/Coding Visit Charges Inpatient E&M: 96682 Init Hosp L2
[2022-12-02 19:05] VITALS: BP 142/72; PULSE 98; RESP 22; TEMP 37.4; O2SAT 98
--- NOTE | 2022-12-02 19:06 | ED.RN ---
unable to obtain weight d/t bed not working. purewick placed.
[2022-12-02 19:32] LABS: Hemoglobin A1c 8.1 % (3.8-5.6)
[2022-12-02 19:53] VITALS: BMI 25.1; BMI 25.9
[2022-12-02 20:09] VITALS: BP 128/57; PULSE 82; RESP 18; TEMP 37.1; O2SAT 96
[2022-12-02] MEDS: Carvedilol 6.25 MG Tablet PO (21:15)
[2022-12-02] MEDS: 0.9% Normal Saline 1,000 ML 75 ML IV (21:15)
[2022-12-02 22:43] LABS: Bedside Glucose 397 mg/dL (74-106)
[2022-12-02] MEDS: Insulin Lispro 100 UNIT/ML INSULN.PEN SC (23:18)
[2022-12-02] MEDS: Heparin Injection (Vial) 5,000 UNIT/ML VIAL 5000 UNIT SC (23:19)
[2022-12-02] MEDS: Dorzolamide HCL/Timolol 10 ml Bottle 1 DRP OPHTHALMIC (23:20)
[2022-12-02] MEDS: Latanoprost 0.005% 1 Bottle 1 DRP OPHTHALMIC (23:22)
[2022-12-03] VITALS (9 sets, daily range): BP systolic 113–177; BP diastolic 41–74; PULSE 64–83; RESP 16; TEMP 36.5–36.8; O2SAT 95–100
[2022-12-03] MEDS: Acetaminophen 325 MG Tablet 650 MG PO (02:31)
[2022-12-03] MEDS: Ondansetron 4 MG/2 ML Vial IV ×2 (02:31→10:28)
[2022-12-03 03:00] LABS: Bedside Glucose 280 mg/dL (74-106)
[2022-12-03] MEDS: 0.9% Saline Lock 10 ML Syringe IV ×4 (03:48→22:10)
[2022-12-03] MEDS: hydrALAZINE 20 MG/ML Vial 10 MG IV ×2 (03:48→11:01)
[2022-12-03] MEDS: Insulin Lispro 100 UNIT/ML INSULN.PEN SC (06:25)
[2022-12-03 06:48] LABS: Bedside Glucose 276 mg/dL (74-106)
[2022-12-03 07:16] LABS: Absolute Lymphocyte Count 0.24 X10^3/uL (0.83-4.51); Absolute Neutrophil Count 7.9 X10^3/uL (2.0-7.7); Basophil# 0.01 X10^3/uL; Basophil% 0.1 % (0-1); Hematocrit 27.7 % (37-47); Hemoglobin 9.3 g/dL (12.0-15.0); Lymphocyte # 0.24 X10^3/ul (0.83-4.51); Lymphocyte % 2.8 % (19-41); Mean Corp Hgb Conc 33.6 g/dL (32-36); Mean Corpuscular Hgb 31.3 pg (27.0-32.0); Mean Corpuscular Volume 93.3 fL (81-99); Mean Platelet Vol. 10.5 fl (6.2-12.0); Monocyte# 0.54 X10^3/uL; Monocyte% 6.2 % (0-10); NRBC Flagged by Analyzer 0 % (0-5); Neutrophil % 90.6 % (47-70); POSITIVE DIFFERENTIAL YES; Platelet Count 111 K/mm3 (150-450); RBC Distribution Width CV 13.1 % (11.6-14.6); RBC Distribution Width SD 44.9 fl (35.1-43.9); Red Blood Count 2.97 M/mm3 (4.2-5.4); White Blood Count 8.7 K/mm3 (4.4-11.0)
[2022-12-03 07:17] LABS: Differential Indicated SCAN CRITERIA MET
[2022-12-03 07:41] LABS: Anion Gap 7 (5-15); BUN 33 mg/dL (7-18); BUN/Creat Ratio 21.3 RATIO (10-20); Calcium,Total 8.5 mg/dL (8.5-10.1); Chloride 110 mmol/L (98-107); Creatinine, Serum 1.55 mg/dL (0.55-1.02); EST Glomerular Filtration Rate 34 mL/min (>60); Est Glom Filt Rate - Afr Amer 41 mL/min (>60); Estimated Creatinine Clearance 20.61 ml/min; Glucose 297 mg/dL (74-106); Magnesium 2.3 mg/dL (1.6-2.6); Phosphorus 2.7 mg/dL (2.5-4.9); Potassium 3.8 mmol/L (3.5-5.1); Sodium Level 136 mmol/L (136-145)
--- NOTE | 2022-12-03 09:01 | PN.HOSP_ITS ---
Reason for Visit Reason for Visit: Diagnoses Urinary tract infection, site not specified (12/02/22) Weakness (12/02/22) Hyperglycemia, unspecified (12/02/22) Subjective Subjective Complaining of abdominal and back pain. Denies falling. Nausea and vomiting. Objective Data Objective Data Vital Signs: Vital Signs Temp Pulse Resp BP Pulse Ox O2 Del Method 36.5 C L 83 16 139/59 H 95 Room Air 12/03/22 06:05 12/03/22 06:05 12/03/22 06:05 12/03/22 06:05 12/03/22 07:40 12/03/22 07:40 Oxygen Delivery Method Room Air Weight: 64.41 kg Body Mass Index (BMI) 25.9 Intake & Output: Intake and Output for Last 24 Hours 12/01/22 12/02/22 12/03/22 23:59 23:59 23:59 Intake Total 1005 / 1155 325 / 325 Output Total 475 / 475 Balance 1005 / 1005 -150 / -150 Lab / Micro Data 12/03/22 06:45 12/03/22 06:45 Labs: Laboratory Results - last 24 hr 12/02/22 16:36: WBC 6.7, RBC 2.88 L, Hgb 8.9 L, Hct 25.8 L, MCV 89.6, MCH 30.9, MCHC 34.5, RDW Std Deviation 41.6, RDW Coeff of Luis E 12.8, Plt Count 102 L, MPV 9.6, Immature Gran % (Auto) 0.300, Neut % (Auto) 93.0 H, Lymph % (Auto) 3.1 L, [place] % (Auto) 3.3, Eos % (Auto) 0.0, Baso % (Auto) 0.3, Absolute Neuts (auto) 6.3, Absolute Lymphs (auto) 0.21 L, Nucleated RBC % 0, Differential Comment SCANNED, PT 14.9, INR 1.2, APTT 27.3, Sodium 134 L, Potassium 4.4, Chloride 106, Carbon Dioxide 23.0, Anion Gap 5, BUN 35 H, Creatinine 1.63 H, Est GFR (MDRD) Af Amer 39 L, Est GFR (MDRD) Non-Af 32 L, BUN/Creatinine Ratio 21.5 H, Glucose 265 H, Hemoglobin A1c 8.1 H, Lactic Acid 0.8, Calcium 8.6, Total Bilirubin 0.60, AST 10 L, ALT 13, Alkaline Phosphatase 53, Total Protein 6.5, Albumin 3.2, Globulin 3.3, Albumin/Globulin Ratio 1.0 12/02/22 22:04: POC Glucose 397 H 12/03/22 02:30: POC Glucose 280 H 12/03/22 06:12: POC Glucose 276 H 12/03/22 06:45: WBC 8.7, RBC 2.97 L, Hgb 9.3 L, Hct 27.7 L, MCV 93.3, MCH 31.3, MCHC 33.6, RDW Std Deviation 44.9 H, RDW Coeff of Luis E 13.1, Plt Count 111 L, MPV 10.5, Immature Gran % (Auto) 0.300, Neut % (Auto) 90.6 H, Lymph % (Auto) 2.8 L, [place] % (Auto) 6.2, Eos % (Auto) 0.0, Baso % (Auto) 0.1, Absolute Neuts (auto) 7.9 H, Absolute Lymphs (auto) 0.24 L, Nucleated RBC % 0, Differential Comment COMMENT, Sodium 136, Potassium 3.8, Chloride 110 H, Carbon Dioxide 19.0 L, Anion Gap 7, BUN 33 H, Creatinine 1.55 H, Estim Creat Clear Calc 20.61, Est GFR (MDRD) Af Amer 41 L, Est GFR (MDRD) Non-Af 34 L, BUN/Creatinine Ratio 21.3 H, Glucose 297 H, Calcium 8.5, Phosphorus 2.7, Magnesium 2.3 Micro: Microbiology 12/02/22 16:36 Blood Culture (Wb) - Anticubital Right Blood Culture - Preliminary 12/02/22 17:30 Blood Culture (Wb) - Anticubital Left Blood Culture - Preliminary Radiography Diagnostic Testing: Radiology Impression Chest X-Ray 12/02/22 17:25 IMPRESSION: Normal x-ray examination of the chest. Electronically Signed: Braxton Beard (Brooks), at 17:49 EDT , Physical Exam Const alert Constitutional Narrative: anxious. Resp normal respiratory effort, no retractions, no use of accessory muscles and clear to auscultation bilaterally Cardio regular rate, regular rhythm, S1 normal heart sound and S2 normal heart sound GI normal to inspection, nondistended, normoactive bowel sounds and soft to palpation GI Narrative: distended bladder w TTP. Psych Mood & Affect: anxious Assessment & Plan Assessment/Plan (1) Generalized weakness: PLAN: Exacerbated by UTI in pt w fair performance status (Patient ambulates with a walker at baseline) PT/OT consultation Suspect patient may need some home health at the time of discharge (2) UTI (urinary tract infection): QUALIFIERS: Urinary tract infection type: acute cystitis Hematuria presence: without hematuria Qualified Code(s): N30.00 - Acute cystiti s without hematuria PLAN: UA is significant and consistent with cystitis Urine and blood cultures are pending Continue Rocephin (3) Hyperglycemia: PLAN: Hyperglycemia with history of DM-2 Blood sugars markedly elevated on presentation at 205 Hemoglobin A1c 8.1 sliding scale resume metformin and glipizide (4) Anxiety: PLAN: Clearly anxious and mentioned in passing about this being her end. Explained to her that she is HDS. Reassurance provided. Explained that we have medication available for her symptoms, but she will need to ask for. Exacerbated by symptoms. Will check abdominal xray to rule out SBO/ileus. 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-Stable * CAD/PVD/HTN/HPL-Continue home amlodipine, carvedilol, aspirin, Plavix, Zetia, lisinopril-Last echocardiogram from 04/03/2020 shows an EF of 55% with mild mitral valve insufficiency and a mildly dilated left atrium-History of balloon angioplasty in her lower extremities due to PVD * GERD-Continue PPI * Chronic anemia-Appears consistent with chronic disease-Labs are stable-No current further work-up needed at this time DVT prophylaxis -Heparin 3 times daily CODE STATUS DNR CCA no intubation as per discussion prior to admission Charges/Coding Visit Charges Inpatient E&M: 15839 Subs Hosp L2
[2022-12-03] MEDS: Ceftriaxone 1 GM/50 ML BAG IV (10:30)
[2022-12-03] MEDS: Latanoprost 0.005% 1 Bottle 1 DRP OPHTHALMIC (10:49)
[2022-12-03] MEDS: Menthol/Lanolin/Calamine/Znox 113 GM Tube 1 APPLIC TOPICAL ×2 (10:50→21:51)
[2022-12-03] MEDS: Dorzolamide HCL/Timolol 10 ml Bottle 1 DRP OPHTHALMIC ×2 (10:50→21:50)
[2022-12-03] MEDS: Carvedilol 6.25 MG Tablet PO ×2 (11:07→21:42)
[2022-12-03] MEDS: amLODIPine 2.5 MG Tablet PO (11:08)
[2022-12-03] MEDS: Lisinopril 10 MG Tablet PO (11:08)
[2022-12-03] MEDS: metFORMIN HCl 500 MG Tablet PO ×2 (11:09→16:44)
--- NOTE | 2022-12-03 11:26 | RAD_ITS ---
INDICATION: abdominal pain EXAMINATION/TECHNIQUE: X-RAY - XR Abdomen 1 View COMPARISON: None FINDINGS: BOWEL GAS PATTERN: Non-obstructive. Extensive colonic fecal retention. Minimally distended small bowel loops in the left upper quadrant. FREE AIR: Not assessed on a single supine view. ORGANOMEGALY: Not seen. CALCIFICATIONS: No abnormal calcifications observed. LOWER CHEST: No acute pathology. BONES AND SOFT TISSUES: No acute pathology. Scoliosis with degenerative changes. RAD/Abdomen Single View (Portable) IMPRESSION: Non-obstructive bowel gas pattern. Findings suggest possible enteritis. Electronically Signed: Jeet Tan MD at 17:02 EDT ,
[2022-12-03 11:40] LABS: Bedside Glucose 173 mg/dL (74-106)
[2022-12-03] MEDS: Heparin Injection (Vial) 5,000 UNIT/ML VIAL 5000 UNIT SC ×2 (14:33→21:42)
[2022-12-03] MEDS: glipiZIDE XL 5 MG Tablet PO ×2 (14:33→21:42)
--- NOTE | 2022-12-03 14:33 | CASEMGMT ---
RN CM in to discuss WHELAN form with patient. RN CM explained WHELAN form, patient voiced understanding as well as dtr. Pt dtr signed form and filed in chart. Pt provided with a copy of signed WHELAN form. Patient had no further questions or concerns at this time.
--- NOTE | 2022-12-03 14:34 | CASEMGMT ---
Reviewed therapy notes, CARLOS EDUARDO CM into pt room, pt sitting up in chair in no distress. Pt states she lives with her 91 year old and she is able to cook and bathe herself. Pt does the laundry. Pt uses a walker at baseline and is legally blind and states she gets around well at home. Discussed therapy at home, pt denies need for this. She states she will manage fine. Pt dtr present in room and confirms that pt gets around well at home. She also states she does not feel pt needs any services at home. She feels this weakness is due to her UTI. Pt does not have a BGM and has not checked her blood sugar for the past 30 years. Pt and dtr deny further needs.
[2022-12-03 17:18] LABS: Bedside Glucose 191 mg/dL (74-106)
[2022-12-03 22:49] LABS: Bedside Glucose 114 mg/dL (74-106)
[2022-12-04] VITALS (7 sets, daily range): BP systolic 113–132; BP diastolic 46–56; PULSE 58–66; RESP 16–18; TEMP 36.6–37.1; O2SAT 95–99
[2022-12-04 05:27] LABS: Absolute Lymphocyte Count 0.58 X10^3/uL (0.83-4.51); Absolute Neutrophil Count 4.5 X10^3/uL (2.0-7.7); Basophil# 0.01 X10^3/uL; Basophil% 0.2 % (0-1); Eosinophil# 0.01 X10^3/uL; Eosinophils% 0.2 % (0-5); Hematocrit 26.8 % (37-47); Hemoglobin 8.6 g/dL (12.0-15.0); Lymphocyte # 0.58 X10^3/ul (0.83-4.51); Mean Corp Hgb Conc 32.1 g/dL (32-36); Mean Corpuscular Hgb 30.8 pg (27.0-32.0); Mean Corpuscular Volume 96.1 fL (81-99); Mean Platelet Vol. 10.3 fl (6.2-12.0); Monocyte# 0.67 X10^3/uL; Monocyte% 11.6 % (0-10); NRBC Flagged by Analyzer 0 % (0-5); Neutrophil # 4.48 X10^3/uL (2.7-7.7); Neutrophil % 77.5 % (47-70); POSITIVE DIFFERENTIAL YES; Platelet Count 108 K/mm3 (150-450); RBC Distribution Width CV 13.3 % (11.6-14.6); RBC Distribution Width SD 46.9 fl (35.1-43.9); Red Blood Count 2.79 M/mm3 (4.2-5.4); White Blood Count 5.8 K/mm3 (4.4-11.0)
[2022-12-04 05:49] LABS: Differential Indicated SCAN CRITERIA MET
[2022-12-04 05:50] LABS: Differential Comment SCANNED
[2022-12-04 05:58] LABS: ALB/GLOB Ratio 0.8 RATIO (0.9-2.4); AST(SGOT) 14 U/L (15-37); Alanine Aminotransfer ALT/SGPT 10 U/L (13-56); Albumin, Serum 2.6 g/dL (3.2-5.0); Alkaline Phosphatase 45 U/L (45-117); Anion Gap 6 (5-15); BUN 38 mg/dL (7-18); BUN/Creat Ratio 23.8 RATIO (10-20); Calcium,Total 8.5 mg/dL (8.5-10.1); Chloride 113 mmol/L (98-107); EST Glomerular Filtration Rate 33 mL/min (>60); Est Glom Filt Rate - Afr Amer 39 mL/min (>60); Estimated Creatinine Clearance 19.96 ml/min; Globulin 3.2 g/dL (2.2-4.2); Glucose 57 mg/dL (74-106); Potassium 3.5 mmol/L (3.5-5.1); Protein, Total 5.8 g/dL (6.4-8.2); Sodium Level 143 mmol/L (136-145)
[2022-12-04] MEDS: Heparin Injection (Vial) 5,000 UNIT/ML VIAL 5000 UNIT SC (06:11)
[2022-12-04 06:50] LABS: Bedside Glucose 87 mg/dL (74-106)
--- NOTE | 2022-12-04 08:51 | PCM.PN.HOSP ---
Reason for Visit Reason for Visit: Diagnoses Anxiety disorder, unspecified (12/03/22) Acute cystitis without hematuria (12/03/22) Urinary tract infection, site not specified (12/03/22) Weakness (12/03/22) Hyperglycemia, unspecified (12/03/22) Subjective Subjective Feels great. No further N/V. Had to be straight cathed yesterday, but has been urinating well. Objective Data Objective Data Vital Signs: Vital Signs Temp Pulse Resp BP Pulse Ox O2 Del Method 36.7 C 65 16 121/53 H 95 Room Air 12/04/22 06:19 12/04/22 06:19 12/04/22 06:19 12/04/22 06:19 12/04/22 08:42 12/04/22 08:42 Oxygen Delivery Method Room Air Weight: 64.41 kg Body Mass Index (BMI) 25.9 Intake & Output: Intake and Output for Last 24 Hours 12/02/22 12/03/22 12/04/22 23:59 23:59 23:59 Intake Total 1005 / 1155 1495 / 1595 150 / 150 Output Total 1255 / 1255 Balance 1005 / 1005 240 / 340 150 / 150 Lab / Micro Data 12/04/22 05:03 12/04/22 05:03 Labs: Laboratory Results - last 24 hr 12/03/22 11:21: POC Glucose 173 H 12/03/22 16:42: POC Glucose 191 H 12/03/22 21:40: POC Glucose 114 H 12/04/22 05:03: WBC 5.8, RBC 2.79 L, Hgb 8.6 L, Hct 26.8 L, MCV 96.1, MCH 30.8, MCHC 32.1, RDW Std Deviation 46.9 H, RDW Coeff of Luis E 13.3, Plt Count 108 L, MPV 10.3, Immature Gran % (Auto) 0.500, Neut % (Auto) 77.5 H, Lymph % (Auto) 10.0 L, [place] % (Auto) 11.6 H, Eos % (Auto) 0.2, Baso % (Auto) 0.2, Absolute Neuts (auto) 4.5, Absolute Lymphs (auto) 0.58 L, Nucleated RBC % 0, Differential Comment SCANNED, Sodium 143, Potassium 3.5, Chloride 113 H, Carbon Dioxide 24.0, Anion Gap 6, BUN 38 H, Creatinine 1.60 H, Estim Creat Clear Calc 19.96, Est GFR (MDRD) Af Amer 39 L, Est GFR (MDRD) Non-Af 33 L, BUN/Creatinine Ratio 23.8 H, Glucose 57 L, Calcium 8.5, Total Bilirubin 0.20, AST 14 L, ALT 10 L, Alkaline Phosphatase 45, Total Protein 5.8 L, Albumin 2.6 L, Globulin 3.2, Albumin/Globulin Ratio 0.8 L 12/04/22 06:29: POC Glucose 87 Micro: Microbiology 12/02/22 16:36 Blood Culture (Wb) - Anticubital Right Blood Culture - 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 Findings suggest possible enteritis. Electronically Signed: Jeet Tan MD at 17:02 EDT , Physical Exam Const alert and no apparent distress HEENT head/scalp atraumatic and moist oral mucous membranes Resp normal respiratory effort, no retractions, no use of accessory muscles and clear to auscultation bilaterally Cardio regular rate, regular rhythm, S1 normal heart sound and S2 normal heart sound GI normal to inspection, nondistended, normoactive bowel sounds, soft to palpation, non-tender and non-distended Assessment & Plan Assessment/Plan (1) UTI (urinary tract infection): QUALIFIERS: Hematuria presence: without hematuria Urinary tract infection type: acute cystitis Qualified Code(s): N30.00 - Acute cystitis without hematuria PLAN: UA is significant and consistent with cystitis UCx + for pansensitive E. coli With the bacteremia, will change to Augmentin and treat through 12/10. (2) Bacteremia: PLAN: GNR, likely 2/2 UTI Augmentin (3) Generalized weakness: PLAN: Exacerbated by UTI in pt w fair performance status (Patient ambulates with a walker at baseline) PT/OT consultation Pt doing well. Declining [facility] services. (4) Hyperglycemia: PLAN: Hyperglycemia with history of DM-2 Blood sugars markedly elevated on presentation at 205 Hemoglobin A1c 8.1 sliding scale Had hypoglycemia. Will dc hypoglycemic meds. Encouraged checking her blood sugar and following up with her PCP. (5) Anxiety: PLAN: Resolved 2/2 underlying illness. (6) Abdominal pain: QUALIFIERS: Abdominal location: lower abdomen, unspecified Qualified Code(s): R10.30 - Lower abdominal pain, unspecified PLAN: resolved suspect d/t bladder distention. 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
[2022-12-04] MEDS: amLODIPine 2.5 MG Tablet PO (08:52)
[2022-12-04] MEDS: Menthol/Lanolin/Calamine/Znox 113 GM Tube 1 APPLIC TOPICAL (08:52)
[2022-12-04] MEDS: Lisinopril 10 MG Tablet PO (08:53)
[2022-12-04] MEDS: Clopidogrel Bisulfate 75 MG Tablet PO (08:53)
[2022-12-04] MEDS: Carvedilol 6.25 MG Tablet PO (08:53)
[2022-12-04] MEDS: Pantoprazole Sodium 20 MG Tablet PO (08:53)
[2022-12-04] MEDS: metFORMIN HCl 500 MG Tablet PO (08:53)
[2022-12-04] MEDS: Aspirin 81 MG TAB.CHEW PO (08:53)
[2022-12-04] MEDS: Latanoprost 0.005% 1 Bottle 1 DRP OPHTHALMIC ×2 (08:54→08:55)
[2022-12-04] MEDS: Ceftriaxone 1 GM/50 ML BAG IV (08:59)
[2022-12-04] MEDS: 0.9% Saline Lock 10 ML Syringe IV (08:59)
[2022-12-04] MEDS: Dorzolamide HCL/Timolol 10 ml Bottle 1 DRP OPHTHALMIC (09:00)
--- NOTE | 2022-12-04 10:29 | DCINST_ITS ---
Discharge Instructions Diet Discharge Diet: 2000 Calorie Control Diet Dressing / Incision Call your doctor if you observe: Inability to urinate and - (painful urination. ) Follow Up Care Test Results: Test results from this visit will be discussed in further detail at your follow- up appointment, if applicable. Discharge Plan Admission Admit Date/Time: 12/03/22 16:33 Primary Reason for Your Visit: Urinary tract infection. bacteremia Attending Provider: Rafiq Mitchell Primary Care Provider: Marcos Majano Consulting Providers: Jaz Shah Instructions Patient Instructions: Diabetes Food Shop Meals Prep, Diabetes and Kidney Disease, Diabetes: Activity Tips, Diabetes Blood Glucose Check Ch, Diabetes Low Blood Sugar Ch, Diabetes Inspect Feet Additional Instructions / Restrictions: You had a severe urinary tract infection with associated bacteremia. He will be on antibiotics. Please take the antibiotics till those are completed. Your blood sugars were very high upon presentation and certainly exacerbated by the underlying illness. Is very important to check your blood sugar and I recommended that you check your blood sugar once daily, check her blood sugar every other day in the morning and then on the other days in the evening and keep a record of those to provide your primary care provider physician. In future, if you do develop issues regards to increased urinary retention, burning when you urinate, notify your primary care provider as it may be an indication you are having another urinary tract infection. Discharge Orders/Prescriptions Prescriptions: New ciprofloxacin HCl 500 mg tablet 500 mg PO BID Qty: 12 0RF Rx Instructions: start 12/05/2022 Continued carvedilol 6.25 MG tablet 6.25 mg PO BID Patient Comments: HEART/BLOOD PRESSURE glipizide [Glucotrol XL] 5 MG tablet extended release 24hr 5 mg PO TID Patient Comments: DIABETES aspirin 81 MG tablet,chewable 81 mg PO DAILY@0800 Patient Comments: BLOOD THINNER/HEART amlodipine 2.5 MG tablet 2.5 mg PO DAILY Qty: 30 0RF pantoprazole 20 MG tablet,delayed release (DR/EC) 20 mg PO DAILY ezetimibe 10 MG tablet 10 mg PO DAILY lisinopril 2.5 MG tablet 10 mg PO DAILY Patient Comments: BLOOD PRESSURE sennosides 8.6 mg Tablet 8.6 mg PO DAILY clopidogrel 75 mg tablet 75 mg PO DAILY latanoprost 0.005 % drops 1 drp ophthalmic (eye) DAILY Patient Comments: INSTILL 1 DROP IN LEFT EYE ONCE A DAY dorzolamide-timolol 22.3-6.8 mg/mL drops 1 drp ophthalmic (eye) BID Patient Comments: INSTILL 1 DROP INTO LEFT EYE TWICE A DAY Discontinued metformin 500 mg Tablet 500 mg PO BID potassium chloride [Klor-Con 10] 10 mEq Tablet Extended Release 10 meq PO DAILY furosemide [Lasix] 20 mg Tablet 20 mg PO DAILY Other Ambulatory Orders: Glucometer (Routine) Timeframe: 1 Day Location: Determined by Patient Ordered By: Dr. Rafiq Mitchell Referrals / Follow Up: Marcos Majano MD [Primary Care Provider] - Disposition Disposition (needs filled in before D/C Order can be placed): Home, Self Care
--- NOTE | 2022-12-04 10:39 | DS.PCM_ITS ---
Providers Date of Admission: 12/03/22 Primary Care Physician: Dr. Marcos Majano MD Reason For Visit: GENERALIZED WEAKNESS/UTI Diagnosis Discharge Diagnosis (1) UTI (urinary tract infection): Status: Acute Code(s): N39.0 - Urinary tract infection, site not specified Qualifiers: Urinary tract infection type: acute cystitis Hematuria presence: without hematuria Qualified Code(s): N30.00 - Acute cystitis without hematuria Plan: UA is significant and consistent with cystitis UCx + for pansensitive E. coli With the bacteremia, will change to ciprofloxacin (not augmentin due to PCN allergy) and treat through 12/10. (2) Bacteremia: Status: Acute Code(s): R78.81 - Bacteremia Plan: GNR, likely 2/2 UTI Ciprfloxacin (3) Generalized weakness: Status: Acute Code(s): R53.1 - Weakness Plan: Exacerbated by UTI in pt w fair performance status (Patient ambulates with a walker at baseline) PT/OT consultation Pt doing well. Declining [facility] services. (4) Hyperglycemia: Status: Acute Code(s): R73.9 - Hyperglycemia, unspecified Plan: Hyperglycemia with history of DM-2 Blood sugars markedly elevated on presentation at 205 Hemoglobin A1c 8.1 sliding scale Had hypoglycemia. Will dc hypoglycemic meds. Encouraged checking her blood sugar and following up with her PCP. (5) Anxiety: Status: Acute Code(s): F41.9 - Anxiety disorder, unspecified Plan: Resolved 2/2 underlying illness. (6) Abdominal pain: Status: Acute Code(s): R10.9 - Unspecified abdominal pain Qualifiers: Abdominal location: lower abdomen, unspecified Qualified Code(s): R10.30 - Lower abdominal pain, unspecified Plan: resolved suspect d/t bladder distention. 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 Medications at Discharge Home Medications aspirin 81 mg chewable tablet 81 mg PO DAILY@0800 11/05/13 carvedilol 6.25 mg tablet 6.25 mg PO BID 11/05/13 glipizide 5 mg tablet, extended release 24 hr (Glucotrol XL) 5 mg PO TID 06/20 amlodipine 2.5 mg tablet 2.5 mg PO DAILY ##30 04/04/20 ezetimibe 10 mg tablet 10 mg PO DAILY 09/13/20 lisinopril 2.5 mg tablet 10 mg PO DAILY 09/13/20 pantoprazole 20 mg tablet,delayed release 20 mg PO DAILY 09/13/20 sennosides 8.6 mg tablet 8.6 mg PO DAILY 10/07/20 clopidogrel 75 mg tablet 75 mg PO DAILY 12/02/22 dorzolamide 22.3 mg-timolol 6.8 mg/mL eye drops 1 drp ophthalmic (eye) BID 12/02/22 latanoprost 0.005 % eye drops 1 drp ophthalmic (eye) DAILY 12/02/22 ciprofloxacin HCl 500 mg tablet 500 mg PO BID #12 tabs 12/04/22 Hospital Course Operations None Procedures None Summary of Care Provided Minutes Spent on Discharge: 32 Weight / BMI Weight Weight: 64.41 kg Body Mass Index (BMI) 25.9 ABG / Lab / Microbiology Data 12/04/22 05:03 12/04/22 05:03 Laboratory: Laboratory Results - last 24 hr 12/03/22 11:21: POC Glucose 173 H 12/03/22 16:42: POC Glucose 191 H 12/03/22 21:40: POC Glucose 114 H 12/04/22 05:03: WBC 5.8, RBC 2.79 L, Hgb 8.6 L, Hct 26.8 L, MCV 96.1, MCH 30.8, MCHC 32.1, RDW Std Deviation 46.9 H, RDW Coeff of Luis E 13.3, Plt Count 108 L, MPV 10.3, Immature Gran % (Auto) 0.500, Neut % (Auto) 77.5 H, Lymph % (Auto) 10.0 L, [place] % (Auto) 11.6 H, Eos % (Auto) 0.2, Baso % (Auto) 0.2, Absolute Neuts (auto) 4.5, Absolute Lymphs (auto) 0.58 L, Nucleated RBC % 0, Differential Comment SCANNED, Sodium 143, Potassium 3.5, Chloride 113 H, Carbon Dioxide 24.0, Anion Gap 6, BUN 38 H, Creatinine 1.60 H, Estim Creat Clear Calc 19.96, Est GFR (MDRD) Af Amer 39 L, Est GFR (MDRD) Non-Af 33 L, BUN/Creatinine Ratio 23.8 H, Glucose 57 L, Calcium 8.5, Total Bilirubin 0.20, AST 14 L, ALT 10 L, Alkaline Phosphatase 45, Total Protein 5.8 L, Albumin 2.6 L, Globulin 3.2, Album in/Globulin Ratio 0.8 L 12/04/22 06:29: POC Glucose 87 Microbiology: Microbiology 12/02/22 16:36 Blood Culture (Wb) - Anticubital Right Blood 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 Findings suggest possible enteritis. Electronically Signed: Jeet Tan MD at 17:02 EDT Reading Location ID and State: [address] [place] [address] Tel , Service support , D/C Instructions Discharge Diet: 2000 Calorie Control Diet Call your doctor if you observe: Inability to urinate and - (painful urination. ) Meaningful Use Info Meaningful Use Diagnoses (Choose all that apply): None applicable Discharge Plan Admission Admit Date/Time: 12/03/22 16:33 Primary Reason for Your Visit: Urinary tract infection. bacteremia Attending Provider: Rafiq Mitchell Primary Care Provider: Marcos Majano Consulting Providers: Jaz Shah Instructions Patient Instructions: Diabetes Food Shop Meals Prep, Diabetes and Kidney Disease, Diabetes: Activity Tips, Diabetes Blood Glucose Check Ch, Diabetes Low Blood Sugar Ch, Diabetes Inspect Feet Additional Instructions / Restrictions: You had a severe urinary tract infection with associated bacteremia. He will be on antibiotics. Please take the antibiotics till those are completed. Your blood sugars were very high upon presentation and certainly exacerbated by the underlying illness. Is very important to check your blood sugar and I recommended that you check your blood sugar once daily, check her blood sugar every other day in the morning and then on the other days in the evening and keep a record of those to provide your primary care provider physician. In future, if you do develop issues regards to increased urinary retention, burning when you urinate, notify your primary care provider as it may be an indication you are having another urinary tract infection. Discharge Orders/Prescriptions Prescriptions: New ciprofloxacin HCl 500 mg tablet 500 mg PO BID Qty: 12 0RF Rx Instructions: start 12/05/2022 Continued carvedilol 6.25 MG tablet 6.25 mg PO BID Patient Comments: HEART/BLOOD PRESSURE glipizide [Glucotrol XL] 5 MG tablet extended release 24hr 5 mg PO TID Patient Comments: DIABETES aspirin 81 MG tablet,chewable 81 mg PO DAILY@0800 Patient Comments: BLOOD THINNER/HEART amlodipine 2.5 MG tablet 2.5 mg PO DAILY Qty: 30 0RF pantoprazole 20 MG tablet,delayed release (DR/EC) 20 mg PO DAILY ezetimibe 10 MG tablet 10 mg PO DAILY lisinopril 2.5 MG tablet 10 mg PO DAILY Patient Comments: BLOOD PRESSURE sennosides 8.6 mg Tablet 8.6 mg PO DAILY clopidogrel 75 mg tablet 75 mg PO DAILY latanoprost 0.005 % drops 1 drp ophthalmic (eye) DAILY Patient Comments: INSTILL 1 DROP IN LEFT EYE ONCE A DAY dorzolamide-timolol 22.3-6.8 mg/mL drops 1 drp ophthalmic (eye) BID Patient Comments: INSTILL 1 DROP INTO LEFT EYE TWICE A DAY Discontinued metformin 500 mg Tablet 500 mg PO BID potassium chloride [Klor-Con 10] 10 mEq Tablet Extended Release 10 meq PO DAILY furosemide [Lasix] 20 mg Tablet 20 mg PO DAILY Other Ambulatory Orders: Glucometer (Routine) Timeframe: 1 Day Location: Determined by Patient Ordered By: Dr. Rafiq Mitchell Referrals / Follow Up: Marcos Majano MD [Primary Care Provider] - Disposition Disposition (needs filled in before D/C Order can be placed): Home, Self Care Charges/Coding Visit Charges Inpatient E&M: 67081 Disch Hosp >30min
[2022-12-04 11:39] LABS: Bedside Glucose 96 mg/dL (74-106)
== END 2022-12-04 13:28 | disposition home or self-care (01) | DRG 690 ==
LOC: ED 18:51 → MS3 19:01
PROVIDERS: Admitting Provider Internal Medicine; Emergency Provider Emergency Medicine; PCP Family Medicine
DX: N30.00 Acute cystitis without hematuria (principal); R78.81 Bacteremia; E11.649 Type 2 diabetes mellitus with hypoglycemia without coma; E11.319 Type 2 diabetes mellitus with unspecified diabetic retinopathy without macular edema; D63.1 Anemia in chronic kidney disease; E11.22 Type 2 diabetes mellitus with diabetic chronic kidney disease; E11.65 Type 2 diabetes mellitus with hyperglycemia; E11.51 Type 2 diabetes mellitus with diabetic peripheral angiopathy without gangrene; N18.32 Chronic kidney disease, stage 3b; K21.9 Gastro-esophageal reflux disease without esophagitis; I12.9 Hypertensive chronic kidney disease with stage 1 through stage 4 chronic kidney disease, or unspecified chronic kidney disease; I25.10 Atherosclerotic heart disease of native coronary artery without angina pectoris; I25.2 Old myocardial infarction; B96.20 Unspecified Escherichia coli [E. coli] as the cause of diseases classified elsewhere; F41.1 Generalized anxiety disorder; Z66 Do not resuscitate; Z95.1 Presence of aortocoronary bypass graft; Z79.02 Long term (current) use of antithrombotics/antiplatelets; Z79.82 Long term (current) use of aspirin; Z79.84 Long term (current) use of oral hypoglycemic drugs; Z79.899 Other long term (current) drug therapy
CPT/HCPCS: 36415; 71045; 74018; 80048; 80053; 81001; 82962; 83036; 83605; 83735; 84100; 85025; 85610; 85730; 87040; 87077; 87086; 87088; 87186; 93005; 94668; 97162; 97166; 99285; J7030; A4216; J2405

== ENCOUNTER → 2022-12-02 | Outpatient (CLI) | payer MEDICARE, OTHER, SELFPAY ==
[2022-12-02 11:34] LABS: Mucous, Urine 0 SEEN /hpf (<or=2+); Red Blood Cells-Urine 0 SEEN /hpf (0-5)
[2022-12-02 16:24] LABS: Color, Urine Yellow (Yellow); Glucose, Dipstick 250 mg/dl (Normal); Ketone-Dipstick Negative (Negative); Leukocyte Esterase-Dipstick 500 /ul (Negative); Nitrite-Dipstick Positive (Negative); Occult Blood-Urine 10 /ul (Negative); Protein-Dipstick 100 mg/dl (Negative); Urine Bilirubin Dipstick Negative (Negative); Urine Clarity Cloudy (Clear); Urine Urobilinogen Normal (Normal)
[2022-12-02 17:04] LABS: Bacteria 2+ /hpf (None Seen); Squamous Epithelial Cells - UA 0-5 SEEN /hpf (5-10); Transitional Epithelial - Ur 0-5 SEEN /hpf (0-5); White Blood Cells 10-25 SEEN /hpf (0-5)
== END | disposition home or self-care (01) ==
PROVIDERS: PCP Family Medicine; Referring Provider Family Medicine; Visit Provider Family Medicine
DX: R39.9 Unspecified symptoms and signs involving the genitourinary system (principal)
CPT/HCPCS: 81001; 87086

== ENCOUNTER → 2022-12-18 | Outpatient (CLI) | payer MEDICARE, OTHER, SELFPAY ==
[2022-12-18 17:50] LABS: Absolute Lymphocyte Count 0.75 X10^3/uL (0.83-4.51); Absolute Neutrophil Count 2.3 X10^3/uL (2.0-7.7); Basophil# 0.03 X10^3/uL; Basophil% 0.8 % (0-1); Eosinophil# 0.05 X10^3/uL; Eosinophils% 1.4 % (0-5); Hematocrit 27.3 % (37-47); Hemoglobin 8.7 g/dL (12.0-15.0); Lymphocyte # 0.75 X10^3/ul (0.83-4.51); Lymphocyte % 20.7 % (19-41); Mean Corp Hgb Conc 31.9 g/dL (32-36); Mean Corpuscular Volume 97.2 fL (81-99); Mean Platelet Vol. 9.5 fl (6.2-12.0); Monocyte% 13.8 % (0-10); NRBC Flagged by Analyzer 0 % (0-5); Neutrophil # 2.28 X10^3/uL (2.7-7.7); Platelet Count 169 K/mm3 (150-450); RBC Distribution Width CV 13.1 % (11.6-14.6); RBC Distribution Width SD 47.3 fl (35.1-43.9); Red Blood Count 2.81 M/mm3 (4.2-5.4); White Blood Count 3.6 K/mm3 (4.4-11.0)
[2022-12-18 18:06] LABS: Anion Gap 5 (5-15); BUN 38 mg/dL (7-18); BUN/Creat Ratio 25.5 RATIO (10-20); Calcium,Total 8.6 mg/dL (8.5-10.1); Chloride 113 mmol/L (98-107); Creatinine, Serum 1.49 mg/dL (0.55-1.02); EST Glomerular Filtration Rate 35 mL/min (>60); Est Glom Filt Rate - Afr Amer 43 mL/min (>60); Glucose 143 mg/dL (74-106); Potassium 4.5 mmol/L (3.5-5.1); Sodium Level 141 mmol/L (136-145)
== END | disposition home or self-care (01) ==
LOC: MFPLAB 15:10
PROVIDERS: PCP Family Medicine; Visit Provider Family Medicine
DX: N28.9 Disorder of kidney and ureter, unspecified (principal); D64.9 Anemia, unspecified
CPT/HCPCS: 36415; 80048; 85025

== ENCOUNTER 2022-12-24 22:32 | Observation (INO) | payer MEDICARE, OTHER, SELFPAY ==
[2022-12-24 22:33] VITALS: BP 203/80; PULSE 68; RESP 12; TEMP 37.1; O2SAT 98; BMI 26.9
[2022-12-24 22:43] VITALS: BP 199/70; PULSE 61; RESP 13; O2SAT 96
[2022-12-24 22:56] VITALS: BP 199/70; PULSE 63; RESP 12; O2SAT 98; BMI 24.3
--- NOTE | 2022-12-24 22:56 | CT_ITS ---
We are attempting to reach an attending provider to discuss findings. An addendum with communication details will be sent when the communication is complete. EXAM: CT HEAD WITHOUT INTRAVENOUS CONTRAST CLINICAL INDICATION: Neuro deficit, acute, stroke suspected TECHNIQUE: Multiple axial images were obtained of the head without intravenous contrast. This CT exam was performed using one or more of the following dose reduction techniques: automated exposure control, adjustment of the mA and/or kV according to patient size, and/or use of iterative reconstruction technique. CONTRAST: 762.36 RADIATION DOSE: CTDIvol = 44.99 mGy, DLP = mGy-cm COMPARISON: No relevant prior studies available. FINDINGS: BRAIN AND EXTRA-AXIAL SPACES: Unremarkable. No intra- or extra-axial hemorrhage. No evidence of acute infarct. No intracranial mass or mass effect. There is preservation of the basilio/white matter interface. Posterior fossa structures are unremarkable. Ventricles are appropriate for age. No hydrocephalus. Basal cisterns are patent. BONES/JOINTS: Unremarkable. No discrete lytic or blastic abnormalities. VASCULATURE: Marked circumferential calcification of long segments of distal vertebral arteries at the level of the foramen magnum and intracranially and marked circumferential calcifications throughout cavernous and supraclinoid ICAs. Mild-moderate cerebral volume loss. No hyperdense artery sign, hemorrhage, edema or mass. SINUSES: Unremarkable as visualized. Clear. MASTOID AIR CELLS: Unremarkable. Clear. ORBITS: Visualized globes, extraocular muscles, optic nerves and retrobulbar fat appear unremarkable. OTHER FINDINGS: Aspects score: 10. CT/STROKE Brain/Head without Cont IMPRESSION: Marked intracranial vascular calcifications. Mild chronic changes. No acute abnormality. Electronically Signed: Bailey Moody MD at 23:39 EDT ,
--- NOTE | 2022-12-24 22:57 | ED.VIS.STROK ---
HPI History of Present Illness Chief Complaint: Mental Status Change Informant: patient and family (Daughter) Narrative Narrative: Patient presents between [id number] by EMS. She states she is here because her daughter was concerned about her. Her daughter arrived about 15 minutes after my initial encounter/evaluation, saying that she was really off balance and having trouble getting off the couch about 15 minutes worth of work which is very unusual for her tonight. The last time she was walking with her walker like normal was earlier this morning at about 10 or 1030, however at that time she was complaining of new vision trouble. She has chronic vision issues, she can see out of her left eye only. Patient states she feels around in order to get around. She lives with her but her is currently admitted to the hospital here, so she is alone now. The last time she was without the vision or the balance issues was last night when she went to bed around 0 according to her, the daughter states she went to bed earlier than that in reality. The patient has no other complaints right now. 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 Diabetes Hypertension Kidney disease Myocardial infarction Home Medications aspirin 81 mg chewable tablet 81 mg PO DAILY@0800 11/05/13 [History Last Taken 12/02/22] carvedilol 6.25 mg tablet 6.25 mg PO BID 11/05/13 [History Last Taken 12/02/22] glipizide 5 mg tablet, extended release 24 hr (Glucotrol XL) 5 mg PO TID 11/05/13 [History Last Taken 12/02/22] amlodipine 2.5 mg tablet 2.5 mg PO DAILY ##30 04/04/20 [Rx Last Taken 12/02/22] ezetimibe 10 mg tablet 10 mg PO DAILY 09/13/20 [History Last Taken 12/02/22] lisinopril 2.5 mg tablet 10 mg PO DAILY 09/13/20 [History Last Taken 12/02/22] pantoprazole 20 mg tablet,delayed release 20 mg PO DAILY 09/13/20 [History Last Taken 12/02/22] sennosides 8.6 mg tablet 8.6 mg PO DAILY 05/03/21 [History Last Taken Unknown] clopidogrel 75 mg tablet 75 mg PO DAILY 12/02/22 [History Last Taken 12/02/22] dorzolamide 22.3 mg-timolol 6.8 mg/mL eye drops 1 drp ophthalmic (eye) BID 12/02/22 [History Last Taken Unknown] latanoprost 0.005 % eye drops 1 drp ophthalmic (eye) DAILY 12/02/22 [History Last Taken 12/02/22] Allergy/AdvReac Type Severity Reaction Status Date / Time Penicillins Allergy Hives Verified 12/02/22 16:56 Surgical History H/O foot surgery History of cardiac catheterization Hx of CABG Social History household members: spouse housing: house current occupational status: retired Smoking Status: Never smoker alcohol intake: never substance use type: does not use additional social history: Ambulates at baseline with a wheeled walker ROS ROS ED Constitutional Constitutional ED: Denies chills or fever(s) Eyes Eyes: Reports change in vision; Denies diplopia ENT ENT ED: Denies rhinorrhea or sore throat Cardiovascular Cardiovascular: Denies chest pain or palpitations Respiratory/Chest Respiratory/Chest: Denies cough or dyspnea Gastrointestinal Gastrointestinal: Denies abdominal pain, diarrhea, nausea or vomiting Genitourinary Genitourinary ED: Denies dysuria or hematuria Musculoskeletal Musculoskeletal: Denies back pain or neck pain Integumentary Denies abscess or rash Neurologic Neurologic: Reports abnormal gait; Denies headache(s), paresthesias, vertigo or weakness Psychiatric Psychiatric: Denies anxiety or suicidal thoughts EXAM Physical Exam Const Vital Signs: 12/24/22 22:33 12/24/22 22:43 12/24/22 23:04 Temperature 98.7 F Temperature Source Temporal Pulse Rate 68 61 Respiratory Rate 12 13 Blood Pressure 203/80 H 199/70 H Blood Pressure Mean 121 113 Pulse Ox 98 96 97 Oxygen Delivery Method Room Air Room Air Room Air 12/24/22 22:56 12/24/22 23:26 12/24/22 23:59 Temperature Temperature Source Pulse Rate 63 61 61 Respiratory Rate 12 15 14 Blood Pressure 199/70 H 188/72 H 169/112 H Blood Pressure Mean 113 110 131 Pulse Ox 98 98 97 Oxygen Delivery Method Room Air Room Air Room Air Positive well nourished and well developed General Appearance ED: well developed and NAD HEENT Reports moist mucous membranes normocephalic and atraumatic Eyes PERRL Eyes Narrative: Forced eye deviation to the left bilaterally. Patient not able to override. There is right-sided hemianopia Neck full ROM, no lymphadenopathy and supple Resp normal respiratory effort and clear to auscultation bilaterally Cardio regular rate, regular rhythm and no murmurs GI non-tender and non-distended Auscultation: normoactive bowel sounds Palpation: soft Back/Spine no CVA tenderness General Back: other FROM Extremity normal to inspection General Extremety ED: Negative for edema, pulses abnormal or tenderness General Extremity: Negative for edema or pulses abnormal Neuro oriented x3, CN's II-XII intact bilaterally and no sensory deficits noted Neuro Narrative: nml speech Sensorium / Orientation: awake and alert Motor Exam: strength 5/5 throughout Psych mental status grossly normal Skin no rashes or lesions noted and no wounds NIHSS NIHSS Initial: 1a Level of Consciousness: 0 1b LOC Questions (Score 2 if aphasic/stupor): 0 1c LOC Commands (Only score 1st attempt): 0 2 Best Gaze (If aphasic, use reflexive mvmts.): 2 3 Visual: 2 4 Facial Palsy: 0 5 Motor Arm Right (UN = amputation/fusion): 0 5 Motor Arm Left: 0 6 Motor Leg Right: 0 6 Motor Leg Left: 0 7 Limb ataxia (Only + if out of proportion): 2 8 Sensory (Aphasia/stupor=0 or 1, coma=2): 0 9 Best Language: 0 10 Dysarthria (mute, coma=2, intubated=UN): 0 11 Extinction and Inattention (only scored if +): 0 Total Score: 6 MDM MDM MDM Narrative Medical decision making narrative: In discussing further with the daughter it appears the gaze palsy is new, which certainly I am concerned about neurologically. She seems to be ataxic at all 4 extremities, the legs seem worse than the hands, and the daughter noticed what sounds like severe ataxia when trying to walk tonight. That is new compared with 10:30 AM this morning, however turned 30 a.m. she was having visual changes, and now she has a forced gaze deviation and hemianopia, and given that, the last known well then for me is the night before when she went to bed which was more than 24 hours ago. I discussed all this with Dr. Dang stroke neurology at [facility] who agrees with that management. Additionally, her EGFR is relatively low, so I wanted to avoid CT angiography if I can do so safely. He agrees. He also adds that if her NIH were to significantly elevate i.e. 16 or 20 or she has significant new cortical symptoms, then he would recommend emergently evaluating her vasculature with regards to the basilar artery. But he agrees right now, it is not indicated and there is no intervention even if she had a clot in her basilar artery. He also agrees that she can safely have vascular imaging with MRA when she has MRI tomorrow. Patient is stable clinically on reevaluation, labs are noted, EKG shows a sinus rhythm without any acute changes to her right bundle branch block, plan is for admission. History & Record Review Discussion w/independent historian: EMS personnel, Patient and Family Additional record(s) reviewed:: Prior labs (chronically elevated creatinine) Lab Data Attestation: I reviewed the patient's lab results. Labs: Laboratory Results - last 24 hr 12/24/22 12/24/22 23:05 23:55 WBC 3.7 L RBC 3.13 L Hgb 9.6 L Hct 29.7 L MCV 94.9 MCH 30.7 MCHC 32.3 RDW Std Deviation 45.1 H RDW Coeff of Luis E 13.0 Plt Count 137 L MPV 9.6 Immature Gran % (Auto) 0.500 Neut % (Auto) 68.8 Lymph % (Auto) 17.5 L [place]re[place] % (Auto) 11.3 H Eos % (Auto) 1.6 Baso % (Auto) 0.3 Absolute Neuts (auto) 2.6 Absolute Lymphs (auto) 0.65 L Nucleated RBC % 0 PT 13.5 INR 1.0 APTT 26.5 Sodium 139 Potassium 4.3 Chloride 110 H Carbon Dioxide 24.0 Anion Gap 5 BUN 40 H Creatinine 1.52 H Estim Creat Clear Calc 21.01 Est GFR (MDRD) Af Amer 42 L Est GFR (MDRD) Non-Af 34 L BUN/Creatinine Ratio 26.3 H Glucose 245 H Calcium 8.8 Troponin I High Sens 12 Urine Color Yellow Urine Clarity Clear Urine pH 7.0 Ur Specific [place] 1.010 Urine Protein 30 H Urine Glucose (UA) 100 H Urine Ketones Negative Urine Occult Blood 10 H Urine Nitrite Negative Urine Bilirubin Negative Urine Urobilinogen Normal Ur Leukocyte Esterase 25 H Urine RBC 0 SEEN Urine WBC 0-5 SEEN Ur Squamous Epith Cells 0-5 SEEN Urine Bacteria RARE Urine Mucus 0 SEEN Radiography Chest X-Ray - ED: 1 View, Read by ED Physician, No Acute Disease, Chronic Changes and No Infiltrates Diagnostic Testing: Clinical Impression(s) from Imaging Studies Brain CT 12/24/22 22:56 IMPRESSION: Marked intracranial vascular calcifications. Mild chronic changes. No acute abnormality. Electronically Signed: Bailey Moody MD at 23:39 EDT , ADDENDUM: 12/24/22 2348 IMPRESSION: Marked intracranial vascular calcifications. Mild chronic changes. No acute abnormality. N.B. : The above Results were Read Back by Bailey Moody MD to RIANA Grady, and understanding confirmed on 12/24/2022 23:41:46 (ET). Electronically Signed: Bailey Moody MD at 23:39 EDT , Chest X-Ray 12/24/22 23:25 IMPRESSION: Stable chest. No acute intrathoracic abnormality. Electronically Signed: Bailey Moody MD at 23:46 EDT , My interpretation of the CT agrees with that of the radiologist. Rhythm Strip Rhythm Strip: Sinus Rhythm Rate: 65 Ectopy: None EKG Initial EKG: Attestation: I personally reviewed and interpreted this EKG as follows: Interpretation: Sinus Rhythm, No Acute Injury Pattern and RBBB Prior EKG tracings: available for review Prior: Unchanged Management Discussion w/another healthcare provider: Hospitalist, Duct Layer (Stroke neurology) and Radiologist Stroke Documentation Questions Stroke Team Activated: No (Last well outside of 24 hours) Was Patient considered for Endovascular Intervention?: No-CTA not indicated IV Thrombolytic Administered: No (outside window) Discharge Plan Triage Chief Complaint: Mental Status Change ED Provider: Lambert Alcantar Dx/Rx/DC Orders Clinical Impression: Accelerated hypertension, Ataxia, CKD (chronic kidney disease) Prescriptions: No Action carvedilol 6.25 MG tablet 6.25 mg PO BID Patient Comments: HEART/BLOOD PRESSURE glipizide [Glucotrol XL] 5 MG tablet extended release 24hr 5 mg PO TID Patient Comments: DIABETES aspirin 81 MG tablet,chewable 81 mg PO DAILY@0800 Patient Comments: BLOOD THINNER/HEART amlodipine 2.5 MG tablet 2.5 mg PO DAILY Qty: 30 0RF pantoprazole 20 MG tablet,delayed release (DR/EC) 20 mg PO DAILY ezetimibe 10 MG tablet 10 mg PO DAILY lisinopril 2.5 MG tablet 10 mg PO DAILY Patient Comments: BLOOD PRESSURE sennosides 8.6 mg Tablet 8.6 mg PO DAILY clopidogrel 75 mg tablet 75 mg PO DAILY latanoprost 0.005 % drops 1 drp ophthalmic (eye) DAILY Patient Comments: INSTILL 1 DROP IN LEFT EYE ONCE A DAY dorzolamide-timolol 22.3-6.8 mg/mL drops 1 drp ophthalmic (eye) BID Patient Comments: INSTILL 1 DROP INTO LEFT EYE TWICE A DAY Primary Care Provider: Marcos Majano Referrals: Marcos Majano MD [Primary Care Provider] - Disposition Disposition: Acute Care [facility]
[2022-12-24 23:04] VITALS: O2SAT 97
[2022-12-24 23:20] LABS: Absolute Lymphocyte Count 0.65 X10^3/uL (0.83-4.51); Absolute Neutrophil Count 2.6 X10^3/uL (2.0-7.7); Basophil# 0.01 X10^3/uL; Basophil% 0.3 % (0-1); Eosinophil# 0.06 X10^3/uL; Eosinophils% 1.6 % (0-5); Hematocrit 29.7 % (37-47); Hemoglobin 9.6 g/dL (12.0-15.0); Lymphocyte # 0.65 X10^3/ul (0.83-4.51); Lymphocyte % 17.5 % (19-41); Mean Corp Hgb Conc 32.3 g/dL (32-36); Mean Corpuscular Hgb 30.7 pg (27.0-32.0); Mean Corpuscular Volume 94.9 fL (81-99); Mean Platelet Vol. 9.6 fl (6.2-12.0); Monocyte# 0.42 X10^3/uL; Monocyte% 11.3 % (0-10); NRBC Flagged by Analyzer 0 % (0-5); Neutrophil # 2.55 X10^3/uL (2.7-7.7); Neutrophil % 68.8 % (47-70); Platelet Count 137 K/mm3 (150-450); RBC Distribution Width SD 45.1 fl (35.1-43.9); Red Blood Count 3.13 M/mm3 (4.2-5.4); White Blood Count 3.7 K/mm3 (4.4-11.0)
--- NOTE | 2022-12-24 23:25 | RAD_ITS ---
EXAM: XR CHEST, 1 VIEW CLINICAL INDICATION: Neuro deficit, acute, stroke suspected TECHNIQUE: Frontal view of the chest. COMPARISON: December 02, 2022. FINDINGS: LUNGS AND PLEURAL SPACES: Small calcified granuloma projecting over the medial right lung base again noted. No pneumothorax. No effusion. HEART: There appear to be mitral valve annular thick calcifications, normal variation. Normal heart size. MEDIASTINUM: Mild peripheral calcification of the aortic arch again noted. No mediastinal widening. BONES/JOINTS: Median sternotomy wires are again noted. SOFT TISSUES: Unremarkable. RAD/Chest 1 View IMPRESSION: Stable chest. No acute intrathoracic abnormality. Electronically Signed: Bailey Moody MD at 23:46 EDT ,
[2022-12-24 23:26] VITALS: BP 188/72; PULSE 61; RESP 15; O2SAT 98
[2022-12-24 23:31] LABS: Prothrombin Time (Protime)PT. 13.5 SECONDS (11.7-14.9)
[2022-12-24 23:32] LABS: Partial Thromboplast Time 26.5 Seconds (24.1-36.2)
[2022-12-24 23:39] LABS: Anion Gap 5 (5-15); BUN 40 mg/dL (7-18); BUN/Creat Ratio 26.3 RATIO (10-20); Calcium,Total 8.8 mg/dL (8.5-10.1); Chloride 110 mmol/L (98-107); Creatinine, Serum 1.52 mg/dL (0.55-1.02); EST Glomerular Filtration Rate 34 mL/min (>60); Est Glom Filt Rate - Afr Amer 42 mL/min (>60); Estimated Creatinine Clearance 21.01 ml/min; Glucose 245 mg/dL (74-106); Potassium 4.3 mmol/L (3.5-5.1); Sodium Level 139 mmol/L (136-145); Troponin-I HS 12 pg/mL (3.0-54.0)
[2022-12-24 23:59] VITALS: BP 169/112; PULSE 61; RESP 14; O2SAT 97
[2022-12-25] VITALS (11 sets, daily range): BP systolic 152–197; BP diastolic 62–85; PULSE 54–74; RESP 16–18; TEMP 36.4–37; O2SAT 97–100; BMI 24.3
[2022-12-25] LABS: Color, Urine Yellow (Yellow); Glucose, Dipstick 100 mg/dl (Normal); Ketone-Dipstick Negative (Negative); Leukocyte Esterase-Dipstick 25 /ul (Negative); Mucous, Urine 0 SEEN /hpf (<or=2+); Nitrite-Dipstick Negative (Negative); Occult Blood-Urine 10 /ul (Negative); Protein-Dipstick 30 mg/dl (Negative); Red Blood Cells-Urine 0 SEEN /hpf (0-5); Urine Bilirubin Dipstick Negative (Negative); Urine Clarity Clear (Clear); Urine Urobilinogen Normal (Normal)
[2022-12-25 00:06] LABS: Bacteria RARE /hpf (None Seen); Squamous Epithelial Cells - UA 0-5 SEEN /hpf (5-10); White Blood Cells 0-5 SEEN /hpf (0-5)
--- NOTE | 2022-12-25 00:31 | PCM.HP.STD ---
HPI - General General Date of Admission: 12/25/22 Date of Service: 12/25/22 Chief Complaint: Ataxia HPI Nikhil LAMAR, is a 87 F with a significant history of right eye blindness; poor vision of the left eye; glaucoma; peripheral artery disease and CAD status post four-vessel CABG who presented to the emergency department with ataxia that started the same day of presentation. Patient has been staggering. Associated with her symptoms is worsening of the poor vision in the left eye. 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 Diabetes Hypertension Kidney disease Myocardial infarction Home Medications aspirin 81 mg chewable tablet 81 mg PO DAILY@0800 11/05/13 [History Last Taken 12/02/22] carvedilol 6.25 mg tablet 6.25 mg PO BID 11/05/13 [History Last Taken 12/02/22] glipizide 5 mg tablet, extended release 24 hr (Glucotrol XL) 5 mg PO TID 11/05/13 [History Last Taken 12/02/22] amlodipine 2.5 mg tablet 2.5 mg PO DAILY ##30 04/04/20 [Rx Last Taken 12/02/22] ezetimibe 10 mg tablet 10 mg PO DAILY 09/13/20 [History Last Taken 12/02/22] lisinopril 2.5 mg tablet 10 mg PO DAILY 09/13/20 [History Last Taken 12/02/22] pantoprazole 20 mg tablet,delayed release 20 mg PO DAILY 09/13/20 [History Last Taken 12/02/22] sennosides 8.6 mg tablet 8.6 mg PO DAILY 10/07/20 [History Last Taken Unknown] clopidogrel 75 mg tablet 75 mg PO DAILY 12/02/22 [History Last Taken 12/02/22] dorzolamide 22.3 mg-timolol 6.8 mg/mL eye drops 1 drp ophthalmic (eye) BID 12/02/22 [History Last Taken Unknown] latanoprost 0.005 % eye drops 1 drp ophthalmic (eye) DAILY 12/02/22 [History Last Taken 12/02/22] Allergy/AdvReac Type Severity Reaction Status Date / Time Penicillins Allergy Hives Verified 12/02/22 16:56 Surgical History H/O foot surgery History of cardiac catheterization Hx of CABG Social History household members: spouse housing: house current occupational status: retired Smoking Status: Never smoker alcohol intake: never substance use type: does not use additional social history: Ambulates at baseline with a wheeled walker ROS ROS Narrative Pertinent positives and pertinent negatives as noted in HPI. All other systems were reviewed and are negative Vital Signs Vital Signs Vital Signs: 12/24/22 22:33 12/24/22 22:43 12/24/22 23:04 Temperature 98.7 F Temperature Source Temporal Pulse Rate 68 61 Respiratory Rate 12 13 Blood Pressure 203/80 H 199/70 H Blood Pressure Mean 121 113 Pulse Ox 98 96 97 Oxygen Delivery Method Room Air Room Air Room Air 12/24/22 22:56 12/24/22 23:26 12/24/22 23:59 Temperature Temperature Source Pulse Rate 63 61 61 Respiratory Rate 12 15 14 Blood Pressure 199/70 H 188/72 H 169/112 H Blood Pressure Mean 113 110 131 Pulse Ox 98 98 97 Oxygen Delivery Method Room Air Room Air Room Air Weight Weight: 66.9 kg Body Mass Index (BMI) 26.9 Physical Exam Narrative Physical exam: General: Well-nourished, well-developed. Head: Normocephalic, atraumatic, no tenderness Eyes: Vision is grossly intact. EOMI ENT, no trauma, moist mucous membranes, no rhinorrhea Neck: Nontender, No thyromegaly. CVS: Regular rate and rhythm. S1-S2 present. No murmur, gallop or rub. Respiratory : clear to auscultation bilaterally, chest wall nontender Abdomen: Soft, nontender, nondistended, normal bowel sounds, no masses : Deferred Back: Nontender, no CVA tenderness, no midline spinal tenderness, deformities, step-offs Extremities: Nontender full range of motion, amputated meant right feet. Skin: Normal color, no trauma, abrasions Neuro: Alert, oriented,. Could not see to do [id number] test. Unable to follow directions to do [id number] test. Psychiatry: Normal mood. Normal affect. Not depressed. Not anxious. Results Lab / Micro Data 12/24/22 23:05 12/24/22 23:05 Labs: Laboratory Results - last 24 hr 12/24/22 23:05: WBC 3.7 L, RBC 3.13 L, Hgb 9.6 L, Hct 29.7 L, MCV 94.9, MCH 30.7, MCHC 32.3, RDW Std Deviation 45.1 H, RDW Coeff of Luis E 13.0, Plt Count 137 L, MPV 9.6, Immature Gran % (Auto) 0.500, Neut % (Auto) 68.8, Lymph % (Auto) 17.5 L, [place] % (Auto) 11.3 H, Eos % (Auto) 1.6, Baso % (Auto) 0.3, Absolute Neuts (auto) 2.6, Absolute Lymphs (auto) 0.65 L, Nucleated RBC % 0, PT 13.5, INR 1.0, APTT 26.5, Sodium 139, Potassium 4.3, Chloride 110 H, Carbon Dioxide 24.0, Anion Gap 5, BUN 40 H, Creatinine 1.52 H, Estim Creat Clear Calc 21.01, Est GFR (MDRD) Af Amer 42 L, Est GFR (MDRD) Non-Af 34 L, BUN/Creatinine Ratio 26.3 H, Glucose 245 H, Calcium 8.8, Troponin I High Sens 12 12/24/22 23:55: Urine Color Yellow, Urine Clarity Clear, Urine pH 7.0, Ur Specific [place] 1.010, Urine Protein 30 H, Urine Glucose (UA) 100 H, Urine Ketones Negative, Urine Occult Blood 10 H, Urine Nitrite Negative, Urine Bilirubin Negative, Urine Urobilinogen Normal, Ur Leukocyte Esterase 25 H, Urine RBC 0 SEEN, Urine WBC 0-5 SEEN, Ur Squamous Epith Cells 0-5 SEEN, Urine Bacteria RARE, Urine Mucus 0 SEEN Rhythm Strip Rhythm Strip: Sinus Rhythm Rate: 65 Ectopy: None Radiology Impression Brain CT 12/24/22 22:56 IMPRESSION: Marked intracranial vascular calcifications. Mild chronic changes. No acute abnormality. Electronically Signed: Bailey Moody MD at 23:39 EDT , ADDENDUM: 12/24/22 2348 IMPRESSION: Marked intracranial vascular calcifications. Mild chronic changes. No acute abnormality. N.B. : The above Results were Read Back by Bailey Moody MD to Dr Lambert Alcantar , AA, and understanding confirmed on 12/24/2022 23:41:46 (ET). Electronically Signed: Bailey Moody MD at 23:39 EDT , Chest X-Ray 12/24/22 23:25 IMPRESSION: Stable chest. No acute intrathoracic abnormality. Electronically Signed: Bailey Moody MD at 23:46 EDT , Assessment & Plan Assessment/Plan (1) Stroke-like symptoms: PLAN: Plan Strokelike symptoms Of note the patient has amputation of right foot and ataxia could be secondary to weakness plus instability from amputation. Poor vision could be due to worsening of her baseline eye disease. Serial NINDS NIH Scale ordered Impression of head CT by radiology:Marked intracranial vascular calcifications. Mild chronic changes. No acute abnormality. Upon my personal head CT image review: I agree with radiologist interpretation Lipid profile and A1c ordered. Physical therapy, occupational therapy to work with patient. N.p.o. until bedside swallow eval. Daily aspirin and Plavix will be continued.. Permissive hypertension. Control blood pressure with labetalol for systolic blood pressure of more than 220 or diastolic blood pressure of more than 120. MRI/MRAM of head; brain; and neck. Echocardiogram ordered. Hypertension Blood pressure is elevated. Permissive hypertension as above DVT prophylaxis: SCDs ordered. Time spent in the patient's overall evaluation,decision-making process, review of diagnostic data, adjustment of management, discussion with other providers, nursing nursing and ancillary staff involved in patient's care documentation, 43 minutes. Charges/Coding Visit Charges Inpatient E&M: 05074 Init Hosp L2
--- NOTE | 2022-12-25 01:14 | ECHOD_ITS ---
Reason For Study: TIA/CVA Procedure This was a 2D Doppler, Color Flow transthoracic echocardiogram. Exam performed portable in patient room. Left Ventricle Normal LV size. Mild concentric left ventricular hypertrophy. The left ventricular ejection fraction is 60 %. Stage 2 diastolic dysfunction. Right Ventricle Normal right ventricle. Atria The left atrium is severely enlarged. Normal right atrium. Mitral Valve Severe diffuse mitral valve calcification. Mild-Moderate (1-2+) mitral valve insufficiency. Tricuspid Valve Normal tricuspid valve. Trivial tricuspid valve insufficiency. Unable to estimate RV systolic pressure due to insufficient tricuspid regurgitant envelope. Aortic Valve Moderate diffuse aortic valve thickening. Moderate diffuse aortic valve calcification. There is no aortic stenosis. Pulmonic Valve The pulmonic valve is not well visualized. Great Vessels Calcified aortic root. MMode/2D Measurements & Calculations LVIDd: 4.0 cm IVSd: 1.2 cm LVOT diam: 2.0 cm LVIDs: 2.4 cm LVPWd: 1.2 cm LVOT area: 3.2 cm2 FS: 38.1 % Ao root diam: 3.4 cm LAV(MOD-bp): 80.9 ml LVAd ap4: 26.7 cm2 LA dimension: 4.7 cm LAV(MOD-bp) Indexed: 48.3 ml/m2 LVLd ap4: 7.1 cm LAV(MOD-sp2): 78.9 ml EDV(MOD-sp4): 82.7 ml LAV(MOD-sp4): 80.0 ml EDV(sp4-el): 85.7 ml LVAs ap4: 14.7 cm2 LVLs ap4: 6.3 cm ESV(MOD-sp4): 28.5 ml ESV(sp4-el): 29.2 ml EF(MOD-sp4): 65.6 % EF(sp4-el): 65.9 % SV(MOD-sp4): 54.2 ml SV(sp4-el): 56.4 ml LA A4 area: 24.0 cm2 RA A4 area: 19.2 cm2 TAPSE: 1.4 cm Time Measurements MV dec time: 0.20 sec Doppler Measurements & Calculations MV E max rick: 121.6 cm/sec Lat Peak E' Rick: 5.1 cm/sec Med Peak E' Rick: 4.1 cm/sec MV A max rick: 136.8 cm/sec E/E' lat: 23.8 E/E' med: 29.5 MV E/A: 0.89 MV V2 max: 160.2 cm/sec MV P1/2t max rick: 123.4 cm/sec Ao V2 max: 113.8 cm/sec MV max P.3 mmHg MV P1/2t: 67.7 msec Ao max P.2 mmHg MV V2 mean: 86.5 cm/sec Ao V2 mean: 69.9 cm/sec MV mean P.5 mmHg MV dec slope: 534.1 cm/sec2 Ao mean P.4 mmHg MV V2 VTI: 48.9 cm MVA(P1/2t): 3.2 cm2 Ao V2 VTI: 27.0 cm AV (velocity ratio): 0.94 MVA(VTI): 1.6 cm2 KRISTA(I,D): 3.0 cm2 KRISTA(V,D): 2.7 cm2 LV V1 max: 97.1 cm/sec SV(LVOT): 80.5 ml PA V2 max: 93.4 cm/sec LV V1 max P.8 mmHg PA V2 mean: 76.8 cm/sec LV V1 mean P.8 mmHg LV V1 mean: 60.6 cm/sec LV V1 VTI: 25.4 cm ECHO/Echo Complete Interpretation Summary The left ventricular ejection fraction is 60 %. Stage 2 diastolic dysfunction. The left atrium is severely enlarged. Severe diffuse mitral valve calcification. Mild-Moderate (1-2+) mitral valve insufficiency. Moderate diffuse aortic valve thickening. Moderate diffuse aortic valve calcification. Calcified aortic root. Ordering Physician: Derrick King Referring Physician: Derrick King Performed By: Tomy Ledesma RCS
--- NOTE | 2022-12-25 01:14 | MRI_ITS ---
HISTORY: stroke. TECHNIQUE: Multiplanar and multisequence MR images of the brain were obtained without contrast. 279 images. COMPARISON: CT prior day, MRI 04/03/2020. FINDINGS: BRAIN PARENCHYMA: Mild chronic periventricular and pontine white matter changes. No abnormal focus of restricted diffusion. No acute intracranial hemorrhage identified. CSF SPACES: Mild generalized volume loss. No significant midline shift or other mass effect.No extra-axial fluid collection. VASCULAR SYSTEM: Major intracranial flow voids are maintained. PARANASAL SINUSES AND MASTOID AIR CELLS: Mild fluid in the mastoid air cells. ORBITS: Unchanged appearance with proteinaceous material in the right globe and left lens resection. MRI/Brain without Contrast IMPRESSION: No evidence for acute infarct. Mild chronic involutional and white matter changes. Electronically Signed: Justa Bass MD at 14:36 EDT ,
[2022-12-25 05:53] LABS: Absolute Lymphocyte Count 0.73 X10^3/uL (0.83-4.51); Basophil# 0.01 X10^3/uL; Basophil% 0.3 % (0-1); Eosinophil# 0.05 X10^3/uL; Eosinophils% 1.5 % (0-5); Hematocrit 28.9 % (37-47); Hemoglobin 9.5 g/dL (12.0-15.0); Lymphocyte # 0.73 X10^3/ul (0.83-4.51); Lymphocyte % 22.6 % (19-41); Mean Corp Hgb Conc 32.9 g/dL (32-36); Mean Corpuscular Hgb 30.8 pg (27.0-32.0); Mean Corpuscular Volume 93.8 fL (81-99); Monocyte# 0.42 X10^3/uL; NRBC Flagged by Analyzer 0 % (0-5); Neutrophil # 2.01 X10^3/uL (2.7-7.7); Neutrophil % 62.3 % (47-70); Platelet Count 128 K/mm3 (150-450); Red Blood Count 3.08 M/mm3 (4.2-5.4); White Blood Count 3.2 K/mm3 (4.4-11.0)
[2022-12-25 06:33] LABS: Anion Gap 4 (5-15); BUN 34 mg/dL (7-18); BUN/Creat Ratio 26.4 RATIO (10-20); Calcium,Total 8.6 mg/dL (8.5-10.1); Chloride 112 mmol/L (98-107); Cholesterol 199 mg/dL (200); Creatinine, Serum 1.29 mg/dL (0.55-1.02); EST Glomerular Filtration Rate 42 mL/min (>60); Est Glom Filt Rate - Afr Amer 50 mL/min (>60); Estimated Creatinine Clearance 24.76 ml/min; Glucose 151 mg/dL (74-106); High Density Lipoprotein 45 mg/dL; Potassium 3.7 mmol/L (3.5-5.1); Sodium Level 141 mmol/L (136-145); Triglycerides 99 mg/dL; Very Low Density Lipoprotein 20 mg/dL (5-40)
[2022-12-25 07:20] LABS: Hemoglobin A1c 7.9 % (3.8-5.6)
[2022-12-25] MEDS: Pantoprazole Sodium 20 MG Tablet PO (10:14)
[2022-12-25] MEDS: amLODIPine 2.5 MG Tablet PO (10:14)
[2022-12-25] MEDS: Carvedilol 6.25 MG Tablet PO ×2 (10:14→20:07)
[2022-12-25] MEDS: Lisinopril 10 MG Tablet PO (10:14)
[2022-12-25] MEDS: Clopidogrel Bisulfate 75 MG Tablet PO (10:14)
[2022-12-25] MEDS: Dorzolamide HCL/Timolol 10 ml Bottle 1 DRP OPHTHALMIC ×2 (10:15→20:08)
[2022-12-25] MEDS: Latanoprost 0.005% 1 Bottle 1 DRP OPHTHALMIC (10:18)
[2022-12-25] MEDS: Lactulose 20 GM/30 ML UDC 30 GM PO (11:42)
--- NOTE | 2022-12-25 15:06 | CHAPLAIN ---
Type of Pastoral Visit _x__ Initial Visit ___ Follow-up Visit ___ On-call Visit ___ General Patient Visit ___ Spiritual Assessment ___ Family Conference ___ Bereavement ___ Rapid Response ___ Code Blue ___ Other (describe below) Pastoral Care Referral From _x__ Patient ___ Family ___ Nurse ___ Physician ___ Railroad Wheels And Axles Inspector ___ Centrifugal Station Operator ___ Other (describe below) Sacrament/Intervention _x__ Active listening ___ Anointing ___ Gnosticist ___ Bereavement ___ Communion ___ Lucrecia exploration ___ ___ Life review _x__ Prayer ___ Reconciliation ___ Sacrament of Sick _x__ Supportive presence ___ Wedding ___ Other (describe below) Pastoral Comments
--- NOTE | 2022-12-25 16:48 | CASEMGMT ---
CARLOS EDUARDO RUTLEDGE Face to Face with patient for initial transition planning/care coordination assessment. RN CM introduced self and role at [facility]. Patient lying in bed, alert and oriented. Patient willing to participate in assessment and is able to answer all questions appropriately. Care providers, pharmacy, and demographics verified. Patient unsure of disposition at discharge as was just discharge from hospital with HHC. Patient gave permission for RN CM to call daughter Arcelia MORENO. RN CM called daughter Arcelia and reviewed progress with therapy. Patient required min assist x1 and walked 12 feet. Patient is currently under observation status and would not have coverage for SNF. Daugther agreeable to see how patient does with therapy tomorrow and discuss further options with CM/SW. CARLOS EDAURDO RUTLEDGE completed WHELAN form with daughter over the phone as patient requsted. Daughter gave telephone consent for WHELAN for and copy provided to patient. Daughter states she has no further needs or concerns at this time. CM to follow for discharge planning needs that may arise. 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 Benef[facility]: yes Living Will/HPOA: yes, daughter Arcelia Schneider LNOK: , daughter Living Arrangements: Patient lives with in a single story home with 1 step to enter the home. Patient was independent at home. Transportation: , daughter DME/HHC: Patient has raised toilet, grab bars, and walker at home. No previous HHC. Patient has been to [facility] in the past. Disposition Plan: TBD, anticipate HHC vs SNF pending progress with therapy. Zita DESAI, RN, CM
--- NOTE | 2022-12-25 18:12 | PCM.HOSP.N ---
Hospitalist Note Seen and examined today, her MRI did not show an acute stroke, echocardiogram showed moderate mitral insufficiency, a normal EF, and a left atrial enlargement. I talked to case management about her care, family is on sure whether they can take her home, they request that physical therapy see her again tomorrow and reevaluate her ability to be discharged home. PT and OT will evaluate the patient tomorrow again.
[2022-12-26 00:29] VITALS: BMI 24.3
[2022-12-26 03:00] VITALS: BP 165/70; PULSE 56; RESP 16; TEMP 36.5; O2SAT 100
[2022-12-26 05:00] VITALS: BMI 24.3
[2022-12-26] MEDS: Menthol/Lanolin/Calamine/Znox 113 GM Tube 1 APPLIC TOPICAL ×2 (06:50→13:56)
[2022-12-26 08:00] VITALS: O2SAT 93
[2022-12-26 09:00] VITALS: BP 164/59; PULSE 61; RESP 18; TEMP 36.7; O2SAT 100
[2022-12-26] MEDS: Dorzolamide HCL/Timolol 10 ml Bottle 1 DRP OPHTHALMIC ×2 (09:21→20:45)
[2022-12-26] MEDS: Clopidogrel Bisulfate 75 MG Tablet PO (09:22)
[2022-12-26] MEDS: Carvedilol 6.25 MG Tablet PO ×2 (09:22→20:46)
[2022-12-26] MEDS: Aspirin 81 MG TAB.CHEW PO (09:22)
[2022-12-26] MEDS: amLODIPine 2.5 MG Tablet PO (09:22)
[2022-12-26] MEDS: Pantoprazole Sodium 20 MG Tablet PO (09:23)
[2022-12-26] MEDS: Lisinopril 10 MG Tablet PO ×2 (09:23→17:15)
[2022-12-26] MEDS: Latanoprost 0.005% 1 Bottle 1 DRP OPHTHALMIC (09:26)
--- NOTE | 2022-12-26 11:59 | CASEMGMT ---
RN CM into pt room, pt dtr Arcelia present. Discussed with pt and dtr dc plan. Pt dtr states they are interested in [facility] or [facility] for s/t SNF stay for therapy. Pt was just dc'd from the hospital yesterday and is unable to help care for pt. They are willing to self pay if need be. Updated ISHAN Merida of this and dtr Arcelia would like a tc if she is no longer in the room regarding bed availability.
--- NOTE | 2022-12-26 12:21 | CASEMGMT ---
Social Work SW spoke with patient's daughter, Arcelia, who requested a referral to [facility] for short-term care. Daughter reports they can self-pay as patient is observation status. Daughter reports it is short-term while pt's spouse recovers from surgery. Daughter declined a list unless [facility] cannot accept and then list will be reviewed. SW sent referral via [facility]port to [facility]. SW to follow up with referral status and patient/daughter. Magnolia Hernandez AMUSEMENT CENTRE MANAGER, COMBAT INFORMATION CENTER OFFICER
[2022-12-26 14:04] VITALS: BMI 24.3
[2022-12-26 15:00] VITALS: BP 163/65; PULSE 62; RESP 18; TEMP 36.8; O2SAT 99
--- NOTE | 2022-12-26 18:25 | PCM.PN.HOSP ---
Reason for Visit Reason for Visit: Diagnoses Unspecified symptoms and signs involving the nervous system (12/25/22) Subjective Subjective Patient was seen and examined today, I talked at length with her daughter who was in the room at the time my examination. Patient's has just undergone prostate surgery and the family does not believe they can take care of her at home due to this. They want the patient to go to a senior care for short-term rehab services. Patient has no complaints of chest pain, shortness of breath, fevers, or chills. Objective Data Objective Data Vital Signs: Vital Signs Temp Pulse Resp BP Pulse Ox O2 Del Method 98.3 F 62 18 163/65 H 99 Room Air 12/26/22 15:00 12/26/22 15:00 12/26/22 15:00 12/26/22 15:00 12/26/22 15:00 12/26/22 15:00 Oxygen Delivery Method Room Air Weight: 60.5 kg Body Mass Index (BMI) 24.3 Intake & Output: Intake and Output for Last 24 Hours 12/24/22 12/25/22 12/26/22 23:59 23:59 23:59 Intake Total 840 / 1040 1110 / 1110 Output Total 350 / 500 1400 / 1400 Balance 490 / 540 -290 / -290 Lab / Micro Data 12/25/22 05:31 12/25/22 05:31 Rhythm Strip Rhythm Strip: Sinus Rhythm Rate: 65 Ectopy: None Physical Exam Const alert, oriented x3, no apparent distress and average body habitus General Appearance: cooperative, well kempt and well developed Orientation / Consciousness: awake, oriented to person and oriented to place HEENT normocephalic and moist oral mucous membranes Eyes PERRL, EOMs intact bilaterally and conjunctivae normal Neck supple, no JVD, thyroid normal and no carotid bruits General: trachea midline Resp normal respiratory effort, no retractions, no use of accessory muscles and clear to auscultation bilaterally Auscultation: Negative for rales, rhonchi or wheezes Cardio regular rate, regular rhythm, S1 normal heart sound, S2 normal heart sound, no murmurs, no rub and no gallops GI normal to inspection, nondistended, normoactive bowel sounds, soft to palpation, non-tender and non-distended Extremity no clubbing, cyanosis or edema Skin no rashes or lesions noted General Skin Exam: no breakdown Neuro CN's II-XII intact bilaterally, no focal motor deficits and no sensory deficits noted Sensorium / Orientation: awake and alert Speech: speech normal Psych Psych Narrative: Patient has flat affect Assessment & Plan Assessment/Plan (1) Stroke-like symptoms: PLAN: Plan 1. 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
--- NOTE | 2022-12-26 19:43 | CASEMGMT ---
Social Work SW spoke with patient's daughter regarding d/c planning. Daughter, Arcelia, is requesting SNF placement, short term. Pt is obs status and daughter is aware and able to do self-pay. Daughter reports pt's just got discharged and recovering from surgery. Daughter requests [facility], pt has been there previously. SW spoke to isabelle mann for costs and sent referral via [facility]. Isabelle Mann received referral but would not get acceptance over the weekend per admissions. SW notified patient's daughter of costs and status and daughter is agreeable. Plan: SW to follow up Wednesday with Isabelle Mann regarding self-pay admission. Magnolia Hernandez JOB RECRUITER, ASSISTANT BUSINESS MANAGER
[2022-12-26 20:50] VITALS: BP 170/67; PULSE 66; RESP 18; TEMP 36.5; O2SAT 99
[2022-12-27 02:50] VITALS: BP 133/58; PULSE 53; RESP 18; TEMP 36.6; O2SAT 99
[2022-12-27] MEDS: Menthol/Lanolin/Calamine/Znox 113 GM Tube 1 APPLIC TOPICAL ×2 (02:56→15:27)
[2022-12-27 08:50] VITALS: BP 118/50; PULSE 56; RESP 18; TEMP 36.4; O2SAT 98
[2022-12-27] MEDS: Dorzolamide HCL/Timolol 10 ml Bottle 1 DRP OPHTHALMIC ×2 (09:20→20:45)
[2022-12-27] MEDS: Lisinopril 20 MG Tablet PO (09:21)
[2022-12-27] MEDS: Clopidogrel Bisulfate 75 MG Tablet PO (09:21)
[2022-12-27] MEDS: Pantoprazole Sodium 20 MG Tablet PO (09:21)
[2022-12-27] MEDS: Aspirin 81 MG TAB.CHEW PO (09:21)
[2022-12-27] MEDS: Carvedilol 6.25 MG Tablet PO ×2 (09:21→20:45)
[2022-12-27] MEDS: amLODIPine 2.5 MG Tablet PO (09:21)
[2022-12-27] MEDS: Latanoprost 0.005% 1 Bottle 1 DRP OPHTHALMIC (09:24)
--- NOTE | 2022-12-27 09:29 | PN.HOSP_ITS ---
Reason for Visit Reason for Visit: Diagnoses Unspecified symptoms and signs involving the nervous system (12/25/22) Subjective Subjective Patient was seen and examined today, she voices no complaints of any shortness of breath, chest pain, fevers, or chills. We are currently awaiting an answer from the [facility] for approval for the patient to be admitted ([facility]). Most likely this will happen tomorrow. Objective Data Objective Data Vital Signs: Vital Signs Temp Pulse Resp BP Pulse Ox O2 Del Method 97.6 F L 56 L 18 118/50 L 98 Room Air 12/27/22 08:50 12/27/22 08:50 12/27/22 08:50 12/27/22 08:50 12/27/22 08:50 12/27/22 08:50 Oxygen Delivery Method Room Air Weight: 60.5 kg Body Mass Index (BMI) 24.3 Intake & Output: Intake and Output for Last 24 Hours 12/25/22 12/26/22 12/27/22 23:59 23:59 23:59 Intake Total 840 / 1040 1110 / 1350 290 / 290 Output Total 350 / 500 1400 / 2000 900 / 900 Balance 490 / 540 -290 / -650 -610 / -610 Lab / Micro Data 12/25/22 05:31 12/25/22 05:31 Rhythm Strip Rhythm Strip: Sinus Rhythm Rate: 65 Ectopy: None Physical Exam Narrative alert, oriented x3, no apparent distress and average body habitus General Appearance: cooperative, well kempt and well developed Orientation / Consciousness: awake, oriented to person and oriented to place HEENT normocephalic and moist oral mucous membranes Eyes PERRL, EOMs intact bilaterally and conjunctivae normal Neck supple, no JVD, thyroid normal and no carotid bruits General: trachea midline Resp normal respiratory effort, no retractions, no use of accessory muscles and clear to auscultation bilaterally Auscultation: Negative for rales, rhonchi or wheezes Cardio regular rate, regular rhythm, S1 normal heart sound, S2 normal heart sound, no murmurs, no rub and no gallops GI normal to inspection, nondistended, normoactive bowel sounds, soft to palpation, non-tender and non-distended Extremity no clubbing, cyanosis or edema Skin no rashes or lesions noted General Skin Exam: no breakdown Neuro CN's II-XII intact bilaterally, no focal motor deficits and no sensory deficits noted Sensorium / Orientation: awake and alert Speech: speech normal Psych Psych Narrative: Patient has flat affect Assessment & Plan Assessment/Plan (1) Stroke-like symptoms: PLAN: Plan 1. Generalized debility-patient's MRI did not show evidence of a stroke, PT and OT will continue to work with the patient, she will need short-term placement in a custodial facility, we are currently awaiting an answer from [facility] whether the patient can go there. 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
[2022-12-27 14:50] VITALS: BP 151/57; PULSE 56; RESP 18; TEMP 36.6; O2SAT 99
[2022-12-27 20:50] VITALS: BP 137/56; PULSE 62; RESP 18; TEMP 36.6; O2SAT 96
[2022-12-28 03:00] VITALS: BP 168/60; PULSE 60; RESP 18; TEMP 37.1; O2SAT 96
[2022-12-28] MEDS: Menthol/Lanolin/Calamine/Znox 113 GM Tube 1 APPLIC TOPICAL (03:39)
--- NOTE | 2022-12-28 07:05 | PN.HOSP_ITS ---
Reason for Visit Reason for Visit: Diagnoses Unspecified symptoms and signs involving the nervous system (12/25/22) Subjective Subjective Patient with no acute events overnight per self and per nursing report. She reports feeling fatigued otherwise denies any additional neurological complaints. Reviewed her current work-up which included an unremarkable MRI and unfortunately likely her ongoing events are progressing age. She remains amenable to skilled facility placement and understands we are waiting on clearance. Patient denies fevers, chills, nausea, emesis, abdominal pain, chest pain or dyspnea. Objective Data Objective Data Vital Signs: Vital Signs Temp Pulse Resp BP Pulse Ox O2 Del Method 98.7 F 60 18 168/60 H 96 Room Air 12/28/22 03:00 12/28/22 03:00 12/28/22 03:00 12/28/22 03:00 12/28/22 03:00 12/28/22 03:00 Oxygen Delivery Method Room Air Weight: 133 lb 6.075 oz Body Mass Index (BMI) 24.3 Intake & Output: Intake and Output for Last 24 Hours 12/26/22 12/27/22 12/28/22 23:59 23:59 23:59 Intake Total 1110 / 1350 770 / 770 Output Total 1400 / 2000 1100 / 1100 350 / 350 Balance -290 / -650 -330 / -330 -350 / -350 Lab / Micro Data 12/25/22 05:31 12/25/22 05:31 Rhythm Strip Rhythm Strip: Sinus Rhythm Rate: 65 Ectopy: None Physical Exam Narrative Physical Examination: General: Awake, alert, oriented x 3 and cooperative, seated upright in the PCU bed, fatigued, eating, denies any complaints, reports vision deficits currently stable. Skin: Normal color, normal turgor, no icterus, no cyanosis except very staged ecchymoses to extremities. HEENT: AT/NC, EOMI, PERRLA but does have chronic right eye blindness and worsening left eye vision, MMM. Lungs: Mildly diminished, greater bases, poor effort, no rales, ronchi or wheezing. Heart: Regular rate and rhythm; no gallop, rub audible. Abdomen: Soft, NTTP, ND, normal BS. Extremities: No cyanosis, clubbing, or edema. Neurological: Patient awake, alert, oriented as noted, cognitive function intact; pupils equally reactive to light and accommodation, cranial nerves= grossly normal aside from ongoing ophthalmologically issues with chronic right- sided vision blindness and worsening left eye vision, moving all 4 extremities, no focal deficits, strength moderately to severely globally decreased primarily secondary to advancing age and underlying comorbidities. Psychiatric: Affect appears mildly fatigued otherwise normal, no acute evidence of depressive or anxiety feelings. Assessment & Plan Assessment/Plan (1) Stroke-like symptoms: PLAN: Plan The patient is an 87 y/o F w/ PMHx: Chronic normocytic anemia, Chronic R eye blindness and L eye chronic vision deficits, CKD stage IIIb, PAF, CAD s/p CABG x 4, HTN, HLD, GERD, Diabetes mellitus type II who presents to the [facility] ED on 12/28/22 with history of significantly worsening gait debility, staggering as well as worsening vision of the left eye prompting ED evaluation. #1. Gait debility, worsening left eye vision unfortunately likely progressive process, CVA ruled out confounded by chronic right eye blindness secondary to history of prior temporal arteritis: Initial ED evaluation with CT of the brain with marked intracranial vascular calcifications, mild chronic changes with no acute abnormality, hest x-ray with no acute cardiopulmonary findings. Admitted to PCU with CVA work-up pursued with MRI of the brain with no evidence of acute infarct with mild chronic involutional and white matter changes. Echocardiogram with LVEF 60%, stage II diastolic dysfunction, severely enlarged LA, severe diffuse MV calcification, mild to moderate MVI, mild diffuse AV thickening, moderate diffuse AV calcification with calcified aortic root. Patient maintained on baby aspirin, Plavix, hypertensive regimen, statin not pursued as no evidence of stroke and advanced age. PT/OT/case management consulted with plan transition to skilled facility once bed allowed. #2. CAD: Status post CABG x4, will continue aspirin, Plavix, lisinopril, not on beta-humberto therapy nor statin therapy, defer. #3. Hypertension: Continue home regimen including lisinopril, Norvasc, PRN hydralazine. #4. Chronic Kidney Disease Stage IIIb: Admission BUN/Cr/1.52, baseline renal function primarily 1.4-1.6 although has vacillated repeat BMP in AM, 12/25/2022 creatinine 1.29. #5. Diabetes mellitus type II: Hold oral home regimen, ADA diet, accu checks w/ ISS. #6. Chronic normocytic anemia: Admission hemoglobin 9.6, baseline 8-9, stable, hemoglobin 9.5. #7. GERD: We will continue patient on PPI. #8. DVT prophylaxis: SCDs. #9. CODE status: DNR-CCA, no intubation status. Charges/Coding Visit Charges Inpatient E&M: 25498 Init Hosp L2
[2022-12-28 09:00] VITALS: BP 179/74; PULSE 68; RESP 16; TEMP 36.8; O2SAT 99
--- NOTE | 2022-12-28 09:07 | CASEMGMT ---
Discharge Planning Updates sent to [facility] via [facility]. Still awaiting acceptance. Irene Cat, Discharge Planning Asst.
[2022-12-28] MEDS: Dorzolamide HCL/Timolol 10 ml Bottle 1 DRP OPHTHALMIC (09:11)
[2022-12-28] MEDS: Carvedilol 6.25 MG Tablet PO (09:16)
[2022-12-28] MEDS: Latanoprost 0.005% 1 Bottle 1 DRP OPHTHALMIC (09:16)
[2022-12-28] MEDS: Aspirin 81 MG TAB.CHEW PO (09:16)
[2022-12-28] MEDS: Pantoprazole Sodium 20 MG Tablet PO (09:16)
[2022-12-28] MEDS: Lisinopril 20 MG Tablet PO (09:16)
[2022-12-28] MEDS: Clopidogrel Bisulfate 75 MG Tablet PO (09:17)
[2022-12-28] MEDS: amLODIPine 2.5 MG Tablet PO (09:17)
--- NOTE | 2022-12-28 10:28 | TREXTCAR_ITS ---
Diet Diet Order/Speech Therapy: 12/25/22 01:14 Diet: Cardiac - Heart Healthy Food consistency:: Regular Liquid Consistency:: Regular/Thin Is pt able to select menu?: No Routine Orders/Code Status Enema Type: Fleetz Enema Frequency: Daily PRN Suppository Type: Dulcolax 10mg Suppository Frequency: Daily PRN Keep PO Greater than or Equal to (%): 92 Routine Lab Work: - (Repeat CBC, CMP in 1 week.) Code Status: DNRCC-A (DNR-CCA, no intubation status.) Therapies Weight Bearing: Weight bearing as tolerated Physical Therapy: Eval and Treat Occupational Therapy: Eval and Treat Problem/Diagnosis (1) Stroke-like symptoms: Status: Acute Code(s): R29.90 - Unspecified symptoms and signs involving the nervous system Comment: Discharge Diagnoses: #1. 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 CAD, Status post CABG x4 #3. Hypertension #4. Chronic Kidney Disease Stage IIIb #5. Diabetes mellitus type II #6. Chronic normocytic anemia #7. GERD #8. Hyperlipidemia #9. CODE status: DNR-CCA, no intubation status. Allergies/Procedures Done in Hospital Allergies Penicillins Allergy (Verified 12/02/22 16:56) Hives Procedures: 2-D Echocardiogram and EKG Type of Care/Length of Stay Estimated LOS: Convalescent Care Less Than 30 days Type of Care Needed: Skilled Rehab Potential: Good Prognosis: Good Additional Orders/Day of Discharge Additional Orders: (1) Encourage HOB/Aspiration precautions, (2) Fall precautions, (3) IS 10x/hr 7a-7p while awake, (4) Encourage OOB to chair or dining room with all meals. Day of Discharge: 12/28/22 Discharge Plan Admission Admit Date/Time: 12/25/22 00:14 Primary Reason for Your Visit: Gait Debility, Vision Deficits (Acute on Chronic), Adult FTT Attending Provider: Yudy Rincon Primary Care Provider: Marcos Majano Consulting Providers: Derrick King; Paul Marino Instructions Additional Instructions / Restrictions: Additional Discharge Information/Admission Review: Gait debility, worsening left eye vision unfortunately likely progressive process, CVA ruled out confounded by 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 chest x-ray with no acute cardiopulmonary findings. MRI of the brain with no evidence of acute infarct with mild chronic involutional and white matter changes. Echocardiogram with LVEF 60%, stage II diastolic dysfunction, severely enlarged LA, severe diffuse MV calcification, mild to moderate MVI, mild diffuse AV thickening, moderate diffuse AV calcification with calcified aortic root. Patient maintained on baby aspirin, Plavix, hypertensive regimen with increase of lisinopril. Initially home list had appeared not on BB therapy but clarified and continued on coreg regimen. Discontinued ezetimibe regimen secondary to noted CrCl routline trended < 30. Discharge Orders/Prescriptions Prescriptions: New lisinopril 20 mg Tablet 20 mg PO DAILY Qty: 0 0RF melatonin 3 mg Tablet 3 mg PO QHS PRN PRN (Reason: Insomnia) Qty: 0 0RF menthol-zinc oxide [Calmoseptine] 0.44-20.6 % Ointment 1 applic topical TID Qty: 0 0RF Protocol: *Topical Application Instructions APPLICATION INSTRUCTIONS: to coccyx Continued carvedilol 6.25 MG tablet 6.25 mg PO BID Patient Comments: HEART/BLOOD PRESSURE glipizide [Glucotrol XL] 5 MG tablet extended release 24hr 5 mg PO TID Patient Comments: DIABETES aspirin 81 MG tablet,chewable 81 mg PO DAILY@0800 Patient Comments: BLOOD THINNER/HEART amlodipine 2.5 MG tablet 2.5 mg PO DAILY Qty: 30 0RF pantoprazole 20 MG tablet,delayed release (DR/EC) 20 mg PO DAILY clopidogrel 75 mg tablet 75 mg PO DAILY latanoprost 0.005 % drops 1 drp ophthalmic (eye) DAILY Patient Comments: INSTILL 1 DROP IN LEFT EYE ONCE A DAY dorzolamide-timolol 22.3-6.8 mg/mL drops 1 drp ophthalmic (eye) BID Patient Comments: INSTILL 1 DROP INTO LEFT EYE TWICE A DAY Discontinued ezetimibe 10 MG tablet 10 mg PO DAILY lisinopril 2.5 MG tablet 10 mg PO DAILY Patient Comments: BLOOD PRESSURE Referrals / Follow Up: Marcos Majano MD [Primary Care Provider] - (Please follow-up with PCP within 1- 2 weeks to review admission.) Disposition Disposition (needs filled in before D/C Order can be placed): Long-Term Facility
--- NOTE | 2022-12-28 10:35 | PCM.DC.SUM ---
Providers Date of Admission: 12/25/22 Date of Discharge: 12/28/22 Primary Care Physician: Dr. Marcos Majano MD Reason For Visit: STROKELIKE SYMPTOMS Diagnosis Discharge Diagnosis (1) Stroke-like symptoms: Status: Acute Code(s): R29.90 - Unspecified symptoms and signs involving the nervous system Plan: Discharge Diagnoses: #1. 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 CAD, Status post CABG x4 #3. Hypertension #4. Chronic Kidney Disease Stage IIIb #5. Diabetes mellitus type II #6. Chronic normocytic anemia #7. GERD #8. Hyperlipidemia #9. CODE status: DNR-CCA, no intubation status. Medications at Discharge Home Medications aspirin 81 mg chewable tablet 81 mg PO DAILY@0800 11/05/13 carvedilol 6.25 mg tablet 6.25 mg PO BID 11/05/13 glipizide 5 mg tablet, extended release 24 hr (Glucotrol XL) 5 mg PO TID 11/05/13 amlodipine 2.5 mg tablet 2.5 mg PO DAILY ##30 04/04/20 pantoprazole 20 mg tablet,delayed release 20 mg PO DAILY 09/13/20 clopidogrel 75 mg tablet 75 mg PO DAILY 12/02/22 dorzolamide 22.3 mg-timolol 6.8 mg/mL eye drops 1 drp ophthalmic (eye) BID 12/02/22 latanoprost 0.005 % eye drops 1 drp ophthalmic (eye) DAILY 12/02/22 lisinopril 20 mg tablet 20 mg PO DAILY #0 tabs 12/28/22 melatonin 3 mg tablet 3 mg PO QHS PRN PRN Insomnia #0 tabs 12/28/22 menthol 0.44 %-zinc oxide 20.6 % topical ointment (Calmoseptine) 1 applic topical TID #0 grams 12/28/22 Hospital Course Operations None Procedures EKG and Transesophageal Echo Summary of Care Provided Minutes Spent on Discharge: 35 Hospital Course: The patient is an 87 y/o F w/ PMHx: Chronic normocytic anemia, Chronic R eye blindness and L eye chronic vision deficits, CKD stage IIIb, PAF, CAD s/p CABG x 4, HTN, HLD, GERD, Diabetes mellitus type II who presented to the [facility] ED on 12/28/22 with history of significantly worsening gait debility, staggering as well as worsening vision of the left eye prompting ED evaluation. Initial ED evaluation included CT of the brain with marked intracranial vascular calcifications, mild chronic changes with no acute abnormality. chest x-ray with no acute cardiopulmonary findings. MRI of the brain with no evidence of acute infarct with mild chronic involutional and white matter changes. Patient admitted to PCU and stroke work-up initiated. Echocardiogram with LVEF 60%, stage II diastolic dysfunction, severely enlarged LA, severe diffuse MV calcification, mild to moderate MVI, mild diffuse AV thickening, moderate diffuse AV calcification with calcified aortic root. Patient maintained on baby aspirin, Plavix, hypertensive regimen with increase of lisinopril. Initially home list had appeared not on BB therapy but clarified and continued on coreg regimen. Discontinued ezetimibe regimen secondary to noted CrCl routline trended < 30. Admission BUN/Cr/1.52, baseline renal function primarily 1.4-1.6 although has vacillated repeat BMP in AM, 12/25/2022 creatinine 1.29 with recommended repeat level at facility. Admission hemoglobin 9.6, baseline 8-9, stable, hemoglobin 9.5 with recommended repeat at facility. Patient discharged to SNF in stable condition with recommended PCP follow-up. Weight / BMI Weight Weight: 133 lb 6.075 oz Body Mass Index (BMI) 24.3 ABG / Lab / Microbiology Data 12/25/22 05:31 12/25/22 05:31 Meaningful Use Info Meaningful Use Diagnoses (Choose all that apply): None applicable Discharge Plan Admission Admit Date/Time: 12/25/22 00:14 Primary Reason for Your Visit: Gait Debility, Vision Deficits (Acute on Chronic), Adult FTT Attending Provider: Yudy Rincon Primary Care Provider: Marcos Majano Consulting Providers: Derrick King; Paul Marino Instructions Additional Instructions / Restrictions: Additional Discharge Information/Admission Review: Gait debility, worsening left eye vision unfortunately likely progressive process, CVA ruled out confounded by 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 chest x-ray with no acute cardiopulmonary findings. MRI of the brain with no evidence of acute infarct with mild chronic involutional and white matter changes. Echocardiogram with LVEF 60%, stage II diastolic dysfunction, severely enlarged LA, severe diffuse MV calcification, mild to moderate MVI, mild diffuse AV thickening, moderate diffuse AV calcification with calcified aortic root. Patient maintained on baby aspirin, Plavix, hypertensive regimen with increase of lisinopril. Initially home list had appeared not on BB therapy but clarified and continued on coreg regimen. Discontinued ezetimibe regimen secondary to noted CrCl routline trended < 30. Discharge Orders/Prescriptions Prescriptions: New lisinopril 20 mg Tablet 20 mg PO DAILY Qty: 0 0RF melatonin 3 mg Tablet 3 mg PO QHS PRN PRN (Reason: Insomnia) Qty: 0 0RF menthol-zinc oxide [Calmoseptine] 0.44-20.6 % Ointment 1 applic topical TID Qty: 0 0RF Protocol: *Topical Application Instructions APPLICATION INSTRUCTIONS: to coccyx Continued carvedilol 6.25 MG tablet 6.25 mg PO BID Patient Comments: HEART/BLOOD PRESSURE glipizide [Glucotrol XL] 5 MG tablet extended release 24hr 5 mg PO TID Patient Comments: DIABETES aspirin 81 MG tablet,chewable 81 mg PO DAILY@0800 Patient Comments: BLOOD THINNER/HEART amlodipine 2.5 MG tablet 2.5 mg PO DAILY Qty: 30 0RF pantoprazole 20 MG tablet,delayed release (DR/EC) 20 mg PO DAILY clopidogrel 75 mg tablet 75 mg PO DAILY latanoprost 0.005 % drops 1 drp ophthalmic (eye) DAILY Patient Comments: INSTILL 1 DROP IN LEFT EYE ONCE A DAY dorzolamide-timolol 22.3-6.8 mg/mL drops 1 drp ophthalmic (eye) BID Patient Comments: INSTILL 1 DROP INTO LEFT EYE TWICE A DAY Discontinued ezetimibe 10 MG tablet 10 mg PO DAILY lisinopril 2.5 MG tablet 10 mg PO DAILY Patient Comments: BLOOD PRESSURE Referrals / Follow Up: Marcos Majano MD [Primary Care Provider] - (Please follow-up with PCP within 1-2 weeks to review admission.) Disposition Disposition (needs filled in before D/C Order can be placed): Jail Facility Charges/Coding Visit Charges Inpatient E&M: 80091 Disch Hosp >30min
--- NOTE | 2022-12-28 10:42 | PHA.DC.MR.R ---
Pharmacy [place] Med Reconciliation Pharmacy Service has performed discharge medication reconciliation for this patient. The patient's discharge medication list was reviewed for discrepancies and discrepancies were resolved. Medications at Discharge Home Medications aspirin 81 mg chewable tablet 81 mg PO DAILY@0800 11/05/13 carvedilol 6.25 mg tablet 6.25 mg PO BID 11/05/13 glipizide 5 mg tablet, extended release 24 hr (Glucotrol XL) 5 mg PO TID 11/05/13 amlodipine 2.5 mg tablet 2.5 mg PO DAILY ##30 04/04/20 pantoprazole 20 mg tablet,delayed release 20 mg PO DAILY 09/13/20 clopidogrel 75 mg tablet 75 mg PO DAILY 12/02/22 dorzolamide 22.3 mg-timolol 6.8 mg/mL eye drops 1 drp ophthalmic (eye) BID 12/02/22 latanoprost 0.005 % eye drops 1 drp ophthalmic (eye) DAILY 12/02/22 lisinopril 20 mg tablet 20 mg PO DAILY #0 tabs 12/28/22 melatonin 3 mg tablet 3 mg PO QHS PRN PRN Insomnia #0 tabs 12/28/22 menthol 0.44 %-zinc oxide 20.6 % topical ointment (Calmoseptine) 1 applic topical TID #0 grams 12/28/22
[2022-12-28 11:33] VITALS: O2SAT 95
--- NOTE | 2022-12-28 12:13 | CASEMGMT ---
Discharge Planning Asst. Patient has been accepted by [facility]. Discharge orders, signed med list, and transport time sent to [facility] via [facility]. [facility] will transport by at 1:30. Patient, her daughter, SW, and nursing notified. Irene Cat, Discharge Planning Asst.
--- NOTE | 2022-12-28 13:18 | NURSING ---
Report called to [facility] to SAUL Jj
[2022-12-28 13:41] VITALS: BP 137/53; PULSE 60; RESP 14; TEMP 37.3; O2SAT 97
== END 2022-12-28 10:35 | disposition skilled nursing facility (03) ==
LOC: ED 12-25 00:12 → PCU 12-25 02:40
PROVIDERS: Admitting Provider Hospitalist; Emergency Provider Emergency Medicine; PCP Family Medicine; Referring Provider Hospitalist; Visit Provider Family Medicine
DX: R27.0 Ataxia, unspecified (principal); E11.51 Type 2 diabetes mellitus with diabetic peripheral angiopathy without gangrene; E11.39 Type 2 diabetes mellitus with other diabetic ophthalmic complication; E11.22 Type 2 diabetes mellitus with diabetic chronic kidney disease; N18.32 Chronic kidney disease, stage 3b; I12.9 Hypertensive chronic kidney disease with stage 1 through stage 4 chronic kidney disease, or unspecified chronic kidney disease; I25.10 Atherosclerotic heart disease of native coronary artery without angina pectoris; Z79.82 Long term (current) use of aspirin; H53.47 Heteronymous bilateral field defects; D64.9 Anemia, unspecified; Z95.1 Presence of aortocoronary bypass graft; E78.5 Hyperlipidemia, unspecified; Z79.84 Long term (current) use of oral hypoglycemic drugs; K21.9 Gastro-esophageal reflux disease without esophagitis; H40.9 Unspecified glaucoma; Z66 Do not resuscitate; Z79.899 Other long term (current) drug therapy; I25.2 Old myocardial infarction; I08.1 Rheumatic disorders of both mitral and tricuspid valves; H54.7 Unspecified visual loss
CPT/HCPCS: 36415; 70450; 70551; 71045; 80048; 80061; 81001; 83036; 84484; 85025; 85610; 85730; 87426; 93005; 93306; 94762; 97110; 97116; 97162; 97166; 97530; 97535; 99221; 99285; A4216; G0378

== ENCOUNTER → 2022-12-29 | Outpatient (REF) | payer MEDICARE, OTHER, SELFPAY ==
[2022-12-29 06:59] LABS: Absolute Lymphocyte Count 0.93 X10^3/uL (0.83-4.51); Absolute Neutrophil Count 2.2 X10^3/uL (2.0-7.7); Basophil# 0.01 X10^3/uL; Basophil% 0.3 % (0-1); Eosinophil# 0.07 X10^3/uL; Eosinophils% 1.9 % (0-5); Hematocrit 27.5 % (37-47); Hemoglobin 8.6 g/dL (12.0-15.0); Lymphocyte # 0.93 X10^3/ul (0.83-4.51); Lymphocyte % 25.3 % (19-41); Mean Corp Hgb Conc 31.3 g/dL (32-36); Mean Corpuscular Hgb 30.5 pg (27.0-32.0); Mean Corpuscular Volume 97.5 fL (81-99); Mean Platelet Vol. 10.4 fl (6.2-12.0); Monocyte# 0.48 X10^3/uL; Monocyte% 13.1 % (0-10); NRBC Flagged by Analyzer 0 % (0-5); Neutrophil # 2.17 X10^3/uL (2.7-7.7); Neutrophil % 59.1 % (47-70); Platelet Count 105 K/mm3 (150-450); RBC Distribution Width CV 13.1 % (11.6-14.6); RBC Distribution Width SD 46.1 fl (35.1-43.9); Red Blood Count 2.82 M/mm3 (4.2-5.4); White Blood Count 3.7 K/mm3 (4.4-11.0)
[2022-12-29 07:22] LABS: ALB/GLOB Ratio 0.8 RATIO (0.9-2.4); AST(SGOT) 8 U/L (15-37); Alanine Aminotransfer ALT/SGPT 9 U/L (13-56); Albumin, Serum 2.8 g/dL (3.2-5.0); Alkaline Phosphatase 50 U/L (45-117); Anion Gap 3 (5-15); BUN 44 mg/dL (7-18); BUN/Creat Ratio 29.9 RATIO (10-20); Calcium,Total 8.6 mg/dL (8.5-10.1); Chloride 111 mmol/L (98-107); Creatinine, Serum 1.47 mg/dL (0.55-1.02); EST Glomerular Filtration Rate 36 mL/min (>60); Est Glom Filt Rate - Afr Amer 43 mL/min (>60); Globulin 3.3 g/dL (2.2-4.2); Glucose 248 mg/dL (74-106); Potassium 4.2 mmol/L (3.5-5.1); Protein, Total 6.1 g/dL (6.4-8.2); Sodium Level 139 mmol/L (136-145)
== END ==
LOC: OLS.WHLTCC 05:00
PROVIDERS: PCP Family Medicine; Visit Provider Internal Medicine
DX: D50.0 Iron deficiency anemia secondary to blood loss (chronic) (principal); R27.0 Ataxia, unspecified; M62.50 Muscle wasting and atrophy, not elsewhere classified, unspecified site
CPT/HCPCS: 36415; 80053; 85025

== ENCOUNTER → 2023-01-05 | Outpatient (REF) | payer MEDICARE, OTHER, SELFPAY ==
[2023-01-05 09:46] LABS: Absolute Lymphocyte Count 0.81 X10^3/uL (0.83-4.51); Absolute Neutrophil Count 2.6 X10^3/uL (2.0-7.7); Basophil# 0.01 X10^3/uL; Basophil% 0.3 % (0-1); Eosinophil# 0.05 X10^3/uL; Eosinophils% 1.3 % (0-5); Hematocrit 25.5 % (37-47); Hemoglobin 8.3 g/dL (12.0-15.0); Lymphocyte # 0.81 X10^3/ul (0.83-4.51); Lymphocyte % 21.1 % (19-41); Mean Corp Hgb Conc 32.5 g/dL (32-36); Mean Corpuscular Hgb 31.2 pg (27.0-32.0); Mean Corpuscular Volume 95.9 fL (81-99); Mean Platelet Vol. 9.8 fl (6.2-12.0); Monocyte# 0.38 X10^3/uL; Monocyte% 9.9 % (0-10); NRBC Flagged by Analyzer 0 % (0-5); Neutrophil # 2.57 X10^3/uL (2.7-7.7); Neutrophil % 67.1 % (47-70); Platelet Count 129 K/mm3 (150-450); RBC Distribution Width SD 45.3 fl (35.1-43.9); Red Blood Count 2.66 M/mm3 (4.2-5.4); White Blood Count 3.8 K/mm3 (4.4-11.0)
[2023-01-05 10:05] LABS: Anion Gap 4 (5-15); BUN 33 mg/dL (7-18); BUN/Creat Ratio 22.9 RATIO (10-20); Calcium,Total 8.4 mg/dL (8.5-10.1); Chloride 113 mmol/L (98-107); Creatinine, Serum 1.44 mg/dL (0.55-1.02); EST Glomerular Filtration Rate 37 mL/min (>60); Est Glom Filt Rate - Afr Amer 44 mL/min (>60); Glucose 171 mg/dL (74-106); Potassium 4.1 mmol/L (3.5-5.1); Sodium Level 140 mmol/L (136-145)
== END ==
LOC: OLS.WHLTCC 05:00
PROVIDERS: PCP Family Medicine; Visit Provider Internal Medicine
DX: D50.0 Iron deficiency anemia secondary to blood loss (chronic) (principal); R27.0 Ataxia, unspecified; M62.50 Muscle wasting and atrophy, not elsewhere classified, unspecified site; R27.8 Other lack of coordination
CPT/HCPCS: 36415; 80048; 85025

== ENCOUNTER → 2023-01-12 | Outpatient (REF) | payer MEDICARE, OTHER, SELFPAY ==
[2023-01-12 10:24] LABS: Absolute Lymphocyte Count 0.93 X10^3/uL (0.83-4.51); Absolute Neutrophil Count 2.6 X10^3/uL (2.0-7.7); Basophil# 0.02 X10^3/uL; Basophil% 0.5 % (0-1); Eosinophil# 0.08 X10^3/uL; Hematocrit 29.5 % (37-47); Hemoglobin 9.2 g/dL (12.0-15.0); Lymphocyte # 0.93 X10^3/ul (0.83-4.51); Lymphocyte % 22.7 % (19-41); Mean Corp Hgb Conc 31.2 g/dL (32-36); Mean Corpuscular Volume 96.1 fL (81-99); Mean Platelet Vol. 9.8 fl (6.2-12.0); Monocyte# 0.41 X10^3/uL; NRBC Flagged by Analyzer 0 % (0-5); Neutrophil # 2.63 X10^3/uL (2.7-7.7); Neutrophil % 64.3 % (47-70); Platelet Count 205 K/mm3 (150-450); RBC Distribution Width CV 12.9 % (11.6-14.6); RBC Distribution Width SD 44.9 fl (35.1-43.9); Red Blood Count 3.07 M/mm3 (4.2-5.4); White Blood Count 4.1 K/mm3 (4.4-11.0)
[2023-01-12 10:40] LABS: Anion Gap 3 (5-15); BUN 32 mg/dL (7-18); Calcium,Total 8.8 mg/dL (8.5-10.1); Chloride 111 mmol/L (98-107); Creatinine, Serum 1.28 mg/dL (0.55-1.02); EST Glomerular Filtration Rate 42 mL/min (>60); Est Glom Filt Rate - Afr Amer 51 mL/min (>60); Glucose 199 mg/dL (74-106); Potassium 4.1 mmol/L (3.5-5.1); Sodium Level 141 mmol/L (136-145)
== END ==
LOC: OLS.WHLTCC 05:00
PROVIDERS: PCP Family Medicine; Visit Provider Internal Medicine
DX: D50.0 Iron deficiency anemia secondary to blood loss (chronic) (principal); R27.0 Ataxia, unspecified; M62.50 Muscle wasting and atrophy, not elsewhere classified, unspecified site; R26.2 Difficulty in walking, not elsewhere classified
CPT/HCPCS: 36415; 80048; 85025

== ENCOUNTER → 2023-01-18 | Outpatient (CLI) | payer MEDICARE, OTHER, SELFPAY ==
--- NOTE | 2023-01-18 13:07 | ART_ITS ---
Reason For Study: s/p BLE Interventions Procedure A bilateral lower extremity continuous wave Doppler with analog waveform analysis and ankle brachial indexes. Prelim given to Dr. Hogan. Left Segmental Pressures Left brachial= 124mmHg. Left dorsalis pedis artery = 47mmHg. Right Segmental Pressures Right dorsalis pedis artery = >254mmHg. Indices The right ankle brachial index by the dorsalis pedis is NC. The left ankle brachial index by the dorsalis pedis is 0.38. VL/Ankle Brachial Index Interpretation Summary Bilateral monophasic flow and RUDI noncompressible on right and 0.38 left. Ordering Physician: Naga Hogan Referring Physician: Marcos Majano Performed By: Irene Wilks RDMARTIN/RVT
--- NOTE | 2023-01-18 13:07 | ADU_ITS ---
Reason For Study: s/p BLE Interventions Right Velocities Left Velocities Ext. Iliac Artery, dist = 53 cm./sec. Ext Iliac Artery, dist = 47 cm./sec. Common Femoral Artery, mid = 80 cm./sec. Common Femoral Artery, mid = 69 cm./sec. Supf Femoral Artery, prox = 66 cm./sec. Supf. Femoral Artery, prox = 38 cm./sec. Supf Femoral Artery, mid = 99 cm./sec. Lt mid SFA pre stenosis: 36cm/s Supf Femoral Artery, dist. = 33 cm./sec. Lt mid SFA stenosis: 95cm/s Profunda Femoral Artery = 70 cm./sec. Lt mid SFA post stenosis: 71cm/s Popliteal Artery, mid = 32 cm./sec. Lt dist SFA pre stenosis: 32cm/s Ant. Tibial Artery, prox = 9 cm./sec. Lt dist SFA stenosis: 140cm/s Ant. Tibial Artery, mid = 12 cm./sec. Lt dist SFA post stenosis: 45cm/s. Ant. Tibial Artery, dist = 0 cm./sec. Profunda Femoral Artery = 52 cm./sec. Post. Tibial Artery, prox = 9 cm./sec. Popliteal Artery, mid = 40 cm./sec. Post. Tibial Artery, mid = 0 cm./sec. Ant.Tibial Artery, prox = 135 cm./sec. Post. Tibial Artery, dist = 0 cm./sec. Ant Tibial Artery, mid = 0 cm./sec. Peroneal Artery, prox = 11 cm./sec. Ant. Tibial Artery, distal = 0 cm./sec. Peroneal Artery, mid = 16 cm./sec. Post. Tibial Artery, prox = 0 cm./sec. Peroneal Artery,dist = 12 cm./sec. Post Tibial Artery, mid = 0 cm./sec. Post Tibial Artery, dist. = 0 cm./sec. Peroneal Artery, prox = 4 cm./sec. Peroneal Artery, mid = 11 cm./sec. Peroneal Artery,dist. = 20 cm./sec. Procedure Exam performed in department. /US Art Duplex Bilat Lower Ext Interpretation Summary Bilateral anterior tibial and posterior tibial occlussion, otherwise widely pat ent. Ordering Physician: Naga Hogan Referring Physician: Marcos Majano Performed By: Irene Wilks, SHAYLEE, RVT
== END | disposition home or self-care (01) ==
LOC: CVS 12:58
PROVIDERS: PCP Family Medicine; Referring Provider Surgery Vascular Surgery; Visit Provider Surgery Vascular Surgery
DX: Z48.812 Encounter for surgical aftercare following surgery on the circulatory system (principal); I70.213 Atherosclerosis of native arteries of extremities with intermittent claudication, bilateral legs; I77.1 Stricture of artery
CPT/HCPCS: 93922; 93925